=== PATIENT | male | born 1945 | race Caucasian/White ===

== ENCOUNTER 2017-12-08 16:14 | Outpatient (RCR) | payer MEDICARE, OTHER, SELFPAY ==
[2017-12-08 16:31] LABS: Prothrombin Time Fingerstick 32.1 SEC (11.9-14.4)
== END 2017-12-08 16:30 | disposition home or self-care (01) ==
LOC: MTLAB 16:14
PROVIDERS: Family Provider Family Medicine Geriatric Medicine; PCP Family Medicine Geriatric Medicine; Visit Provider Internal Medicine Cardiovascular Disease
DX: I48.0 Paroxysmal atrial fibrillation (principal)
CPT/HCPCS: 36416; 85610

== ENCOUNTER → 2018-01-17 16:20 | Outpatient (CLI) | payer MEDICARE, OTHER, SELFPAY ==
[2018-01-17 17:12] LABS: Absolute Lymphocyte Count 1.11 X10^3/ul (0.83-4.51); Basophil# 0.02 X10^3/uL; Basophil% 0.3 % (0-1); Eosinophil# 0.02 X10^3/uL; Eosinophils% 0.3 % (0-5); Hematocrit 42.6 % (40-54); Hemoglobin 13.9 g/dl (13.0-16.5); Lymphocyte # 1.11 X10^3/ul (4.0); Lymphocyte % 17.9 % (19-41); Mean Corp Hgb Conc 32.6 g/gl (32-36); Mean Corpuscular Hgb 31.9 pg (27.0-32.0); Mean Corpuscular Volume 97.7 fL (80-94); Mean Platelet Vol. 9.9 fl (6.2-12.0); Monocyte# 0.98 X10^3/uL; Monocyte% 15.8 % (0-10); Neutrophil # 4.01 X10^3/uL (2.7-7.7); Neutrophil % 64.9 % (47-70); Platelet Count 187 K/mm3 (150-450); RBC Distribution Width CV 13.9 % (11.6-14.6); RBC Distribution Width SD 49.3 fl (35.1-43.9); Red Blood Count 4.36 M/mm3 (4.6-6.2); White Blood Count 6.2 K/mm3 (4.4-11.0)
[2018-01-17 17:15] LABS: POSITIVE COUNT NO; POSITIVE DIFFERENTIAL NO; POSITIVE MORPHOLOGY NO
[2018-01-17 17:31] LABS: International Normalized Ratio 1.7; Prothrombin Time (Protime)PT. 19.9 SECONDS (11.7-14.9)
[2018-01-17 17:42] LABS: ALB/GLOB Ratio 0.9 RATIO (0.9-2.4); AST(SGOT) 21 U/L (15-37); Alanine Aminotransfer ALT/SGPT 26 U/L (16-61); Albumin, Serum 3.3 g/dL (3.2-5.0); Alkaline Phosphatase 81 U/L (45-117); Anion Gap 8 (5-15); BUN 26 mg/dL (7-18); Calcium,Total 8.5 mg/dL (8.5-10.1); Chloride 104 mmol/L (98-107); Creatinine, Serum 0.96 mg/dL (0.70-1.30); EST Glomerular Filtration Rate 82 mL/min (>60); Est Glom Filt Rate - Afr Amer 99 mL/min (>60); Globulin 3.6 g/dL (2.2-4.2); Glucose 88 mg/dL (74-106); Potassium 4.6 mmol/L (3.5-5.1); Protein, Total 6.9 g/dL (6.4-8.2); Sodium Level 141 mmol/L (136-145); Thyroid Stim Hormone (TSH) 2.42 uIU/mL (0.358-3.74)
[2018-01-19 13:12] LABS: Hep C Antibodies <0.1 s/co ratio (0.0-0.9)
== END ==
PROVIDERS: Internal Medicine Cardiovascular Disease; Family Provider Family Medicine Geriatric Medicine; PCP Family Medicine Geriatric Medicine; Visit Provider Family Medicine Geriatric Medicine
DX: I10 Essential (primary) hypertension (principal); I48.0 Paroxysmal atrial fibrillation; Z12.5 Encounter for screening for malignant neoplasm of prostate; Z13.89 Encounter for screening for other disorder
CPT/HCPCS: 36415; 80053; 84153; 84443; 85025; 85610; 86803; G0103

== ENCOUNTER → 2018-02-08 13:51 | Outpatient (CLI) | payer MEDICARE, OTHER, SELFPAY ==
--- NOTE | 2018-02-08 13:52 | ECHOD_ITS ---
Reason For Study: AV REPAIR Procedure This was a 2D Doppler, Color Flow transthoracic echocardiogram. Exam performed in department. Left Ventricle Normal LV size. Mild concentric left ventricular hypertrophy. Left ventricular systolic function is normal. The estimated ejection fraction is 60 %. No regional wall motion abnormalities noted. Right Ventricle Normal RV size. Normal systolic function. Atria Normal left atrium. Normal right atrium. Mitral Valve Normal mitral valve. Tricuspid Valve Normal tricuspid valve. Mild (1+) tricuspid valve insufficiency. Aortic Valve Trisinus/trileaflet aortic valve. Mild focal aortic valve calcification. Pulmonic Valve Normal pulmonic valve. Great Vessels Normal aortic root. The pulmonary artery is normal size. Normal inferior vena cava. Pericardium/Pleural Small pericardial effusion. MMode/2D Measurements & Calculations LVIDd: 4.6 cm IVSd: 1.3 cm LVOT diam: 2.3 cm LVIDs: 2.8 cm LVPWd: 1.4 cm LVOT area: 4.0 cm2 RVDd: 3.4 cm FS: 39.2 % Ao root diam: 3.9 cm LAV(MOD-bp): 51.3 ml EDV(MOD-sp4): 107.8 ml LAV(MOD-bp) Indexed: 24.5 ml/m2 ESV(MOD-sp4): 44.1 ml LAV(MOD-sp2): 50.1 ml EF(MOD-sp4): 59.1 % LAV(MOD-sp4): 47.2 ml EDV(MOD-sp2): 74.3 ml SV(MOD-sp4): 63.7 ml SV(MOD-sp2): 41.2 ml EF(MOD-sp2): 55.5 % LA A4 area: 17.6 cm2 RA A4 area: 13.8 cm2 Doppler Measurements & Calculations MV E max denys: 83.6 cm/sec Ao V2 max: 177.2 cm/sec AI max denys: 412.5 cm/sec MV A max denys: 76.4 cm/sec Ao max P.6 mmHg AI max P.1 mmHg MV E/A: 1.1 Ao V2 mean: 109.7 cm/sec AI dec slope: 162.6 cm/sec2 Ao mean P.6 mmHg AI P1/2t: 742.9 msec Ao V2 VTI: 33.0 cm [place](I,D): 2.7 cm2 [place](V,D): 2.1 cm2 LV V1 max: 94.1 cm/sec SV(LVOT): 89.4 ml PA V2 max: 110.6 cm/sec LV V1 max P.5 mmHg LV V1 mean P.6 mmHg LV V1 mean: 58.0 cm/sec LV V1 VTI: 22.2 cm TR max denys: 230.9 cm/sec TR max P.3 mmHg Interpretation Summary Normal LV size. Mild concentric left ventricular hypertrophy. Left ventricular systolic function is normal. The estimated ejection fraction is 60 %. Mild focal aortic valve calcification. Ordering Physician: Debora Hoover/José Miguel Monte Referring Physician: BRAYDEN GONZALES [facility] Performed By: Yanna Valles, NELLI, RVT
== END ==
PROVIDERS: Family Provider Family Medicine Geriatric Medicine; PCP Family Medicine Geriatric Medicine; Visit Provider Physician Assistant Medical
DX: I71.2 Thoracic aortic aneurysm, without rupture (principal)
CPT/HCPCS: 93306

== ENCOUNTER 2018-02-12 14:09 | Outpatient (RCR) | payer MEDICARE, OTHER, SELFPAY ==
[2018-02-03 12:12] LABS: International Normalized Ratio 1.9; Prothrombin Time (Protime)PT. 21.4 SECONDS (11.7-14.9)
[2018-02-12 14:20] LABS: Prothrombin Time Fingerstick 16.4 SEC (11.9-14.4)
== END 2018-02-12 15:00 | disposition home or self-care (01) ==
LOC: LAB 14:09
PROVIDERS: Family Provider Family Medicine Geriatric Medicine; PCP Family Medicine Geriatric Medicine; Visit Provider Internal Medicine Cardiovascular Disease
DX: I48.0 Paroxysmal atrial fibrillation (principal)
CPT/HCPCS: 36415; 36416; 85610

== ENCOUNTER 2018-02-22 14:36 | Outpatient (RCR) | payer MEDICARE, OTHER, SELFPAY ==
[2018-02-22 14:51] LABS: Prothrombin Time Fingerstick 25.3 SEC (11.9-14.4)
== END 2018-02-22 15:00 | disposition home or self-care (01) ==
LOC: MTLAB 14:36
PROVIDERS: Family Provider Family Medicine Geriatric Medicine; PCP Family Medicine Geriatric Medicine; Visit Provider Internal Medicine Cardiovascular Disease
DX: I48.0 Paroxysmal atrial fibrillation (principal)
CPT/HCPCS: 36416; 85610

== ENCOUNTER → 2018-03-02 12:08 | Outpatient (CLI) | payer MEDICARE, OTHER, SELFPAY ==
--- NOTE | 2018-03-02 12:19 | RAD_ITS ---
STUDY: X-RAY CHEST REASON FOR EXAM: Male, 72 years old. COUGH TECHNIQUE: Frontal and lateral views of the chest. COMPARISON: December 28, 2016 FINDINGS: Chronic appearing increased interstitial lung markings. There are multiple median sternotomy wires. There is no demonstrated pleural abnormality. Stable left lower lobe platelike atelectasis or scarring. Enlarged heart size. Normal mediastinum and césar. Normal visualized pulmonary arteries. There is atherosclerotic calcification of the aortic arch with tortuosity. There are diffuse degenerative changes of the visualized thoracic spine. There is degenerative osteoarthritis of the bilateral shoulders. There is no demonstrated abnormality of the visualized soft tissue structures of the upper abdomen. RAD/Chest PA and Lateral IMPRESSION: There are no acute findings. Electronically Signed: Roman Wilson MD at 17:17 EDT , Service support ,
== END ==
PROVIDERS: Family Provider Family Medicine Geriatric Medicine; PCP Family Medicine Geriatric Medicine; Visit Provider Family Medicine Geriatric Medicine
DX: R05 Cough (principal); R68.83 Chills (without fever)
CPT/HCPCS: 71046; 87633

== ENCOUNTER 2018-04-19 14:39 | Outpatient (RCR) | payer MEDICARE, OTHER, SELFPAY ==
[2018-04-02 15:58] LABS: International Normalized Ratio 1.2; Prothrombin Time (Protime)PT. 15.6 SECONDS (11.7-14.9)
[2018-04-06 15:53] LABS: International Normalized Ratio 1.7; Prothrombin Time (Protime)PT. 20.1 SECONDS (11.7-14.9)
[2018-04-19 14:51] LABS: Prothrombin Time Fingerstick 22.7 SEC (11.9-14.4)
== END 2018-04-19 15:00 | disposition home or self-care (01) ==
LOC: MTLAB 14:39
PROVIDERS: Family Provider Family Medicine Geriatric Medicine; PCP Family Medicine Geriatric Medicine; Visit Provider Internal Medicine Cardiovascular Disease
DX: I48.0 Paroxysmal atrial fibrillation (principal)
CPT/HCPCS: 36415; 36416; 85610

== ENCOUNTER 2018-05-17 14:47 | Outpatient (RCR) | payer MEDICARE, OTHER, SELFPAY ==
[2018-05-04 13:10] LABS: Prothrombin Time Fingerstick 27.6 SEC (11.9-14.4)
[2018-05-17 16:00] LABS: International Normalized Ratio 2.2; Prothrombin Time (Protime)PT. 24.7 SECONDS (11.7-14.9)
== END 2018-05-17 16:00 | disposition home or self-care (01) ==
LOC: MTLAB 14:47
PROVIDERS: Family Provider Family Medicine Geriatric Medicine; PCP Family Medicine Geriatric Medicine; Visit Provider Internal Medicine Cardiovascular Disease
DX: I48.0 Paroxysmal atrial fibrillation (principal)
CPT/HCPCS: 36415; 36416; 85610

== ENCOUNTER 2018-06-01 08:44 | Outpatient (RCR) | payer MEDICARE, OTHER, SELFPAY ==
[2018-06-01 09:06] LABS: Prothrombin Time Fingerstick 29.8 SEC (11.9-14.4)
== END 2018-06-01 10:00 ==
LOC: MTLAB 08:44
PROVIDERS: Family Provider Family Medicine Geriatric Medicine; PCP Family Medicine Geriatric Medicine; Visit Provider Internal Medicine Cardiovascular Disease
DX: I48.0 Paroxysmal atrial fibrillation (principal)
CPT/HCPCS: 36416; 85610

== ENCOUNTER 2018-07-07 08:26 | Outpatient (RCR) | payer MEDICARE, OTHER, SELFPAY ==
[2018-07-07 08:46] LABS: Prothrombin Time Fingerstick 23.3 SEC (11.9-14.4)
== END 2018-07-07 10:00 | disposition home or self-care (01) ==
LOC: LAB 08:26
PROVIDERS: Family Provider Family Medicine Geriatric Medicine; PCP Family Medicine Geriatric Medicine; Visit Provider Internal Medicine Cardiovascular Disease
DX: I48.0 Paroxysmal atrial fibrillation (principal)
CPT/HCPCS: 36416; 85610

== ENCOUNTER → 2018-07-18 13:33 | Outpatient (CLI) | payer MEDICARE, OTHER, SELFPAY ==
[2018-07-18 14:25] LABS: Absolute Lymphocyte Count 0.92 X10^3/ul (0.83-4.51); Absolute Neutrophil Count 2.4 X10^3/uL (2.0-7.7); Basophil# 0.03 X10^3/uL; Basophil% 0.7 % (0-1); Eosinophil# 0.02 X10^3/uL; Eosinophils% 0.5 % (0-5); Hematocrit 42.5 % (40-54); Hemoglobin 13.7 g/dl (13.0-16.5); Lymphocyte # 0.92 X10^3/ul (4.0); Lymphocyte % 22.5 % (19-41); Mean Corp Hgb Conc 32.2 g/gl (32-36); Mean Corpuscular Volume 99.3 fL (80-94); Mean Platelet Vol. 9.5 fl (6.2-12.0); Monocyte# 0.65 X10^3/uL; Monocyte% 15.9 % (0-10); Neutrophil # 2.43 X10^3/uL (2.7-7.7); Neutrophil % 59.7 % (47-70); Platelet Count 178 K/mm3 (150-450); RBC Distribution Width CV 13.2 % (11.6-14.6); RBC Distribution Width SD 47.2 fl (35.1-43.9); Red Blood Count 4.28 M/mm3 (4.6-6.2); White Blood Count 4.1 K/mm3 (4.4-11.0)
[2018-07-18 14:28] LABS: POSITIVE COUNT NO; POSITIVE DIFFERENTIAL NO; POSITIVE MORPHOLOGY NO
[2018-07-18 14:44] LABS: Vitamin D,25 Hydroxy 19.9 ng/mL (29.95-100.01)
[2018-07-18 14:49] LABS: ALB/GLOB Ratio 0.9 RATIO (0.9-2.4); AST(SGOT) 18 U/L (15-37); Alanine Aminotransfer ALT/SGPT 24 U/L (16-61); Albumin, Serum 3.4 g/dL (3.2-5.0); Alkaline Phosphatase 75 U/L (45-117); Anion Gap 8 (5-15); BUN 23 mg/dL (7-18); BUN/Creat Ratio 25.6 RATIO (10-20); Calcium,Total 8.5 mg/dL (8.5-10.1); Chloride 106 mmol/L (98-107); EST Glomerular Filtration Rate 89 mL/min (>60); Est Glom Filt Rate - Afr Amer 107 mL/min (>60); Globulin 3.7 g/dL (2.2-4.2); Glucose 91 mg/dL (74-106); Potassium 4.3 mmol/L (3.5-5.1); Protein, Total 7.1 g/dL (6.4-8.2); Sodium Level 140 mmol/L (136-145); Thyroid Stim Hormone (TSH) 2.24 uIU/mL (0.358-3.74)
== END ==
PROVIDERS: Family Provider Family Medicine Geriatric Medicine; PCP Family Medicine Geriatric Medicine; Visit Provider Family Medicine Geriatric Medicine
DX: I10 Essential (primary) hypertension (principal); E55.9 Vitamin D deficiency, unspecified
CPT/HCPCS: 36415; 80053; 82306; 84443; 85025

== ENCOUNTER 2018-09-14 09:55 | Outpatient (RCR) | payer MEDICARE, OTHER, SELFPAY ==
[2018-09-14 10:11] LABS: Prothrombin Time Fingerstick 35.2 SEC (11.9-14.4)
== END 2018-09-14 11:00 | disposition home or self-care (01) ==
LOC: LAB 09:55
PROVIDERS: Family Provider Family Medicine Geriatric Medicine; PCP Family Medicine Geriatric Medicine; Visit Provider Internal Medicine Cardiovascular Disease
DX: I48.0 Paroxysmal atrial fibrillation (principal)
CPT/HCPCS: 36416; 85610

== ENCOUNTER 2018-09-28 16:11 | Outpatient (RCR) | payer MEDICARE, OTHER, SELFPAY ==
[2018-09-28 16:21] LABS: Prothrombin Time Fingerstick 23.8 SEC (11.9-14.4)
== END 2018-09-28 17:00 | disposition home or self-care (01) ==
LOC: MTLAB 16:11
PROVIDERS: Family Provider Family Medicine Geriatric Medicine; PCP Family Medicine Geriatric Medicine; Referring Provider Internal Medicine Cardiovascular Disease; Visit Provider Internal Medicine Cardiovascular Disease
DX: I48.0 Paroxysmal atrial fibrillation (principal)
CPT/HCPCS: 36416; 85610

== ENCOUNTER 2018-11-05 11:10 | Outpatient (RCR) | payer MEDICARE, OTHER, SELFPAY ==
[2018-11-05 11:31] LABS: Prothrombin Time Fingerstick 28.1 SEC (11.9-14.4)
--- OUTSIDE RECORDS SUMMARY | 2019-02-07 00:41 | XMS RPT_ITS ---
:1945 Author Organization OHIP Support Name Relationship Address Phone CAROL GARCIA Unavailable [address] + [place] [address] R Unavailable Unavailable Unavailable EBIE, CAROL Unavailable [address] + [place] [address] R Unavailable Unavailable Unavailable EBIE, CAROL Unavailable [address] + [place] [address] R Unavailable Unavailable Unavailable EBIE, CAROL Unavailable [address] + [place] [address] R Unavailable Unavailable Unavailable EBIE, CAROL Unavailable [address] + [place] [address] R Unavailable Unavailable Unavailable EBIE, CAROL Unavailable [address] + [place] [address] R Unavailable Unavailable Unavailable EBIE, CAROL Unavailable [address] + [place] [address] R Unavailable Unavailable Unavailable EBIE, CAROL Unavailable [address] + [place] [address] R Unavailable Unavailable Unavailable EBIE, CAROL Unavailable [address] + [place] [address] R Unavailable Unavailable Unavailable EBIE, CAROL Unavailable [address] + [place] [address] R Unavailable Unavailable Unavailable EBIE, CAROL Unavailable [address] + [place] [address] R Unavailable Unavailable Unavailable EBIE, CAROL Unavailable [address] + [place] [address] R Unavailable Unavailable Unavailable EBIE, CAROL Unavailable [address] + [place] [address] R Unavailable Unavailable Unavailable EBIE, CAROL Unavailable [address] + [place] [address] R Unavailable Unavailable Unavailable EBIE, CAROL Unavailable [address] + [place] [address] R Unavailable Unavailable Unavailable EBIE, CAROL Unavailable [address] + [place] [address] R Unavailable Unavailable Unavailable EBIE, CAROL Unavailable [address] + [place] [address] R Unavailable Unavailable Unavailable EBIE, CAROL Unavailable [address] [phone] [place] [address] R Unavailable Unavailable Unavailable EBIE, CAROL Unavailable [address] + [place] [address] R Unavailable Unavailable Unavailable Care Team Providers Name Role Phone José Miguel Monte Attending Unavailable DougiepaJosé Miguel gonzales Referring Unavailable Julio Cesar, Brayden Chi Primary Care Unavailable Debora Stover Attending Unavailable José Miguel Monte Attending Unavailable Julio Cesar, Brayden Chi Referring Unavailable José Miguel Monte Attending Unavailable MoodisJosé Miguel burrows Referring Unavailable Julio Cesar, Brayden Chi Primary Care Unavailable Debora Hoover Attending Unavailable Julio Cesar, Brayden Chi Referring Unavailable Julio Cesar, Brayden Chi Primary Care Unavailable Crystal Spencer Attending Unavailable Julio Cesar, Brayden Chi Attending Unavailable Julio Cesar, Brayden Chi Primary Care Unavailable Debora Hoover Attending Unavailable Debora Hoover Referring Unavailable Julio Cesar, Brayden Chi Primary Care Unavailable José Miguel Monte Attending Unavailable José Miguel Monte Referring Unavailable Julio Cesar, Brayden Chi Primary Care Unavailable Julio Cesar, Brayden Chi Attending Unavailable Julio Cesar, Brayden Chi Referring Unavailable Julio Cesar, Brayden Chi Primary Care Unavailable Jovanni Tijerina Attending Unavailable Debora Hoover Referring Unavailable José Miguel Monte Attending Unavailable José Miguel Monte Referring Unavailable Julio Cesar, Brayden Chi Primary Care Unavailable José Miguel Monte Attending Unavailable José Miguel Monte Referring Unavailable Julio Cesar, Brayden Chi Primary Care Unavailable José Miguel Monte Attending Unavailable José Miguel Monte Referring Unavailable Julio Cesar, Brayden Chi Primary Care Unavailable José Miguel Monte Attending Unavailable MoodispaJosé Miguel gonzales Referring Unavailable Julio Cesar, Brayden Chi Primary Care Unavailable Julio Cesar, Brayden Chi Attending Unavailable Julio Cesar, Brayden Chi Primary Care Unavailable Moodispachristian, José Miguel Attending Unavailable Moodispachristian, José Miguel Referring Unavailable Julio Cesar, Brayden Chi Primary Care Unavailable Moodispachristian, José Miguel Attending Unavailable Moodispachristian, José Miguel Referring Unavailable Julio Cesar, Brayden Chi Primary Care Unavailable Moodispachristian, José Miguel Attending Unavailable Moodispaw, José Miguel Referring Unavailable Julio Cesar, Brayden Chi Primary Care Unavailable PROBLEMS PROBLEMS DATE TYPE CONDITION / CODE ATTENDING STATUS SOURCE 12/03/2018 Unknown I48.0 - Paroxysmal José Miguel Monte Active [place] [facility] fibrillation / Hospital I48.0(ICD-10) Repository 11/18/2018 Unknown I10 - Essential Julio Cesar, Brayden Chi Active [place] (primary) Community hypertension / Hospital I10(ICD-10) Repository 03/02/2018 Unknown R68.83 - Chills Julio Cesar, Brayden Chi Active [place] (without fever) / [facility] R68.83(ICD-10) Hospital Repository 03/02/2018 Unknown R05 - Cough / Julio Cesar, Brayden Chi Active [place] R05(ICD-10) [facility] Repository 01/17/2018 Unknown I71.2 - Thoracic [place], Active [place] aortic aneurysm, [facility] without rupture / Hospital I71.2(ICD-10) Repository PROCEDURES PROCEDURES No Procedure Records FoundRESULTS RESULTS CARDIOLOGY VISIT Observed: 12/03/2018 Status: F Source: [place] REPORT 4:17 PM [facility] HOSPITAL REPOSITORY [facility] [address] [place] [address] OFFICE VISIT Date of Service: 12/03/18 MR#: [id number] Acct: [id number] Name: TEE GARCIA Rep #: [id number] : 1945 Provider: José Miguel Monte MD Age/Sex: 73/M Location: [facility] [place] Status: Signed HPI HPI Details: TEE GARCIA, is a 73 M who presents to the office today for Outpatient cardiovascular followup. Overall from a cardiac standpoint he states he is doing well. He denies any ongoing symptoms of classic angina pectoris and there has been no obvious episodes of CHF or pulmonary edema. There has been no near syncope or syncope. He has not experienced any underlying palpitations or rapid rates. He has had no obvious recurrent thromboembolic events. He has not had to go through additional cardiovascular diagnostic studies or therapeutic intervention other than this transthoracic echocardiogram on 02/08/2018. Intake Vital Signs12/03/18 Height 5 ft 10 in 12/03/18 Weight: 213 lb 12/03/18 Body Mass Index (BMI) 30.5 12/03/18 Blood Pressure 114/68 Intake Visit Reasons: 9 M FU Allergies atorvastatin Adverse Reaction (Severe, Verified 12/03/18 14:37) Myalgias pravastatin Adverse Reaction (Severe, Verified 12/03/18 14:37) Aggitation rosuvastatin [From Crestor] Adverse Reaction (Severe, Verified 12/03/18 14:37) Myalgias Medications Levothyroxine [Synthroid] 25 mcg PO DAILY 01/19/16 [History Confirmed 12/03/18] Aspirin [Aspirin, Baby] 81 mg PO DAILY@0800 02/19/16 [History Confirmed 12/03/18] amoxicillin 500 mg tablet See Rx Instructions PO .COMPLEX 01/11/18 [History Confirmed 12/03/18] sotalol 160 mg tablet 160 mg PO BID #180 tab 06/11/18 [Rx Confirmed 12/03/18] warfarin 4 mg tablet 4 mg PO .COMPLEX #90 tab 12/03/18 [Rx Confirmed 12/03/18] warfarin 5 mg tablet 5 mg PO .COMPLEX #90 tab 12/03/18 [Rx Confirmed 12/03/18] zolpidem 10 mg tablet 10 mg PO QHS PRN 30 Days #30 tab 12/03/18 [History Confirmed 12/03/18] [facility] Medical History Paroxysmal atrial fibrillation (Chronic) Aortic valve disease (Chronic) Ascending aortic aneurysm (Chronic) Mitral valve prolapse (Chronic) 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 (Chronic) Saddle embolism of pulmonary artery (Chronic) History of DVT (deep vein thrombosis) (Acute) History of TIA (transient ischemic attack) (Acute) History of pulmonary embolus (PE) (Acute) Pneumothorax (Acute) Pulmonary nodule (Acute) Sleep apnea (Acute) 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) Hyperlipidemia (Chronic) Nonrheumatic aortic (valve) insufficiency (Chronic) Pericardial effusion (Chronic) Atrial fibrillation (Inactive) Surgical History History of ascending aortic replacement (Resolved 02/01/16) History of aortic valve repair (Resolved 02/01/16) H/O aortic valve repair (Chronic) History of hernia repair (Resolved) Family History Father Cancer Prostate cancer Mother CVA (cerebral vascular accident) Brother Cancer lymphoma Other Family history of CVA Social History Smoking Status: Never smoker alcohol intake: never substance use type: does not use caffeine: Yes Type: carbonated beverages what type of physical activity do you participate in: other details: swimming frequency: 1-2 times per week duration: 45-60 minutes/day seatbelt use: always do you feel safe at home: Yes ROS Const Const: Negative for fatigue, weakness, weight gain, weight loss, frequent falls or excessive sweating Eyes Eyes: Negative for change in vision, blurry vision or transient loss of vision ENT ENT: Negative for dizziness or balance problems Cardio Chest Pain: No Palpitations: No Edema: Bilateral (occasional) Muscle aches with walking: None Resp Respiratory: Positive for SOB with activity (baseline) and Cough (productive, clear); negative for SOB at rest GI GI: Negative vomiting or vomiting blood/hematemesis : Negative for hematuria Musc Musc: Negative for balance problems, muscle aches/ myalgia, muscle weakness or joint pain Skin Skin: Negative non-healing lesions or rash Neuro Neuro: Negative for weakness, blurry vision, dizziness, lightheadedness, frequent falls or orthostatic symptoms Van Hematologic/Lymphatic: Negative for easy bleeding Endo Endo: Negative for fatigue or excessive sweating Psych Psych: Negative for anxiety or depression Allergy Allergy/Immunology: Negative for hives, Negative for rash Cardiology Exam Const Appearance: cooperative, no acute distress, well developed, healthy appearing, comfortable and well groomed Nutritional Appearance: average body habitus and underweight Orientation: alert, awake and oriented x3 Head Head: normocephalic, atraumatic and normal to inspection Ears: hearing grossly normal bilaterally Nose: external nose normal Face and Sinus: face symmetric Mouth: moist mucous membranes Teeth and gingiva: fair dentition Eyes Eyelids: eyelids normal Conjunctivae: conjunctivae normal Pupils: PERRL EOM: EOM intact bilaterally Neck Neck: normal visual inspection, no JVD and full ROM Carotids: normal carotid upstroke; negative bruit Neck Mass: Negative Neck mass Chest Chest inspection: normal inspection of the chest, symmetric chest movement and midline sternotomy incision Auscultation: Bilateral: Clear to Auscultation Cardio Palpation: normal PMI Rate: regular rate Rhythm: regular rhythm Heart sounds: S1 normal, S2 normal and murmur; negative rub or gallop Murmur: Grade 1/6, soft and mid systolic GI GI: normal to inspection, soft and bowel sounds present; negative tender Neuro General: alert, awake, oriented x3, CN's II-XI intact bilaterally and moves all extremities Skin Skin: no rashes or lesions noted Extremities Pulses: Normal: Right Posterior Tibial Pulse, Left Posterior Tibial Pulse, Right Radial Pulse, Left Radial Pulse Lower Extremity Edema: None: Bilateral Psych Psychological: normal affect Assessment AND Plan 1. Aortic valve disorder I35.9 Plan At the present time he appears to be doing well. He is not complaining of any ongoing symptoms of classic angina pectoris nor has he had any overt episodes of CHF or pulmonary edema. He will continue to be followed. 2. History of aortic valve repair Z98.890; Z86.79 Plan As you know he underwent evaluation and care of his aortic valve and thoracic aorta on 02/01/2016 at [facility]. He had repair of the aortic valve along with replacement of the ascending aorta. He appears to be doing well at this time. 3. Paroxysmal atrial fibrillation I48.0 Plan He has had no obvious recurrence of his atrial dysrhythmia. Based on his history and his medications he had an ECG today. He was noted to be in sinus rhythm with no acute ECG changes. Orders Orders: 4. Ascending aortic aneurysm I71.2 Plan Again he has undergone evaluation care was ascending aorta. This was for dilatation/yyyy aneurysm. This was repaired on 02/01/2016 with replacement of the ascending aorta and a [facility] main campus. 5. History of ascending aortic replacement Z95.828 Plan He has had followup of his ascending aorta. He had a chest CTA performed on 04/15/2016. The results are as noted above. 6. Mitral valve prolapse I34.1 Plan He will continue to be followed by history, exam: Echocardiogram was deemed appropriate. 7. Palpitations R00.2 Plan He denies any ongoing palpitations. He will continue with current medical management. 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 He has had no obvious complication. Plan Detail Other Medications New: warfarin 4 mg PO 4 mg PO Take with a 5 mg tablet to = 9mg Monday through (take 8m g Fri,Sat, Sun) 90 tabs 3RF Additional Comments There has been no obvious recurrence of a thromboembolic disease as well. Overall he will continue medical management. He will be scheduled for an outpatient visit. He will notify the office if any concerns in the interim. Thank you for allowing me to participate in the care of your patient. Please don't hesitate to call if any issues arise. This note was generated using a voice recognition system and there may be incorrect words, spelling or punctuation that were not noted when reviewing the office note prior to saving. Follow Up 9 Months (PFM) Coding Level of Care Code Off vis,est,level 4 Diagnoses Aortic valve disorder I35.9 History of aortic valve repair Z98.890; Z86.79 Paroxysmal atrial fibrillation I48.0 Ascending aortic aneurysm I71.2 History of ascending aortic replacement Z95.828 Mitral valve prolapse I34.1 Palpitations R00.2 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 Z79.01 Coding Level of Care Code Off vis,est,level 4 Diagnoses Aortic valve disorder I35.9 History of aortic valve repair Z98.890; Z86.79 Paroxysmal atrial fibrillation I48.0 Ascending aortic aneurysm I71.2 History of ascending aortic replacement Z95.828 Mitral valve prolapse I34.1 Palpitations R00.2 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 Z79.01 Supplemental Info Supplemental Information Transthoracic echocardiogram: 02/08/2018 Interpretation Summary Normal LV size. Mild concentric left ventricular hypertrophy. Left ventricular systolic function is normal. The estimated ejection fraction is 60 %. Mild focal aortic valve calcification. Stress test: 03/22/20 EXERCISE TOLERANCE TEST: The patient exercised on a German protocol for 6 minutes and 30 seconds completing stage 2 and 30 seconds of stage 3, achieving a peak heart rate of 118 beats per minute (77% predicted maximum heart rate) and a peak blood pressure of 152/78 mmHg and a peak MET capacity of approximately 7 METS. The baseline ECG demonstrated normal sinus rhythm. The peak exercise ECG demonstrated no obvious ECG changes at the heart rate achieved. There was a rare PVC during recovery. The functional capacity was considered average. The patient had no complaint of chest discomfort during exercise or recovery. The examination was discontinued secondary to dyspnea. IMPRESSION: 1. Technically inadequate (percent predicted maximum heart rate less than 85%) exercise tolerance test. 2. Peak exercise ECG with no obvious ECG changes at the heart rate achieved. 3. Rare PVC during recovery. Cardiac catheterization: 01/19/2016 Final impression: 1. Elevated left ventricular end diastolic pressure compatible decreased diastolic compliance 2. Borderline to mild elevation of the intrapulmonary and right heart pressures 3. Oxygen saturations: No obvious evidence of intercardiac shunting phenomena 4. Left ventricle: A. Normal left ventricular size, wall motion, and systolic function B. Estimated LVEF of 65% 5. Left main coronary artery: A. Angiographically normal 6. Left anterior descending coronary artery: A. Angiographically normal 7. Left circumflex coronary artery: A. Angiographically normal 8. Right coronary artery: A. Large dominant vessel B. Angiographically normal 9. Aortic valve: A. Insufficient-moderate 10. Aortic root/ascending thoracic aorta: A. Dilated/aneurysmal 11. Mitral valve: A. Stenotic-mild Chest CTA: 04/15/2016 IMPRESSION: No identified pulmonary embolus. Interval resolution of filling defects from 02/19/2016. Postsurgical changes of the ascending thoracic aorta with persistent stranding of the mediastinal soft tissues, moderate volume pericardial effusion, pleural effusions and bibasilar atelectasis. Labs LDL Cholesterol 153 mg/dL (0-130) H 05/28/13 HDL Cholesterol 52 mg/dL 05/28/13 Triglycerides 49 mg/dL 05/28/13 VLDL Cholesterol 10 mg/dL (5-40) 05/28/13 Diagnostics Electrocardiogram 12/03/18 Echocardiogram 02/08/18 Stress Test 03/22/16 Cardiac Catheterization 01/19/16 Chest X-Ray 03/02/18 12/03/18 4832 <Electronically signed by José Miguel Monte MD> Date José Miguel Monte MD Cosigner Signature: Date (if applicable) CC: Brayden Gonazles MD PROTIME W/INR Collected: 12/03/2018 Status: F Source: [place] 3:40 PM [facility] REPOSITORY TYPE CODE TESTS RESULT OUT OF REFERENCE UNITS RANGE LAB L9200.1001 11.9-14.4 SEC High PROTIME ISTAT 25.9 Result Comment: Reference Range 11.9 - 14.4 LAB L9200.2000 Normal INR ISTAT 2.20 Result Comment: Critical Value > 3.5 Performed By: #### L9200.0000 #### [facility] Laboratory Point of Care [address] [address] 12 LEAD EKG PERFORMED Observed: 12/03/2018 Status: F Source: [place] [facility] 2:41 PM [facility] HOSPITAL REPOSITORY [facility] [address] [place] [address] 12 Lead EKG performed by [facility] 12/03/18 144 MR#: [id number] Acct: [id number] Name: TEE GARCIA Rep #: [id number] : 1945 73 From: José Miguel Monte MD Attending Dr: José Miguel Monte MD Status: DEP AMB Ordering Dr: José Miguel Monte MD Date: 12/03/18 Location: [facility] [place] Sex: M C Admitted: [facility]/12 Lead EKG performed by [facility] ECG Report Interpretation Sinus Rhythm Electronically signed on 12/03/2018 at 17:25 by José Miguel Monte Software Version [id number] 12/03/18 1727 Date José Miguel Monte MD CC: Brayden Gonzales MD Date Dictated: 12/03/18 144 Date Transcribed: 12/03/181439 Orthopaedic Technologist: PM Signed PROTIME W/INR Collected: 11/05/2018 Status: F Source: [place] 11:22 AM [facility] REPOSITORY TYPE CODE TESTS RESULT OUT OF REFERENCE UNITS RANGE LAB L9200.1001 11.9-14.4 SEC High PROTIME ISTAT 28.1 Result Comment: Reference Range 11.9 - 14.4 LAB L9200.2000 Normal INR ISTAT 2.40 Result Comment: Critical Value > 3.5 Performed By: #### L9200.0000 #### [facility] Point of Care [address] [place] [address] PROTIME W/INR Collected: 09/28/2018 Status: F Source: [place] 4:16 PM [facility] REPOSITORY TYPE CODE TESTS RESULT OUT OF REFERENCE UNITS RANGE LAB L9200.1001 11.9-14.4 SEC High PROTIME ISTAT 23.8 Result Comment: Reference Range 11.9 - 14.4 LAB L9200.2000 Normal INR ISTAT 2.10 Result Comment: Critical Value > 3.5 Performed By: #### L9200.0000 #### [facility] Point of Care [address] [place] [address] PROTIME W/INR Collected: 09/14/2018 Status: F Source: [place] 10:02 AM [facility] REPOSITORY TYPE CODE TESTS RESULT OUT OF REFERENCE UNITS RANGE LAB L9200.1001 11.9-14.4 SEC High PROTIME ISTAT 35.2 Result Comment: Reference Range 11.9 - 14.4 LAB L9200.2000 Normal INR ISTAT 3.10 Result Comment: Critical Value > 3.5 Performed By: #### L9200.0000 #### [facility] Point of Care [address] [place] [address] CBC W/DIFF, AUTOMATED Collected: 07/18/2018 Status: F Source: [place] 1:35 PM [facility] REPOSITORY TYPE CODE TESTS RESULT OUT OF RANGE REFERENCE UNITS LAB L100.1000 4.4-11.0 K/mm3 Low WBC 4.1 LAB L100.1200 4.6-6.2 M/mm3 Low RBC 4.28 LAB L100.1300 13.0-16.5 g/dl Normal HGB 13.7 LAB L100.1400 40-54 % Normal HCT 42.5 LAB L100.1500 80-94 fL High MCV 99.3 LAB L100.1600 27.0-32.0 pg Normal MCH 32.0 LAB L100.1700 32-36 g/gl Normal MCHC 32.2 LAB L100.1810 11.6-14.6 % Normal RDW CV 13.2 LAB L100.1820 35.1-43.9 fl High RDW SD 47.2 LAB L100.1900 150-450 K/mm3 Normal PLT 178 LAB L100.2000 6.2-12.0 fl Normal MPV 9.5 LAB L100.2100 47-70 % Normal NEUT% 59.7 LAB L100.2200 19-41 % Normal LY% 22.5 LAB L100.2300 0-10 % High MONO% 15.9 LAB L100.2400 0-5 % Normal EO% 0.5 LAB L100.2500 0-1 % Normal BASO% 0.7 LAB L100.2550 0.0-0.9 % Normal IM GRAN % 0.700 Result Comment: IG% - Immature Granulocytes (promyelocytes, myelocytes and metamyelocytes) > 1% indicates that a LEFT SHIFT is Present. LAB L100.2620 2.0-7.7 X10 3/uL Normal Absolute Neut 2.4 LAB L100.2720 0.83-4.51 X10 3/ul Normal Absolute Lymph 0.92 Performed By: #### L100.0100 #### [facility] [address] [place], [address] VITAMIN D,25 HYDROXY Collected: 07/18/2018 Status: F Source: [place] 1:35 PM [facility] REPOSITORY TYPE CODE TESTS RESULT OUT OF REFERENCE UNITS RANGE LAB L506.1000 29.95-100.01 ng/mL Low Vitamin D 19.9 25-OH Result Comment: Vitamin D 25(OH) Status Range Deficiency <20 ng/mL (50nmol/L) Insuffciency 20 - 30 ng/mL (50 - 75 nmol/L) Sufficiency 30 - 100 ng/mL (75 - 250 nmol/L) Toxicity >100 ng/mL (>250 nmol/L) Performed By: #### L506.1000 #### [facility] [address], [address] COMPREHENSIVE METABOLIC Collected: 07/18/2018 Status: F Source: [place] 1:35 PM [facility] REPOSITORY TYPE CODE TESTS RESULT OUT OF RANGE REFERENCE UNITS LAB L501.0100 74-106 mg/dL Normal GLU 91 Result Comment: Please note revised GLUCOSE reference range effective 2017. LAB L501.1000 7-18 mg/dL High BUN 23 LAB L501.1100 0.70-1.30 mg/dL Normal CREAT,SERUM 0.90 Result Comment: The validity of the calculated GFR AND GFRAA in patients over 70 years has not been determined. Clinical correlation is essential. LAB L501.1110 >60 mL/min Normal EST GFR 89 Result Comment: Non- GFR Calc LAB L501.1115 >60 mL/min Normal EST GFR - AA 107 Result Comment: GFR Calc LAB L501.1300 10-20 RATIO High BUN/CRE 25.6 LAB L501.1500 6.4-8.2 g/dL T Normal PROT 7.1 LAB L501.1800 3.2-5.0 g/dL Normal ALB 3.4 LAB L501.1950 2.2-4.2 g/dL Normal GLOB 3.7 LAB L501.2000 0.9-2.4 RATIO Normal A/G 0.9 LAB L501.2200 8.5-10.1 mg/dL CA Normal 8.5 LAB L501.4100 15-37 U/L Normal AST 18 LAB L501.4305 45-117 U/L Normal ALK P 75 LAB L501.4405 16-61 U/L Normal ALT 24 LAB L501.4600 0.20-1.00 mg/dL T Normal BILI 0.50 LAB L501.5300 136-145 mmol/L NA Normal 140 LAB L501.5600 3.5-5.1 mmol/L K Normal 4.3 LAB L501.5900 98-107 mmol/L CL Normal 106 LAB L501.6100 21.0-32.0 mmol/L Normal CO2 26.0 LAB L501.6200 5-15 Normal GAP 8 Performed By: #### L500.4050, L501.9520 #### [facility] [address] [place], [address] THYROID STIM HORMONE Collected: 07/18/2018 Status: F Source: [place] ([facility]) 1:35 PM [facility] REPOSITORY TYPE CODE TESTS RESULT OUT OF RANGE REFERENCE UNITS LAB L501.9520 0.358-3.74 uIU/mL Normal TSH 2.24 Performed By: #### L500.4050, L501.9520 #### [facility] [address] [place], [address] PROTIME W/INR Collected: 07/07/2018 Status: F Source: [place] 8:40 AM [facility] REPOSITORY TYPE CODE TESTS RESULT OUT OF REFERENCE UNITS RANGE LAB L9200.1001 11.9-14.4 SEC High PROTIME ISTAT 23.3 Result Comment: Reference Range 11.9 - 14.4 LAB L9200.2000 Normal INR ISTAT 2.00 Result Comment: Critical Value > 3.5 Performed By: #### L9200.0000 #### [facility] Point of Care [address] [place] [address] PROTIME W/INR Collected: 06/01/2018 Status: F Source: JUANCHO FINGERSTICK 9:00 AM [facility] REPOSITORY TYPE CODE TESTS RESULT OUT OF REFERENCE UNITS RANGE LAB L9200.1001 11.9-14.4 SEC High PROTIME ISTAT 29.8 Result Comment: Reference Range 11.9 - 14.4 LAB L9200.2000 Normal INR ISTAT 2.60 Result Comment: Critical Value > 3.5 Performed By: #### L9200.0000 #### [facility] Laboratory Point of Care [address] [place] [address] PROTHROMBIN TIME W/INR Collected: 05/17/2018 Status: F Source: JUANCHO 2:49 PM [facility] REPOSITORY TYPE CODE TESTS RESULT OUT OF RANGE REFERENCE UNITS LAB L300.4150 11.7-14.9 SECONDS High PROTIME 24.7 LAB L300.4200 Normal INR 2.2 Performed By: #### L300.3900 #### [facility] [address] [place], [address] PROTIME W/INR Collected: 05/04/2018 Status: F Source: JUANCHO FINGERSTICK 1:06 PM [facility] REPOSITORY TYPE CODE TESTS RESULT OUT OF REFERENCE UNITS RANGE LAB L9200.1001 11.9-14.4 SEC High PROTIME ISTAT 27.6 Result Comment: Reference Range 11.9 - 14.4 LAB L9200.2000 Normal INR ISTAT 2.40 Result Comment: Critical Value > 3.5 Performed By: #### L9200.0000 #### [facility] Point of Care [address] [place] [address] PROTIME W/INR Collected: 04/19/2018 Status: F Source: JUANCHO FINGERSTICK 2:48 PM [facility] REPOSITORY TYPE CODE TESTS RESULT OUT OF REFERENCE UNITS RANGE LAB L9200.1001 11.9-14.4 SEC High PROTIME ISTAT 22.7 Result Comment: Reference Range 11.9 - 14.4 LAB L9200.2000 Normal INR ISTAT 2.00 Result Comment: Critical Value > 3.5 Performed By: #### L9200.0000 #### [facility] Point of Care [address] [place] [address] PROTHROMBIN TIME W/INR Collected: 04/06/2018 Status: F Source: JUANCHO 2:29 PM [facility] REPOSITORY TYPE CODE TESTS RESULT OUT OF RANGE REFERENCE UNITS LAB L300.4150 11.7-14.9 SECONDS High PROTIME 20.1 LAB L300.4200 Normal INR 1.7 Performed By: #### L300.3900 #### [facility] [address] [place], [address] PROTHROMBIN TIME W/INR Collected: 04/02/2018 Status: F Source: JUANCHO 3:18 PM [facility] REPOSITORY TYPE CODE TESTS RESULT OUT OF RANGE REFERENCE UNITS LAB L300.4150 11.7-14.9 SECONDS High PROTIME 15.6 LAB L300.4200 Normal INR 1.2 Performed By: #### L300.3900 #### [facility] [address] [place], [place], [address] Observed: 03/02/2018 Status: F Source: [place] RESPIRATORY PANEL 12:25 PM [facility] MOLECULAR REPOSITORY RP PANEL Normal Reference Range = Not Detected Copy of report sent to Infection Control Printer MS#[id number] 03/03/18 9520 ALEXANDERGeoff. RESULTS CALLED TO DR GONZALES NURSE LINE 03/03/18 7855 Kimberley Nuñez. REPORT READ BACK BY NO ONE . ADENOVIRUS Not Detected HUMAN METAPHNEUMO Positive for HUMAN METAPHNEUMO VIRUS by NAAT technology INFLUENZA A Not Detected INFLUENZA A (SUBTYPE H1) Not Detected INFLUENZA A (SUBTYPE H3) Not Detected INFLUENZA B Not Detected PARAINFLUENZA 1 Not Detected PARAINFLUENZA 2 Not Detected PARAINFLUENZA 3 Not Detected PARAINFLUENZA 4 Not Detected RHINOVIRUS Not Detected RSV A Not Detected RSV B Not Detected NAAT METHOD Testing was performed using nucleic acid amplification ORGANISM 1: HUMAN META Performed By: #### M100.638 #### [facility] [address] [place], [address] CHEST PA AND LATERAL Observed: 03/02/2018 Status: F Source: [place] 12:21 PM [facility] REPOSITORY [facility] Imaging Services [address] [place] [address] Chest PA and Lateral MR#: [id number] Acct: [id number] Name: TEE GARCIA Rep #: [id number] : 1945 M 72 From: Roman Wilson MD PCP: Julio Cesar FERMIN,Brayden Mosher Status: REG CLI Study: Chest PA and Lateral Date of Exam: 03/02/18 Exam# [id number] Ordering Dr: Brayden Gonzales MD STUDY: X-RAY CHEST REASON FOR EXAM: Male, 72 years old. COUGH TECHNIQUE: Frontal and lateral views of the chest. COMPARISON: December 28, 2016 FINDINGS: Chronic appearing increased interstitial lung markings. There are multiple median sternotomy wires. There is no demonstrated pleural abnormality. Stable left lower lobe platelike atelectasis or scarring. Enlarged heart size. Normal mediastinum and césar. Normal visualized pulmonary arteries. There is atherosclerotic calcification of the aortic arch with tortuosity. There are diffuse degenerative changes of the visualized thoracic spine. There is degenerative osteoarthritis of the bilateral shoulders. There is no demonstrated abnormality of the visualized soft tissue structures of the upper abdomen. RAD/Chest PA and Lateral IMPRESSION: There are no acute findings. Electronically Signed: Roman Wilson MD at 17:17 EDT , Service support , CC: Brayden Gonzales MD Orthopaedic Technologist: Signed PROTIME W/INR Collected: 02/22/2018 Status: F Source: [place]UANCHO FINGERSTICK 2:46 PM [facility] REPOSITORY TYPE CODE TESTS RESULT OUT OF REFERENCE UNITS RANGE LAB L9200.1001 11.9-14.4 SEC High PROTIME ISTAT 25.3 Result Comment: Reference Range 11.9 - 14.4 LAB L9200.2000 Normal INR ISTAT 2.20 Result Comment: Critical Value > 3.5 Performed By: #### L9200.0000 #### [facility] Point of Care [address] [place] [address] PROTIME W/INR Collected: 02/12/2018 Status: F Source: JUANCHO FINGERSTICK 2:15 PM [facility] REPOSITORY TYPE CODE TESTS RESULT OUT OF REFERENCE UNITS RANGE LAB L9200.1001 11.9-14.4 SEC High PROTIME ISTAT 16.4 Result Comment: Reference Range 11.9 - 14.4 LAB L9200.2000 Normal INR ISTAT 1.40 Result Comment: Critical Value > 3.5 Performed By: #### L9200.0000 #### [facility] Point of Care [address] [place] [address] ECHOCARDIOGRAM COMPLETE Observed: 02/08/2018 Status: F Source: [place] 5:27 PM [facility] REPOSITORY [facility] Cardiovascular Services [address] [place] [address] Echo Complete 02/08/18 1405 MR#: [id number] Acct: [id number] Name: TEE GARCIA Rep #: [id number] : 1945 72 From: Jovanni Tijerina MD Attending Dr: Debora Hoover Status: REG CLI Ordering Dr: Debora Hoover Date: 02/08/18 Location: CVS Sex: M C Admitted: Reason For Study: AV REPAIR Procedure This was a 2D Doppler, Color Flow transthoracic echocardiogram. Exam performed in department. Left Ventricle Normal LV size. Mild concentric left ventricular hypertrophy. Left ventricular systolic function is normal. The estimated ejection fraction is 60 %. No regional wall motion abnormalities noted. Right Ventricle Normal RV size. Normal systolic function. Atria Normal left atrium. Normal right atrium. Mitral Valve Normal mitral valve. Tricuspid Valve Normal tricuspid valve. Mild (1+) tricuspid valve insufficiency. Aortic Valve Trisinus/trileaflet aortic valve. Mild focal aortic valve calcification. Pulmonic Valve Normal pulmonic valve. Great Vessels Normal aortic root. The pulmonary artery is normal size. Normal inferior vena cava. Pericardium/Pleural Small pericardial effusion. MMode/2D Measurements AND Calculations LVIDd: 4.6 cm IVSd: 1.3 cm LVOT diam: 2.3 cm LVIDs: 2.8 cm LVPWd: 1.4 cm LVOT area: 4.0 cm2 RVDd: 3.4 cm FS: 39.2 % Ao root diam: 3.9 cm LAV(MOD-bp): 51.3 ml EDV(MOD-sp4): 107.8 ml LAV(MOD-bp) Indexed: 24.5 ml/m2 ESV(MOD-sp4): 44.1 ml LAV(MOD-sp2): 50.1 ml EF(MOD-sp4): 59.1 % LAV(MOD-sp4): 47.2 ml EDV(MOD-sp2): 74.3 ml SV(MOD-sp4): 63.7 ml SV(MOD-sp2): 41.2 ml EF(MOD-sp2): 55.5 % LA A4 area: 17.6 cm2 RA A4 area: 13.8 cm2 Doppler Measurements AND Calculations MV E max denys: 83.6 cm/sec Ao V2 max: 177.2 cm/sec AI max denys: 412.5 cm/sec MV A max denys: 76.4 cm/sec Ao max P.6 mmHg AI max P.1 mmHg MV E/A: 1.1 Ao V2 mean: 109.7 cm/sec AI dec slope: 162.6 cm/sec2 Ao mean P.6 mmHg AI P1/2t: 742.9 msec Ao V2 VTI: 33.0 cm CHAR[place]TE(I,D): 2.7 cm2 [place](V,D): 2.1 cm2 LV V1 max: 94.1 cm/sec SV(LVOT): 89.4 ml PA V2 max: 110.6 cm/sec LV V1 max P.5 mmHg LV V1 mean P.6 mmHg LV V1 mean: 58.0 cm/sec LV V1 VTI: 22.2 cm TR max denys: 230.9 cm/sec TR max P.3 mmHg Interpretation Summary Normal LV size. Mild concentric left ventricular hypertrophy. Left ventricular systolic function is normal. The estimated ejection fraction is 60 %. Mild focal aortic valve calcification. Ordering Physician: Debora Hoover/José Miguel Monte Referring Physician: BRAYDEN GONZALES CHI Performed By: Yanna Valles, NELLI, RVT 02/08/181726 Date Jovanni Tijerina MD CC: Debora Hoover; Brayden Gonzales MD Date Dictated: 02/08/18 1405 Date Transcribed: 02/08/181726 Orthopaedic Technologist: Signed PROTHROMBIN TIME W/INR Collected: 02/03/2018 Status: F Source: [place] 11:39 AM [facility] REPOSITORY TYPE CODE TESTS RESULT OUT OF RANGE REFERENCE UNITS LAB L300.4150 11.7-14.9 SECONDS High PROTIME 21.4 LAB L300.4200 Normal INR 1.9 Performed By: #### L300.3900 #### [facility] [address] [place], [address] CARDIOLOGY VISIT Observed: 01/18/2018 Status: F Source: JUANCHO REPORT 12:41 PM [facility] REPOSITORY [facility] [address] [place] [address] OFFICE VISIT Date of Service: 01/17/18 MR#: [id number] Acct: [id number] Name: TEE GARCIA Rep #: [id number] : 1945 Provider: Debora Hoover Age/Sex: 72/M Location: [facility] [place] Status: Signed HPI HPI Details: TEE GARCIA, is a 72 M who presents to the office today for a cardiovascular follow-up. He has a history of paroxysmal atrial fibrillation, mitral valve prolapse, PACs, PVCs, mitral valve calcification with known thoracic aortic aneurysm. He did undergo an aortic valve repair with thoracic aortic aneurysm repair/replacement in January 2016. From a cardiac standpoint, patient is doing well. He does not have any chest discomfort/heaviness/tightness. His exercise tolerance is stable for his age. He does not have any worsening symptoms of shortness of breath. He denies any PND. He does not have any orthopnea. He does not have any symptoms of congestive heart failure. He does not have any palpitations that he is aware of. He does not have any lightheadedness or dizziness. He does not have any near-syncope or syncope. He does not have any lower extremity edema. He does not have any symptoms of claudication. Intake Vital Signs01/17/18 Height 5 ft 10 in 01/17/18 Weight: 210 lb 01/17/18 Body Mass Index (BMI) 30.1 01/17/18 Blood Pressure 130/76 01/17/18 Blood Pressure Location Lt brachial Intake Visit Reasons: 6 M [employer] [place] [employer] Required: No Accompanied by: Is patient in pain?: No Allergies atorvastatin Adverse Reaction (Severe, Verified 01/11/18 09:00) Myalgias pravastatin Adverse Reaction (Severe, Verified 01/11/18 08:59) Aggitation rosuvastatin [From Crestor] Adverse Reaction (Severe, Verified 01/11/18 09:00) Myalgias Medications Sotalol HCl [Betapace (Beta Kwasi)] 160 mg PO BID 01/18/16 [History Confirmed 01/11/18] Levothyroxine [Synthroid] 25 mcg PO DAILY 01/19/16 [History Confirmed 01/11/18] Aspirin [Aspirin, Baby] 81 mg PO DAILY@0800 02/19/16 [History Confirmed 01/11/18] amoxicillin 500 mg tablet See Label Instructions PO .COMPLEX 01/11/18 [History Confirmed 01/11/18] zolpidem 10 mg tablet PO 30 Days #30 01/17/18 [History Confirmed 01/17/18] warfarin 4 mg tablet 4 mg PO .COMPLEX 01/18/18 [History] warfarin 5 mg tablet 5 mg PO .COMPLEX 01/18/18 [History] Ejection fraction %: 60 to 64 PFSH Medical History Aortic valve disease (Chronic) Ascending aortic aneurysm (Chronic) Mitral valve prolapse (Chronic) 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 (Chronic) Atrial fibrillation (Chronic) 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) Hyperlipidemia (Chronic) Nonrheumatic aortic (valve) insufficiency (Chronic) Pericardial effusion (Chronic) Surgical History H/O aortic valve repair (Chronic) Family History Father Cancer Prostate cancer Mother CVA (cerebral vascular accident) Brother Cancer lymphoma Other Family history of CVA Social History Smoking Status: Never smoker alcohol intake: never substance use type: does not use caffeine: Yes Type: carbonated beverages what type of physical activity do you participate in: other details: swimming frequency: 1-2 times per week duration: 45-60 minutes/day seatbelt use: always do you feel safe at home: Yes ROS Const Const: Negative for weakness, fatigue, fever(s) or headache(s) Eyes Eyes: Negative for blind spots, loss of peripheral vision or transient loss of vision ENT ENT: Negative for headache(s), dizziness, tinnitus or Nosebleed/epistaxis Cardio Chest Pain: No Palpitations: No Edema: None Muscle aches with walking: None Resp Respiratory: Negative for SOB with activity, SOB at rest, SOB orthopnea\SOB lying down or Cough GI GI: Negative nausea, vomiting, heartburn or vomiting blood/hematemesis : Negative for hematuria Musc Musc: Negative for muscle aches/ myalgia Neuro Neuro: Negative for weakness, headache(s), dizziness, near syncope, syncope, lightheadedness or orthostatic symptoms Van Hematologic/Lymphatic: Negative for easy bleeding Endo Endo: Negative for fatigue Cardiology Exam Const Appearance: cooperative, no acute distress and well developed Orientation: alert, awake and oriented x3 Head Head: normocephalic and atraumatic Mouth: moist mucous membranes Eyes General: appearance normal, both eyes and all related structures Conjunctivae: conjunctivae normal Pupils: PERRL EOM: EOM intact bilaterally Neck Neck: normal visual inspection, no lymphadenopathy and no JVD Carotids: Negative bruit Neck Mass: Negative Neck mass Chest Chest inspection: normal inspection of the chest, symmetric chest movement and midline sternotomy incision Auscultation: Bilateral: Clear to Auscultation Cardio Palpation: normal PMI Rate: regular rate Rhythm: regular rhythm Heart sounds: S1 normal, S2 normal and murmur; negative rub or gallop Murmur: Grade 1/6, soft and mid systolic GI GI: normal to inspection, soft, no hepatosplenomegaly and bowel sounds present; negative tender Neuro General: alert, awake, oriented x3, CN's II-XI intact bilaterally and moves all extremities Extremities Pulses: Normal: Right Posterior Tibial Pulse, Left Posterior Tibial Pulse, Right Radial Pulse, Left Radial Pulse Lower Extremity Edema: None: Bilateral Psych Psychological: normal affect Supplemental Info Echocardiogram in 2016 that was done postoperatively demonstrated an ejection fraction of 60%. Mild mitral, tricuspid and aortic insufficiency. Trivial pulmonic insufficiency. Aortic root repair. Assessment AND Plan 1. Aortic valve disease I35.9 JERARDO Rodrigues Stable, patient has not had any recent echocardiograms since his surgery. Will obtain an echocardiogram to evaluate stability of valve. He is aware of antibiotic prophylaxis. 2. Ascending aortic aneurysm I71.2 JERARDO Rodrigues We will continue to monitor with periodic CT scans. Orders Orders: 3. Paroxysmal atrial fibrillation I48.0 JERARDO Rodrigues Patient has been maintaining sinus rhythm. He will continue with his current dose of beta-kwasi. He is anticoagulated 4. Pure hypercholesterolemia E78.00; E78.0 JERARDO Rodrigues Lipids are being monitored closely by his primary care doctor. Will not make any adjustments. Plan Detail Other Medications New: Discontinued: docusate sodium Discontinued Reason: Pt no longer 100 mg PO BID PRN PRN Constipation taking multivitamin with folic acid Discontinued Reason: 1 tab PO DAILY Pt no longer taking Additional Comments - JERARDO Berrios The above patient was discussed with Dr. Tijerina in Dr. Monte's absence, he agrees with plan of care. Thank you for allowing us to participate in patient's plan of care, if you have any questions please do not hesitate to call. This note was generated using a voice recognition system and there may be incorrect words, spelling or punctuation errors that were not noted when reviewing the office note prior to saving. Follow Up 9 Months (pfm) Coding Level of Care Code Off vis,est,level 3 Diagnoses Aortic valve disease I35.9 Ascending aortic aneurysm I71.2 Paroxysmal atrial fibrillation I48.0 Atrial fibrillation type: paroxysmal Pure hypercholesterolemia E78.00; E78.0 Hyperlipidemia type: pure hypercholesterolemia Coding Level of Care Code Off vis,est,level 3 Diagnoses Aortic valve disease I35.9 Ascending aortic aneurysm I71.2 Paroxysmal atrial fibrillation I48.0 Atrial fibrillation type: paroxysmal Pure hypercholesterolemia E78.00; E78.0 Hyperlipidemia type: pure hypercholesterolemia 01/18/18 1052 <Electronically signed by Debora Hoover PA> Date Debora KURTZ 01/18/18 1241<Electronically signed by Jovanni Tijerina MD> Cosigner Signature: Date (if applicable) Jovanni Tijerina MD CC: Brayden Gonzales MD PROTHROMBIN TIME W/INR Collected: 01/17/2018 Status: F Source: [place] 4:30 PM [facility] REPOSITORY TYPE CODE TESTS RESULT OUT OF RANGE REFERENCE UNITS LAB L300.4150 11.7-14.9 SECONDS High PROTIME 19.9 LAB L300.4200 Normal INR 1.7 Performed By: #### L300.3900 #### [place] [facility] [address] [place], [place], [address] CBC W/DIFF, AUTOMATED Collected: 01/17/2018 Status: F Source: [place] 4:26 PM [facility] REPOSITORY TYPE CODE TESTS RESULT OUT OF RANGE REFERENCE UNITS LAB L100.1000 4.4-11.0 K/mm3 Normal WBC 6.2 LAB L100.1200 4.6-6.2 M/mm3 Low RBC 4.36 LAB L100.1300 13.0-16.5 g/dl Normal HGB 13.9 LAB L100.1400 40-54 % Normal HCT 42.6 LAB L100.1500 80-94 fL High MCV 97.7 LAB L100.1600 27.0-32.0 pg Normal MCH 31.9 LAB L100.1700 32-36 g/gl Normal MCHC 32.6 LAB L100.1810 11.6-14.6 % Normal RDW CV 13.9 LAB L100.1820 35.1-43.9 fl High RDW SD 49.3 LAB L100.1900 150-450 K/mm3 Normal PLT 187 LAB L100.2000 6.2-12.0 fl Normal MPV 9.9 LAB L100.2100 47-70 % Normal NEUT% 64.9 LAB L100.2200 19-41 % Low LY% 17.9 LAB L100.2300 0-10 % High MONO% 15.8 LAB L100.2400 0-5 % Normal EO% 0.3 LAB L100.2500 0-1 % Normal BASO% 0.3 LAB L100.2550 0.0-0.9 % Normal IM GRAN % 0.800 Result Comment: IG% - Immature Granulocytes (promyelocytes, myelocytes and metamyelocytes) > 1% indicates that a LEFT SHIFT is Present. LAB L100.2620 2.0-7.7 X10 3/uL Normal Absolute Neut 4.0 LAB L100.2720 0.83-4.51 X10 3/ul Normal Absolute Lymph 1.11 Performed By: #### L100.0100 #### [facility] [address] [place], [address] COMPREHENSIVE METABOLIC Collected: 01/17/2018 Status: F [facility] TYPE CODE TESTS RESULT OUT OF RANGE REFERENCE UNITS LAB L501.0100 74-106 mg/dL Normal GLU 88 Result Comment: Please note revised GLUCOSE reference range effective 2017. LAB L501.1000 7-18 mg/dL High BUN 26 LAB L501.1100 0.70-1.30 mg/dL Normal CREAT,SERUM 0.96 Result Comment: The validity of the calculated GFR AND GFRAA in patients over 70 years has not been determined. Clinical correlation is essential. LAB L501.1110 >60 mL/min Normal EST GFR 82 Result Comment: Non- GFR Calc LAB L501.1115 >60 mL/min Normal EST GFR - AA 99 Result Comment: GFR Calc LAB L501.1300 10-20 RATIO High BUN/CRE 27.0 LAB L501.1500 6.4-8.2 g/dL T Normal PROT 6.9 LAB L501.1800 3.2-5.0 g/dL Normal ALB 3.3 LAB L501.1950 2.2-4.2 g/dL Normal GLOB 3.6 LAB L501.2000 0.9-2.4 RATIO Normal A/G 0.9 LAB L501.2200 8.5-10.1 mg/dL CA Normal 8.5 LAB L501.4100 15-37 U/L Normal AST 21 LAB L501.4305 45-117 U/L Normal ALK P 81 LAB L501.4405 16-61 U/L Normal ALT 26 Result Comment: Please note revised ALT reference range effective 2017. LAB L501.4600 0.20-1.00 mg/dL Normal T BILI 0.50 LAB L501.5300 136-145 mmol/L Normal NA 141 LAB L501.5600 3.5-5.1 mmol/L Normal K 4.6 LAB L501.5900 98-107 mmol/L Normal CL 104 LAB L501.6100 21.0-32.0 mmol/L Normal CO2 29.0 LAB L501.6200 5-15 Normal GAP 8 Performed By: #### L500.4050, L501.9520, L501.9910 #### [facility] [address] [place], [place], [address] THYROID STIM HORMONE Collected: 01/17/2018 Status: F Source: JUANCHO (TSH) 4:26 PM [facility] REPOSITORY TYPE CODE TESTS RESULT OUT OF RANGE REFERENCE UNITS LAB L501.9520 0.358-3.74 uIU/mL Normal TSH 2.42 Performed By: #### L500.4050, L501.9520, L501.9910 #### [facility] [address] [place], [place], [address] PSA,TOTAL - ANNUAL Collected: 01/17/2018 Status: F Source: [place] SCREEN 4:26 PM [facility] REPOSITORY TYPE CODE TESTS RESULT OUT OF RANGE REFERENCE UNITS LAB L501.9910 0.00-4.00 ng/mL Normal PSA,TOT 0.30 SCREEN Result Comment: This test was performed using the TPSA assay method for the [employer] chemistry system. Values obtained with different assay methods cannot be used interchangably. When changing PSA assays in the course of monitoring a patient, additional sequential testing should be carried out to confirm baseline values. Performed By: #### L500.4050, L501.9520, L501.9910 #### [facility] [address] [place], [place], [address] HEPATITIS C ANTIBODIES Collected: 01/17/2018 Status: F Source: [place] 4:26 PM [facility] REPOSITORY TYPE CODE TESTS RESULT OUT OF RANGE REFERENCE UNITS LAB L3100.0650 0.0-0.9 s/co ratio Normal HEP C AB <0.1 Result Comment: Negative: < 0.8 Indeterminate: 0.8 - 0.9 Positive: > 0.9 The CDC recommends that a positive HCV antibody result be followed up with a HCV Nucleic Acid Amplification test (386573). Performed at: - [facility] [address] [id number] Orthopaedic Technologist: Dustin Abdul PhD, Phone: [phone] Performed By: #### L3100.0625 #### [facility] (refer to report for specific site) refer to report for address and phone number ALLERGIES ALLERGIES DATE TYPE / CODE NAME / CODE REACTION SEVERITY SOURCE 12/03/2018 Drug pravastatin/ aggitation [facility] Allergy/4160 [id number](R Hospital 75842(SNOMED XNORM) Repository CT) 12/03/2018 Drug atorvastatin [facility] Allergy/4160 /[id number]( Hospital 41838(SNOMED RXNORM) Repository CT) 12/03/2018 Drug rosuvastatin [facility] Allergy/4160 /[id number]( Hospital [address]327(SNOMED RXNORM) Repository CT) ENCOUNTERS ENCOUNTERS ADMIT/DISCHARGE ACCOUNT ADMITTING ENCOUNTER LOCATION SOURCE NUMBER CLASS 12/03/2018 [id number] Ambulatory [place] [facility] ing:LAB Repository 12/03/2018/ [id number] Ambulatory [facility] [place] [facility] 3 [facility] Repository 11/29/2018 [id number] Ambulatory [facility] [place] 7 [facility] Repository 11/05/2018/ [id number] Ambulatory [place] [facility] 8 [facility] ing:MTLAB Repository 09/28/2018/ [id number] [place] [facility] ing:MTLAB Repository 09/14/2018/ [id number] [place] 7 [facility] ing:LAB Repository 07/18/2018 [id number] Ambulatory [place] [facility] ing:POLAB3 Repository 07/07/2018/ [id number] Ambulatory [place] 8 [facility] ing:LAB Repository 06/01/2018/ [id number] Ambulatory [place] [facility] 8 [facility] ing:MTLAB Repository 05/17/2018/ [id number] Ambulatory [place] [facility] 8 [facility] ing:MTLAB Repository 04/19/2018/ [id number] Amb[place] 2 [facility] ing:MTLAB Repository 03/02/2018 [id number] Ambulatory [place] 2 [facility] ing:RAD Repository 02/22/2018/ [id number] Amb[place] [facility] 5 [facility] ing:MTLAB Repository 02/12/2018/ [id number] Ambulatory [place] [facility] 1 [facility] ing:LAB Repository 02/08/2018 [id number] Ambulatory [place] 6 [facility] ing:[facility] Repository 02/08/2018 [id number] Ambulatory BMSBuilding:W [place] 5 [facility] Repository 01/17/2018 [id number] Ambulatory [place] 9 [facility] ing:POLAB3 Repository 01/17/2018 [id number] Ambulatory BMSBuilding:B [place] 7 [facility] Repository 01/17/2018/ [id number] Ambulatory BMSBuilding:B [place] 8 4 [facility] Repository PAYERS PAYERS ENCOUNTER GUARANTOR PAYER SUBSCRIBER SOURCE 12/03/2018 RAY D [id number] Primary RAY D EBIEDOB: [place] Insurance:MEDICARE [id number] [facility] Hospital [address]201Uis: (330) Number: Repository [phone] () [id number] Date:2017-12-22 12/03/2018 Secondary RAY D EBIEDOB: [place] Insurance:[place] [id number] Number: Repository [id number] Date:2017-12-22 [facility] [place], [place] [address]PT: 12/03/2018 Tertiary NOT GIVENUNK [place] Insurance:SELF PAY [facility] Number: Effective Repository Date:2018-11-19 12/03/2018 RAY D [id number] Primary RAY D EBIEDOB: [place] Insurance:MEDICARE [id number] Memorial Hospital [address]Nbp: (330) Number: Repository [phone] ([phone]) [id number] Date:2018-01-17 12/03/2018 Secondary RAY D EBIEDOB: [place] Insurance[place] [id number] Springs Hospital Number: Repository [id number] Date:2018-01-17[address]RNK[place]FF, [place] [address]BK: 12/03/2018 Tertiary NOT GIVENUNK [place] Insurance:SELF PAY [facility] Number: Effective Repository Date:2018-11-30 11/29/2018 RAY D [id number] Primary RAY D EBIEDOB: [place] Insurance:MEDICARE [id number] [id number]: 330) Number: Repository [phone] ) [id number] Date:2018-11-29 11/29/2018 Secondary RAY D EBIEDOB: [place] Insurance[place] [id number] Springs Hospital Number: Repository [id number] Date:2018-11-29[address]IZHCKPK, [place] [address]YR: 11/29/2018 Tertiary NOT GIVENUNK [place] Insurance:SELF PAY [facility] Number: Effective Repository Date:2018-11-29 11/05/2018 RAY D [id number] Primary RAY D EBIEDOB: [place] Insurance:MEDICARE [id number] Memorial Hospital [address]Yue: (330) Number: Repository [phone] () [id number] Date:2017-12-22 11/05/2018 Secondary RAY D EBIEDOB: [place] Insurance[place] [id number]. [facility] Number: Repository [id number] Date:2017-12-22[address]QSKTODY, [place] [address]SU: 11/05/2018 Tertiary NOT GIVENUNK [place] Insurance:SELF PAY [facility] Number: Effective Repository Date:2018-10-23 09/28/2018 RAY D [id number] Primary RAY D EBIEDOB: [place] Insurance:MEDICARE [id number] Memorial Hospital [address]Luq: (330) Number: Repository [phone] () [id number] Date:2017-12-22 09/28/2018 Secondary RAY D EBIEDOB: [place] [facility] [id number] Springs Hospital Number: Repository [id number] Date:2017-12-22[address], [place] [address]PD: 09/28/2018 Tertiary NOT GIVENUNK [place] Insurance:SELF PAY [facility] Number: Effective Repository Date:2018-09-20 09/14/2018 RAY D [id number] Primary RAY D EBIEDOB: [place] Insurance:MEDICARE [id number] Memorial Hospital [address]Hnt: (330) Number: Repository [phone] () [id number] Date:2017-12-22 09/14/2018 Secondary RAY D EBIEDOB: [place] Insurance:[place] [id number] Springs Hospital Number: Repository [id number] Date:2017-12-22[address]TTPKIPR, [place] [address]UM: 09/14/2018 Tertiary NOT GIVENUNK [place] Insurance:SELF PAY [facility] Number: Effective Repository Date:2018-07-24 07/18/2018 RAY D [id number] Primary RAY D EBIEDOB: [place] Insurance:MEDICARE [id number] Memorial Hospital [address]Sfv: (330) Number: Repository [phone] () [id number] Date:2018-07-18 07/18/2018 Secondary RAY D EBIEDOB: [place] Insurance:[place] [id number] Springs Hospital Number: Repository [id number] Date:2018-07-18[address]PPVDNEV, [place] [address]TG: 07/18/2018 Tertiary NOT GIVENUNK [place] Insurance:SELF PAY [facility] Number: Effective Repository Date:2018-07-18 07/07/2018 RAY D [id number] Primary RAY D EBIEDOB: [place] Insurance:MEDICARE [id number] Memorial Hospital [address]Kki: (330) Number: Repository [phone] () [id number] Date:2017-12-22 07/07/2018 Secondary RAY D EBIEDOB: [place] Insurance:[facility] [id number] Springs Hospital Number: Repository [id number] Date:2017-12-22[address], [place] [address]YO: 07/07/2018 Tertiary NOT GIVENUNK [place] Insurance:SELF PAY [facility] Number: Effective Repository Date:2018-06-22 06/01/2018 RAY D [id number] Primary RAY D EBIEDOB: [place] Insurance:MEDICARE [id number] Memorial Hospital [address]Mua: (330) Number: Repository [phone] () [id number] Date:2017-12-22 06/01/2018 Secondary RAY D EBIEDOB: [place] Insurance:[place] [id number] Springs Hospital Number: Repository [id number] Date:2017-12-22[address], [place] [address]DH: 06/01/2018 Tertiary NOT GIVENUNK [place] Insurance:SELF PAY [facility] Number: Effective Repository Date:2018-05-18 05/17/2018 RAY D [id number] Primary RAY D EBIEDOB: [place] Insurance:MEDICARE [id number] Memorial Hospital [address]Mnc: (330) Number: Repository [phone] () [id number] Date:2017-12-22 05/17/2018 Secondary RAY D EBIEDOB: [place] Insurance:[facility] [id number] Springs Hospital Number: Repository [id number] Date:2017-12-22[address]IBEXBQU, [place] [address]ZL: 05/17/2018 Tertiary NOT GIVENUNK [place] Insurance:SELF PAY [facility] Number: Effective Repository Date:2018-04-19 04/19/2018 RAY D [id number] Primary RAY D EBIEDOB: [place] Insurance:MEDICARE [id number] Memorial Hospital [address]217Ogu: (330) Number: Repository [phone] () [id number] Date:2017-12-22 04/19/2018 Secondary RAY D EBIEDOB: [place] Insurance:[place] [id number] Springs Hospital Number: Repository [id number] Date:2017-12-22[address]VKUBU[place], [place] [address]ZE: 04/19/2018 Tertiary NOT GIVENUNK [place] Insurance:SELF PAY [facility] Number: Effective Repository Date:2018-03-20 03/02/2018 RAY D [id number] Primary RAY D EBIEDOB: [place] Insurance:MEDICARE [id number] Memorial Hospital [address]Vix: (330) Number: Repository [phone] () [id number] Date:2018-03-02 03/02/2018 Secondary RAY D EBIEDOB: [place] Insurance:[place] [id number]. [facility] Number: Repository [id number] Date:2018-03-02[address]OJHLXXP, [place] [address]BV: 03/02/2018 Tertiary NOT GIVENUNK [place] Insurance:SELF PAY [facility] Number: Effective Repository Date:2018-03-02 02/22/2018 RAY D [id number] Primary RAY D EBIEDOB: [place] Insurance:MEDICARE [id number] [facility] Hospitalolicy [facility] [address]479Psl: (330) Number: Repository [phone] () [id number] Date:2017-12-22 02/22/2018 Secondary RAY D EBIEDOB: [place] Insurance:[facility] [id number]. Luke's [facility] Number: Repository [id number] Date:2017-12-22[address]JMXLAJE, [place] [address]KE: 02/22/2018 Tertiary NOT GIVENUNK [place] Insurance:SELF PAY [facility] Number: Effective Repository Date:2018-02-19 02/12/2018 RAY D [id number] Primary RAY D EBIEDOB: [place] Insurance:MEDICARE [id number] County Hospital A [facility] [address]Nof: (330) Number: Repository [phone] () [id number] Date:2017-12-22 02/12/2018 Secondary RAY D EBIEDOB: [place] Insurance:[place] [id number]. Luke's Health [facility] Number: Repository [id number] Date:2017-12-22[address]ONSNMP, [place] [address]MK: 02/12/2018 Tertiary NOT GIVENUNK [place] Insurance:SELF PAY [facility] Number: Effective Repository Date:2017-12-22 02/08/2018 RAY D [id number] Primary RAY D EBIEDOB: [place] Insurance:MEDICARE [id number] County Hospital A [facility] [address]Pgb: (330) Number: Repository [phone] () [id number] Date:2018-01-17 02/08/2018 Secondary RAY D EBIEDOB: [place] Insurance:[facility] [id number]. Luke's Health [facility] Number: Repository [id number] Date:2018-01-17[address]BSREBVZ, [place] [address]XV: 02/08/2018 Tertiary NOT GIVENUNK [place] Insurance:SELF PAY [facility] Number: Effective Repository Date:2018-01-17 02/08/2018 RAY D [id number] Primary RAY D EBIEDOB: [place] Insurance:MEDICARE [id number] Memorial Hospital [address]Bsf: (330) Number: Repository [phone] () [id number] Date:2018-01-17 02/08/2018 Secondary RAY D EBIEDOB: [place] [id number] Springs Hospital Number: Repository [id number] Date:2018-01-17[address], [place] [address]FG: 02/08/2018 Tertiary NOT GIVENUNK [place] Insurance:SELF PAY [facility] Number: Effective Repository Date:2018-02-08 01/17/2018 RAY D [id number] Primary RAY D EBIEDOB: [place] Insurance:MEDICARE [id number] Memorial Hospital [address]Pud: (330) Number: Repository [phone] () [id number] Date:2018-01-17 01/17/2018 Secondary RAY D EBIEDOB: [place] Insurance:[facility] [id number] Springs Hospital Number: Repository [id number] Date:2018-01-17[address]TSVIBQS, [place] [address]VU: 01/17/2018 Tertiary NOT GIVENUNK [place] Insurance:SELF PAY [facility] Number: Effective Repository Date:2018-01-17 01/17/2018 RAY D [id number] Primary RAY D EBIEDOB: [place] Insurance:MEDICARE [id number] Memorial Hospital [address]Hkh: (330) Number: Repository [phone] () [id number] Date:2018-01-17 01/17/2018 Secondary RAY D EBIEDOB: [place] Insurance:[place] [id number] Springs Hospital Number: Repository [id number] Date:2018-01-17[address]DJLHRGJ, [place] [address]XA: 01/17/2018 Tertiary NOT GIVENUNK [place] Insurance:SELF PAY [facility] Number: Effective Repository Date:2018-01-17 01/17/2018 RAY D [id number] Primary RAY D EBIEDOB: [place] Insurance:MEDICARE [id number] Memorial Hospital [address]Rnd: (330) Number: Repository [phone] ( [id number] Date:2017-10-26 01/17/2018 Secondary RAY D EBIEDOB: [place] [id number] Springs Hospital Number: Repository [id number] Date:2017-10-26[address]PN[place]AGK, [place] [address]OZ: 01/17/2018 Tertiary NOT GIVENUNK [place] Insurance:SELF PAY [facility] Number: Effective Repository Date:2017-10-26
== END 2018-11-05 12:00 | disposition home or self-care (01) ==
LOC: MTLAB 11:10
PROVIDERS: Family Provider Family Medicine Geriatric Medicine; PCP Family Medicine Geriatric Medicine; Referring Provider Internal Medicine Cardiovascular Disease; Visit Provider Internal Medicine Cardiovascular Disease
DX: I48.0 Paroxysmal atrial fibrillation (principal); I26.92 Saddle embolus of pulmonary artery without acute cor pulmonale; Z79.01 Long term (current) use of anticoagulants
CPT/HCPCS: 36416; 85610

== ENCOUNTER 2018-12-03 15:30 | Outpatient (RCR) | payer MEDICARE, OTHER, SELFPAY ==
[2018-12-03 14:37] VITALS: BMI 30.5
[2018-12-03 15:45] LABS: Prothrombin Time Fingerstick 25.9 SEC (11.9-14.4)
== END 2018-12-03 16:00 | disposition home or self-care (01) ==
LOC: LAB 15:30
PROVIDERS: Family Provider Family Medicine Geriatric Medicine; PCP Family Medicine Geriatric Medicine; Referring Provider Internal Medicine Cardiovascular Disease; Visit Provider Internal Medicine Cardiovascular Disease
DX: I48.91 Unspecified atrial fibrillation (principal); I26.92 Saddle embolus of pulmonary artery without acute cor pulmonale; Z79.01 Long term (current) use of anticoagulants
CPT/HCPCS: 36416; 85610

== ENCOUNTER 2019-01-10 14:28 | Outpatient (RCR) | payer MEDICARE, OTHER, SELFPAY ==
[2019-01-10 14:45] LABS: Prothrombin Time Fingerstick 31.2 SEC (11.9-14.4)
== END 2019-01-17 14:42 | disposition home or self-care (01) ==
LOC: MTLAB 14:28
PROVIDERS: Family Provider Family Medicine Geriatric Medicine; PCP Family Medicine Geriatric Medicine; Referring Provider Internal Medicine Cardiovascular Disease; Visit Provider Internal Medicine Cardiovascular Disease
DX: I26.92 Saddle embolus of pulmonary artery without acute cor pulmonale (principal); I48.91 Unspecified atrial fibrillation; Z79.01 Long term (current) use of anticoagulants
CPT/HCPCS: 36416; 85610

== ENCOUNTER → 2019-01-28 11:28 | Outpatient (CLI) | payer MEDICARE, OTHER, SELFPAY ==
[2019-01-28 12:52] LABS: Absolute Lymphocyte Count 0.77 X10^3/ul (0.83-4.51); Absolute Neutrophil Count 2.3 X10^3/uL (2.0-7.7); Basophil# 0.03 X10^3/uL; Basophil% 0.8 % (0-1); Eosinophil# 0.02 X10^3/uL; Eosinophils% 0.5 % (0-5); Hematocrit 42.5 % (40-54); Hemoglobin 13.5 g/dl (13.0-16.5); Lymphocyte # 0.77 X10^3/ul (4.0); Lymphocyte % 20.5 % (19-41); Mean Corp Hgb Conc 31.8 g/gl (32-36); Mean Corpuscular Hgb 32.5 pg (27.0-32.0); Mean Corpuscular Volume 102.2 fL (80-94); Mean Platelet Vol. 9.6 fl (6.2-12.0); Monocyte# 0.63 X10^3/uL; Monocyte% 16.8 % (0-10); Neutrophil # 2.28 X10^3/uL (2.7-7.7); Neutrophil % 60.6 % (47-70); Platelet Count 184 K/mm3 (150-450); RBC Distribution Width SD 52.1 fl (35.1-43.9); Red Blood Count 4.16 M/mm3 (4.6-6.2); White Blood Count 3.8 K/mm3 (4.4-11.0)
[2019-01-28 12:53] LABS: POSITIVE COUNT NO; POSITIVE DIFFERENTIAL NO; POSITIVE MORPHOLOGY NO
[2019-01-28 13:10] LABS: Vitamin D,25 Hydroxy 19.9 ng/mL (29.95-100.01)
[2019-01-28 13:24] LABS: ALB/GLOB Ratio 0.9 RATIO (0.9-2.4); AST(SGOT) 20 U/L (15-37); Alanine Aminotransfer ALT/SGPT 24 U/L (16-61); Albumin, Serum 3.2 g/dL (3.2-5.0); Alkaline Phosphatase 70 U/L (45-117); Anion Gap 8 (5-15); BUN 24 mg/dL (7-18); BUN/Creat Ratio 27.3 RATIO (10-20); Calcium,Total 8.1 mg/dL (8.5-10.1); Chloride 108 mmol/L (98-107); Creatinine, Serum 0.88 mg/dL (0.70-1.30); EST Glomerular Filtration Rate 91 mL/min (>60); Est Glom Filt Rate - Afr Amer 110 mL/min (>60); Globulin 3.5 g/dL (2.2-4.2); Glucose 91 mg/dL (74-106); Potassium 4.1 mmol/L (3.5-5.1); Protein, Total 6.7 g/dL (6.4-8.2); Sodium Level 142 mmol/L (136-145); Thyroid Stim Hormone (TSH) 2.18 uIU/mL (0.358-3.74)
== END ==
PROVIDERS: Family Provider Family Medicine Geriatric Medicine; PCP Family Medicine Geriatric Medicine; Visit Provider Family Medicine Geriatric Medicine
DX: E55.9 Vitamin D deficiency, unspecified (principal); I10 Essential (primary) hypertension
CPT/HCPCS: 36415; 80053; 82306; 84443; 85025

== ENCOUNTER → 2019-02-11 09:33 | Outpatient (CLI) | payer MEDICARE, OTHER, SELFPAY ==
--- NOTE | 2019-02-11 09:36 | RAD_ITS ---
STUDY: X-RAY - ESOPHAGUS (BARIUM SWALLOW) WITH FLUOROSCOPY REASON FOR EXAM: Male, 73 years old. Chronic dysphasia. Six-month history of hoarseness. TECHNIQUE: 19 view(s) of the esophagus were obtained following swallowing of barium. FLUOROSCOPY TIME (if supplied): (0:25) minutes/seconds COMPARISON: None. FINDINGS: There is no demonstrated esophageal foreign body. There is no demonstrated stricture or mucosal abnormality. Normal gastroesophageal junction, without a demonstrated hiatal hernia. The patient ingested a 12 mm tablet of barium without any difficulty. There is atherosclerotic tortuosity of the aortic arch and descending thoracic aorta. Normal visualized pulmonary parenchyma. There are diffuse degenerative changes of the visualized thoracic spine. RAD/Esophagus Only IMPRESSION: Normal plain film x-ray examination (barium swallow) of the esophagus. Electronically Signed: Henrique Boss, at 10:05 EDT , Service support ,
== END ==
PROVIDERS: Family Provider Family Medicine Geriatric Medicine; PCP Family Medicine Geriatric Medicine; Referring Provider Otolaryngology; Visit Provider Otolaryngology
DX: R13.10 Dysphagia, unspecified (principal); I48.91 Unspecified atrial fibrillation; Z79.01 Long term (current) use of anticoagulants
CPT/HCPCS: 36416; 74220; 85610

== ENCOUNTER 2019-02-11 10:02 | Outpatient (RCR) | payer MEDICARE, OTHER, SELFPAY ==
[2019-02-11 10:16] LABS: Prothrombin Time Fingerstick 21.5 SEC (11.9-14.4)
== END 2019-02-11 11:02 | disposition home or self-care (01) ==
LOC: LAB 10:02
PROVIDERS: Family Provider Family Medicine Geriatric Medicine; PCP Family Medicine Geriatric Medicine; Referring Provider Internal Medicine Cardiovascular Disease; Visit Provider Internal Medicine Cardiovascular Disease
DX: I48.91 Unspecified atrial fibrillation (principal); I26.92 Saddle embolus of pulmonary artery without acute cor pulmonale; Z79.01 Long term (current) use of anticoagulants
CPT/HCPCS: 36416; 85610

== ENCOUNTER 2019-02-25 16:43 | Outpatient (RCR) | payer MEDICARE, OTHER, SELFPAY ==
[2019-02-25 16:55] LABS: Prothrombin Time Fingerstick 26.1 SEC (11.9-14.4)
== END 2019-03-19 16:00 | disposition home or self-care (01) ==
LOC: LAB 16:43
PROVIDERS: Family Provider Family Medicine Geriatric Medicine; PCP Family Medicine Geriatric Medicine; Referring Provider Internal Medicine Cardiovascular Disease; Visit Provider Internal Medicine Cardiovascular Disease
DX: I48.91 Unspecified atrial fibrillation (principal); I26.92 Saddle embolus of pulmonary artery without acute cor pulmonale; Z79.01 Long term (current) use of anticoagulants
CPT/HCPCS: 36416; 85610

== ENCOUNTER 2019-03-29 13:32 | Outpatient (RCR) | payer MEDICARE, OTHER, SELFPAY ==
[2019-03-29 13:51] LABS: Prothrombin Time Fingerstick 22.7 SEC (11.9-14.4)
== END 2019-03-29 15:00 | disposition home or self-care (01) ==
LOC: MTLAB 13:32
PROVIDERS: Family Provider Family Medicine Geriatric Medicine; PCP Family Medicine Geriatric Medicine; Referring Provider Internal Medicine Cardiovascular Disease; Visit Provider Internal Medicine Cardiovascular Disease
DX: I48.91 Unspecified atrial fibrillation (principal); I26.92 Saddle embolus of pulmonary artery without acute cor pulmonale; Z79.01 Long term (current) use of anticoagulants
CPT/HCPCS: 36416; 85610

== ENCOUNTER → 2019-04-12 | Outpatient (CLI) | payer MEDICARE, OTHER, SELFPAY | END | disposition home or self-care (01) | LOC: PSN 12:23 | PROVIDERS: Family Provider Family Medicine Geriatric Medicine; PCP Family Medicine Geriatric Medicine; Referring Provider Family Medicine Geriatric Medicine; Visit Provider Family Medicine Geriatric Medicine | DX: R50.9 Fever, unspecified (principal) | CPT/HCPCS: 87633 ==

== ENCOUNTER 2019-04-19 21:12 | Inpatient (IN) | payer MEDICARE, OTHER, SELFPAY ==
[2019-04-19 21:12] VITALS: BP 149/75; PULSE 75; RESP 16; TEMP 36.6; O2SAT 96; BMI 30.4
--- NOTE | 2019-04-19 21:26 | EKG12_ITS ---
Test Reason : Blood Pressure : / mmHG Vent. Rate : 069 BPM Atrial Rate : 069 BPM P-R Int : 138 ms QRS Dur : 084 ms QT Int : 466 ms P-R-T Axes : 057 000 021 degrees QTc Int : 499 ms Normal sinus rhythm Possible Left atrial enlargement Left ventricular hypertrophy Nonspecific T wave abnormality Prolonged QT Abnormal ECG Confirmed by KEYA FERMIN, VJ ([id number]), development editor PAPO BALTAZAR ([id number]) on 04/22/2019 1:46:17 PM Referred By: Gustabo Rodriguez Confirmed By:VJ LAURA MD
--- NOTE | 2019-04-19 21:29 | ED.VIS.GEN ---
History of Present Illness Chief Complaint: Overdose Detail of Chief Complaint: Unintentional over medication Informant: Patient Onset: Today Context: Sudden Onset Timing: Continuous Quality: Took 3 Sotalol tablets instead of 1 Location: Residents Current Severity: - - Asymptomatic Maximum Severity: - - Asymptomatic Worsened by: Nothing Relieved by: Nothing Associated Symptoms: No associated symptoms Prior similar symptoms: No Recent Illness/Hospitalization: No - Past Medical History (1) Aortic valve disease Status: Chronic (2) Ascending aortic aneurysm Status: Chronic (3) jail current use of anticoagulant Status: Chronic (4) Paroxysmal atrial fibrillation Status: Chronic (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 Past Medical History - Allergies and Home Meds Allergies/Adverse Reactions: Allergies atorvastatin Adverse Reaction (Severe, Verified 04/19/19 21:15) Myalgias pravastatin Adverse Reaction (Severe, Verified 04/19/19 21:15) Aggitation rosuvastatin [From Crestor] Adverse Reaction (Severe, Verified 04/19/19 21:15) Myalgias Primary Care Physician: Nish Harrell Chi, MD [Primary Care Provider] - Prior records reviewed: Yes Surgical History: herniorrhaphy - when he was 5 yrs old, hernia surgery Lives: Spouse/ Significant Other Smoking Status: Never smoker Alcohol: None Review of Systems General: Denies: Chills, Fever, Sweats Eyes: Denies: Visual changes - bilaterally, Diplopia ENT: Denies: Rhinorrhea, Sore throat Cardiovascular: Denies: Chest pain, Palpitations Respiratory: Denies: Dyspnea, Cough, Dyspnea on exertion Gastrointestinal: Denies: Abdominal pain, Nausea, Vomiting, Diarrhea, Melena, Hematochezia Genitourinary: Denies: Dysuria, Hematuria, Frequency Musculoskeletal: Denies: Myalgias, Arthralgias, Neck pain, Back pain, Extremity Pain Skin: Denies: Rash, Wounds Neurological: Denies: Headache, Weakness, Numbness Hematologic: Reports: Easy bruising. Denies: Easy bleeding Physical Exam Vital Signs/Narrative: Vital Signs Temp Pulse Resp BP Pulse Ox 04/19/19 21:12 98 F 75 16 149/75 H 96 Inital Vital Signs reviewed: Yes General: Well nourished, Well developed, No Acute Distress Head: Normocephalic, Atraumatic Eyes: Perrl, EOMI. Negative for: Pale conjunctiva, Scleral icterus, - ENT: Moist mucous membranes, No rhinorrhea Neck: Supple, Nontender, No lymphadenopathy, No JVD Cardiovascular: Regular rate, Regular rhythm, No murmurs, Normal S1, Normal S2 Respiratory: No distress, CTA bilaterally, Chest nontender Abdomen: Soft, Nontender, Nondistended, Normal bowel sounds Back: Nontender, Normal Inspection Extremities: Nontender, No edema Skin: Normal color, No rash Neurological: Alert, Oriented x3, Cranial nerves II-XII grossly intact, Normal Strength, Normal Sensation Psychological: Normal affect, Normal Mood Diagnostic/Tx/Re-eval Laboratory Results 04/19/19 04/19/19 21:30 21:30 WBC 8.8 RBC 3.98 L Hgb 13.0 Hct 39.0 L MCV 98.0 H MCH 32.7 H MCHC 33.3 RDW 13.5 RDW Differential 48.1 H Plt Count 247 MPV 9.0 Neut % (Auto) Not Reportable Absolute Neuts (auto) Not Reportable Sodium 141 Potassium 4.2 Chloride 107 Carbon Dioxide 31.0 Anion Gap 3 L BUN 32 H Creatinine 1.26 Estim Creat Clear Calc 55.52 Est GFR (MDRD) Af Amer 72 Est GFR (MDRD) Non-Af 60 BUN/Creatinine Ratio 25.4 H Glucose 110 H Calcium 8.7 - Rhythm Strip Rhythm Strip: Sinus Rhythm Rate: 75 Ectopy: None - EKG Initial EKG Interpretation: Sinus Rhythm - Ventricular rate is 69. IA interval is 138 ms. QRS durations 84 ms. QT is prolonged at 466 ms and QTC is 499 ms. There is evidence of left ventricular hypertrophy. - Medical Decision Making Patient was placed on monitor. IV was established. Poison control was contacted. I was informed based on the dose he took he will require observation for 12 hours to assess for QT prolongation. EKG was obtained appropriate blood work. Will contact hospitalist for observation status. There is prolongation of the QT interval spoke with Segundo again at poison control. He recommended treatment of hypokalemia, hypocalcemia or hypomagnesemia. Concern is development of torsades. Tarsi should be treated per algorithm. If he becomes bradycardic recommend atropine. If no effect after administration of atropine recommends 5 mg of glucagon IV push. If no effect, treat with 10 mg of glucagon IV push. If no effect after 10 mg of glucagon dextrose and insulin drip. Recommended treatment of hypotension with fluids. If fluids are on effective pressors. If pressors are unaffected recommended glucagon followed by dextrose and insulin drip. Dr. Monte is notified of patient at 2220. He agrees with plan. The hospitalist was paged for admission to PCU. 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
--- NOTE | 2019-04-19 21:32 | ED.DCSUM_ITS ---
History of Present Illness Chief Complaint: Overdose Detail of Chief Complaint: Unintentional over medication Informant: Patient Onset: Today Context: Sudden Onset Timing: Continuous Quality: Took 3 Sotalol tablets instead of 1 Location: Residents Current Severity: - - Asymptomatic Maximum Severity: - - Asymptomatic Worsened by: Nothing Relieved by: Nothing Associated Symptoms: No associated symptoms Prior similar symptoms: No Recent Illness/Hospitalization: No - Past Medical History (1) Aortic valve disease Status: Chronic (2) Ascending aortic aneurysm Status: Chronic (3) residential current use of anticoagulant Status: Chronic (4) Paroxysmal atrial fibrillation Status: Chronic (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 Past Medical History - Allergies and Home Meds Allergies/Adverse Reactions: Allergies atorvastatin Adverse Reaction (Severe, Verified 04/19/19 21:15) Myalgias pravastatin Adverse Reaction (Severe, Verified 04/19/19 21:15) Aggitation rosuvastatin [From Crestor] Adverse Reaction (Severe, Verified 04/19/19 21:15) Myalgias Primary Care Physician: Nish Harrell Chi, MD [Primary Care Provider] - Prior records reviewed: Yes Surgical History: herniorrhaphy - when he was 5 yrs old, hernia surgery Lives: Spouse/ Significant Other Smoking Status: Never smoker Alcohol: None Review of Systems General: Denies: Chills, Fever, Sweats Eyes: Denies: Visual changes - bilaterally, Diplopia ENT: Denies: Rhinorrhea, Sore throat Cardiovascular: Denies: Chest pain, Palpitations Respiratory: Denies: Dyspnea, Cough, Dyspnea on exertion Gastrointestinal: Denies: Abdominal pain, Nausea, Vomiting, Diarrhea, Melena, Hematochezia Genitourinary: Denies: Dysuria, Hematuria, Frequency Musculoskeletal: Denies: Myalgias, Arthralgias, Neck pain, Back pain, Extremity Pain Skin: Denies: Rash, Wounds Neurological: Denies: Headache, Weakness, Numbness Hematologic: Reports: Easy bruising. Denies: Easy bleeding Physical Exam Vital Signs/Narrative: Vital Signs Temp Pulse Resp BP Pulse Ox 04/19/19 21:12 98 F 75 16 149/75 H 96 Inital Vital Signs reviewed: Yes General: Well nourished, Well developed, No Acute Distress Head: Normocephalic, Atraumatic Eyes: Perrl, EOMI. Negative for: Pale conjunctiva, Scleral icterus, - ENT: Moist mucous membranes, No rhinorrhea Neck: Supple, Nontender, No lymphadenopathy, No JVD Cardiovascular: Regular rate, Regular rhythm, No murmurs, Normal S1, Normal S2 Respiratory: No distress, CTA bilaterally, Chest nontender Abdomen: Soft, Nontender, Nondistended, Normal bowel sounds Back: Nontender, Normal Inspection Extremities: Nontender, No edema Skin: Normal color, No rash Neurological: Alert, Oriented x3, Cranial nerves II-XII grossly intact, Normal Strength, Normal Sensation Psychological: Normal affect, Normal Mood Diagnostic/Tx/Re-eval Laboratory Results 04/19/19 04/19/19 21:30 21:30 WBC 8.8 RBC 3.98 L Hgb 13.0 Hct 39.0 L MCV 98.0 H MCH 32.7 H MCHC 33.3 RDW 13.5 RDW Differential 48.1 H Plt Count 247 MPV 9.0 Neut % (Auto) Not Reportable Absolute Neuts (auto) Not Reportable Sodium 141 Potassium 4.2 Chloride 107 Carbon Dioxide 31.0 Anion Gap 3 L BUN 32 H Creatinine 1.26 Estim Creat Clear Calc 55.52 Est GFR (MDRD) Af Amer 72 Est GFR (MDRD) Non-Af 60 BUN/Creatinine Ratio 25.4 H Glucose 110 H Calcium 8.7 - Rhythm Strip Rhythm Strip: Sinus Rhythm Rate: 75 Ectopy: None - EKG Initial EKG Interpretation: Sinus Rhythm - Ventricular rate is 69. NV interval is 138 ms. QRS durations 84 ms. QT is prolonged at 466 ms and QTC is 499 ms. There is evidence of left ventricular hypertrophy. - Medical Decision Making Patient was placed on monitor. IV was established. Poison control was contacted. I was informed based on the dose he took he will require observation for 12 hours to assess for QT prolongation. EKG was obtained appropriate blood work. Will contact hospitalist for observation status. There is prolongation of the QT interval spoke with Segundo again at poison control. He recommended treatment of hypokalemia, hypocalcemia or hypomagnesemia. Concern is development of torsades. Tarsi should be treated per algorithm. If he becomes bradycardic recommend atropine. If no effect after administration of atropine recommends 5 mg of glucagon IV push. If no effect, treat with 10 mg of glucagon IV push. If no effect after 10 mg of glucagon dextrose and insulin drip. Recommended treatment of hypotension with fluids. If fluids are on effective pressors. If pressors are unaffected recommended glucagon followed by dextrose and insulin drip. Dr. Monte is notified of patient at 2220. He agrees with plan. The hospitalist was paged for admission to PCU. - Critical Care Time Critical care time (excluding procedures): 30-74 minutes, Discussing w/Patient &/or Family/Pot Holder Binder, Discussing w/Consultants, Arranging Admission or Transfer ED Disposition - Plan for ED Patient: Disposition: Acute Care Hospital 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
[2019-04-19 21:47] LABS: Mean Corp Hgb Conc 33.3 g/gl (32-36); Mean Corpuscular Hgb 32.7 pg (27.0-32.0); Platelet Count 247 K/mm3 (150-450); RBC Distribution Width CV 13.5 % (11.6-14.6); RBC Distribution Width SD 48.1 fl (35.1-43.9); Red Blood Count 3.98 M/mm3 (4.6-6.2); White Blood Count 8.8 K/mm3 (4.4-11.0)
[2019-04-19 21:48] LABS: Differential Indicated MANUAL DIFF; POSITIVE COUNT YES; POSITIVE DIFFERENTIAL NO; POSITIVE MORPHOLOGY YES
[2019-04-19 22:02] LABS: Anion Gap 3 (5-15); BUN 32 mg/dL (7-18); BUN/Creat Ratio 25.4 RATIO (10-20); Calcium,Total 8.7 mg/dL (8.5-10.1); Chloride 107 mmol/L (98-107); Creatinine, Serum 1.26 mg/dL (0.70-1.30); EST Glomerular Filtration Rate 60 mL/min (>60); Est Glom Filt Rate - Afr Amer 72 mL/min (>60); Estimated Creatinine Clearance 55.52 ml/min; Glucose 110 mg/dL (74-106); Potassium 4.2 mmol/L (3.5-5.1); Sodium Level 141 mmol/L (136-145)
[2019-04-19 22:18] LABS: Differential Comment SCANNED; Lymphocyte 30 % (19-41); Monocyte 8 % (0-10); Myelocyte 6 (0-0); Neutrophil-Segmented 56 % (47-70); Total Cells Counted 100 (MANUAL DIFF)
[2019-04-19 22:19] LABS: Platelet Estimate ADEQUATE (ADEQ)
[2019-04-19 22:21] LABS: Absolute Lymphocyte Count 2.64 X10^3/ul (0.83-4.51); Absolute Neutrophil Count 4.9 X10^3/uL (2.0-7.7); Lymphocyte # 2.64 X10^3/ul (4.0); Neutrophil # 4.93 X10^3/uL (2.7-7.7)
[2019-04-19 22:23] LABS: Magnesium 2.1 mg/dL (1.6-2.6)
--- NOTE | 2019-04-19 22:23 | PCM.HP.STD ---
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 Patient takes 160 mg sotalol twice daily. However in the evening before presentation instead of his 160 mg he accidentally took extra 2 tablets of his 160 mg of sotalol. He denies any symptoms. At emergency department he was found to have prolonged QTc interval. Poison control was contacted by the emergency department and they (Poison control) gave a recommendation. Emergency department doctor discussed the case with cardiology on-call, Dr. Monte who is also patient's cardiology. Per emergency department doctor, Dr. Monte was okay with recommendation from poison control; and recommended that patient be admitted to the PCU. 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) Saddle embolism of pulmonary artery (Chronic) Medical History: Medical History (Last Reviewed 04/19/19 @ 22:57 by Gustabo Rodriguez MD) Paroxysmal atrial fibrillation (Chronic) I48.0 Aortic valve disease (Chronic) I35.9 Ascending aortic aneurysm (Chronic) I71.2 Mitral valve prolapse (Chronic) I34.1 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) Z79.01 Saddle embolism of pulmonary artery (Chronic) I26.92 History of DVT (deep vein thrombosis) Z86.718 History of TIA (transient ischemic attack) Z86.73 History of pulmonary embolus (PE) Z86.711 Pneumothorax J93.9 Pulmonary nodule R91.1 Sleep apnea G47.30 Acute venous embolism and thrombosis of deep vessels of proximal lower extremity I82.4Y9 Hyperlipidemia E78.5 Nonrheumatic aortic (valve) insufficiency I35.1 Pericardial effusion I31.3 Atrial fibrillation (Inactive) I48.91 Allergies atorvastatin Adverse Reaction (Severe, Verified 04/19/19 21:15) Myalgias pravastatin Adverse Reaction (Severe, Verified 04/19/19 21:15) Aggitation rosuvastatin [From Crestor] Adverse Reaction (Severe, Verified 04/19/19 21:15) Myalgias Home Medications: Ambulatory Orders Medication Instructions Recorded Levothyroxine [Synthroid] 25 mcg PO DAILY 01/19/16 Aspirin [Aspirin, Baby] 81 mg PO DAILY@0800 02/19/16 amoxicillin 500 mg tablet See Rx Instructions PO .COMPLEX 01/11/18 sotalol 160 mg tablet 160 mg PO BID #180 tab 06/11/18 warfarin 5 mg tablet 5 mg PO .COMPLEX #90 tab 12/03/18 zolpidem 10 mg tablet 10 mg PO QHS PRN 30 Days #30 tab 12/03/18 warfarin 4 mg tablet 4 mg PO .COMPLEX #180 tab 02/08/19 Surgical History: Surgical History (Last Reviewed 04/19/19 @ 22:59 by Gustabo Rodriguez MD) History of ascending aortic replacement (Resolved) Onset Date: ~02/01/16 Z95.828 History of aortic valve repair (Resolved) Onset Date: ~02/01/16 Z98.890, Z86.79 H/O aortic valve repair Z98.890, Z86.79 Repair & Ascending aorta repair 02/11/16 History of hernia repair Z98.890, Z87.19 Surgical History: herniorrhaphy - when he was 5 yrs old, hernia surgery Lives: Spouse/ Significant Other Smoking Status: Never smoker Alcohol: None - *Family History Maternal Family History: Family History (Last Reviewed 04/19/19 @ 22:59 by Gustabo Rodriguez MD) Father Cancer Mother CVA (cerebral vascular accident) Brother Cancer Other Family history of CVA Review of Systems Constitutional: Denies: Chills, Fever, Weight Change HEENT: Denies: Head Aches, Sinus Congestion, Sinus Drainage Cardiovascular: Denies: Chest Pain, Palpitations Respiratory: Reports: Cough - attributes to recent URI which is resolving.. Denies: Shortness of breath at rest, Sputum production Gastrointestinal: Denies: Abdominal Pain, Nausea, Vomiting Genitourinary: Denies: Dysuria Musculoskeletal: Denies: Joint Pain, Joint Tenderness Skin: Denies: Rash, Wounds Neurological: Denies: Numbness, Tingling, Focal weakness Psychiatric: Denies: Anxiety, Depression, Homicidal Ideations, Suicidal Ideations Hematologic/ Lymphatic: Denies: Easy Bruising, Easy Bleeding VTE Information - Inpt Only VTE Present on Admission: No VTE Mechan Device Prophylaxis: None VTE Pharm Prophylaxis ordered?: No Reason prophylaxis not ordered:: Treatment Not Indicated - On home Coumadin for Afib. Will check INR and reorder Coumadin if indicated. Patient Problems: Active and Suspected Problems (Last Reviewed 12/03/18 @ 14:41 by Debora Stover) Drug overdose (Acute) Prolonged QT interval (Acute) - Physical Exam General: Alert, Oriented x3, Cooperative HEENT: Atraumatic, PERRLA, EOMI, Normocephalic Neck: Supple, No JVD, Negative Carotid Bruits Lungs: Clear to auscultation, Normal air movement Cardiovascular: Regular rate, No murmurs Abdomen: Bowel Sounds Present, Soft, Non Tender Extremities: No edema, Capillary Refill Less than 3 Seconds Skin: No rashes, No breakdown Musculoskeletal: No Tenderness to Palpation of Joints or Extremities Neurological: Cranial nerves II-XII grossly intact Psych/Mental Status: Normal Affect, Appropriate Vital Signs Temp Pulse Resp BP Pulse Ox 98 F 75 16 149/75 H 96 04/19/19 21:12 04/19/19 21:12 04/19/19 21:12 04/19/19 21:12 04/19/19 21:12 Oxygen Delivery Method Room Air Weight: 96.4 kg Body Mass Index (BMI) 30.4 Laboratory Tests Past 24 Hrs 04/19/19 04/19/19 04/19/19 21:30 21:30 21:30 WBC 8.8 RBC 3.98 L Hgb 13.0 Hct 39.0 L MCV 98.0 H MCH 32.7 H MCHC 33.3 RDW 13.5 RDW Differential 48.1 H Plt Count 247 MPV 9.0 Neut % (Auto) Not Reportable Absolute Neuts (auto) 4.9 Absolute Lymphs (auto) 2.64 Total Counted 100 Neutrophils % (Manual) 56 Lymphocytes % (Manual) 30 Monocytes % (Manual) 8 Myelocytes % 6 H Differential Comment SCANNED Diff Path Review May foll Platelet Estimate ADEQUATE Sodium 141 Potassium 4.2 Chloride 107 Carbon Dioxide 31.0 Anion Gap 3 L BUN 32 H Creatinine 1.26 Estim Creat Clear Calc 55.52 Est GFR (MDRD) Af Amer 72 Est GFR (MDRD) Non-Af 60 BUN/Creatinine Ratio 25.4 H Glucose 110 H Calcium 8.7 Magnesium Pending Assessment/Plan All Active Problems (Last Reviewed 12/03/18 @ 14:41 by Debora Stover) Drug overdose (Acute) Prolonged QT interval (Acute) History of ascending aortic replacement (Resolved ~02/01/16) History of aortic valve repair (Resolved ~02/01/16) The patient is a 73 year old M with a significant history of atrial fibrillation; hyperlipidemia; DVT and PE; who presented because of taking extra 320 mg of his sotalol and was found to have prolonged QTc interval. Sotalol overdose Per discussion of emergency department doctor and present control patient should be observed for 12 hours. Noted to have prolonged QTc interval. Repeat EKG in a.m. Admitted to PCU on telemetry. Magnesium and potassium is normal. Repeat BMP and magnesium in a.m. Hold sotalol in a.m. 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 Paroxysmal A. fib Sinus rhythm Sotalol on hold at this time because of prolonged QTc interval and sotalol overdose. Reportedly he takes 8 mg of Coumadin on Monday; Monday and Sundays; and 9 mg on Wednesdays and . Will get INR and other Coumadin if indicated. DVT prophylaxis On home Coumadin. Will order INR and restart Coumadin if necessary. Code Visit OBSV E&M: [id number] Initial observation care L3
[2019-04-19 22:42] VITALS: BP 132/67; PULSE 66; RESP 11; O2SAT 97
[2019-04-19 23:00] VITALS: BP 134/81; PULSE 68; RESP 13; O2SAT 97
[2019-04-19 23:03] LABS: Prothrombin Time (Protime)PT. 41.9 SECONDS (11.7-14.9)
--- NOTE | 2019-04-19 23:05 | PCM.CONS.C ---
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 The patient states he has been doing well. He recently has traveled to and from [facility] on vacation. He states he had no obvious cardiovascular concerns or complaints. 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 He has denied any ongoing chest discomfort or difficulty breathing or palpitations. There is been no near syncope or syncope. He states today-this evening-he accidentally took 2 additional sotalol tablets and believes he brought his total sotalol milligram ingestion for the day to 480 mg. He presented to the emergency department for further evaluation and care. His laboratory studies were performed. His ECG demonstrated sinus rhythm with possible left atrial enlargement and possible LVH with a nonspecific T wave abnormality with a prolonged QT interval. The [facility] emergency department contacted the Poison Control Center who subsequently recommended electrolyte replacement if needed, bradycardia therapy with atropine if needed, wide-complex tachycardia/torsade de pointes therapy to be treated per protocol, hypotensive therapy to be treated as deemed appropriate, and subsequent monitoring in hospital for a minimum of 12 hours.[] Past Medical History Allergies/Adverse Reactions: Allergies atorvastatin Adverse Reaction (Severe, Verified 04/19/19 21:15) Myalgias pravastatin Adverse Reaction (Severe, Verified 04/19/19 21:15) Aggitation rosuvastatin [From Crestor] Adverse Reaction (Severe, Verified 04/19/19 21:15) Myalgias Home Medications: Ambulatory Orders Medication Instructions Recorded Levothyroxine [Synthroid] 25 mcg PO DAILY 01/19/16 Aspirin [Aspirin, Baby] 81 mg PO DAILY@0800 02/19/16 amoxicillin 500 mg tablet See Rx Instructions PO .COMPLEX 01/11/18 sotalol 160 mg tablet 160 mg PO BID #180 tab 06/11/18 warfarin 5 mg tablet 5 mg PO .COMPLEX #90 tab 12/03/18 zolpidem 10 mg tablet 10 mg PO QHS PRN 30 Days #30 tab 12/03/18 warfarin 4 mg tablet 4 mg PO .COMPLEX #180 tab 02/08/19 Past Medical History (Chronic Problems): Chronic Problems (Last Reviewed 04/19/19 @ 22:57 by Gustabo Rodriguez MD) Paroxysmal atrial fibrillation (Chronic) Aortic valve disease (Chronic) Ascending aortic aneurysm (Chronic) Mitral valve prolapse (Chronic) 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) Surgical History: herniorrhaphy - when he was 5 yrs old, hernia surgery - *Family History Maternal Family History: Family History (Last Reviewed 04/19/19 @ 22:59 by Gustabo Rodriguez MD) Father Cancer Mother CVA (cerebral vascular accident) Brother Cancer Other Family history of CVA Lives: Spouse/ Significant Other Smoking Status: Never smoker Alcohol: None Drugs: None Review of Systems - Review of Systems General: Denies: Fever, Night Sweats, Fatigue Cardiovascular: Denies: Chest Discomfort, Shortness of Breath, Orthopnea, PND, Peripheral Edema, Palpitations, Lightheadedness, Dizziness, Near Syncope, Syncope Respiratory: Denies: Cough, Sputum Production, Hemoptysis Gastrointestinal: Denies: Hematemesis, Hematochezia, Melena Genitourinary: Denies: Dysuria, Hematuria Skin: Denies: Rash Subjectve: This is a 73-year-old white male who appears to be resting comfortably at the moment in no acute distress. Objective: Vital Signs Temp Pulse Resp BP Pulse Ox 98 F 68 13 134/81 H 97 04/19/19 21:12 04/19/19 23:00 04/19/19 23:00 04/19/19 23:00 04/19/19 23:00 Oxygen Delivery Method Room Air Weight: 212 lb 8.41 oz Body Mass Index (BMI) 30.4 General: Awake, Alert, Oriented x 3, Cooperative, No Acute Distress HEENT: Atraumatic, Normocephalic, PERRL, EOMI Oral: Moist Mucosa Neck: Supple, Good ROM, No JVD Lungs: Clear to auscultation Cardiovascular: Regular Rhythm, Normal S1, Normal S2 Murmur Murmur: Grade 1/6, Soft, Mid Systolic, LLSB Vascular: No Carotid Bruits Abdomen: Bowel Sounds Present, Soft, Non Tender Extremities: No Cyanosis, No Clubbing, No edema Neurological: No Focal Motor or Sensory Deficit Psych/Mental Status: Appropriate 04/19/19 21:30: WBC 8.8, RBC 3.98 L, Hgb 13.0, Hct 39.0 L, MCV 98.0 H, MCH 32.7 H, MCHC 33.3, RDW 13.5, RDW Differential 48.1 H, Plt Count 247, MPV 9.0, Neut % (Auto) Not Reportable, Absolute Neuts (auto) 4.9, Total Counted 100, Neutrophils % (Manual) 56, Lymphocytes % (Manual) 30, Monocytes % (Manual) 8, Myelocytes % 6 H 04/19/19 21:30: Sodium 141, Potassium 4.2, Chloride 107, Carbon Dioxide 31.0, Anion Gap 3 L, BUN 32 H, Creatinine 1.26, Est GFR (MDRD) Af Amer 72, Est GFR (MDRD) Non-Af 60, BUN/Creatinine Ratio 25.4 H, Glucose 110 H, Calcium 8.7 04/19/19 21:30: Magnesium 2.1 Rhythm: Sinus rhythm EKG: As noted above Transthoracic echocardiogram: 02/08/2018 Interpretation Summary Normal LV size. Mild concentric left ventricular hypertrophy. Left ventricular systolic function is normal. The estimated ejection fraction is 60 %. Mild focal aortic valve calcification. Stress test: 03/22/20 EXERCISE TOLERANCE TEST: The patient exercised on a German protocol for 6 minutes and 30 seconds completing stage 2 and 30 seconds of stage 3, achieving a peak heart rate of 118 beats per minute (77% predicted maximum heart rate) and a peak blood pressure of 152/78 mmHg and a peak MET capacity of approximately 7 METS. The baseline ECG demonstrated normal sinus rhythm. The peak exercise ECG demonstrated no obvious ECG changes at the heart rate achieved. There was a rare PVC during recovery. The functional capacity was considered average. The patient had no complaint of chest discomfort during exercise or recovery. The examination was discontinued secondary to dyspnea. IMPRESSION: 1. Technically inadequate (percent predicted maximum heart rate less than 85%) exercise tolerance test. 2. Peak exercise ECG with no obvious ECG changes at the heart rate achieved. 3. Rare PVC during recovery. Cardiac catheterization: 01/19/2016 Final impression: 1. Elevated left ventricular end diastolic pressure compatible decreased diastolic compliance 2. Borderline to mild elevation of the intrapulmonary and right heart pressures 3. Oxygen saturations: No obvious evidence of intercardiac shunting phenomena 4. Left ventricle: A. Normal left ventricular size, wall motion, and systolic function B. Estimated LVEF of 65% 5. Left main coronary artery: A. Angiographically normal 6. Left anterior descending coronary artery: A. Angiographically normal 7. Left circumflex coronary artery: A. Angiographically normal 8. Right coronary artery: A. Large dominant vessel B. Angiographically normal 9. Aortic valve: A. Insufficient-moderate 10. Aortic root/ascending thoracic aorta: A. Dilated/aneurysmal 11. Mitral valve: A. Stenotic-mild Chest CTA: 04/15/2016 IMPRESSION: No identified pulmonary embolus. Interval resolution of filling defects from 02/19/2016. Postsurgical changes of the ascending thoracic aorta with persistent stranding of the mediastinal soft tissues, moderate volume pericardial effusion, pleural effusions and bibasilar atelectasis. Assessment/Plan 1. Drug overdose The patient has accidentally ingested an excess dose of his sotalol/Betapace. At the present time he has been evaluated noninvasively. He appears to be symptomatically and hemodynamically stable. He is going to be monitored in the hospital for any concerns of cardiac dysrhythmias either bradycardic or tachycardic. He will be treated as deemed appropriate if any of these events occur. Eventually he will return to his baseline dosage. He was also encouraged to obtain a day by day and morning by evening pill capacity planner at home to try and minimize the opportunity for accidental overdose of his medications. 2. Prolonged QT interval His QT interval is somewhat prolonged. He has had no adverse events thus far from his accidental overdose of his sotalol with respect to bradycardia dysrhythmias or tachycardia dysrhythmias such as torsade a plan. He will continue to withhold the medication at this time. He will continue to be monitored on cardiac telemetry. 3. Paroxysmal atrial fibrillation He has remained in sinus rhythm. Eventually he will continue his medical management which has included his rate control therapy/antiarrhythmic therapy and his anticoagulant therapy. 4. Aortic valve disorder status post aortic valve repair This was performed during his thoracic surgery for his thoracic ascending aortic aneurysm repair. He has done well. He will continue to be followed by history, exam, and noninvasive studies as deemed appropriate. 5. Ascending aortic aneurysm repair Again he has done well thus far. He will continue to be followed by history, exam, and noninvasive studies as deemed appropriate. 6. Mitral valve prolapse He does have a history of mitral valve prolapse. He appears without any acute symptoms or adverse events. He will continue to be followed noninvasively. 7. Postoperative saddle emboli He did have postoperative saddle pulmonary emboli. He was treated for such. This appears to have resolved. 8. Long-term anticoagulant therapy The patient has been on long-term anticoagulant therapy secondary to concerns of his atrial dysrhythmia. This will be continued with dose adjustment as deemed appropriate. Comment: The patient's case has been discussed and reviewed with the patient and Dr. Lira of the [facility] emergency department staff. This note was generated with Spotsetter[employer] software. It may contain incorrect words, spelling, and punctuation that were not noted in checking the note before signing.
--- NOTE | 2019-04-19 23:10 | CON.PCM_ITS ---
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 The patient states he has been doing well. He recently has traveled to and from [facility] on vacation. He states he had no obvious cardiovascular concerns or complaints. 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 He has denied any ongoing chest discomfort or difficulty breathing or palpitations. There is been no near syncope or syncope. He states today-this evening-he accidentally took 2 additional sotalol tablets and believes he brought his total sotalol milligram ingestion for the day to 480 mg. He presented to the emergency department for further evaluation and care. His laboratory studies were performed. His ECG demonstrated sinus rhythm with possible left atrial enlargement and possible LVH with a nonspecific T wave abnormality with a prolonged QT interval. The [facility] emergency department contacted the Poison Control [facility] who subsequently recommended electrolyte replacement if needed, bradycardia therapy with atropine if needed, wide-complex tachycardia/torsade de pointes therapy to be treated per protocol, hypotensive therapy to be treated as deemed appropriate, and subsequent monitoring in hospital for a minimum of 12 hours.[] Past Medical History Allergies/Adverse Reactions: Allergies atorvastatin Adverse Reaction (Severe, Verified 04/19/19 21:15) Myalgias pravastatin Adverse Reaction (Severe, Verified 04/19/19 21:15) Aggitation rosuvastatin [From Crestor] Adverse Reaction (Severe, Verified 04/19/19 21:15) Myalgias Home Medications: Ambulatory Orders Medication Instructions Recorded Levothyroxine [Synthroid] 25 mcg PO DAILY 01/19/16 Aspirin [Aspirin, Baby] 81 mg PO DAILY@0800 02/19/16 amoxicillin 500 mg tablet See Rx Instructions PO .COMPLEX 01/11/18 sotalol 160 mg tablet 160 mg PO BID #180 tab 06/11/18 warfarin 5 mg tablet 5 mg PO .COMPLEX #90 tab 12/03/18 zolpidem 10 mg tablet 10 mg PO QHS PRN 30 Days #30 tab 12/03/18 warfarin 4 mg tablet 4 mg PO .COMPLEX #180 tab 02/08/19 Past Medical History (Chronic Problems): Chronic Problems (Last Reviewed 04/19/19 @ 22:57 by Gustabo Rodriguez MD) Paroxysmal atrial fibrillation (Chronic) Aortic valve disease (Chronic) Ascending aortic aneurysm (Chronic) Mitral valve prolapse (Chronic) 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) Surgical History: herniorrhaphy - when he was 5 yrs old, hernia surgery - *Family History Maternal Family History: Family History (Last Reviewed 04/19/19 @ 22:59 by Gustabo Rodriguez MD) Father Cancer Mother CVA (cerebral vascular accident) Brother Cancer Other Family history of CVA Lives: Spouse/ Significant Other Smoking Status: Never smoker Alcohol: None Drugs: None Review of Systems - Review of Systems General: Denies: Fever, Night Sweats, Fatigue Cardiovascular: Denies: Chest Discomfort, Shortness of Breath, Orthopnea, PND, Peripheral Edema, Palpitations, Lightheadedness, Dizziness, Near Syncope, Syncope Respiratory: Denies: Cough, Sputum Production, Hemoptysis Gastrointestinal: Denies: Hematemesis, Hematochezia, Melena Genitourinary: Denies: Dysuria, Hematuria Skin: Denies: Rash Subjectve: This is a 73-year-old white male who appears to be resting comfortably at the moment in no acute distress. Objective: Vital Signs Temp Pulse Resp BP Pulse Ox 98 F 68 13 134/81 H 97 04/19/19 21:12 04/19/19 23:00 04/19/19 23:00 04/19/19 23:00 04/19/19 23:00 Oxygen Delivery Method Room Air Weight: 212 lb 8.41 oz Body Mass Index (BMI) 30.4 General: Awake, Alert, Oriented x 3, Cooperative, No Acute Distress HEENT: Atraumatic, Normocephalic, PERRL, EOMI Oral: Moist Mucosa Neck: Supple, Good ROM, No JVD Lungs: Clear to auscultation Cardiovascular: Regular Rhythm, Normal S1, Normal S2 Murmur Murmur: Grade 1/6, Soft, Mid Systolic, LLSB Vascular: No Carotid Bruits Abdomen: Bowel Sounds Present, Soft, Non Tender Extremities: No Cyanosis, No Clubbing, No edema Neurological: No Focal Motor or Sensory Deficit Psych/Mental Status: Appropriate 04/19/19 21:30: WBC 8.8, RBC 3.98 L, Hgb 13.0, Hct 39.0 L, MCV 98.0 H, MCH 32.7 H, MCHC 33.3, RDW 13.5, RDW Differential 48.1 H, Plt Count 247, MPV 9.0, Neut % (Auto) Not Reportable, Absolute Neuts (auto) 4.9, Total Counted 100, Neutrophils % (Manual) 56, Lymphocytes % (Manual) 30, Monocytes % (Manual) 8, Myelocytes % 6 H 04/19/19 21:30: Sodium 141, Potassium 4.2, Chloride 107, Carbon Dioxide 31.0, Anion Gap 3 L, BUN 32 H, Creatinine 1.26, Est GFR (MDRD) Af Amer 72, Est GFR (MDRD) Non-Af 60, BUN/Creatinine Ratio 25.4 H, Glucose 110 H, Calcium 8.7 04/19/19 21:30: Magnesium 2.1 Rhythm: Sinus rhythm EKG: As noted above Transthoracic echocardiogram: 02/08/2018 Interpretation Summary Normal LV size. Mild concentric left ventricular hypertrophy. Left ventricular systolic function is normal. The estimated ejection fraction is 60 %. Mild focal aortic valve calcification. Stress test: 03/22/20 EXERCISE TOLERANCE TEST: The patient exercised on a German protocol for 6 minutes and 30 seconds completing stage 2 and 30 seconds of stage 3, achieving a peak heart rate of 118 beats per minute (77% predicted maximum heart rate) and a peak blood pressure of 152/78 mmHg and a peak MET capacity of approximately 7 METS. The baseline ECG demonstrated normal sinus rhythm. The peak exercise ECG demonstrated no obvious ECG changes at the heart rate achieved. There was a rare PVC during recovery. The functional capacity was considered average. The patient had no complaint of chest discomfort during exercise or recovery. The examination was discontinued secondary to dyspnea. IMPRESSION: 1. Technically inadequate (percent predicted maximum heart rate less than 85%) exercise tolerance test. 2. Peak exercise ECG with no obvious ECG changes at the heart rate achieved. 3. Rare PVC during recovery. Cardiac catheterization: 01/19/2016 Final impression: 1. Elevated left ventricular end diastolic pressure compatible decreased diastolic compliance 2. Borderline to mild elevation of the intrapulmonary and right heart pressures 3. Oxygen saturations: No obvious evidence of intercardiac shunting phenomena 4. Left ventricle: A. Normal left ventricular size, wall motion, and systolic function B. Estimated LVEF of 65% 5. Left main coronary artery: A. Angiographically normal 6. Left anterior descending coronary artery: A. Angiographically normal 7. Left circumflex coronary artery: A. Angiographically normal 8. Right coronary artery: A. Large dominant vessel B. Angiographically normal 9. Aortic valve: A. Insufficient-moderate 10. Aortic root/ascending thoracic aorta: A. Dilated/aneurysmal 11. Mitral valve: A. Stenotic-mild Chest CTA: 04/15/2016 IMPRESSION: No identified pulmonary embolus. Interval resolution of filling defects from 02/19/2016. Postsurgical changes of the ascending thoracic aorta with persistent stranding of the mediastinal soft tissues, moderate volume pericardial effusion, pleural effusions and bibasilar atelectasis. Assessment/Plan 1. Drug overdose The patient has accidentally ingested an excess dose of his sotalol/Betapace. At the present time he has been evaluated noninvasively. He appears to be symptomatically and hemodynamically stable. He is going to be monitored in the hospital for any concerns of cardiac dysrhythmias either bradycardic or tachycardic. He will be treated as deemed appropriate if any of these events occur. Eventually he will return to his baseline dosage. He was also encouraged to obtain a day by day and morning by evening pill landscape architect and planner at home to try and minimize the opportunity for accidental overdose of his medications. 2. Prolonged QT interval His QT interval is somewhat prolonged. He has had no adverse events thus far from his accidental overdose of his sotalol with respect to bradycardia dysrhythmias or tachycardia dysrhythmias such as torsade a plan. He will continue to withhold the medication at this time. He will continue to be monitored on cardiac telemetry. 3. Paroxysmal atrial fibrillation He has remained in sinus rhythm. Eventually he will continue his medical management which has included his rate control therapy/antiarrhythmic therapy and his anticoagulant therapy. 4. Aortic valve disorder status post aortic valve repair This was performed during his thoracic surgery for his thoracic ascending aortic aneurysm repair. He has done well. He will continue to be followed by history, exam, and noninvasive studies as deemed appropriate. 5. Ascending aortic aneurysm repair Again he has done well thus far. He will continue to be followed by history, exam, and noninvasive studies as deemed appropriate. 6. Mitral valve prolapse He does have a history of mitral valve prolapse. He appears without any acute symptoms or adverse events. He will continue to be followed noninvasively. 7. Postoperative saddle emboli He did have postoperative saddle pulmonary emboli. He was treated for such. This appears to have resolved. 8. Long-term anticoagulant therapy The patient has been on long-term anticoagulant therapy secondary to concerns of his atrial dysrhythmia. This will be continued with dose adjustment as deemed appropriate. Comment: The patient's case has been discussed and reviewed with the patient and Dr. Lira of the [facility] emergency department staff. This note was generated with [employer] software. It may contain incorrect words, spelling, and punctuation that were not noted in checking the note before signing.
[2019-04-19 23:12] LABS: International Normalized Ratio 4.3
[2019-04-20] VITALS (10 sets, daily range): BP systolic 119–136; BP diastolic 70–77; PULSE 56–73; RESP 16–18; TEMP 36.6–37.2; O2SAT 94–97; BMI 31.1; BMI 31.2
[2019-04-20 05:14] LABS: Anion Gap 6 (5-15); BUN 26 mg/dL (7-18); BUN/Creat Ratio 30.8 RATIO (10-20); Calcium,Total 8.5 mg/dL (8.5-10.1); Chloride 106 mmol/L (98-107); Creatinine, Serum 0.84 mg/dL (0.70-1.30); EST Glomerular Filtration Rate 95 mL/min (>60); Est Glom Filt Rate - Afr Amer 115 mL/min (>60); Estimated Creatinine Clearance 80.66 ml/min; Glucose 121 mg/dL (74-106); Magnesium 2.4 mg/dL (1.6-2.6); Potassium 4.7 mmol/L (3.5-5.1); Sodium Level 140 mmol/L (136-145)
--- NOTE | 2019-04-20 05:55 | EKG12_ITS ---
Test Reason : AM EKG Blood Pressure : / mmHG Vent. Rate : 063 BPM Atrial Rate : 063 BPM P-R Int : 146 ms QRS Dur : 084 ms QT Int : 496 ms P-R-T Axes : 055 003 038 degrees QTc Int : 507 ms Normal sinus rhythm Nonspecific T wave abnormality Prolonged QT Abnormal ECG Confirmed by KEYA FERMIN, VJ ([id number]), subeditor PAPO BALTAZAR ([id number] on 04/26/2019 6:47:52 AM Referred By: Gustabo Rodriguez Confirmed By:VJ LAURA MD
[2019-04-20] MEDS: Levothyroxine 25 MCG TABLET PO (05:59)
[2019-04-20] MEDS: Aspirin 81 MG TAB.CHEW PO (09:29)
--- NOTE | 2019-04-20 13:27 | PN.CARD_ITS ---
Subjectve: The patient appears to be resting comfortably. He denies any acute symptoms. Objective: Vital Signs Temp Pulse Resp BP Pulse Ox 98.1 F 68 16 120/70 96 04/20/19 10:38 04/20/19 10:38 04/20/19 10:38 04/20/19 10:38 04/20/19 10:38 Oxygen Delivery Method Room Air Weight: 210 lb 15.718 oz Body Mass Index (BMI) 31.1 Intake and Output for Last 24 Hours 04/18/19 04/19/19 04/20/19 23:59 23:59 23:59 Intake Total 420 / 420 Balance 420 / 420 General: Awake, Alert, Oriented x 3, Cooperative, No Acute Distress HEENT: Atraumatic, Normocephalic, PERRL, EOMI, Sclera Non Icteric Oral: Moist Mucosa Neck: Supple, Good ROM, No JVD Lungs: Clear to auscultation Cardiovascular: Regular Rhythm, Normal S1, Normal S2 Murmur Murmur: Grade 1/6, Soft, Mid Systolic, LLSB Abdomen: Bowel Sounds Present, Soft, Non Tender Extremities: No Cyanosis, No Clubbing, No edema Neurological: No Focal Motor or Sensory Deficit Psych/Mental Status: Appropriate 04/19/19 21:30: WBC 8.8, RBC 3.98 L, Hgb 13.0, Hct 39.0 L, MCV 98.0 H, MCH 32.7 H, MCHC 33.3, RDW 13.5, RDW Differential 48.1 H, Plt Count 247, MPV 9.0, Neut % (Auto) Not Reportable, Absolute Neuts (auto) 4.9, Total Counted 100, Neutrophils % (Manual) 56, Lymphocytes % (Manual) 30, Monocytes % (Manual) 8, Myelocytes % 6 H 04/19/19 21:30: Sodium 141, Potassium 4.2, Chloride 107, Carbon Dioxide 31.0, Anion Gap 3 L, BUN 32 H, Creatinine 1.26, Est GFR (MDRD) Af Amer 72, Est GFR (MDRD) Non-Af 60, BUN/Creatinine Ratio 25.4 H, Glucose 110 H, Calcium 8.7 04/19/19 21:30: Magnesium 2.1 04/19/19 22:48: PT 41.9 H, INR 4.3 H* 06/01/19 00:45: Troponin I < 0.015 04/20/19 04:10: Sodium Cancelled, Potassium Cancelled, Chloride Cancelled, Carbon Dioxide Cancelled, Anion Gap Cancelled, BUN Cancelled, Creatinine Cancelled, Est GFR (MDRD) Af Amer Cancelled, Est GFR (MDRD) Non-Af Cancelled, BUN/Creatinine Ratio Cancelled, Glucose Cancelled, Calcium Cancelled, Magnesium Cancelled 04/20/19 04:10: Sodium 140, Potassium 4.7, Chloride 106, Carbon Dioxide 28.0, Anion Gap 6, BUN 26 H, Creatinine 0.84, Est GFR (MDRD) Af Amer 115, Est GFR (MDRD) Non-Af 95, BUN/Creatinine Ratio 30.8 H, Glucose 121 H, Calcium 8.5, Magnesium 2.4, Troponin I < 0.015 04/20/19 06:36: Troponin I < 0.015 Rhythm: Sinus rhythm EKG: Sinus rhythm; nonspecific T wave abnormality; prolonged QT interval Medical Necessity - Tobacco Use Smoking Status: Never smoker Assessment/Plan 1. Drug overdose The patient has accidentally ingested an excess dose of his sotalol/Betapace. At the present time he has been evaluated noninvasively. He appears to be symptomatically and hemodynamically stable. He is going to be monitored in the hospital for any concerns of cardiac dysrhythmias either bradycardic or tachycardic. He will be treated as deemed appropriate if any of these events occur. Eventually he will return to his baseline dosage. He was also encouraged to obtain a day by day and morning by evening pill principal planner at home to try and minimize the opportunity for accidental overdose of his medications. 2. Prolonged QT interval His QT interval is somewhat prolonged. He has had no adverse events thus far from his accidental overdose of his sotalol with respect to bradycardia dysrhythmias or tachycardia dysrhythmias such as torsade a plan. He will continue to withhold the medication at this time. He will continue to be monitored on cardiac telemetry. 3. Paroxysmal atrial fibrillation He has remained in sinus rhythm. Eventually he will continue his medical management which has included his rate control therapy/antiarrhythmic therapy and his anticoagulant therapy. 4. Aortic valve disorder status post aortic valve repair This was performed during his thoracic surgery for his thoracic ascending aortic aneurysm repair. He has done well. He will continue to be followed by history, exam, and noninvasive studies as deemed appropriate. 5. Ascending aortic aneurysm repair Again he has done well thus far. He will continue to be followed by history, exam, and noninvasive studies as deemed appropriate. 6. Mitral valve prolapse He does have a history of mitral valve prolapse. He appears without any acute symptoms or adverse events. He will continue to be followed noninvasively. 7. Postoperative saddle emboli He did have postoperative saddle pulmonary emboli. He was treated for such. This appears to have resolved. 8. Long-term anticoagulant therapy The patient has been on long-term anticoagulant therapy secondary to concerns of his atrial dysrhythmia. His INR level was elevated. This may be secondary to his recent corticosteroid use. His INR level will be followed. His medication will be adjusted as deemed appropriate. Comment: The patient's case has been discussed and reviewed with the patient and the [facility] staff. This note was generated with [employer] dictation software. It may contain incorrect words, spelling, and punctuation that were not noted in checking the note before signing.
--- NOTE | 2019-04-20 13:53 | PN_ITS ---
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 No CP, palp, tightness, LH, dizziness. qtc is still prolonged. - Physical Exam General: Alert, Oriented x3, Cooperative HEENT: Atraumatic, PERRLA, EOMI, Normocephalic Neck: Supple, No JVD, Negative Carotid Bruits Lungs: Clear to auscultation, Normal air movement Cardiovascular: Regular rate, No murmurs Abdomen: Bowel Sounds Present, Soft, Non Tender Extremities: No edema, Capillary Refill Less than 3 Seconds Skin: No rashes, No breakdown Musculoskeletal: No Tenderness to Palpation of Joints or Extremities Neurological: Cranial nerves II-XII grossly intact Psych/Mental Status: Normal Affect, Appropriate, Alert and oriented to time, place, person, mood and affect Vital Signs Temp Pulse Resp BP Pulse Ox 98.1 F 68 16 120/70 96 04/20/19 10:38 04/20/19 10:38 04/20/19 10:38 04/20/19 10:38 04/20/19 10:38 Oxygen Delivery Method Room Air Weight: 210 lb 15.718 oz Body Mass Index (BMI) 31.1 Intake and Output for Last 24 Hours 04/18/19 04/19/19 04/20/19 23:59 23:59 23:59 Intake Total 420 / 420 Balance 420 / 420 Laboratory Tests Past 24 Hrs 04/19/19 04/19/19 04/19/19 21:30 21:30 21:30 WBC 8.8 RBC 3.98 L Hgb 13.0 Hct 39.0 L MCV 98.0 H MCH 32.7 H MCHC 33.3 RDW 13.5 RDW Differential 48.1 H Plt Count 247 MPV 9.0 Neut % (Auto) Not Reportable Absolute Neuts (auto) 4.9 Absolute Lymphs (auto) 2.64 Total Counted 100 Neutrophils % (Manual) 56 Lymphocytes % (Manual) 30 Monocytes % (Manual) 8 Myelocytes % 6 H Differential Comment SCANNED Diff Path Review May foll Platelet Estimate ADEQUATE PT INR Sodium 141 Potassium 4.2 Chloride 107 Carbon Dioxide 31.0 Anion Gap 3 L BUN 32 H Creatinine 1.26 Estim Creat Clear Calc 55.52 Est GFR (MDRD) Af Amer 72 Est GFR (MDRD) Non-Af 60 BUN/Creatinine Ratio 25.4 H Glucose 110 H Calcium 8.7 Magnesium 2.1 Troponin I 04/19/19 04/20/19 04/20/19 22:48 00:45 04:10 WBC RBC Hgb Hct MCV MCH MCHC RDW RDW Differential Plt Count MPV Neut % (Auto) Absolute Neuts (auto) Absolute Lymphs (auto) Total Counted Neutrophils % (Manual) Lymphocytes % (Manual) Monocytes % (Manual) Myelocytes % Differential Comment Diff Path Review Platelet Estimate PT 41.9 H INR 4.3 H* Sodium Cancelled Potassium Cancelled Chloride Cancelled Carbon Dioxide Cancelled Anion Gap Cancelled BUN Cancelled Creatinine Cancelled Estim Creat Clear Calc Cancelled Est GFR (MDRD) Af Amer Cancelled Est GFR (MDRD) Non-Af Cancelled BUN/Creatinine Ratio Cancelled Glucose Cancelled Calcium Cancelled Magnesium Cancelled Troponin I < 0.015 04/20/19 04/20/19 04:10 06:36 WBC RBC Hgb Hct MCV MCH MCHC RDW RDW Differential Plt Count MPV Neut % (Auto) Absolute Neuts (auto) Absolute Lymphs (auto) Total Counted Neutrophils % (Manual) Lymphocytes % (Manual) Monocytes % (Manual) Myelocytes % Differential Comment Diff Path Review Platelet Estimate PT INR Sodium 140 Potassium 4.7 Chloride 106 Carbon Dioxide 28.0 Anion Gap 6 BUN 26 H Creatinine 0.84 Estim Creat Clear Calc 80.66 Est GFR (MDRD) Af Amer 115 Est GFR (MDRD) Non-Af 95 BUN/Creatinine Ratio 30.8 H Glucose 121 H Calcium 8.5 Magnesium 2.4 Troponin I < 0.015 < 0.015 Medical Necessity - Tobacco Use Smoking Status: Never smoker Assessment/Plan All Active Problems (Last Reviewed 04/19/19 @ 22:57 by Gustabo Rodriguez MD) Drug overdose (Acute) Prolonged QT interval (Acute) 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 Accidental drug overdose - sotalol doubled daily dose. QTc prolonged. Monitor overnight. Plan to resume when appropriate. Rate stable. No events overnight5 on tele. Trop neg x 3. 2. pAfib - stable. Warfarin supratherapeutic - held DVT ppx: warfarin DC planning: home tomorrow if no issues overnight on tele/ekg This patient was seen by Alfa Cortés PA-C under the supervision of Dr. Ponce <Lavon Ponce F - Last Filed: 04/20/19 17:06> - Physical Exam Vital Signs Temp Pulse Resp BP Pulse Ox 99.0 F 68 16 119/70 94 04/20/19 15:30 04/20/19 15:30 04/20/19 15:30 04/20/19 15:30 04/20/19 15:30 Oxygen Delivery Method Room Air Weight: 210 lb 15.718 oz Body Mass Index (BMI) 31.1 Intake and Output for Last 24 Hours 04/18/19 04/19/19 04/20/19 23:59 23:59 23:59 Intake Total 420 / 420 Balance 420 / 420 Laboratory Tests Past 24 Hrs 04/19/19 04/19/19 04/19/19 21:30 21:30 21:30 WBC 8.8 RBC 3.98 L Hgb 13.0 Hct 39.0 L MCV 98.0 H MCH 32.7 H MCHC 33.3 RDW 13.5 RDW Differential 48.1 H Plt Count 247 MPV 9.0 Neut % (Auto) Not Reportable Absolute Neuts (auto) 4.9 Absolute Lymphs (auto) 2.64 Total Counted 100 Neutrophils % (Manual) 56 Lymphocytes % (Manual) 30 Monocytes % (Manual) 8 Myelocytes % 6 H Differential Comment SCANNED Diff Path Review May foll Platelet Estimate ADEQUATE PT INR Sodium 141 Potassium 4.2 Chloride 107 Carbon Dioxide 31.0 Anion Gap 3 L BUN 32 H Creatinine 1.26 Estim Creat Clear Calc 55.52 Est GFR (MDRD) Af Amer 72 Est GFR (MDRD) Non-Af 60 BUN/Creatinine Ratio 25.4 H Glucose 110 H Calcium 8.7 Magnesium 2.1 Troponin I 04/19/19 04/20/19 04/20/19 22:48 00:45 04:10 WBC RBC Hgb Hct MCV MCH MCHC RDW RDW Differential Plt Count MPV Neut % (Auto) Absolute Neuts (auto) Absolute Lymphs (auto) Total Counted Neutrophils % (Manual) Lymphocytes % (Manual) Monocytes % (Manual) Myelocytes % Differential Comment Diff Path Review Platelet Estimate PT 41.9 H INR 4.3 H* Sodium Cancelled Potassium Cancelled Chloride Cancelled Carbon Dioxide Cancelled Anion Gap Cancelled BUN Cancelled Creatinine Cancelled Estim Creat Clear Calc Cancelled Est GFR (MDRD) Af Amer Cancelled Est GFR (MDRD) Non-Af Cancelled BUN/Creatinine Ratio Cancelled Glucose Cancelled Calcium Cancelled Magnesium Cancelled Troponin I < 0.015 04/20/19 04/20/19 04:10 06:36 WBC RBC Hgb Hct MCV MCH MCHC RDW RDW Differential Plt Count MPV Neut % (Auto) Absolute Neuts (auto) Absolute Lymphs (auto) Total Counted Neutrophils % (Manual) Lymphocytes % (Manual) Monocytes % (Manual) Myelocytes % Differential Comment Diff Path Review Platelet Estimate PT INR Sodium 140 Potassium 4.7 Chloride 106 Carbon Dioxide 28.0 Anion Gap 6 BUN 26 H Creatinine 0.84 Estim Creat Clear Calc 80.66 Est GFR (MDRD) Af Amer 115 Est GFR (MDRD) Non-Af 95 BUN/Creatinine Ratio 30.8 H Glucose 121 H Calcium 8.5 Magnesium 2.4 Troponin I < 0.015 < 0.015 Code Visit Addendum: Dr. Ponce I personally examined the patient and reviewed the chart. I agree with the above. 73-year-old male who excellently took 2 extra sotalol pills prior to admission. When he did come in his QTC was prolonged and so he was admitted for observation. Cardiology was consulted and recommends discharge tomorrow morning. He is doing well and denies any chest pain, lightheadedness, dizzin ess. OBSV E&M: [id number] Subsequent observation care L2
--- NOTE | 2019-04-20 14:47 | NURSING ---
1435 This RN assuming care of pt at this time.
[2019-04-21 03:00] VITALS: PULSE 56
[2019-04-21 03:10] VITALS: BP 124/74; PULSE 62; RESP 16; TEMP 37; O2SAT 96
[2019-04-21] MEDS: Levothyroxine 25 MCG TABLET PO (05:19)
--- NOTE | 2019-04-21 05:55 | EKG12_ITS ---
Test Reason : AM EKG Blood Pressure : / mmHG Vent. Rate : 061 BPM Atrial Rate : 061 BPM P-R Int : 132 ms QRS Dur : 084 ms QT Int : 438 ms P-R-T Axes : 044 003 039 degrees QTc Int : 440 ms Normal sinus rhythm Minimal voltage criteria for LVH, may be normal variant Borderline ECG Confirmed by KEYA FERMIN, VJ ([id number]), legal editor PAPO BALTAZAR ([id number] on 04/26/2019 6:45:42 AM Referred By: Gustabo Rodriguez Confirmed By:VJ LAURA MD
[2019-04-21 05:59] LABS: International Normalized Ratio 2.1; Prothrombin Time (Protime)PT. 23.3 SECONDS (11.7-14.9)
[2019-04-21 06:03] LABS: Anion Gap 5 (5-15); BUN 24 mg/dL (7-18); BUN/Creat Ratio 30.5 RATIO (10-20); Calcium,Total 8.1 mg/dL (8.5-10.1); Chloride 105 mmol/L (98-107); Creatinine, Serum 0.79 mg/dL (0.70-1.30); EST Glomerular Filtration Rate 103 mL/min (>60); Est Glom Filt Rate - Afr Amer 125 mL/min (>60); Estimated Creatinine Clearance 67.75 ml/min; Glucose 92 mg/dL (74-106); Potassium 4.2 mmol/L (3.5-5.1); Sodium Level 139 mmol/L (136-145)
[2019-04-21 07:00] VITALS: PULSE 54
--- NOTE | 2019-04-21 08:23 | DCINST_ITS ---
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) (Acute) You will use the following diet at home:: Cardiac Your food should be the consistency of: Regular Your liquids should be the consistency of: Regular/Thin Discharge Activity: Return to Normal Activity, No Restrictions Call your doctor if you observe: Fever of 101 or Higher, Shortness of breath, Dizziness, Fainting spells, Swelling in the ankles, Chest pain, Increased palpitations (irregular heartbeat) Additional Instructions: Obtain an INR in 3-5 days Allergies/Adverse Reactions: Allergies atorvastatin Adverse Reaction (Severe, Verified 04/19/19 21:15) Myalgias pravastatin Adverse Reaction (Severe, Verified 04/19/19 21:15) Aggitation rosuvastatin [From Crestor] Adverse Reaction (Severe, Verified 04/19/19 21:15) Myalgias Medications to take at Discharge Levothyroxine [Synthroid] 25 mcg PO DAILY 01/19/16 Aspirin [Aspirin, Baby] 81 mg PO DAILY@0800 02/19/16 sotalol 160 mg tablet 160 mg PO BID #180 tab 06/11/18 zolpidem 10 mg tablet 10 mg PO QHS PRN 30 Days #30 tab 12/03/18 Warfarin Sodium [Coumadin] 4 mg PO .COMPLEX 04/20/19 Warfarin [Coumadin] 5 mg PO .COMPLEX 04/20/19 Primary Care Physician: Nish Harrell Chi, MD [Primary Care Provider] - Please follow up with your Primary Care Physician in: 3-5 days Test Results: Test results from this visit will be discussed in further detail at your follow- up appointment, if applicable. Please Follow Up With: Cardiology
--- NOTE | 2019-04-21 08:28 | DS.PCM_ITS ---
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) (Acute) - Secondary Discharge Diagnosis Chronic Problems (Last Reviewed 04/19/19 @ 22:57 by Gustabo Rodriguez MD) Paroxysmal atrial fibrillation (Chronic) Aortic valve disease (Chronic) Ascending aortic aneurysm (Chronic) Mitral 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 Patient takes 160 mg sotalol twice daily. However in the evening before presentation instead of his 160 mg he accidentally took extra 2 tablets of his 160 mg of sotalol. He denies any symptoms. At emergency department he was found to have prolonged QTc interval. Poison control was contacted by the emergency department and they (Poison control) gave a recommendation. Emergency department doctor discussed the case with cardiology on-call, Dr. Monte who is also patient's cardiology. Per emergency department doctor, Dr. Monte was okay with recommendation from poison control; and recommended that patient be admitted to the PCU. Hospital Course: 1. Accidental drug [id number] male with history of A. fib/PE/aortic root aneurysm repair and aortic valve replacement excellently took 2 extra doses of his 160 mg sotalol. He had a slightly prolonged QTC on admission and therefore was monitored for. He has done very well during his stay and his QTC on the day of discharge has returned back to normal. His INR also on admission was slightly elevated and his Coumadin was on hold. On the day of discharge his INR was 2.1 and therefore he can restart his Coumadin. He can also restart his sotalol at his previous dose and follow-up with cardiology as an outpatient. This was discussed with the patient who understood and is in agreement with the plan. 2. 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) (Acute) - Physical Exam General: Alert, Oriented x3, Cooperative, No apparent distress HEENT: Atraumatic, PERRLA, EOMI, Normocephalic Oral: Moist Mucosa Neck: Supple, No JVD Lungs: Clear to auscultation, Normal air movement, No rhonchi, No wheeze, No rales Cardiovascular: Regular rate, Regular Rhythm, Normal S1, Normal S2, No murmurs Abdomen: Soft, Non Tender, Non-Distended, No Hepato-splenomegaly Extremities: No edema, Capillary Refill Less than 3 Seconds Skin: No rashes, No breakdown Neurological: Neuro grossly intact, Sensory exam intact to light touch and pain Psych/Mental Status: Normal Affect, Appropriate Vital Signs Temp Pulse Resp BP Pulse Ox 98.6 F 54 L 16 124/74 H 96 04/21/19 03:10 04/21/19 07:00 04/21/19 03:10 04/21/19 03:10 04/21/19 03:10 Oxygen Delivery Method Room Air Weight: 210 lb 15.718 oz Body Mass Index (BMI) 31.1 Intake and Output for Last 24 Hours 04/19/19 04/20/19 04/21/19 23:59 23:59 23:59 Intake Total 720 / 720 480 / 480 Balance 720 / 720 480 / 480 Laboratory Tests Past 24 Hrs 04/21/19 04/21/19 05:32 05:32 PT 23.3 H INR 2.1 Sodium 139 Potassium 4.2 Chloride 105 Carbon Dioxide 29.0 Anion Gap 5 BUN 24 H Creatinine 0.79 Estim Creat Clear Calc 67.75 Est GFR (MDRD) Af Amer 125 Est GFR (MDRD) Non-Af 103 BUN/Creatinine Ratio 30.5 H Glucose 92 Calcium 8.1 L Discharge Activity: Return to Normal Activity, No Restrictions Call your doctor if you observe: Fever of 101 or Higher, Shortness of breath, Dizziness, Fainting spells, Swelling in the ankles, Chest pain, Increased palpitations (irregular heartbeat) Home Medications: Medications to take at Discharge Levothyroxine [Synthroid] 25 mcg PO DAILY 01/19/16 Aspirin [Aspirin, Baby] 81 mg PO DAILY@0800 02/19/16 sotalol 160 mg tablet 160 mg PO BID #180 tab 06/11/18 zolpidem 10 mg tablet 10 mg PO QHS PRN 30 Days #30 tab 12/03/18 Warfarin Sodium [Coumadin] 4 mg PO .COMPLEX 04/20/19 Warfarin [Coumadin] 5 mg PO .COMPLEX 04/20/19 Primary Care Physician: Nish Harrell Chi, MD [Primary Care Provider] - Please follow up with your Primary Care Physician in: 3-5 days Please Follow Up With: Cardiology Disposition: Home Minutes spent on discharge:: 35 Patient Condition:: Stable Medical Necessity - Tobacco Use Smoking Status: Never smoker Meaningful Use Info Meaningful Use Diagnoses (Choose all that apply): None applicable Code Visit OBSV E&M: 42796 Observation care discharge
[2019-04-21 09:30] VITALS: BP 127/79; PULSE 66; RESP 16; TEMP 36.4; O2SAT 93
[2019-04-21] MEDS: Aspirin 81 MG TAB.CHEW PO (09:32)
--- NOTE | 2019-04-21 10:57 | PCM.PN.CARD ---
Subjectve: The patient has been up and ambulating. He appears to be doing well with no obvious acute symptoms. Objective: Vital Signs Temp Pulse Resp BP Pulse Ox 97.5 F L 66 16 127/79 H 93 04/21/19 09:30 04/21/19 09:30 04/21/19 09:30 04/21/19 09:30 04/21/19 09:30 Oxygen Delivery Method Room Air Weight: 210 lb 15.718 oz Body Mass Index (BMI) 31.1 Intake and Output for Last 24 Hours 04/19/19 04/20/19 04/21/19 23:59 23:59 23:59 Intake Total 720 / 720 480 / 480 Balance 720 / 720 480 / 480 General: Awake, Alert, Oriented x 3, Cooperative, No Acute Distress HEENT: Atraumatic, Normocephalic, PERRL, EOMI, Sclera Non Icteric Oral: Moist Mucosa Neck: Supple, Good ROM, No JVD Lungs: Clear to auscultation Cardiovascular: Regular Rhythm, Normal S1, Normal S2 Murmur Murmur: Grade 1/6, Soft, Mid Systolic, LLSB Vascular: No Carotid Bruits Abdomen: Bowel Sounds Present, Soft, Non Tender Extremities: No Cyanosis, No Clubbing, No edema Neurological: No Focal Motor or Sensory Deficit Psych/Mental Status: Appropriate 04/21/19 05:32: PT 23.3 H, INR 2.1 04/21/19 05:32: Sodium 139, Potassium 4.2, Chloride 105, Carbon Dioxide 29.0, Anion Gap 5, BUN 24 H, Creatinine 0.79, Est GFR (MDRD) Af Amer 125, Est GFR (MDRD) Non-Af 103, BUN/Creatinine Ratio 30.5 H, Glucose 92, Calcium 8.1 L Rhythm: Sinus rhythm EKG: Sinus rhythm; QT interval appears to be within acceptable limits; no acute ECG changes Medical Necessity - Tobacco Use Smoking Status: Never smoker Assessment/Plan 1. Drug overdose The patient has accidentally ingested an excess dose of his sotalol/Betapace. At the present time he has been evaluated noninvasively. He appears to be symptomatically and hemodynamically stable. He was also encouraged to obtain a day by day and morning by evening pill category planner at home to try and minimize the opportunity for accidental overdose of his medications. 2. Prolonged QT interval His QT interval is somewhat prolonged. He has had no adverse events thus far from his accidental overdose of his sotalol with respect to bradycardia dysrhythmias or tachycardia dysrhythmias such as torsade a plan. His QT interval appears to be within acceptable limits. 3. Paroxysmal atrial fibrillation He has remained in sinus rhythm. Eventually he will continue his medical management which has included his rate control therapy/antiarrhythmic therapy and his anticoagulant therapy. 4. Aortic valve disorder status post aortic valve repair This was performed during his thoracic surgery for his thoracic ascending aortic aneurysm repair. He has done well. He will continue to be followed by history, exam, and noninvasive studies as deemed appropriate. 5. Ascending aortic aneurysm repair Again he has done well thus far. He will continue to be followed by history, exam, and noninvasive studies as deemed appropriate. 6. Mitral valve prolapse He does have a history of mitral valve prolapse. He appears without any acute symptoms or adverse events. He will continue to be followed noninvasively. 7. Postoperative saddle emboli He did have postoperative saddle pulmonary emboli. He was treated for such. This appears to have resolved. 8. Long-term anticoagulant therapy The patient has been on long-term anticoagulant therapy secondary to concerns of his atrial dysrhythmia. His INR level was elevated. This may be secondary to his recent corticosteroid use. His INR level has decreased. Overall, at the present time, it appears the patient has been without obvious adverse event. It appears that he is stable for release home for continued medical therapy and outpatient cardiovascular follow-up as deemed appropriate. Comment: The patient's case has been discussed and reviewed with the patient and the [facility] staff. This note was generated with [employer] dictation software. It may contain incorrect words, spelling, and punctuation that were not noted in checking the note before signing.
--- NOTE | 2019-04-21 11:00 | PN.CARD_ITS ---
Subjectve: The patient has been up and ambulating. He appears to be doing well with no obvious acute symptoms. Objective: Vital Signs Temp Pulse Resp BP Pulse Ox 97.5 F L 66 16 127/79 H 93 04/21/19 09:30 04/21/19 09:30 04/21/19 09:30 04/21/19 09:30 04/21/19 09:30 Oxygen Delivery Method Room Air Weight: 210 lb 15.718 oz Body Mass Index (BMI) 31.1 Intake and Output for Last 24 Hours 04/19/19 04/20/19 04/21/19 23:59 23:59 23:59 Intake Total 720 / 720 480 / 480 Balance 720 / 720 480 / 480 General: Awake, Alert, Oriented x 3, Cooperative, No Acute Distress HEENT: Atraumatic, Normocephalic, PERRL, EOMI, Sclera Non Icteric Oral: Moist Mucosa Neck: Supple, Good ROM, No JVD Lungs: Clear to auscultation Cardiovascular: Regular Rhythm, Normal S1, Normal S2 Murmur Murmur: Grade 1/6, Soft, Mid Systolic, LLSB Vascular: No Carotid Bruits Abdomen: Bowel Sounds Present, Soft, Non Tender Extremities: No Cyanosis, No Clubbing, No edema Neurological: No Focal Motor or Sensory Deficit Psych/Mental Status: Appropriate 04/21/19 05:32: PT 23.3 H, INR 2.1 04/21/19 05:32: Sodium 139, Potassium 4.2, Chloride 105, Carbon Dioxide 29.0, Anion Gap 5, BUN 24 H, Creatinine 0.79, Est GFR (MDRD) Af Amer 125, Est GFR (MDRD) Non-Af 103, BUN/Creatinine Ratio 30.5 H, Glucose 92, Calcium 8.1 L Rhythm: Sinus rhythm EKG: Sinus rhythm; QT interval appears to be within acceptable limits; no acute ECG changes Medical Necessity - Tobacco Use Smoking Status: Never smoker Assessment/Plan 1. Drug overdose The patient has accidentally ingested an excess dose of his sotalol/Betapace. At the present time he has been evaluated noninvasively. He appears to be symptomatically and hemodynamically stable. He was also encouraged to obtain a day by day and morning by evening pill planne r at home to try and minimize the opportunity for accidental overdose of his medications. 2. Prolonged QT interval His QT interval is somewhat prolonged. He has had no adverse events thus far from his accidental overdose of his sotalol with respect to bradycardia dysrhythmias or tachycardia dysrhythmias such as torsade a plan. His QT interval appears to be within acceptable limits. 3. Paroxysmal atrial fibrillation He has remained in sinus rhythm. Eventually he will continue his medical management which has included his rate control therapy/antiarrhythmic therapy and his anticoagulant therapy. 4. Aortic valve disorder status post aortic valve repair This was performed during his thoracic surgery for his thoracic ascending aortic aneurysm repair. He has done well. He will continue to be followed by history, exam, and noninvasive studies as deemed appropriate. 5. Ascending aortic aneurysm repair Again he has done well thus far. He will continue to be followed by history, exam, and noninvasive studies as deemed appropriate. 6. Mitral valve prolapse He does have a history of mitral valve prolapse. He appears without any acute symptoms or adverse events. He will continue to be followed noninvasively. 7. Postoperative saddle emboli He did have postoperative saddle pulmonary emboli. He was treated for such. This appears to have resolved. 8. Long-term anticoagulant therapy The patient has been on long-term anticoagulant therapy secondary to concerns of his atrial dysrhythmia. His INR level was elevated. This may be secondary to his recent corticosteroid use. His INR level has decreased. Overall, at the present time, it appears the patient has been without obvious adverse event. It appears that he is stable for release home for continued medical therapy and outpatient cardiovascular follow-up as deemed appropriate. Comment: The patient's case has been discussed and reviewed with the patient and the [facility] staff. This note was generated with [employer] software. It may contain incorrect words, spelling, and punctuation that were not noted in checking the note before signing.
[2019-04-22 15:06] LABS: Pathologist Review Reviewed
== END 2019-04-21 10:48 | disposition home or self-care (01) | DRG 918 ==
LOC: ED 22:22 → PCU 23:15
PROVIDERS: Internal Medicine Cardiovascular Disease; Admitting Provider Hospitalist; Emergency Provider Emergency Medicine; Family Provider Family Medicine Geriatric Medicine; PCP Family Medicine Geriatric Medicine; Referring Provider Hospitalist; Visit Provider Family Medicine
DX: T44.7X1A Poisoning by beta-adrenoreceptor antagonists, accidental (unintentional), initial encounter (principal); I45.81 Long QT syndrome; I48.0 Paroxysmal atrial fibrillation; Z86.711 Personal history of pulmonary embolism; I25.2 Old myocardial infarction; E78.5 Hyperlipidemia, unspecified; Z86.718 Personal history of other venous thrombosis and embolism; I34.1 Nonrheumatic mitral (valve) prolapse; Z86.73 Personal history of transient ischemic attack (TIA), and cerebral infarction without residual deficits; Z79.01 Long term (current) use of anticoagulants; Z79.899 Other long term (current) drug therapy; Z86.79 Personal history of other diseases of the circulatory system
CPT/HCPCS: 36415; 80048; 83735; 84484; 85025; 85610; 93005; 99285; A4216

== ENCOUNTER 2019-05-08 13:23 | Outpatient (RCR) | payer MEDICARE, OTHER, SELFPAY ==
[2019-04-20 00:15] VITALS: BMI 31.1
[2019-04-20 07:36] VITALS: BMI 30.5
[2019-04-24 15:40] LABS: Prothrombin Time Fingerstick 13.2 SEC (11.9-14.4)
[2019-05-08 13:35] LABS: Prothrombin Time Fingerstick 26.9 SEC (11.9-14.4)
== END 2019-05-08 14:00 | disposition home or self-care (01) ==
LOC: LAB 13:23
PROVIDERS: Family Provider Family Medicine Geriatric Medicine; PCP Family Medicine Geriatric Medicine; Referring Provider Internal Medicine Cardiovascular Disease; Visit Provider Internal Medicine Cardiovascular Disease
DX: I48.91 Unspecified atrial fibrillation (principal); I26.92 Saddle embolus of pulmonary artery without acute cor pulmonale; Z79.01 Long term (current) use of anticoagulants
CPT/HCPCS: 36416; 85610

== ENCOUNTER 2019-06-13 15:12 | Outpatient (RCR) | payer MEDICARE, OTHER, SELFPAY ==
[2019-05-20 08:57] VITALS: BMI 30.4
[2019-05-28 14:10] LABS: Prothrombin Time Fingerstick 37.2 SEC (11.9-14.4)
[2019-06-13 15:30] LABS: Prothrombin Time Fingerstick 30.4 SEC (11.9-14.4)
== END 2019-06-20 06:28 | disposition home or self-care (01) ==
LOC: LAB 15:12
PROVIDERS: Family Provider Family Medicine Geriatric Medicine; PCP Family Medicine Geriatric Medicine; Referring Provider Internal Medicine Cardiovascular Disease; Visit Provider Internal Medicine Cardiovascular Disease
DX: I48.91 Unspecified atrial fibrillation (principal); I26.92 Saddle embolus of pulmonary artery without acute cor pulmonale; Z79.01 Long term (current) use of anticoagulants
CPT/HCPCS: 36416; 85610

== ENCOUNTER → 2019-06-19 | Outpatient (CLI) | payer MEDICARE, OTHER, SELFPAY ==
[2019-05-20 08:57] VITALS: BMI 30.4
--- NOTE | 2019-06-19 12:44 | PFT ---
INTRODUCTION: The patient is a 74-year-old male that presents for pulmonary function studies secondary to a diagnosis of shortness of breath. Respiratory therapy reports good patient effort. Bronchodilators were used during testing. INTERPRETATION: Forced expiration spirometry demonstrates the presence of a moderate large airways obstructive ventilatory defect. There was no significant response to aerosolized bronchodilators, based upon strict ATS criteria. Spirograms are of good quality and do not plateau indicating slow emptying of the lungs. Body plethysmography was performed and reveals lung volumes to be within normal limits. Diffusing capacity by single breath CO is within normal limits at 94% of predicted. IMPRESSION: Irreversible moderate large airways obstructive ventilatory defect with preserved lung volumes and diffusing capacity. There are no previous pulmonary function studies available for comparison.
== END | disposition home or self-care (01) ==
LOC: PSN 07:50
PROVIDERS: Family Provider Family Medicine Geriatric Medicine; PCP Family Medicine Geriatric Medicine; Referring Provider Family Medicine Geriatric Medicine; Visit Provider Family Medicine Geriatric Medicine
DX: R06.02 Shortness of breath (principal)
CPT/HCPCS: 94060; 94726; 94729

== ENCOUNTER → 2019-07-01 13:19 | Outpatient (CLI) | payer MEDICARE, OTHER, SELFPAY ==
[2019-05-20 08:57] VITALS: BMI 30.4
--- NOTE | 2019-07-01 13:22 | VDLE_ITS ---
Reason For Study: EDEMA RIGHT LEFT GSV is normal. GSV is normal. CFV is compressible, spontaneous, phasic, CFV is compressible, spontaneous, phasic, competent and demonstrates normal competent, and demonstrates normal augmentation. augmentation. FV is compressible, spontaneous, phasic, FV is compressible, spontaneous, phasic, competent and demonstrates normal competent and demonstrates normal augmentation. augmentation. T/P Trunk is compressible. POP V is compressible, spontaneous, phasic, PTV is compressible. competent and demonstrates normal RT PerV is compressible. augmentation. RT POP V is compressible with rouleaux flow T/P Trunk is compressible. noted. PTV is compressible. RT SSV is partially compressible near LT PerV is compressible. Popliteal Junction with bright intraluminal echoes consistant with chronic clot. Procedure Exam performed in department. The study was technically difficult. A preliminary report was called and/or faxed to Dr. Harrell @ 1:50 pm. Interpretation Summary Deep veins of the lower extremities are bilaterally patent and compressible segmentally. There is no evidence of deep vein thrombosis on either side. Valvular competence appears intact within the proximal deep venous systems bilaterally. The great saphenous veins appear bilaterally patent and compressible segmentally. Rouleaux flow is noted in the right popliteal vein. Chronic venous changes are noted in the proximal right small saphenous vein. Ordering Physician: Nish Harrell Referring Physician: Nish Harrell Chi Performed By: Angela Mittal, NLELI, RVT
== END ==
PROVIDERS: Family Provider Family Medicine Geriatric Medicine; PCP Family Medicine Geriatric Medicine; Referring Provider Family Medicine Geriatric Medicine; Visit Provider Family Medicine Geriatric Medicine
DX: R60.0 Localized edema (principal)
CPT/HCPCS: 93970

== ENCOUNTER 2019-07-15 10:04 | Outpatient (RCR) | payer MEDICARE, OTHER, SELFPAY ==
[2019-05-20 08:57] VITALS: BMI 30.4
[2019-07-15 10:27] LABS: Prothrombin Time Fingerstick 29.2 SEC (11.9-14.4)
== END 2019-07-15 11:04 | disposition home or self-care (01) ==
LOC: MTLAB 10:04
PROVIDERS: Family Provider Family Medicine Geriatric Medicine; PCP Family Medicine Geriatric Medicine; Referring Provider Internal Medicine Cardiovascular Disease; Visit Provider Internal Medicine Cardiovascular Disease
DX: I48.91 Unspecified atrial fibrillation (principal); I26.92 Saddle embolus of pulmonary artery without acute cor pulmonale; Z79.01 Long term (current) use of anticoagulants
CPT/HCPCS: 36416; 85610

== ENCOUNTER → 2019-08-05 | Outpatient (CLI) | payer MEDICARE, OTHER, SELFPAY ==
[2019-05-20 08:57] VITALS: BMI 30.4
[2019-08-05 12:28] LABS: Absolute Lymphocyte Count 0.86 X10^3/uL (0.83-4.51); Basophil# 0.04 X10^3/uL; Basophil% 0.8 % (0-1); Eosinophil# 0.03 X10^3/uL; Eosinophils% 0.6 % (0-5); Hemoglobin 13.2 g/dL (13.0-16.5); Lymphocyte # 0.86 X10^3/ul (4.0); Lymphocyte % 18.2 % (19-41); Mean Corp Hgb Conc 32.2 g/dL (32-36); Mean Corpuscular Hgb 32.7 pg (27.0-32.0); Mean Corpuscular Volume 101.5 fL (80-94); Mean Platelet Vol. 9.9 fl (6.2-12.0); Monocyte# 0.68 X10^3/uL; Monocyte% 14.4 % (0-10); NRBC Flagged by Analyzer 0 % (0-5); Neutrophil # 2.99 X10^3/uL (2.7-7.7); Neutrophil % 63.3 % (47-70); Platelet Count 182 K/mm3 (150-450); RBC Distribution Width CV 13.8 % (11.6-14.6); RBC Distribution Width SD 51.6 fl (35.1-43.9); Red Blood Count 4.04 M/mm3 (4.6-6.2); White Blood Count 4.7 K/mm3 (4.4-11.0)
[2019-08-05 12:59] LABS: ALB/GLOB Ratio 0.9 RATIO (0.9-2.4); AST(SGOT) 21 U/L (15-37); Alanine Aminotransfer ALT/SGPT 21 U/L (16-61); Albumin, Serum 3.3 g/dL (3.2-5.0); Alkaline Phosphatase 87 U/L (45-117); Anion Gap 2 (5-15); BUN 25 mg/dL (7-18); BUN/Creat Ratio 19.5 RATIO (10-20); Calcium,Total 8.5 mg/dL (8.5-10.1); Chloride 108 mmol/L (98-107); Creatinine, Serum 1.28 mg/dL (0.70-1.30); EST Glomerular Filtration Rate 59 mL/min (>60); Est Glom Filt Rate - Afr Amer 71 mL/min (>60); Globulin 3.5 g/dL (2.2-4.2); Glucose 88 mg/dL (74-106); Protein, Total 6.8 g/dL (6.4-8.2); Sodium Level 141 mmol/L (136-145); Thyroid Stim Hormone (TSH) 2.42 uIU/mL (0.358-3.74)
== END | disposition home or self-care (01) ==
LOC: POLAB3 09:12
PROVIDERS: Family Provider Family Medicine Geriatric Medicine; PCP Family Medicine Geriatric Medicine; Visit Provider Family Medicine Geriatric Medicine
DX: E55.9 Vitamin D deficiency, unspecified (principal); I10 Essential (primary) hypertension
CPT/HCPCS: 36415; 80053; 82306; 84443; 85025

== ENCOUNTER 2019-08-12 08:14 | Outpatient (RCR) | payer MEDICARE, OTHER, SELFPAY ==
[2019-05-20 08:57] VITALS: BMI 30.4
[2019-08-12 08:23] LABS: Prothrombin Time Fingerstick 28.3 SEC (11.9-14.4)
== END 2019-08-12 18:00 | disposition home or self-care (01) ==
LOC: MTLAB 08:14
PROVIDERS: Family Provider Family Medicine Geriatric Medicine; PCP Family Medicine Geriatric Medicine; Referring Provider Internal Medicine Cardiovascular Disease; Visit Provider Internal Medicine Cardiovascular Disease
DX: I48.91 Unspecified atrial fibrillation (principal); I26.92 Saddle embolus of pulmonary artery without acute cor pulmonale; Z79.01 Long term (current) use of anticoagulants
CPT/HCPCS: 36416; 85610

== ENCOUNTER 2019-09-16 12:09 | Outpatient (RCR) | payer MEDICARE, OTHER, SELFPAY ==
[2019-05-20 08:57] VITALS: BMI 30.4
[2019-08-26 11:12] VITALS: BMI 29.8
[2019-09-16 15:29] LABS: Prothrombin Time Fingerstick 28.9 SEC (11.9-14.4)
== END 2019-09-16 18:00 | disposition home or self-care (01) ==
LOC: MTLAB 12:09
PROVIDERS: Family Provider Family Medicine Geriatric Medicine; PCP Family Medicine Geriatric Medicine; Referring Provider Internal Medicine Cardiovascular Disease; Visit Provider Internal Medicine Cardiovascular Disease
DX: I48.91 Unspecified atrial fibrillation (principal); I26.92 Saddle embolus of pulmonary artery without acute cor pulmonale; Z79.01 Long term (current) use of anticoagulants
CPT/HCPCS: 36416; 85610

== ENCOUNTER → 2019-09-27 10:53 | Outpatient (CLI) | payer MEDICARE, OTHER, SELFPAY ==
[2019-08-26 11:12] VITALS: BMI 29.8
[2019-09-27 11:55] LABS: Color, Urine Yellow (Yellow); Glucose, Dipstick Normal (Normal); Ketone-Dipstick Negative (Negative); Leukocyte Esterase-Dipstick Negative /ul (Negative); Nitrite-Dipstick Negative (Negative); Occult Blood-Urine Negative /ul (Negative); Protein-Dipstick Negative (Negative); Specific Gravity, Urine 1.015 (1.002-1.030); Urine Bilirubin Dipstick Negative (Negative); Urine Clarity Sl. Cloudy (Clear); Urine Urobilinogen Normal (Normal); Urine pH 6.5 (5.0 - 8.0)
== END ==
PROVIDERS: Family Provider Family Medicine Geriatric Medicine; PCP Family Medicine Geriatric Medicine; Referring Provider Family Medicine Geriatric Medicine; Visit Provider Family Medicine Geriatric Medicine
DX: N39.0 Urinary tract infection, site not specified (principal)
CPT/HCPCS: 81002

== ENCOUNTER 2019-10-28 14:46 | Outpatient (RCR) | payer MEDICARE, OTHER, SELFPAY ==
[2019-08-26 11:12] VITALS: BMI 29.8
[2019-10-28 15:01] LABS: Prothrombin Time Fingerstick 31.2 SEC (11.9-14.4)
== END 2019-10-28 18:00 | disposition home or self-care (01) ==
LOC: MTLAB 14:46
PROVIDERS: Family Provider Family Medicine Geriatric Medicine; PCP Family Medicine Geriatric Medicine; Referring Provider Internal Medicine Cardiovascular Disease; Visit Provider Internal Medicine Cardiovascular Disease
DX: I48.91 Unspecified atrial fibrillation (principal); I26.92 Saddle embolus of pulmonary artery without acute cor pulmonale; Z79.01 Long term (current) use of anticoagulants
CPT/HCPCS: 36416; 85610

== ENCOUNTER 2019-11-28 15:40 | Outpatient (RCR) | payer MEDICARE, OTHER, SELFPAY ==
[2019-08-26 11:12] VITALS: BMI 29.8
[2019-11-29 16:01] LABS: Prothrombin Time Fingerstick 31.8 SEC (11.9-14.4)
== END 2019-11-28 18:00 | disposition home or self-care (01) ==
LOC: MTLAB 15:40
PROVIDERS: Family Provider Family Medicine Geriatric Medicine; PCP Family Medicine Geriatric Medicine; Referring Provider Internal Medicine Cardiovascular Disease; Visit Provider Internal Medicine Cardiovascular Disease
DX: I48.0 Paroxysmal atrial fibrillation (principal); Z79.01 Long term (current) use of anticoagulants
CPT/HCPCS: 36416; 85610

== ENCOUNTER 2019-12-30 09:46 | Outpatient (RCR) | payer MEDICARE, OTHER, SELFPAY ==
[2019-08-26 11:12] VITALS: BMI 29.8
[2019-12-30 15:11] LABS: Prothrombin Time Fingerstick 28.5 SEC (11.9-14.4)
== END 2019-12-30 18:00 | disposition home or self-care (01) ==
LOC: MTLAB 09:46
PROVIDERS: Family Provider Family Medicine Geriatric Medicine; PCP Family Medicine Geriatric Medicine; Referring Provider Internal Medicine Cardiovascular Disease; Visit Provider Internal Medicine Cardiovascular Disease
DX: I48.0 Paroxysmal atrial fibrillation (principal); Z79.01 Long term (current) use of anticoagulants
CPT/HCPCS: 36416; 85610

== ENCOUNTER → 2020-01-31 08:52 | Outpatient (CLI) | payer MEDICARE, OTHER, SELFPAY ==
[2019-08-26 11:12] VITALS: BMI 29.8
[2020-01-31 12:37] LABS: Absolute Lymphocyte Count 0.86 X10^3/uL (0.83-4.51); Basophil# 0.03 X10^3/uL; Basophil% 0.9 % (0-1); Eosinophil# 0.01 X10^3/uL; Eosinophils% 0.3 % (0-5); Hematocrit 39.7 % (40-54); Hemoglobin 12.8 g/dL (13.0-16.5); Lymphocyte # 0.86 X10^3/ul (4.0); Lymphocyte % 24.5 % (19-41); Mean Corp Hgb Conc 32.2 g/dL (32-36); Mean Corpuscular Hgb 32.1 pg (27.0-32.0); Mean Corpuscular Volume 99.5 fL (80-94); Monocyte# 0.62 X10^3/uL; Monocyte% 17.7 % (0-10); NRBC Flagged by Analyzer 0 % (0-5); Neutrophil # 1.95 X10^3/uL (2.7-7.7); Neutrophil % 55.5 % (47-70); Platelet Count 194 K/mm3 (150-450); RBC Distribution Width CV 13.6 % (11.6-14.6); Red Blood Count 3.99 M/mm3 (4.6-6.2); White Blood Count 3.5 K/mm3 (4.4-11.0)
[2020-01-31 13:12] LABS: ALB/GLOB Ratio 0.9 RATIO (0.9-2.4); AST(SGOT) 23 U/L (15-37); Alanine Aminotransfer ALT/SGPT 22 U/L (16-61); Albumin, Serum 3.3 g/dL (3.2-5.0); Alkaline Phosphatase 77 U/L (45-117); Anion Gap 4 (5-15); BUN 19 mg/dL (7-18); BUN/Creat Ratio 22.2 RATIO (10-20); Calcium,Total 8.4 mg/dL (8.5-10.1); Chloride 109 mmol/L (98-107); Creatinine, Serum 0.86 mg/dL (0.70-1.30); EST Glomerular Filtration Rate 93 mL/min (>60); Est Glom Filt Rate - Afr Amer 113 mL/min (>60); Globulin 3.5 g/dL (2.2-4.2); Glucose 87 mg/dL (74-106); Protein, Total 6.8 g/dL (6.4-8.2); Sodium Level 140 mmol/L (136-145)
[2020-02-01 08:27] LABS: Vitamin D,25 Hydroxy 26.9 ng/mL
== END ==
PROVIDERS: PCP Family Medicine Geriatric Medicine; Referring Provider Family Medicine Geriatric Medicine; Visit Provider Family Medicine Geriatric Medicine
DX: E55.9 Vitamin D deficiency, unspecified (principal); I10 Essential (primary) hypertension; I48.0 Paroxysmal atrial fibrillation; Z79.01 Long term (current) use of anticoagulants
CPT/HCPCS: 36415; 36416; 80053; 82306; 84443; 85025; 85610

== ENCOUNTER 2020-01-31 11:22 | Outpatient (RCR) | payer MEDICARE, OTHER, SELFPAY ==
[2019-08-26 11:12] VITALS: BMI 29.8
== END 2020-01-31 18:00 | disposition home or self-care (01) ==
LOC: LAB 11:22
PROVIDERS: Family Provider Family Medicine Geriatric Medicine; PCP Family Medicine Geriatric Medicine; Referring Provider Internal Medicine Cardiovascular Disease; Visit Provider Internal Medicine Cardiovascular Disease
DX: I48.0 Paroxysmal atrial fibrillation (principal); Z79.01 Long term (current) use of anticoagulants
CPT/HCPCS: 36416; 85610

== ENCOUNTER 2020-03-18 15:53 | Outpatient (RCR) | payer MEDICARE, OTHER, SELFPAY ==
[2019-08-26 11:12] VITALS: BMI 29.8
[2020-03-11 17:11] LABS: Prothrombin Time Fingerstick 42.3 SEC (11.9-14.4)
[2020-03-18 16:06] LABS: Prothrombin Time Fingerstick 30.4 SEC (11.9-14.4)
== END 2020-03-19 18:00 | disposition home or self-care (01) ==
LOC: LAB 15:53
PROVIDERS: Family Provider Family Medicine Geriatric Medicine; PCP Family Medicine Geriatric Medicine; Referring Provider Internal Medicine Cardiovascular Disease; Visit Provider Internal Medicine Cardiovascular Disease
DX: I48.0 Paroxysmal atrial fibrillation (principal); Z79.01 Long term (current) use of anticoagulants
CPT/HCPCS: 36416; 85610

== ENCOUNTER → 2020-04-02 | Outpatient (CLI) | payer MEDICARE, OTHER, SELFPAY ==
[2019-08-26 11:12] VITALS: BMI 29.8
[2020-04-02 13:01] LABS: Thyroid Stim Hormone (TSH) 3.27 uIU/mL (0.358-3.74)
== END | disposition home or self-care (01) ==
LOC: POLAB3 10:36
PROVIDERS: PCP Family Medicine Geriatric Medicine; Visit Provider Family Medicine Geriatric Medicine
DX: E03.9 Hypothyroidism, unspecified (principal)
CPT/HCPCS: 36415; 84443

== ENCOUNTER 2020-04-17 15:23 | Outpatient (RCR) | payer MEDICARE, OTHER, SELFPAY ==
[2019-08-26 11:12] VITALS: BMI 29.8
[2020-04-20 11:20] LABS: Prothrombin Time Fingerstick 36.2 SEC (11.9-14.4)
== END 2020-04-17 18:00 | disposition home or self-care (01) ==
LOC: LAB 15:23
PROVIDERS: Family Provider Family Medicine Geriatric Medicine; PCP Family Medicine Geriatric Medicine; Referring Provider Internal Medicine Cardiovascular Disease; Visit Provider Internal Medicine Cardiovascular Disease
DX: I48.0 Paroxysmal atrial fibrillation (principal); Z79.01 Long term (current) use of anticoagulants
CPT/HCPCS: 36416; 85610

== ENCOUNTER 2020-05-08 12:19 | Outpatient (RCR) | payer MEDICARE, OTHER, SELFPAY ==
[2019-08-26 11:12] VITALS: BMI 29.8
[2020-05-01 18:08] LABS: Prothrombin Time (Protime)PT. 35.8 SECONDS (11.7-14.9)
[2020-05-01 18:18] LABS: International Normalized Ratio 3.6
[2020-05-04 16:01] LABS: Prothrombin Time Fingerstick 42.8 SEC (11.9-14.4)
[2020-05-11 11:11] LABS: Prothrombin Time Fingerstick 35.9 SEC (11.9-14.4)
== END 2020-05-08 18:00 | disposition home or self-care (01) ==
LOC: LAB 12:19
PROVIDERS: Family Provider Family Medicine Geriatric Medicine; PCP Family Medicine Geriatric Medicine; Referring Provider Internal Medicine Cardiovascular Disease; Visit Provider Internal Medicine Cardiovascular Disease
DX: I48.0 Paroxysmal atrial fibrillation (principal); Z79.01 Long term (current) use of anticoagulants
CPT/HCPCS: 36415; 36416; 85610

== ENCOUNTER → 2020-06-01 | Outpatient (CLI) | payer MEDICARE, OTHER, SELFPAY ==
[2020-06-01 10:01] VITALS: BMI 29.5
--- NOTE | 2020-06-01 12:59 | VDLE_ITS ---
Reason For Study: SWELLING RIGHT LEFT GSV is normal. GSV is normal. CFV is compressible, spontaneous, phasic, CFV is compressible, spontaneous, phasic, competent and demonstrates normal competent, and demonstrates normal augmentation. augmentation. FV is compressible, spontaneous, phasic, FV is compressible, spontaneous, phasic, competent and demonstrates normal competent and demonstrates normal augmentation. augmentation. POP V is compressible, spontaneous, phasic, POP V is compressible, spontaneous, phasic, competent and demonstrates normal competent and demonstrates normal augmentation. augmentation. T/P Trunk is compressible. T/P Trunk is compressible. PTV is compressible. PTV is compressible. RT PerV is compressible. LT PerV is compressible. Procedure Exam performed in department. A preliminary report was called and/or faxed to DR LAURA. Interpretation Summary Deep veins of the lower extremities are bilaterally patent and compressible segmentally. There is no evidence of deep vein thrombosis on either side. Valvular competence appears intact within the proximal deep venous systems bilaterally. The great saphenous veins appear bilaterally patent and compressible segmentally. Ordering Physician: José Miguel Laura Referring Physician: BRAYDEN GONZALES CHI Performed By: Yanna Valles, BOGDANCS, RVT
== END | disposition home or self-care (01) ==
LOC: CVS 12:59
PROVIDERS: PCP Family Medicine Geriatric Medicine; Referring Provider Internal Medicine Cardiovascular Disease; Visit Provider Internal Medicine Cardiovascular Disease
DX: I26.92 Saddle embolus of pulmonary artery without acute cor pulmonale (principal); I48.0 Paroxysmal atrial fibrillation; R60.9 Edema, unspecified; E78.5 Hyperlipidemia, unspecified; Z79.01 Long term (current) use of anticoagulants; Z86.79 Personal history of other diseases of the circulatory system; Z95.828 Presence of other vascular implants and grafts; Z98.890 Other specified postprocedural states
CPT/HCPCS: 36415; 36416; 85610; 93970

== ENCOUNTER 2020-06-08 09:36 | Outpatient (RCR) | payer MEDICARE, OTHER, SELFPAY ==
[2019-08-26 11:12] VITALS: BMI 29.8
[2020-06-01 12:52] LABS: Prothrombin Time (Protime)PT. 42.6 SECONDS (11.7-14.9)
[2020-06-01 12:59] LABS: International Normalized Ratio 4.5
[2020-06-01 14:11] LABS: Prothrombin Time Fingerstick 51.4 SEC (11.9-14.4)
[2020-06-08 09:45] LABS: Prothrombin Time Fingerstick 34.2 SEC (11.9-14.4)
== END 2020-06-08 18:00 | disposition home or self-care (01) ==
LOC: MTLAB 09:36
PROVIDERS: Family Provider Family Medicine Geriatric Medicine; PCP Family Medicine Geriatric Medicine; Referring Provider Internal Medicine Cardiovascular Disease; Visit Provider Internal Medicine Cardiovascular Disease
DX: I48.0 Paroxysmal atrial fibrillation (principal); Z79.01 Long term (current) use of anticoagulants
CPT/HCPCS: 36415; 36416; 85610

== ENCOUNTER 2020-07-09 12:23 | Outpatient (RCR) | payer MEDICARE, OTHER, SELFPAY ==
[2020-06-01 10:01] VITALS: BMI 29.5
[2020-06-24 16:36] LABS: Prothrombin Time Fingerstick 39.1 SEC (11.9-14.4)
[2020-07-02 14:16] LABS: Prothrombin Time Fingerstick 37.1 SEC (11.9-14.4)
== END 2020-07-20 18:00 | disposition home or self-care (01) ==
LOC: MTLAB 12:23
PROVIDERS: Family Provider Family Medicine Geriatric Medicine; PCP Family Medicine Geriatric Medicine; Referring Provider Internal Medicine Cardiovascular Disease; Visit Provider Internal Medicine Cardiovascular Disease
DX: I48.0 Paroxysmal atrial fibrillation (principal); Z79.01 Long term (current) use of anticoagulants
CPT/HCPCS: 36416; 85610

== ENCOUNTER → 2020-08-03 | Outpatient (CLI) | payer MEDICARE, OTHER, SELFPAY ==
[2020-06-01 10:01] VITALS: BMI 29.5
[2020-08-03 12:16] LABS: Absolute Lymphocyte Count 0.91 X10^3/uL (0.83-4.51); Absolute Neutrophil Count 2.6 X10^3/uL (2.0-7.7); Basophil# 0.03 X10^3/uL; Basophil% 0.7 % (0-1); Eosinophil# 0.04 X10^3/uL; Eosinophils% 0.9 % (0-5); Hematocrit 39.4 % (40-54); Hemoglobin 12.8 g/dL (13.0-16.5); Lymphocyte # 0.91 X10^3/ul (4.0); Lymphocyte % 20.4 % (19-41); Mean Corp Hgb Conc 32.5 g/dL (32-36); Mean Corpuscular Hgb 32.4 pg (27.0-32.0); Mean Corpuscular Volume 99.7 fL (80-94); Mean Platelet Vol. 10.3 fl (6.2-12.0); Monocyte# 0.85 X10^3/uL; Monocyte% 19.1 % (0-10); NRBC Flagged by Analyzer 0 % (0-5); Neutrophil # 2.59 X10^3/uL (2.7-7.7); Platelet Count 174 K/mm3 (150-450); RBC Distribution Width SD 51.8 fl (35.1-43.9); Red Blood Count 3.95 M/mm3 (4.6-6.2); White Blood Count 4.5 K/mm3 (4.4-11.0)
[2020-08-03 12:40] LABS: ALB/GLOB Ratio 0.8 RATIO (0.9-2.4); AST(SGOT) 18 U/L (15-37); Alanine Aminotransfer ALT/SGPT 18 U/L (16-61); Albumin, Serum 3.2 g/dL (3.2-5.0); Alkaline Phosphatase 99 U/L (45-117); Anion Gap 1 (5-15); BUN 19 mg/dL (7-18); BUN/Creat Ratio 20.6 RATIO (10-20); Calcium,Total 8.7 mg/dL (8.5-10.1); Chloride 108 mmol/L (98-107); Creatinine, Serum 0.92 mg/dL (0.70-1.30); EST Glomerular Filtration Rate 85 mL/min (>60); Est Glom Filt Rate - Afr Amer 103 mL/min (>60); Glucose 90 mg/dL (74-106); Magnesium 2.4 mg/dL (1.6-2.6); Potassium 4.1 mmol/L (3.5-5.1); Protein, Total 7.2 g/dL (6.4-8.2); Sodium Level 140 mmol/L (136-145); Thyroid Stim Hormone (TSH) 3.45 uIU/mL (0.358-3.74); Vitamin D,25 Hydroxy 36.1 ng/mL
[2020-08-11 04:09] LABS: Lyme IgG P18 Ab Absent (.); Lyme IgG P23 Ab Absent (.); Lyme IgG P28 Ab Absent (.); Lyme IgG P30 Ab Absent (.); Lyme IgG P39 Ab Absent (.); Lyme IgG P41 Ab Present (.); Lyme IgG P45 Ab Absent (.); Lyme IgG P58 Ab Absent (.); Lyme IgG P66 Ab Absent (.); Lyme IgG P93 Ab Absent (.); Lyme IgM P23 Ab Absent (.); Lyme IgM P39 Ab Absent (.); Lyme IgM P41 Ab Absent (.)
[2020-08-11 10:29] LABS: Lyme IgG WB Interpretation Negative (.); Lyme IgM WB Interpretation Negative (.)
== END | disposition home or self-care (01) ==
LOC: POLAB3 11:07
PROVIDERS: PCP Family Medicine Geriatric Medicine; Visit Provider Family Medicine Geriatric Medicine
DX: E55.9 Vitamin D deficiency, unspecified (principal); I10 Essential (primary) hypertension
CPT/HCPCS: 36415; 80053; 82306; 83735; 84443; 85025; 86617

== ENCOUNTER → 2020-08-12 | Outpatient (CLI) | payer MEDICARE, OTHER, SELFPAY ==
[2020-06-01 10:01] VITALS: BMI 29.5
--- NOTE | 2020-08-12 11:30 | LES_PTH ---
PATIENT: TEE GARCIA LOC: [facility] U#:[id number] AGE/SX: 75/M ROOM: RE08/12/[address]: Dr. Duncan Frey MD : 1945 BED: DIS: 08/12/2020 SPEC #: [id number] RECD: 08/12/20 15:22 STATUS: LUCIEN GILMA #: [id number] MATTY: 08/12/20 11:[address]: Duncan Frey DEPT: SURGICAL PATHOLOGY RECD BY: Shari Armenta ENTERED: 08/13/20 09:07 SP TYPE: Lesion OTHR DR: Dr. Nish Harrell MD Tissues: Skin of eyelid, NOS Procedures: Surgery Specimen Level IV HEADER OPERATION: YANELI lesion excision PRE-OP DIAGNOSIS: YANELI lesion TISSUE SUBMITTED: YANELI lesion MICROSCOPIC DIAGNOSIS YANELI lesion, excision: Inflamed squamous papilloma. DONNIE:camron 08/14/20 MICROSCOPIC DESCRIPTION Slides are reviewed. GROSS DESCRIPTION Received in fixative is one container labeled with the patient's name and designated left upper lid. The specimen consists of a piece of gilbert-brown skin measuring 0.5 x 0.4 x 0.2 cm. The specimen is inked and submitted entirely in one cassette. / SJ:camron 08/13/20 TC:1 CPT: 52538
== END | disposition home or self-care (01) ==
LOC: LABSPEC 15:31
PROVIDERS: PCP Family Medicine Geriatric Medicine; Referring Provider Ophthalmology; Visit Provider Ophthalmology
DX: D23.121 Other benign neoplasm of skin of left upper eyelid, including canthus (principal)
CPT/HCPCS: 88305

== ENCOUNTER 2020-08-14 10:07 | Outpatient (RCR) | payer MEDICARE, OTHER, SELFPAY ==
[2020-06-01 10:01] VITALS: BMI 29.5
[2020-07-23 16:26] LABS: Prothrombin Time Fingerstick 30.2 SEC (11.9-14.4)
[2020-08-17 07:16] LABS: Prothrombin Time Fingerstick 25.2 SEC (11.9-14.4)
== END 2020-08-14 18:00 | disposition home or self-care (01) ==
LOC: MTLAB 10:07
PROVIDERS: Family Provider Family Medicine Geriatric Medicine; PCP Family Medicine Geriatric Medicine; Referring Provider Internal Medicine Cardiovascular Disease; Visit Provider Internal Medicine Cardiovascular Disease
DX: I48.0 Paroxysmal atrial fibrillation (principal); Z79.01 Long term (current) use of anticoagulants
CPT/HCPCS: 36416; 85610

== ENCOUNTER → 2020-08-24 | Outpatient (CLI) | payer MEDICARE, OTHER, SELFPAY ==
[2020-06-01 10:01] VITALS: BMI 29.5
== END | disposition home or self-care (01) ==
LOC: MTDU 10:02
PROVIDERS: PCP Family Medicine Geriatric Medicine; Referring Provider Family Medicine Geriatric Medicine; Visit Provider Family Medicine Geriatric Medicine
DX: R68.83 Chills (without fever) (principal)
CPT/HCPCS: 87633; 87635; C9803; U0003

== ENCOUNTER 2020-09-10 12:54 | Outpatient (RCR) | payer MEDICARE, OTHER, SELFPAY ==
[2020-06-01 10:01] VITALS: BMI 29.5
== END 2020-09-10 18:00 | disposition home or self-care (01) ==
LOC: MTLAB 12:54
PROVIDERS: Family Provider Family Medicine Geriatric Medicine; PCP Family Medicine Geriatric Medicine; Referring Provider Internal Medicine Cardiovascular Disease; Visit Provider Internal Medicine Cardiovascular Disease
DX: I48.0 Paroxysmal atrial fibrillation (principal); Z79.01 Long term (current) use of anticoagulants
CPT/HCPCS: 36416; 85610

== ENCOUNTER 2020-10-08 11:45 | Outpatient (RCR) | payer MEDICARE, OTHER, SELFPAY ==
[2020-06-01 10:01] VITALS: BMI 29.5
[2020-10-08 12:36] LABS: Prothrombin Time Fingerstick 24.9 SEC (11.9-14.4)
== END 2020-10-08 18:00 | disposition home or self-care (01) ==
LOC: MTLAB 11:45
PROVIDERS: Family Provider Family Medicine Geriatric Medicine; PCP Family Medicine Geriatric Medicine; Referring Provider Internal Medicine Cardiovascular Disease; Visit Provider Internal Medicine Cardiovascular Disease
DX: I48.0 Paroxysmal atrial fibrillation (principal); Z79.01 Long term (current) use of anticoagulants
CPT/HCPCS: 36415; 36416; 85610

== ENCOUNTER 2020-11-10 10:44 | Outpatient (RCR) | payer MEDICARE, OTHER, SELFPAY ==
[2020-06-01 10:01] VITALS: BMI 29.5
[2020-11-10 11:06] LABS: Prothrombin Time Fingerstick 21.7 SEC (11.9-14.4)
== END 2020-11-10 18:00 | disposition home or self-care (01) ==
LOC: MTLAB 10:44
PROVIDERS: Family Provider Family Medicine Geriatric Medicine; PCP Family Medicine Geriatric Medicine; Referring Provider Internal Medicine Cardiovascular Disease; Visit Provider Internal Medicine Cardiovascular Disease
DX: I48.0 Paroxysmal atrial fibrillation (principal); Z79.01 Long term (current) use of anticoagulants
CPT/HCPCS: 36416; 85610

== ENCOUNTER 2020-11-23 12:07 | Outpatient (RCR) | payer MEDICARE, OTHER, SELFPAY ==
[2020-06-01 10:01] VITALS: BMI 29.5
[2020-11-23 12:26] LABS: Prothrombin Time Fingerstick 22.7 SEC (11.9-14.4)
== END 2020-11-23 18:00 | disposition home or self-care (01) ==
LOC: MTLAB 12:07
PROVIDERS: Family Provider Family Medicine Geriatric Medicine; PCP Family Medicine Geriatric Medicine; Referring Provider Internal Medicine Cardiovascular Disease; Visit Provider Internal Medicine Cardiovascular Disease
DX: I48.0 Paroxysmal atrial fibrillation (principal); Z79.01 Long term (current) use of anticoagulants
CPT/HCPCS: 36416; 85610

== ENCOUNTER 2020-12-25 15:00 | Outpatient (RCR) | payer MEDICARE, OTHER, SELFPAY ==
[2020-06-01 10:01] VITALS: BMI 29.5
[2020-12-25 15:06] LABS: Prothrombin Time Fingerstick 25.7 SEC (11.9-14.4)
== END 2020-12-25 18:00 | disposition home or self-care (01) ==
LOC: MTLAB 15:00
PROVIDERS: Family Provider Family Medicine Geriatric Medicine; PCP Family Medicine Geriatric Medicine; Referring Provider Internal Medicine Cardiovascular Disease; Visit Provider Internal Medicine Cardiovascular Disease
DX: I48.0 Paroxysmal atrial fibrillation (principal); Z79.01 Long term (current) use of anticoagulants
CPT/HCPCS: 36416; 85610

== ENCOUNTER 2021-01-29 11:12 | Outpatient (RCR) | payer MEDICARE, OTHER, SELFPAY ==
[2020-06-01 10:01] VITALS: BMI 29.5
[2021-01-29 11:31] LABS: Prothrombin Time Fingerstick 25.3 SEC (11.9-14.4)
== END 2021-01-29 18:00 | disposition home or self-care (01) ==
LOC: MTLAB 11:12
PROVIDERS: Family Provider Family Medicine Geriatric Medicine; PCP Family Medicine Geriatric Medicine; Referring Provider Internal Medicine Cardiovascular Disease; Visit Provider Internal Medicine Cardiovascular Disease
DX: I48.0 Paroxysmal atrial fibrillation (principal); Z79.01 Long term (current) use of anticoagulants
CPT/HCPCS: 36416; 85610

== ENCOUNTER → 2021-02-01 11:09 | Outpatient (CLI) | payer MEDICARE, OTHER, SELFPAY ==
[2020-06-01 10:01] VITALS: BMI 29.5
[2021-02-01 12:18] LABS: Absolute Lymphocyte Count 0.92 X10^3/uL (0.83-4.51); Absolute Neutrophil Count 2.4 X10^3/uL (2.0-7.7); Basophil# 0.04 X10^3/uL; Basophil% 0.9 % (0-1); Eosinophil# 0.02 X10^3/uL; Eosinophils% 0.5 % (0-5); Hematocrit 41.4 % (40-54); Hemoglobin 13.5 g/dL (13.0-16.5); Lymphocyte # 0.92 X10^3/ul (4.0); Lymphocyte % 21.7 % (19-41); Mean Corp Hgb Conc 32.6 g/dL (32-36); Mean Corpuscular Hgb 32.9 pg (27.0-32.0); Mean Platelet Vol. 10.1 fl (6.2-12.0); Monocyte# 0.85 X10^3/uL; Monocyte% 20.1 % (0-10); NRBC Flagged by Analyzer 0 % (0-5); Neutrophil # 2.36 X10^3/uL (2.7-7.7); Neutrophil % 55.9 % (47-70); Platelet Count 190 K/mm3 (150-450); RBC Distribution Width CV 13.4 % (11.6-14.6); RBC Distribution Width SD 50.3 fl (35.1-43.9); White Blood Count 4.2 K/mm3 (4.4-11.0)
[2021-02-01 12:30] LABS: Vitamin D,25 Hydroxy 24.9 ng/mL
[2021-02-01 12:34] LABS: ALB/GLOB Ratio 0.9 RATIO (0.9-2.4); AST(SGOT) 20 U/L (15-37); Alanine Aminotransfer ALT/SGPT 21 U/L (16-61); Albumin, Serum 3.3 g/dL (3.2-5.0); Alkaline Phosphatase 88 U/L (45-117); Anion Gap 2 (5-15); BUN 20 mg/dL (7-18); BUN/Creat Ratio 21.5 RATIO (10-20); Calcium,Total 8.6 mg/dL (8.5-10.1); Chloride 105 mmol/L (98-107); Creatinine, Serum 0.93 mg/dL (0.70-1.30); EST Glomerular Filtration Rate 85 mL/min (>60); Est Glom Filt Rate - Afr Amer 102 mL/min (>60); Globulin 3.7 g/dL (2.2-4.2); Glucose 85 mg/dL (74-106); Potassium 4.3 mmol/L (3.5-5.1); Sodium Level 140 mmol/L (136-145); Thyroid Stim Hormone (TSH) 3.07 uIU/mL (0.358-3.74)
== END ==
PROVIDERS: PCP Family Medicine Geriatric Medicine; Visit Provider Family Medicine Geriatric Medicine
DX: E55.9 Vitamin D deficiency, unspecified (principal); I10 Essential (primary) hypertension
CPT/HCPCS: 36415; 80053; 82306; 84443; 85025

== ENCOUNTER → 2021-02-24 15:51 | Outpatient (CLI) | payer MEDICARE, OTHER, SELFPAY ==
[2020-06-01 10:01] VITALS: BMI 29.5
[2021-03-04 03:06] LABS: Lyme IgG P18 Ab Absent (.); Lyme IgG P23 Ab Absent (.); Lyme IgG P28 Ab Absent (.); Lyme IgG P30 Ab Absent (.); Lyme IgG P39 Ab Absent (.); Lyme IgG P41 Ab Present (.); Lyme IgG P45 Ab Absent (.); Lyme IgG P58 Ab Absent (.); Lyme IgG P66 Ab Absent (.); Lyme IgG P93 Ab Absent (.); Lyme IgM P23 Ab Absent (.); Lyme IgM P39 Ab Absent (.); Lyme IgM P41 Ab Absent (.)
[2021-03-04 16:22] LABS: Lyme IgG WB Interpretation Negative (.); Lyme IgM WB Interpretation Negative (.)
== END ==
PROVIDERS: PCP Family Medicine Geriatric Medicine; Visit Provider Family Medicine Geriatric Medicine
DX: A69.20 Lyme disease, unspecified (principal)
CPT/HCPCS: 36415; 86617

== ENCOUNTER → 2021-03-15 16:42 | Outpatient (CLI) | payer MEDICARE, OTHER, SELFPAY ==
[2020-06-01 10:01] VITALS: BMI 29.5
--- NOTE | 2021-03-15 16:50 | RAD_ITS ---
STUDY: X-RAY - RIGHT ELBOW REASON FOR EXAM: Male, 75 years old. Right elbow pain. TECHNIQUE: view(s) of the elbow. COMPARISON: None. FINDINGS: Generalized osteopenia. Normal visualized humerus, radius and ulna. Moderate osteoarthritis of the elbow joint. The soft tissue structures are unremarkable. RAD/Elbow min 3 Views IMPRESSION: Osteopenia with moderate osteoarthritic changes. No acute finding. Electronically Signed: Cecil Ugalde MD at 15:05 EDT , Service support ,
== END ==
PROVIDERS: PCP Family Medicine Geriatric Medicine; Referring Provider Family Medicine Geriatric Medicine; Visit Provider Family Medicine Geriatric Medicine
DX: M25.521 Pain in right elbow (principal)
CPT/HCPCS: 73080

== ENCOUNTER 2021-04-05 11:32 | Outpatient (RCR) | payer MEDICARE, OTHER, SELFPAY ==
[2020-06-01 10:01] VITALS: BMI 29.5
[2021-03-29 15:06] LABS: INR Fingerstick 1.5; Prothrombin Time Fingerstick 17.9 SEC (11.9-14.4)
[2021-04-06 14:10] LABS: INR Fingerstick 2.1; Prothrombin Time Fingerstick 24.3 SEC (11.9-14.4)
== END 2021-04-05 18:00 | disposition home or self-care (01) ==
LOC: MTLAB 11:32
PROVIDERS: Family Provider Family Medicine Geriatric Medicine; PCP Family Medicine Geriatric Medicine; Referring Provider Internal Medicine Cardiovascular Disease; Visit Provider Internal Medicine Cardiovascular Disease
DX: I48.0 Paroxysmal atrial fibrillation (principal); Z79.01 Long term (current) use of anticoagulants
CPT/HCPCS: 36416; 85610

== ENCOUNTER → 2021-04-07 07:49 | Outpatient (CLI) | payer MEDICARE, OTHER, SELFPAY ==
[2021-04-01 14:10] VITALS: BMI 28.0
--- NOTE | 2021-04-07 07:50 | ECHOD_ITS ---
Reason For Study: Murmur Procedure This was a 2D Doppler, Color Flow transthoracic echocardiogram. The exam was of adequate technical quality. Exam performed in department. Left Ventricle Normal LV size. Left ventricular systolic function is normal. The estimated ejection fraction is 60 %. No evidence for diastolic dysfunction. No regional wall motion abnormalities noted. Right Ventricle Normal RV size. Normal systolic function. Atria The left atrium is mildly enlarged. Normal right atrium. No doppler evidence for ASD. Mitral Valve There is no mitral annular calcification. Mild mitral valve prolapse. Trivial mitral valve insufficiency. Tricuspid Valve Normal tricuspid valve. Mild tricuspid valve insufficiency. Right ventricular systolic pressure estimated to be 25 mmHg. Aortic Valve Trisinus/trileaflet aortic valve. Mild focal aortic valve calcification. Aortic valve sclerosis/mild aortic valve stenosis. Mild (1+) eccentric aortic valve insufficiency. Pulmonic Valve Trivial pulmonic valve insufficiency. Great Vessels Aortic root repair. Pericardium/Pleural No pericardial effusion. MMode/2D Measurements & Calculations LVIDd: 4.3 cm IVSd: 1.4 cm LVOT diam: 2.3 cm LVIDs: 2.9 cm LVPWd: 1.1 cm LVOT area: 4.1 cm2 FS: 33.1 % Ao root diam: 3.8 cm LAV(MOD-bp): 58.0 ml LA A4 area: 20.2 cm2 LA dimension: 3.6 cm LAV(MOD-bp) Indexed: 28.1 ml/m2 LAV(MOD-sp2): 57.6 ml LAV(MOD-sp4): 53.7 ml RA A4 area: 16.8 cm2 Time Measurements MV dec time: 0.26 sec Doppler Measurements & Calculations MV E max cecil: 76.6 cm/sec Lat Peak E' Cecil: 9.2 cm/sec Med Peak E' Cecil: 6.3 cm/sec MV A max cecil: 80.4 cm/sec E/E' lat: 8.4 E/E' med: 12.1 MV E/A: 0.95 MV V2 max: 86.3 cm/sec MV P1/2t max cecil: 80.3 cm/sec Ao V2 max: 166.1 cm/sec MV max P.0 mmHg MV P1/2t: 90.1 msec Ao max P.0 mmHg MV V2 mean: 46.1 cm/sec MV dec slope: 261.2 cm/sec2 Ao V2 mean: 109.1 cm/sec MV mean P.00 mmHg Ao mean P.5 mmHg MV V2 VTI: 26.3 cm MVA(P1/2t): 2.4 cm2 Ao V2 VTI: 34.1 cm MVA(VTI): 2.7 cm2 [place]TE(I,D): 2.1 cm2 [place](V,D): 1.8 cm2 AI max cecil: 442.2 cm/sec LV V1 max: 73.1 cm/sec SV(LVOT): 71.7 ml AI max P.2 mmHg LV V1 max P.1 mmHg LV V1 mean P.1 mmHg AI dec slope: 166.9 cm/sec2 LV V1 mean: 48.1 cm/sec AI P1/2t: 776.1 msec LV V1 VTI: 17.4 cm PA V2 max: 83.8 cm/sec TR max cecil: 232.5 cm/sec TR max P.6 mmHg ECHO/Echo Complete Interpretation Summary Left ventricular systolic function is normal. The estimated ejection fraction is 60 %. The left atrium is mildly enlarged. Mild mitral valve prolapse. Trivial mitral valve insufficiency. Mild tricuspid valve insufficiency. Mild focal aortic valve calcification. Aortic valve sclerosis/mild aortic valve stenosis. Mild (1+) eccentric aortic valve insufficiency. Trivial pulmonic valve insufficiency. Aortic root repair. Right ventricular systolic pressure estimated to be 25 mmHg. No evidence for diastolic dysfunction. Ordering Physician: José Miguel Monte Referring Physician: Nish Harrell Chi Performed By: Javi Bang RCS
== END ==
PROVIDERS: PCP Family Medicine Geriatric Medicine; Referring Provider Internal Medicine Cardiovascular Disease; Visit Provider Internal Medicine Cardiovascular Disease
DX: I26.92 Saddle embolus of pulmonary artery without acute cor pulmonale (principal)
CPT/HCPCS: 93306

== ENCOUNTER 2021-05-14 11:08 | Outpatient (RCR) | payer MEDICARE, OTHER, SELFPAY ==
[2021-04-01 14:10] VITALS: BMI 28.0
[2021-05-14 11:21] LABS: INR Fingerstick 1.9; Prothrombin Time Fingerstick 22.2 SEC (11.9-14.4)
== END 2021-05-14 18:00 | disposition home or self-care (01) ==
LOC: LAB 11:08
PROVIDERS: Family Provider Family Medicine Geriatric Medicine; PCP Family Medicine Geriatric Medicine; Referring Provider Internal Medicine Cardiovascular Disease; Visit Provider Internal Medicine Cardiovascular Disease
DX: I48.0 Paroxysmal atrial fibrillation (principal); Z79.01 Long term (current) use of anticoagulants; Z98.890 Other specified postprocedural states; Z86.79 Personal history of other diseases of the circulatory system
CPT/HCPCS: 36416; 85610

== ENCOUNTER 2021-05-28 13:52 | Outpatient (RCR) | payer MEDICARE, OTHER, SELFPAY ==
[2021-04-01 14:10] VITALS: BMI 28.0
[2021-05-28 14:00] LABS: INR Fingerstick 2.3
== END 2021-05-28 18:00 | disposition home or self-care (01) ==
LOC: MTLAB 13:52
PROVIDERS: Family Provider Family Medicine Geriatric Medicine; PCP Family Medicine Geriatric Medicine; Referring Provider Internal Medicine Cardiovascular Disease; Visit Provider Internal Medicine Cardiovascular Disease
DX: I48.0 Paroxysmal atrial fibrillation (principal); Z79.01 Long term (current) use of anticoagulants; Z98.890 Other specified postprocedural states; Z86.79 Personal history of other diseases of the circulatory system
CPT/HCPCS: 36416; 85610

== ENCOUNTER → 2021-06-21 12:04 | Outpatient (CLI) | payer MEDICARE, OTHER, SELFPAY ==
[2021-04-01 14:10] VITALS: BMI 28.0
[2021-06-28 16:08] LABS: Lyme IgG P18 Ab Absent (.); Lyme IgG P23 Ab Absent (.); Lyme IgG P28 Ab Absent (.); Lyme IgG P30 Ab Absent (.); Lyme IgG P39 Ab Absent (.); Lyme IgG P41 Ab Present (.); Lyme IgG P45 Ab Absent (.); Lyme IgG P58 Ab Absent (.); Lyme IgG P66 Ab Absent (.); Lyme IgG P93 Ab Absent (.); Lyme IgM P23 Ab Absent (.); Lyme IgM P39 Ab Absent (.); Lyme IgM P41 Ab Absent (.)
[2021-06-28 16:26] LABS: Lyme IgG WB Interpretation Negative (.); Lyme IgM WB Interpretation Negative (.)
== END ==
PROVIDERS: PCP Family Medicine Geriatric Medicine; Visit Provider Family Medicine Geriatric Medicine
DX: T07.XXXA Unspecified multiple injuries, initial encounter (principal)
CPT/HCPCS: 36415; 86617

== ENCOUNTER 2021-07-02 11:15 | Outpatient (RCR) | payer MEDICARE, OTHER, SELFPAY ==
[2021-04-01 14:10] VITALS: BMI 28.0
[2021-07-05 17:26] LABS: INR Fingerstick 2.1; Prothrombin Time Fingerstick 24.1 SEC (11.9-14.4)
== END 2021-07-02 18:00 | disposition home or self-care (01) ==
LOC: MTLAB 11:15
PROVIDERS: Family Provider Family Medicine Geriatric Medicine; PCP Family Medicine Geriatric Medicine; Referring Provider Internal Medicine Cardiovascular Disease; Visit Provider Internal Medicine Cardiovascular Disease
DX: I48.0 Paroxysmal atrial fibrillation (principal); Z79.01 Long term (current) use of anticoagulants
CPT/HCPCS: 36416; 85610

== ENCOUNTER 2021-08-02 10:58 | Outpatient (RCR) | payer MEDICARE, OTHER, SELFPAY ==
[2021-07-21 01:27] VITALS: BMI 28.0
[2021-08-02 12:05] LABS: Absolute Lymphocyte Count 0.88 X10^3/uL (0.83-4.51); Absolute Neutrophil Count 2.7 X10^3/uL (2.0-7.7); Basophil# 0.03 X10^3/uL; Basophil% 0.7 % (0-1); Eosinophil# 0.02 X10^3/uL; Eosinophils% 0.5 % (0-5); Hematocrit 41.9 % (40-54); Hemoglobin 13.5 g/dL (13.0-16.5); Lymphocyte # 0.88 X10^3/ul (0.83-4.51); Lymphocyte % 20.2 % (19-41); Mean Corp Hgb Conc 32.2 g/dL (32-36); Mean Corpuscular Hgb 33.3 pg (27.0-32.0); Mean Corpuscular Volume 103.5 fL (80-94); Monocyte# 0.65 X10^3/uL; Monocyte% 14.9 % (0-10); NRBC Flagged by Analyzer 0 % (0-5); Neutrophil # 2.67 X10^3/uL (2.7-7.7); Neutrophil % 61.4 % (47-70); Platelet Count 186 K/mm3 (150-450); RBC Distribution Width CV 13.4 % (11.6-14.6); RBC Distribution Width SD 51.8 fl (35.1-43.9); Red Blood Count 4.05 M/mm3 (4.6-6.2); White Blood Count 4.4 K/mm3 (4.4-11.0)
[2021-08-02 12:12] LABS: International Normalized Ratio 1.9; Prothrombin Time (Protime)PT. 21.4 SECONDS (11.7-14.9)
[2021-08-02 12:36] LABS: Vitamin D,25 Hydroxy 29.2 ng/mL
[2021-08-02 12:40] LABS: ALB/GLOB Ratio 0.9 RATIO (0.9-2.4); AST(SGOT) 21 U/L (15-37); Alanine Aminotransfer ALT/SGPT 18 U/L (16-61); Albumin, Serum 3.3 g/dL (3.2-5.0); Alkaline Phosphatase 84 U/L (45-117); Anion Gap 4 (5-15); BUN 20 mg/dL (7-18); BUN/Creat Ratio 24.6 RATIO (10-20); Calcium,Total 8.7 mg/dL (8.5-10.1); Chloride 105 mmol/L (98-107); Creatinine, Serum 0.81 mg/dL (0.70-1.30); EST Glomerular Filtration Rate 99 mL/min (>60); Est Glom Filt Rate - Afr Amer 119 mL/min (>60); Globulin 3.8 g/dL (2.2-4.2); Glucose 79 mg/dL (74-106); Protein, Total 7.1 g/dL (6.4-8.2); Sodium Level 140 mmol/L (136-145); Thyroid Stim Hormone (TSH) 2.87 uIU/mL (0.358-3.74)
== END 2021-08-02 18:00 | disposition home or self-care (01) ==
LOC: MTLAB 10:58
PROVIDERS: Family Provider Family Medicine Geriatric Medicine; PCP Family Medicine Geriatric Medicine; Referring Provider Internal Medicine Cardiovascular Disease; Visit Provider Internal Medicine Cardiovascular Disease
DX: I48.0 Paroxysmal atrial fibrillation (principal); I10 Essential (primary) hypertension; E55.9 Vitamin D deficiency, unspecified; Z79.01 Long term (current) use of anticoagulants; Z86.79 Personal history of other diseases of the circulatory system
CPT/HCPCS: 36415; 80053; 82306; 84443; 85025; 85610

== ENCOUNTER 2021-08-27 14:08 | Outpatient (RCR) | payer MEDICARE, OTHER, SELFPAY ==
[2021-08-20 02:02] VITALS: BMI 28.0
[2021-08-31 10:01] LABS: INR Fingerstick 2.6; Prothrombin Time Fingerstick 29.1 SEC (11.9-14.4)
== END 2021-09-19 18:00 | disposition home or self-care (01) ==
LOC: MTLAB 14:08
PROVIDERS: Family Provider Family Medicine Geriatric Medicine; PCP Family Medicine Geriatric Medicine; Referring Provider Internal Medicine Cardiovascular Disease; Visit Provider Internal Medicine Cardiovascular Disease
DX: I48.0 Paroxysmal atrial fibrillation (principal); Z79.01 Long term (current) use of anticoagulants; Z86.79 Personal history of other diseases of the circulatory system
CPT/HCPCS: 36416; 85610

== ENCOUNTER 2021-10-04 11:27 | Outpatient (RCR) | payer MEDICARE, OTHER, SELFPAY ==
[2021-09-19 20:40] VITALS: BMI 28.0
[2021-10-04 11:35] LABS: INR Fingerstick 2.5; Prothrombin Time Fingerstick 28.4 SEC (11.9-14.4)
== END 2021-10-19 18:00 | disposition home or self-care (01) ==
LOC: MTLAB 11:27
PROVIDERS: Family Provider Family Medicine Geriatric Medicine; PCP Family Medicine Geriatric Medicine; Referring Provider Internal Medicine Cardiovascular Disease; Visit Provider Internal Medicine Cardiovascular Disease
DX: I48.0 Paroxysmal atrial fibrillation (principal); Z79.01 Long term (current) use of anticoagulants; Z86.79 Personal history of other diseases of the circulatory system; Z98.890 Other specified postprocedural states
CPT/HCPCS: 36416; 85610

== ENCOUNTER 2022-01-05 11:33 | Outpatient (RCR) | payer MEDICARE, OTHER, SELFPAY ==
[2021-10-20 04:12] VITALS: BMI 28.0
[2022-01-05 11:46] LABS: Prothrombin Time Fingerstick 23.4 SEC (11.9-14.4)
== END 2022-01-05 18:00 | disposition home or self-care (01) ==
LOC: LAB 11:33
PROVIDERS: Family Provider Family Medicine Geriatric Medicine; PCP Family Medicine Geriatric Medicine; Referring Provider Internal Medicine Cardiovascular Disease; Visit Provider Internal Medicine Cardiovascular Disease
DX: I48.0 Paroxysmal atrial fibrillation (principal); Z98.890 Other specified postprocedural states; Z86.79 Personal history of other diseases of the circulatory system; Z79.01 Long term (current) use of anticoagulants
CPT/HCPCS: 36416; 85610

== ENCOUNTER 2022-01-25 12:10 | Outpatient (CLI) | payer MEDICARE, OTHER, SELFPAY | END 2022-01-25 23:59 | disposition home or self-care (01) | PROVIDERS: PCP Family Medicine Geriatric Medicine; Referring Provider Family Medicine Geriatric Medicine; Visit Provider Family Medicine Geriatric Medicine | DX: R68.83 Chills (without fever) (principal); Z20.822 Contact with and (suspected) exposure to COVID-19 | CPT/HCPCS: 87635; 87804; 87807; C9803; U0003; U0005 ==

== ENCOUNTER 2022-02-02 11:18 | Outpatient (CLI) | payer MEDICARE, SELFPAY ==
[2022-02-02 12:19] LABS: Absolute Lymphocyte Count 0.96 X10^3/uL (0.83-4.51); Absolute Neutrophil Count 3.6 X10^3/uL (2.0-7.7); Basophil# 0.06 X10^3/uL; Eosinophil# 0.03 X10^3/uL; Eosinophils% 0.5 % (0-5); Hematocrit 39.7 % (40-54); Hemoglobin 13.2 g/dL (13.0-16.5); Lymphocyte # 0.96 X10^3/ul (0.83-4.51); Lymphocyte % 16.2 % (19-41); Mean Corp Hgb Conc 33.2 g/dL (32-36); Mean Corpuscular Volume 99.3 fL (80-94); Mean Platelet Vol. 10.2 fl (6.2-12.0); Monocyte# 1.05 X10^3/uL; Monocyte% 17.7 % (0-10); NRBC Flagged by Analyzer 0 % (0-5); Neutrophil # 3.57 X10^3/uL (2.7-7.7); Neutrophil % 60.4 % (47-70); Platelet Count 213 K/mm3 (150-450); RBC Distribution Width CV 13.6 % (11.6-14.6); RBC Distribution Width SD 50.2 fl (35.1-43.9); White Blood Count 5.9 K/mm3 (4.4-11.0)
[2022-02-02 12:32] LABS: Vitamin D,25 Hydroxy 27.4 ng/mL
[2022-02-02 12:45] LABS: ALB/GLOB Ratio 0.9 RATIO (0.9-2.4); AST(SGOT) 19 U/L (15-37); Alanine Aminotransfer ALT/SGPT 25 U/L (16-61); Albumin, Serum 3.2 g/dL (3.2-5.0); Alkaline Phosphatase 86 U/L (45-117); Anion Gap 3 (5-15); BUN 21 mg/dL (7-18); BUN/Creat Ratio 20.8 RATIO (10-20); Calcium,Total 8.7 mg/dL (8.5-10.1); Chloride 104 mmol/L (98-107); Creatinine, Serum 1.01 mg/dL (0.70-1.30); EST Glomerular Filtration Rate 77 mL/min (>60); Est Glom Filt Rate - Afr Amer 93 mL/min (>60); Globulin 3.5 g/dL (2.2-4.2); Glucose 80 mg/dL (74-106); Potassium 4.1 mmol/L (3.5-5.1); Protein, Total 6.7 g/dL (6.4-8.2); Sodium Level 138 mmol/L (136-145); Thyroid Stim Hormone (TSH) 2.68 uIU/mL (0.358-3.74)
== END 2022-02-02 23:59 | disposition home or self-care (01) ==
LOC: POLAB3 11:20
PROVIDERS: PCP Family Medicine Geriatric Medicine; Visit Provider Family Medicine Geriatric Medicine
DX: E55.9 Vitamin D deficiency, unspecified (principal); I10 Essential (primary) hypertension
CPT/HCPCS: 36415; 80053; 82306; 84443; 85025

== ENCOUNTER 2022-03-09 15:57 | Outpatient (RCR) | payer MEDICARE, SELFPAY ==
[2022-01-18 09:27] VITALS: BMI 28.0
[2022-03-09 16:06] LABS: INR Fingerstick 2.4; Prothrombin Time Fingerstick 28.2 SEC (11.7-14.9)
== END 2022-03-09 18:00 | disposition home or self-care (01) ==
LOC: LAB 15:57
PROVIDERS: Family Provider Family Medicine Geriatric Medicine; PCP Family Medicine Geriatric Medicine; Referring Provider Internal Medicine Cardiovascular Disease; Visit Provider Internal Medicine Cardiovascular Disease
DX: I48.0 Paroxysmal atrial fibrillation; Z86.79 Personal history of other diseases of the circulatory system; Z79.01 Long term (current) use of anticoagulants; Z98.890 Other specified postprocedural states
CPT/HCPCS: 36416; 85610

== ENCOUNTER 2022-04-15 12:33 | Outpatient (RCR) | payer MEDICARE, SELFPAY ==
[2022-03-20 02:48] VITALS: BMI 28.0
[2022-04-15 12:51] LABS: INR Fingerstick 1.8; Prothrombin Time Fingerstick 21.9 SEC (11.7-14.9)
== END 2022-04-15 18:00 | disposition home or self-care (01) ==
LOC: MTLAB 12:33
PROVIDERS: Family Provider Family Medicine Geriatric Medicine; PCP Family Medicine Geriatric Medicine; Referring Provider Internal Medicine Cardiovascular Disease; Visit Provider Internal Medicine Cardiovascular Disease
DX: I48.0 Paroxysmal atrial fibrillation (principal); Z79.01 Long term (current) use of anticoagulants; Z86.79 Personal history of other diseases of the circulatory system; Z98.890 Other specified postprocedural states
CPT/HCPCS: 36416; 85610

== ENCOUNTER 2022-04-29 12:24 | Outpatient (RCR) | payer MEDICARE, SELFPAY ==
[2022-04-19 21:49] VITALS: BMI 28.0
[2022-04-29 12:35] LABS: INR Fingerstick 2.9
== END 2022-05-19 16:00 | disposition home or self-care (01) ==
LOC: MTLAB 12:24
PROVIDERS: Family Provider Family Medicine Geriatric Medicine; PCP Family Medicine Geriatric Medicine; Referring Provider Internal Medicine Cardiovascular Disease; Visit Provider Internal Medicine Cardiovascular Disease
DX: I48.0 Paroxysmal atrial fibrillation (principal); Z79.01 Long term (current) use of anticoagulants; Z86.79 Personal history of other diseases of the circulatory system; Z98.890 Other specified postprocedural states
CPT/HCPCS: 36416; 85610

== ENCOUNTER 2022-05-24 14:47 | Outpatient (RCR) | payer MEDICARE, SELFPAY ==
[2022-05-20 08:19] VITALS: BMI 28.0
[2022-05-24 15:06] LABS: INR Fingerstick 2.3; Prothrombin Time Fingerstick 26.5 SEC (11.7-14.9)
== END 2022-06-19 03:28 | disposition home or self-care (01) ==
LOC: MTLAB 14:47
PROVIDERS: Family Provider Family Medicine Geriatric Medicine; PCP Family Medicine Geriatric Medicine; Referring Provider Internal Medicine Cardiovascular Disease; Visit Provider Internal Medicine Cardiovascular Disease
DX: I26.92 Saddle embolus of pulmonary artery without acute cor pulmonale; Z79.01 Long term (current) use of anticoagulants
CPT/HCPCS: 36416; 85610

== ENCOUNTER 2022-07-19 13:13 | Outpatient (RCR) | payer MEDICARE, OTHER, SELFPAY ==
[2022-06-19 03:29] VITALS: BMI 28.0
[2022-06-28 14:41] LABS: INR Fingerstick 1.8; Prothrombin Time Fingerstick 21.3 SEC (11.7-14.9)
[2022-07-05 13:51] LABS: INR Fingerstick 1.5; Prothrombin Time Fingerstick 18.1 SEC (11.7-14.9)
[2022-07-19 13:30] LABS: INR Fingerstick 3.2; Prothrombin Time Fingerstick 36.5 SEC (11.7-14.9)
== END 2022-07-19 18:00 | disposition home or self-care (01) ==
LOC: MTLAB 13:13
PROVIDERS: Family Provider Family Medicine Geriatric Medicine; PCP Family Medicine Geriatric Medicine; Referring Provider Internal Medicine Cardiovascular Disease; Visit Provider Internal Medicine Cardiovascular Disease
DX: Z79.01 Long term (current) use of anticoagulants; I26.92 Saddle embolus of pulmonary artery without acute cor pulmonale
CPT/HCPCS: 36416; 85610

== ENCOUNTER → 2022-08-10 | Outpatient (CLI) | payer MEDICARE, OTHER, SELFPAY ==
[2022-08-10 12:20] LABS: Absolute Lymphocyte Count 1.33 X10^3/uL (0.83-4.51); Absolute Neutrophil Count 3.5 X10^3/uL (2.0-7.7); Basophil# 0.06 X10^3/uL; Eosinophil# 0.04 X10^3/uL; Eosinophils% 0.7 % (0-5); Hematocrit 40.2 % (40-54); Lymphocyte # 1.33 X10^3/ul (0.83-4.51); Lymphocyte % 22.3 % (19-41); Mean Corp Hgb Conc 32.3 g/dL (32-36); Mean Corpuscular Hgb 33.1 pg (27.0-32.0); Mean Corpuscular Volume 102.3 fL (80-94); Mean Platelet Vol. 10.2 fl (6.2-12.0); Monocyte# 0.87 X10^3/uL; Monocyte% 14.6 % (0-10); NRBC Flagged by Analyzer 0 % (0-5); Neutrophil # 3.45 X10^3/uL (2.7-7.7); Neutrophil % 57.9 % (47-70); Platelet Count 243 K/mm3 (150-450); RBC Distribution Width CV 13.9 % (11.6-14.6); RBC Distribution Width SD 52.5 fl (35.1-43.9); Red Blood Count 3.93 M/mm3 (4.6-6.2)
[2022-08-10 12:27] LABS: International Normalized Ratio 1.7; Prothrombin Time (Protime)PT. 19.3 SECONDS (11.7-14.9)
[2022-08-10 12:34] LABS: Vitamin D,25 Hydroxy 33.2 ng/mL
[2022-08-10 12:43] LABS: ALB/GLOB Ratio 0.8 RATIO (0.9-2.4); AST(SGOT) 21 U/L (15-37); Alanine Aminotransfer ALT/SGPT 29 U/L (16-61); Albumin, Serum 3.3 g/dL (3.2-5.0); Alkaline Phosphatase 74 U/L (45-117); Anion Gap 5 (5-15); BUN 23 mg/dL (7-18); BUN/Creat Ratio 26.8 RATIO (10-20); Calcium,Total 8.9 mg/dL (8.5-10.1); Chloride 105 mmol/L (98-107); Creatinine, Serum 0.86 mg/dL (0.70-1.30); EST Glomerular Filtration Rate 92 mL/min (>60); Est Glom Filt Rate - Afr Amer 112 mL/min (>60); Globulin 4.1 g/dL (2.2-4.2); Glucose 91 mg/dL (74-106); Potassium 4.2 mmol/L (3.5-5.1); Protein, Total 7.4 g/dL (6.4-8.2); Sodium Level 140 mmol/L (136-145); Thyroid Stim Hormone (TSH) 3.91 uIU/mL (0.358-3.74)
== END | disposition home or self-care (01) ==
PROVIDERS: Internal Medicine Cardiovascular Disease; PCP Family Medicine Geriatric Medicine; Visit Provider Family Medicine Geriatric Medicine
DX: I10 Essential (primary) hypertension (principal); I26.92 Saddle embolus of pulmonary artery without acute cor pulmonale; E55.9 Vitamin D deficiency, unspecified; Z79.01 Long term (current) use of anticoagulants
CPT/HCPCS: 36415; 80053; 82306; 84443; 85025; 85610

== ENCOUNTER 2022-08-24 13:17 | Outpatient (RCR) | payer MEDICARE, OTHER, SELFPAY ==
[2022-07-21 01:02] VITALS: BMI 28.0
[2022-08-24 15:35] LABS: INR Fingerstick 2.7; Prothrombin Time Fingerstick 31.3 SEC (11.7-14.9)
== END 2022-08-24 18:00 | disposition home or self-care (01) ==
LOC: MTLAB 13:17
PROVIDERS: Family Provider Family Medicine Geriatric Medicine; PCP Family Medicine Geriatric Medicine; Referring Provider Internal Medicine Cardiovascular Disease; Visit Provider Internal Medicine Cardiovascular Disease
DX: I26.92 Saddle embolus of pulmonary artery without acute cor pulmonale (principal); Z79.01 Long term (current) use of anticoagulants
CPT/HCPCS: 36416; 85610

== ENCOUNTER → 2022-09-06 | Outpatient (CLI) | payer MEDICARE, OTHER, SELFPAY | END | disposition home or self-care (01) | PROVIDERS: PCP Family Medicine Geriatric Medicine; Referring Provider Family Medicine Geriatric Medicine; Visit Provider Family Medicine Geriatric Medicine | DX: R68.83 Chills (without fever) (principal); Z20.822 Contact with and (suspected) exposure to COVID-19 | CPT/HCPCS: 87426; 87804; 87807 ==

== ENCOUNTER 2022-09-27 11:03 | Outpatient (RCR) | payer MEDICARE, OTHER, SELFPAY ==
[2022-09-20 10:29] VITALS: BMI 28.0
[2022-09-27 11:11] LABS: INR Fingerstick 1.9; Prothrombin Time Fingerstick 22.4 SEC (11.7-14.9)
== END 2022-10-19 18:00 | disposition home or self-care (01) ==
LOC: MTLAB 11:03
PROVIDERS: Family Provider Family Medicine Geriatric Medicine; PCP Family Medicine Geriatric Medicine; Referring Provider Internal Medicine Cardiovascular Disease; Visit Provider Internal Medicine Cardiovascular Disease
DX: I26.92 Saddle embolus of pulmonary artery without acute cor pulmonale (principal); Z79.01 Long term (current) use of anticoagulants
CPT/HCPCS: 36416; 85610

== ENCOUNTER 2022-10-20 15:18 | Outpatient (RCR) | payer MEDICARE, OTHER, SELFPAY ==
[2022-10-20 02:27] VITALS: BMI 28.0
[2022-10-20 15:30] LABS: INR Fingerstick 2.5; Prothrombin Time Fingerstick 29.5 SEC (11.7-14.9)
== END 2022-10-20 18:00 | disposition home or self-care (01) ==
LOC: LAB 15:18
PROVIDERS: Family Provider Family Medicine Geriatric Medicine; PCP Family Medicine Geriatric Medicine; Referring Provider Internal Medicine Cardiovascular Disease; Visit Provider Internal Medicine Cardiovascular Disease
DX: I26.92 Saddle embolus of pulmonary artery without acute cor pulmonale (principal); Z79.01 Long term (current) use of anticoagulants
CPT/HCPCS: 36416; 85610

== ENCOUNTER → 2022-10-20 | Outpatient (CLI) | payer MEDICARE, OTHER, SELFPAY ==
[2022-10-20 17:45] LABS: Thyroid Stim Hormone (TSH) 2.69 uIU/mL (0.358-3.74)
== END | disposition home or self-care (01) ==
LOC: POLAB3 15:09
PROVIDERS: PCP Family Medicine Geriatric Medicine; Visit Provider Family Medicine Geriatric Medicine
DX: E03.9 Hypothyroidism, unspecified (principal); I26.92 Saddle embolus of pulmonary artery without acute cor pulmonale; Z79.01 Long term (current) use of anticoagulants
CPT/HCPCS: 36415; 36416; 84443; 85610

== ENCOUNTER → 2022-11-01 | Outpatient (CLI) | payer MEDICARE, OTHER, SELFPAY ==
--- NOTE | 2022-11-01 10:58 | ECHOD_ITS ---
Reason For Study: Murmur, AV Repair Procedure This was a 2D Doppler, Color Flow transthoracic echocardiogram. The exam was of adequate technical quality. Exam performed in department. Left Ventricle Normal LV size. Mild concentric left ventricular hypertrophy. Apical false tendon noted. Left ventricular systolic function is normal. The estimated ejection fraction is 60 %. Diastolic function is indeterminate. No regional wall motion abnormalities noted. Right Ventricle Normal RV size. Normal systolic function. Atria The left atrium is mildly enlarged. Normal right atrium. No doppler evidence for ASD. Mitral Valve There is no mitral annular calcification. Mild mitral valve prolapse. Trivial mitral valve insufficiency. Tricuspid Valve Normal tricuspid valve. Mild tricuspid valve insufficiency. Right ventricular systolic pressure estimated to be 27 mmHg. Aortic Valve Trisinus/trileaflet aortic valve. Moderate focal aortic valve calcification. Aortic valve sclerosis / mild aortic valve stenosis. Trivial eccentric aortic valve insufficiency. Pulmonic Valve The pulmonic valve is not well visualized. Mild (1+) pulmonic valve insufficiency. Great Vessels Aortic root repair. Pericardium/Pleural No pericardial effusion. MMode/2D Measurements & Calculations LVIDd: 4.3 cm IVSd: 1.5 cm LVOT diam: 2.3 cm LVIDs: 2.7 cm LVPWd: 1.4 cm LVOT area: 4.1 cm2 RVDd: 3.6 cm FS: 37.4 % Ao root diam: 2.7 cm LAV(MOD-bp): 58.9 ml LVAd ap4: 28.7 cm2 LAV(MOD-bp) Indexed: 28.1 ml/m2 LVLd ap4: 8.2 cm LAV(MOD-sp2): 37.5 ml EDV(MOD-sp4): 84.7 ml LAV(MOD-sp4): 70.7 ml EDV(sp4-el): 85.8 ml LVAs ap4: 16.4 cm2 LVLs ap4: 7.4 cm ESV(MOD-sp4): 33.4 ml ESV(sp4-el): 31.2 ml EF(MOD-sp4): 60.5 % EF(sp4-el): 63.7 % LVAd ap2: 26.9 cm2 SV(MOD-sp4): 51.3 ml SV(MOD-sp2): 44.0 ml LVLd ap2: 8.1 cm EDV(MOD-sp2): 75.8 ml EDV(sp2-el): 76.4 ml LVAs ap2: 15.5 cm2 LVLs ap2: 7.0 cm ESV(MOD-sp2): 31.8 ml ESV(sp2-el): 28.8 ml EF(MOD-sp2): 58.1 % SV(sp4-el): 54.6 ml LA dimension(2D): 3.9 cm LA A4 area: 23.4 cm2 RA A4 area: 16.7 cm2 Doppler Measurements & Calculations MV E max cecil: 95.3 cm/sec Lat Peak E' Cecil: 7.4 cm/sec Med Peak E' Cecil: 6.6 cm/sec MV A max cecil: 97.0 cm/sec E/E' lat: 12.9 E/E' med: 14.4 MV E/A: 0.98 Ao V2 max: 201.3 cm/sec LV V1 max: 101.0 cm/sec SV(LVOT): 99.2 ml Ao max P.2 mmHg LV V1 max P.1 mmHg Ao V2 mean: 133.5 cm/sec LV V1 mean P.2 mmHg Ao mean P.0 mmHg LV V1 mean: 69.2 cm/sec Ao V2 VTI: 45.1 cm LV V1 VTI: 24.3 cm AV (velocity ratio): 0.54 [place](I,D): 2.2 cm2 [place](V,D): 2.1 cm2 PA V2 max: 91.5 cm/sec TR max cecil: 242.5 cm/sec TR max P.6 mmHg ECHO/Echo Complete Interpretation Summary Left ventricular systolic function is normal. The estimated ejection fraction is 60 %. Mild concentric left ventricular hypertrophy. Apical false tendon noted. The left atrium is mildly enlarged. Mild mitral valve prolapse. Trivial mitral valve insufficiency. Mild tricuspid valve insufficiency. Moderate focal aortic valve calcification. Aortic valve sclerosis / mild aortic valve stenosis. Trivial eccentric aortic valve insufficiency. Mild (1+) pulmonic valve insufficiency. Aortic root repair. Right ventricular systolic pressure estimated to be 27 mmHg. Diastolic function is indeterminate. Ordering Physician: José Miguel Monte Referring Physician: Nish Harrell Chi Performed By: Marina Agustin RDCS
== END | disposition home or self-care (01) ==
LOC: CVS 10:58
PROVIDERS: PCP Family Medicine Geriatric Medicine; Visit Provider Internal Medicine Cardiovascular Disease
DX: I26.92 Saddle embolus of pulmonary artery without acute cor pulmonale (principal); I48.0 Paroxysmal atrial fibrillation; R01.1 Cardiac murmur, unspecified; Z86.79 Personal history of other diseases of the circulatory system; Z95.828 Presence of other vascular implants and grafts; Z98.890 Other specified postprocedural states
CPT/HCPCS: 93306

== ENCOUNTER → 2022-11-07 | Outpatient (CLI) | payer MEDICARE, OTHER, SELFPAY ==
--- NOTE | 2022-11-07 11:10 | RAD_ITS ---
EXAM: XR CHEST, 2 VIEWS CLINICAL INDICATION: WHEEZING TECHNIQUE: Frontal and lateral views of the chest. This report was created using [employer] report generation technology. COMPARISON: None. FINDINGS: LUNGS AND PLEURAL SPACES: Mild scarring at the left lower lobe peripherally. No pneumothorax. No effusion. HEART: Unremarkable. Cardiac silhouette not enlarged. MEDIASTINUM: Central airways and mediastinal contour are unremarkable. BONES/JOINTS: Intact sternotomy wires. SOFT TISSUES: Unremarkable. RAD/Chest PA and Lateral IMPRESSION: No acute disease. Electronically Signed: Cuco Patel MD at 2:19 [facility] ,
== END | disposition home or self-care (01) ==
LOC: RAD 11:06
PROVIDERS: PCP Family Medicine Geriatric Medicine; Referring Provider Family Medicine Geriatric Medicine; Visit Provider Family Medicine Geriatric Medicine
DX: R06.2 Wheezing (principal)
CPT/HCPCS: 71046

== ENCOUNTER 2022-12-13 14:26 | Outpatient (RCR) | payer MEDICARE, OTHER, SELFPAY ==
[2022-11-20 00:45] VITALS: BMI 28.0
[2022-11-22 16:50] LABS: INR Fingerstick 3.3; Prothrombin Time Fingerstick 37.5 SEC (11.7-14.9)
[2022-12-06 13:40] LABS: INR Fingerstick 3.7; Prothrombin Time Fingerstick 41.4 SEC (11.7-14.9)
[2022-12-15 14:50] LABS: INR Fingerstick 2.6; Prothrombin Time Fingerstick 30.1 SEC (11.7-14.9)
== END 2022-12-13 16:26 | disposition home or self-care (01) ==
LOC: MTLAB 14:26
PROVIDERS: Family Provider Family Medicine Geriatric Medicine; PCP Family Medicine Geriatric Medicine; Referring Provider Internal Medicine Cardiovascular Disease; Visit Provider Internal Medicine Cardiovascular Disease
DX: I26.92 Saddle embolus of pulmonary artery without acute cor pulmonale (principal); Z79.01 Long term (current) use of anticoagulants
CPT/HCPCS: 36416; 85610

== ENCOUNTER → 2023-01-06 | Outpatient (CLI) | payer MEDICARE, OTHER, SELFPAY | END | disposition home or self-care (01) | LOC: PSN 08:37 | PROVIDERS: PCP Family Medicine Geriatric Medicine; Referring Provider Family Medicine Geriatric Medicine; Visit Provider Family Medicine Geriatric Medicine | DX: R68.83 Chills (without fever) (principal); Z20.822 Contact with and (suspected) exposure to COVID-19 | CPT/HCPCS: 87635; 87804; 87807; C9803; U0003; U0005 ==

== ENCOUNTER 2023-01-10 14:23 | Outpatient (RCR) | payer MEDICARE, OTHER, SELFPAY ==
[2022-12-21 07:25] VITALS: BMI 28.0
[2023-01-10 15:01] LABS: INR Fingerstick 2.7
== END 2023-01-10 18:00 | disposition home or self-care (01) ==
LOC: MTLAB 14:23
PROVIDERS: Family Provider Family Medicine Geriatric Medicine; PCP Family Medicine Geriatric Medicine; Referring Provider Internal Medicine Cardiovascular Disease; Visit Provider Internal Medicine Cardiovascular Disease
DX: I26.92 Saddle embolus of pulmonary artery without acute cor pulmonale (principal); Z79.01 Long term (current) use of anticoagulants
CPT/HCPCS: 36416; 85610

== ENCOUNTER → 2023-02-06 | Outpatient (CLI) | payer MEDICARE, OTHER, SELFPAY ==
[2023-02-06 13:03] LABS: Absolute Lymphocyte Count 0.89 X10^3/uL (0.83-4.51); Absolute Neutrophil Count 2.1 X10^3/uL (2.0-7.7); Basophil# 0.04 X10^3/uL; Basophil% 1.1 % (0-1); Eosinophil# 0.02 X10^3/uL; Eosinophils% 0.5 % (0-5); Hematocrit 39.9 % (40-54); Lymphocyte # 0.89 X10^3/ul (0.83-4.51); Lymphocyte % 24.2 % (19-41); Mean Corp Hgb Conc 32.6 g/dL (32-36); Mean Corpuscular Hgb 33.2 pg (27.0-32.0); Mean Corpuscular Volume 101.8 fL (80-94); Mean Platelet Vol. 10.4 fl (6.2-12.0); Monocyte# 0.62 X10^3/uL; Monocyte% 16.8 % (0-10); NRBC Flagged by Analyzer 0 % (0-5); Neutrophil # 2.06 X10^3/uL (2.7-7.7); Platelet Count 215 K/mm3 (150-450); RBC Distribution Width CV 14.1 % (11.6-14.6); Red Blood Count 3.92 M/mm3 (4.6-6.2); White Blood Count 3.7 K/mm3 (4.4-11.0)
[2023-02-06 13:25] LABS: ALB/GLOB Ratio 0.9 RATIO (0.9-2.4); AST(SGOT) 25 U/L (15-37); Alanine Aminotransfer ALT/SGPT 24 U/L (16-61); Albumin, Serum 3.3 g/dL (3.2-5.0); Alkaline Phosphatase 81 U/L (45-117); Anion Gap 5 (5-15); BUN 21 mg/dL (7-18); BUN/Creat Ratio 22.5 RATIO (10-20); Calcium,Total 8.9 mg/dL (8.5-10.1); Chloride 107 mmol/L (98-107); Creatinine, Serum 0.93 mg/dL (0.70-1.30); EST Glomerular Filtration Rate 84 mL/min (>60); Est Glom Filt Rate - Afr Amer 101 mL/min (>60); Globulin 3.6 g/dL (2.2-4.2); Glucose 101 mg/dL (74-106); Potassium 3.8 mmol/L (3.5-5.1); Protein, Total 6.9 g/dL (6.4-8.2); Sodium Level 142 mmol/L (136-145); Thyroid Stim Hormone (TSH) 2.99 uIU/mL (0.358-3.74)
== END | disposition home or self-care (01) ==
LOC: POLAB3 10:01
PROVIDERS: PCP Family Medicine Geriatric Medicine; Visit Provider Family Medicine Geriatric Medicine
DX: I10 Essential (primary) hypertension (principal); E55.9 Vitamin D deficiency, unspecified
CPT/HCPCS: 36415; 80053; 82306; 84443; 85025

== ENCOUNTER 2023-02-15 09:05 | Outpatient (RCR) | payer MEDICARE, OTHER, SELFPAY ==
[2023-01-17 23:18] VITALS: BMI 28.0
[2023-02-15 17:05] LABS: INR Fingerstick 3.1
== END 2023-02-17 20:56 | disposition home or self-care (01) ==
LOC: MTLAB 09:05
PROVIDERS: Family Provider Family Medicine Geriatric Medicine; PCP Family Medicine Geriatric Medicine; Referring Provider Internal Medicine Cardiovascular Disease; Visit Provider Internal Medicine Cardiovascular Disease
DX: I26.92 Saddle embolus of pulmonary artery without acute cor pulmonale (principal); Z79.01 Long term (current) use of anticoagulants
CPT/HCPCS: 36416; 85610

== ENCOUNTER 2023-03-15 13:59 | Outpatient (RCR) | payer MEDICARE, OTHER, SELFPAY ==
[2023-02-17 20:56] VITALS: BMI 28.0
[2023-03-08 13:05] LABS: INR Fingerstick 3.9; Prothrombin Time Fingerstick 40.7 SEC (11.7-14.9)
[2023-03-15 14:11] LABS: INR Fingerstick 3.1; Prothrombin Time Fingerstick 33.4 SEC (11.7-14.9)
== END 2023-03-19 05:23 | disposition home or self-care (01) ==
LOC: MTLAB 13:59
PROVIDERS: Family Provider Family Medicine Geriatric Medicine; PCP Family Medicine Geriatric Medicine; Referring Provider Internal Medicine Cardiovascular Disease; Visit Provider Internal Medicine Cardiovascular Disease
DX: I26.92 Saddle embolus of pulmonary artery without acute cor pulmonale (principal); Z79.01 Long term (current) use of anticoagulants
CPT/HCPCS: 36416; 85610

== ENCOUNTER 2023-03-22 11:06 | Outpatient (RCR) | payer MEDICARE, OTHER, SELFPAY ==
[2023-03-19 05:23] VITALS: BMI 28.0
[2023-03-23 08:16] LABS: INR Fingerstick 2.8; Prothrombin Time Fingerstick 30.4 SEC (11.7-14.9)
== END 2023-03-22 12:06 | disposition home or self-care (01) ==
LOC: MTLAB 11:06
PROVIDERS: Family Provider Family Medicine Geriatric Medicine; PCP Family Medicine Geriatric Medicine; Referring Provider Internal Medicine Cardiovascular Disease; Visit Provider Internal Medicine Cardiovascular Disease
DX: I26.92 Saddle embolus of pulmonary artery without acute cor pulmonale (principal); Z79.01 Long term (current) use of anticoagulants
CPT/HCPCS: 36416; 85610

== ENCOUNTER 2023-05-19 12:32 | Outpatient (RCR) | payer MEDICARE, OTHER, SELFPAY ==
[2023-04-20 08:09] VITALS: BMI 28.0
[2023-04-24 14:52] LABS: INR Fingerstick 2.8; Prothrombin Time Fingerstick 30.2 SEC (11.7-14.9)
[2023-05-19 15:22] LABS: INR Fingerstick 2.6; Prothrombin Time Fingerstick 27.7 SEC (11.7-14.9)
== END 2023-05-19 18:00 | disposition home or self-care (01) ==
LOC: MTLAB 12:32
PROVIDERS: Family Provider Family Medicine Geriatric Medicine; PCP Family Medicine Geriatric Medicine; Referring Provider Internal Medicine Cardiovascular Disease; Visit Provider Internal Medicine Cardiovascular Disease
DX: I26.92 Saddle embolus of pulmonary artery without acute cor pulmonale (principal); Z79.01 Long term (current) use of anticoagulants
CPT/HCPCS: 36416; 85610

== ENCOUNTER → 2023-06-21 | Outpatient (CLI) | payer MEDICARE, OTHER, SELFPAY | END | disposition home or self-care (01) | LOC: PSN 12:22 | PROVIDERS: PCP Family Medicine Geriatric Medicine; Referring Provider Family Medicine Geriatric Medicine; Visit Provider Family Medicine Geriatric Medicine | DX: R68.83 Chills (without fever) (principal) | CPT/HCPCS: 87635; 87804; 87807 ==

== ENCOUNTER → 2023-06-27 | Outpatient (CLI) | payer MEDICARE, OTHER, SELFPAY | END | disposition home or self-care (01) | PROVIDERS: PCP Family Medicine Geriatric Medicine; Referring Provider Family Medicine Geriatric Medicine; Visit Provider Family Medicine Geriatric Medicine | DX: R68.83 Chills (without fever) (principal) | CPT/HCPCS: 87635; 87804; 87807; C9803 ==

== ENCOUNTER 2023-07-03 14:38 | Outpatient (RCR) | payer MEDICARE, OTHER, SELFPAY ==
[2023-05-20 02:43] VITALS: BMI 28.0
[2023-07-03 14:51] LABS: INR Fingerstick 2.5; Prothrombin Time Fingerstick 27.2 SEC (11.7-14.9)
== END 2023-07-03 18:00 | disposition home or self-care (01) ==
LOC: MTLAB 14:38
PROVIDERS: Family Provider Family Medicine Geriatric Medicine; PCP Family Medicine Geriatric Medicine; Referring Provider Internal Medicine Cardiovascular Disease; Visit Provider Internal Medicine Cardiovascular Disease
DX: I26.92 Saddle embolus of pulmonary artery without acute cor pulmonale (principal); Z79.01 Long term (current) use of anticoagulants
CPT/HCPCS: 36416; 85610

== ENCOUNTER → 2023-07-31 | Outpatient (CLI) | payer MEDICARE, OTHER, SELFPAY ==
[2023-07-31 10:45] LABS: Absolute Lymphocyte Count 1.11 X10^3/uL (0.83-4.51); Absolute Neutrophil Count 2.3 X10^3/uL (2.0-7.7); Basophil# 0.03 X10^3/uL; Basophil% 0.8 % (0-1); Eosinophil# 0.02 X10^3/uL; Eosinophils% 0.5 % (0-5); Hematocrit 42.6 % (40-54); Hemoglobin 13.5 g/dL (13.0-16.5); Lymphocyte # 1.11 X10^3/ul (0.83-4.51); Lymphocyte % 27.8 % (19-41); Mean Corp Hgb Conc 31.7 g/dL (32-36); Mean Corpuscular Volume 104.2 fL (80-94); Mean Platelet Vol. 9.7 fl (6.2-12.0); Monocyte# 0.51 X10^3/uL; Monocyte% 12.8 % (0-10); NRBC Flagged by Analyzer 0 % (0-5); Neutrophil # 2.28 X10^3/uL (2.7-7.7); Neutrophil % 57.1 % (47-70); Platelet Count 203 K/mm3 (150-450); RBC Distribution Width CV 14.8 % (11.6-14.6); RBC Distribution Width SD 58.1 fl (35.1-43.9); Red Blood Count 4.09 M/mm3 (4.6-6.2)
[2023-07-31 10:50] LABS: International Normalized Ratio 1.6; Prothrombin Time (Protime)PT. 18.9 SECONDS (11.7-14.9)
[2023-07-31 10:55] LABS: Vitamin D,25 Hydroxy 31.4 ng/mL
[2023-07-31 11:22] LABS: ALB/GLOB Ratio 0.8 RATIO (0.9-2.4); AST(SGOT) 19 U/L (15-37); Alanine Aminotransfer ALT/SGPT 23 U/L (16-61); Alkaline Phosphatase 87 U/L (45-117); Anion Gap 4 (5-15); BUN 22 mg/dL (7-18); BUN/Creat Ratio 23.8 RATIO (10-20); Calcium,Total 8.7 mg/dL (8.5-10.1); Chloride 107 mmol/L (98-107); Creatinine, Serum 0.93 mg/dL (0.70-1.30); EST Glomerular Filtration Rate 84 mL/min (>60); Est Glom Filt Rate - Afr Amer 102 mL/min (>60); Globulin 3.9 g/dL (2.2-4.2); Glucose 102 mg/dL (74-106); Potassium 3.9 mmol/L (3.5-5.1); Protein, Total 6.9 g/dL (6.4-8.2); Sodium Level 139 mmol/L (136-145); Thyroid Stim Hormone (TSH) 3.49 uIU/mL (0.358-3.74)
== END | disposition home or self-care (01) ==
LOC: POLAB3 09:21
PROVIDERS: Physician Assistant Medical; PCP Family Medicine Geriatric Medicine; Visit Provider Family Medicine Geriatric Medicine
DX: I10 Essential (primary) hypertension (principal); I26.92 Saddle embolus of pulmonary artery without acute cor pulmonale; I48.0 Paroxysmal atrial fibrillation; E55.9 Vitamin D deficiency, unspecified; Z79.01 Long term (current) use of anticoagulants
CPT/HCPCS: 36415; 80053; 82306; 84443; 85025; 85610

== ENCOUNTER 2023-08-07 15:43 | Outpatient (RCR) | payer MEDICARE, OTHER, SELFPAY ==
[2023-07-21 02:04] VITALS: BMI 28.0
[2023-08-07 16:06] LABS: INR Fingerstick 2.3; Prothrombin Time Fingerstick 24.8 SEC (11.7-14.9)
== END 2023-08-07 18:00 | disposition home or self-care (01) ==
LOC: MTLAB 15:43
PROVIDERS: Family Provider Family Medicine Geriatric Medicine; PCP Family Medicine Geriatric Medicine; Referring Provider Nurse Practitioner Family; Visit Provider Nurse Practitioner Family
DX: I26.92 Saddle embolus of pulmonary artery without acute cor pulmonale (principal); Z79.01 Long term (current) use of anticoagulants; I48.0 Paroxysmal atrial fibrillation
CPT/HCPCS: 36416; 85610

== ENCOUNTER 2023-09-07 10:07 | Outpatient (RCR) | payer MEDICARE, OTHER, SELFPAY ==
[2023-08-20 05:02] VITALS: BMI 28.0
[2023-09-07 10:21] LABS: INR Fingerstick 2.1; Prothrombin Time Fingerstick 22.8 SEC (11.7-14.9)
== END 2023-09-07 18:00 | disposition home or self-care (01) ==
LOC: MTLAB 10:07
PROVIDERS: Family Provider Family Medicine Geriatric Medicine; PCP Family Medicine Geriatric Medicine; Referring Provider Nurse Practitioner Family; Visit Provider Nurse Practitioner Family
DX: I26.92 Saddle embolus of pulmonary artery without acute cor pulmonale (principal); Z79.01 Long term (current) use of anticoagulants; I48.0 Paroxysmal atrial fibrillation
CPT/HCPCS: 36416; 85610

== ENCOUNTER → 2023-09-29 | Outpatient (CLI) | payer MEDICARE, OTHER, SELFPAY ==
--- NOTE | 2023-09-29 15:31 | RAD_ITS ---
INDICATION: Trauma, LOC of cement fell on left thumb with contusion EXAMINATION/TECHNIQUE: X-RAY - LEFT HAND XR Fingers Min 2 Views 3 VIEWS COMPARISON: None. FINDINGS: SOFT TISSUES: No soft tissue swelling or gas. No radiopaque foreign body. BONES/JOINTS: No acute fracture. Joint spaces anatomically aligned with mild degenerative changes. No sclerotic or destructive changes observed. RAD/Finger(s) Min 2 Views IMPRESSION: No acute bony injury. Electronically Signed: Ciro Crespo MD at 16:58 EST ,
== END | disposition home or self-care (01) ==
LOC: MTRAD 15:31
PROVIDERS: PCP Family Medicine Geriatric Medicine; Referring Provider Physician Assistant Surgical; Visit Provider Physician Assistant Surgical
DX: S60.012A Contusion of left thumb without damage to nail, initial encounter (principal); X58.XXXA Exposure to other specified factors, initial encounter
CPT/HCPCS: 73140

== ENCOUNTER 2023-10-18 15:30 | Outpatient (RCR) | payer MEDICARE, OTHER, SELFPAY ==
[2023-09-19 23:11] VITALS: BMI 28.0
[2023-10-07 10:20] LABS: INR Fingerstick 2.7; Prothrombin Time Fingerstick 29.3 SEC (11.7-14.9)
[2023-10-18 15:45] LABS: INR Fingerstick 3.1; Prothrombin Time Fingerstick 33.1 SEC (11.7-14.9)
== END 2023-10-19 18:00 | disposition home or self-care (01) ==
LOC: MTLAB 15:30
PROVIDERS: Family Provider Family Medicine Geriatric Medicine; PCP Family Medicine Geriatric Medicine; Referring Provider Nurse Practitioner Family; Visit Provider Nurse Practitioner Family
DX: I26.92 Saddle embolus of pulmonary artery without acute cor pulmonale (principal); Z79.01 Long term (current) use of anticoagulants; I48.0 Paroxysmal atrial fibrillation
CPT/HCPCS: 36416; 85610

== ENCOUNTER 2023-11-09 11:48 | Outpatient (RCR) | payer MEDICARE, OTHER, SELFPAY ==
[2023-10-20 05:41] VITALS: BMI 28.0
[2023-11-09 13:28] LABS: INR Fingerstick 2.6
== END 2023-11-19 18:00 | disposition home or self-care (01) ==
LOC: MTLAB 11:48
PROVIDERS: Family Provider Family Medicine Geriatric Medicine; PCP Family Medicine Geriatric Medicine; Referring Provider Nurse Practitioner Family; Visit Provider Nurse Practitioner Family
DX: I26.92 Saddle embolus of pulmonary artery without acute cor pulmonale (principal); Z79.01 Long term (current) use of anticoagulants; I48.0 Paroxysmal atrial fibrillation
CPT/HCPCS: 36416; 85610

== ENCOUNTER 2023-12-19 12:39 | Outpatient (RCR) | payer MEDICARE, OTHER, SELFPAY ==
[2023-11-19 23:33] VITALS: BMI 28.0
[2023-12-13 16:22] LABS: INR Fingerstick 3.8; Prothrombin Time Fingerstick 39.9 SEC (11.7-14.9)
[2023-12-20 14:48] LABS: INR Fingerstick 2.5; Prothrombin Time Fingerstick 26.7 SEC (11.7-14.9)
== END 2023-12-20 18:00 | disposition home or self-care (01) ==
LOC: MTLAB 12:39
PROVIDERS: Family Provider Family Medicine Geriatric Medicine; PCP Family Medicine Geriatric Medicine; Referring Provider Nurse Practitioner Family; Visit Provider Nurse Practitioner Family
DX: I26.92 Saddle embolus of pulmonary artery without acute cor pulmonale (principal); Z79.01 Long term (current) use of anticoagulants; I48.0 Paroxysmal atrial fibrillation
CPT/HCPCS: 36416; 85610

== ENCOUNTER 2024-01-05 12:39 | Outpatient (RCR) | payer MEDICARE, OTHER, SELFPAY ==
[2023-12-20 23:44] VITALS: BMI 28.0
[2024-01-05 12:49] LABS: INR Fingerstick 1.8; Prothrombin Time Fingerstick 19.5 SEC (11.7-14.9)
== END 2024-01-18 18:00 | disposition home or self-care (01) ==
LOC: MTLAB 12:39
PROVIDERS: Family Provider Family Medicine Geriatric Medicine; PCP Family Medicine Geriatric Medicine; Referring Provider Nurse Practitioner Family; Visit Provider Nurse Practitioner Family
DX: I26.92 Saddle embolus of pulmonary artery without acute cor pulmonale (principal); Z79.01 Long term (current) use of anticoagulants; I48.0 Paroxysmal atrial fibrillation
CPT/HCPCS: 36416; 85610

== ENCOUNTER → 2024-02-14 | Outpatient (CLI) | payer MEDICARE, OTHER, SELFPAY ==
[2024-02-14 10:27] LABS: Absolute Lymphocyte Count 0.94 X10^3/uL (0.83-4.51); Absolute Neutrophil Count 2.5 X10^3/uL (2.0-7.7); Basophil# 0.04 X10^3/uL; Eosinophil# 0.02 X10^3/uL; Eosinophils% 0.5 % (0-5); Hematocrit 39.3 % (40-54); Hemoglobin 12.4 g/dL (13.0-16.5); Lymphocyte # 0.94 X10^3/ul (0.83-4.51); Lymphocyte % 22.8 % (19-41); Mean Corp Hgb Conc 31.6 g/dL (32-36); Mean Corpuscular Hgb 32.3 pg (27.0-32.0); Mean Corpuscular Volume 102.3 fL (80-94); Mean Platelet Vol. 10.3 fl (6.2-12.0); Monocyte# 0.64 X10^3/uL; Monocyte% 15.5 % (0-10); NRBC Flagged by Analyzer 0 % (0-5); Neutrophil # 2.45 X10^3/uL (2.7-7.7); Neutrophil % 59.2 % (47-70); Platelet Count 187 K/mm3 (150-450); RBC Distribution Width CV 13.9 % (11.6-14.6); RBC Distribution Width SD 53.1 fl (35.1-43.9); Red Blood Count 3.84 M/mm3 (4.6-6.2); White Blood Count 4.1 K/mm3 (4.4-11.0)
[2024-02-14 11:10] LABS: ALB/GLOB Ratio 0.8 RATIO (0.9-2.4); AST(SGOT) 21 U/L (15-37); Alanine Aminotransfer ALT/SGPT 15 U/L (16-61); Alkaline Phosphatase 80 U/L (45-117); Anion Gap 4 (5-15); BUN 23 mg/dL (7-18); Calcium,Total 8.5 mg/dL (8.5-10.1); Chloride 110 mmol/L (98-107); Creatinine, Serum 0.96 mg/dL (0.70-1.30); EST Glomerular Filtration Rate 81 mL/min (>60); Est Glom Filt Rate - Afr Amer 98 mL/min (>60); Glucose 104 mg/dL (74-106); Potassium 3.8 mmol/L (3.5-5.1); Sodium Level 142 mmol/L (136-145); Thyroid Stim Hormone (TSH) 3.03 uIU/mL (0.358-3.74)
[2024-02-14 11:30] LABS: Vitamin D,25 Hydroxy 30.4 ng/mL
== END | disposition home or self-care (01) ==
LOC: POLAB3 09:05
PROVIDERS: PCP Family Medicine Geriatric Medicine; Visit Provider Family Medicine Geriatric Medicine
DX: I10 Essential (primary) hypertension (principal); E55.9 Vitamin D deficiency, unspecified
CPT/HCPCS: 36415; 80053; 82306; 84443; 85025

== ENCOUNTER 2024-02-16 12:20 | Outpatient (RCR) | payer MEDICARE, OTHER, SELFPAY ==
[2024-01-19 02:20] VITALS: BMI 28.0
[2024-01-26 11:16] LABS: INR Fingerstick 3.4; Prothrombin Time Fingerstick 35.7 SEC (11.7-14.9)
[2024-02-02 13:48] LABS: Prothrombin Time Fingerstick 32.4 SEC (11.7-14.9)
[2024-02-19 08:41] LABS: Prothrombin Time Fingerstick 21.5 SEC (11.7-14.9)
== END 2024-02-17 18:00 | disposition home or self-care (01) ==
LOC: LAB 12:20
PROVIDERS: Family Provider Family Medicine Geriatric Medicine; PCP Family Medicine Geriatric Medicine; Referring Provider Nurse Practitioner Family; Visit Provider Nurse Practitioner Family
DX: I26.92 Saddle embolus of pulmonary artery without acute cor pulmonale (principal); I48.0 Paroxysmal atrial fibrillation; Z79.01 Long term (current) use of anticoagulants
CPT/HCPCS: 36416; 85610

== ENCOUNTER 2024-03-07 11:25 | Outpatient (RCR) | payer MEDICARE, OTHER, SELFPAY ==
[2024-02-17 21:35] VITALS: BMI 28.0
[2024-03-07 15:44] LABS: INR Fingerstick 2.2; Prothrombin Time Fingerstick 23.6 SEC (11.7-14.9)
== END 2024-03-19 22:05 | disposition home or self-care (01) ==
LOC: MTLAB 11:25
PROVIDERS: Family Provider Family Medicine Geriatric Medicine; PCP Family Medicine Geriatric Medicine; Referring Provider Nurse Practitioner Family; Visit Provider Nurse Practitioner Family
DX: I48.0 Paroxysmal atrial fibrillation; Z79.01 Long term (current) use of anticoagulants; I26.92 Saddle embolus of pulmonary artery without acute cor pulmonale
CPT/HCPCS: 36416; 85610

== ENCOUNTER 2024-04-10 13:53 | Outpatient (RCR) | payer MEDICARE, OTHER, SELFPAY ==
[2024-03-19 22:05] VITALS: BMI 28.0
[2024-04-10 14:01] LABS: INR Fingerstick 2.4; Prothrombin Time Fingerstick 25.9 SEC (11.7-14.9)
== END 2024-04-19 18:00 | disposition home or self-care (01) ==
LOC: MTLAB 13:53
PROVIDERS: Family Provider Family Medicine Geriatric Medicine; PCP Family Medicine Geriatric Medicine; Referring Provider Nurse Practitioner Family; Visit Provider Nurse Practitioner Family
DX: I26.92 Saddle embolus of pulmonary artery without acute cor pulmonale (principal); I48.0 Paroxysmal atrial fibrillation; Z79.01 Long term (current) use of anticoagulants
CPT/HCPCS: 36416; 85610

== ENCOUNTER 2024-05-30 16:27 | Outpatient (RCR) | payer MEDICARE, OTHER, SELFPAY ==
[2024-04-22 08:34] VITALS: BMI 28.0
[2024-05-30 16:35] LABS: Prothrombin Time Fingerstick 30.3 SEC (11.7-14.9)
== END 2024-06-19 18:00 | disposition home or self-care (01) ==
LOC: MTLAB 16:27
PROVIDERS: Family Provider Family Medicine Geriatric Medicine; PCP Family Medicine Geriatric Medicine; Referring Provider Nurse Practitioner Family; Visit Provider Nurse Practitioner Family
DX: I26.92 Saddle embolus of pulmonary artery without acute cor pulmonale (principal); I48.0 Paroxysmal atrial fibrillation; Z79.01 Long term (current) use of anticoagulants
CPT/HCPCS: 36416; 85610

== ENCOUNTER 2024-06-28 15:51 | Outpatient (RCR) | payer MEDICARE, OTHER, SELFPAY ==
[2024-06-19 23:26] VITALS: BMI 28.0
[2024-07-09 15:41] LABS: INR Fingerstick 2.8; Prothrombin Time Fingerstick 28.7 SEC (11.7-14.9)
== END 2024-06-28 18:00 | disposition home or self-care (01) ==
LOC: MTLAB 15:51
PROVIDERS: Family Provider Family Medicine Geriatric Medicine; PCP Family Medicine Geriatric Medicine; Referring Provider Nurse Practitioner Family; Visit Provider Nurse Practitioner Family
DX: I26.92 Saddle embolus of pulmonary artery without acute cor pulmonale (principal); I48.0 Paroxysmal atrial fibrillation; Z79.01 Long term (current) use of anticoagulants
CPT/HCPCS: 36416; 85610

== ENCOUNTER 2024-08-02 12:25 | Outpatient (RCR) | payer MEDICARE, OTHER, SELFPAY ==
[2024-07-20 21:20] VITALS: BMI 28.0
[2024-08-02 12:46] LABS: INR Fingerstick 3.2; Prothrombin Time Fingerstick 31.9 SEC (11.7-14.9)
== END 2024-08-02 18:00 | disposition home or self-care (01) ==
LOC: LAB 12:25
PROVIDERS: Family Provider Family Medicine Geriatric Medicine; PCP Family Medicine Geriatric Medicine; Referring Provider Nurse Practitioner Family; Visit Provider Nurse Practitioner Family
DX: I48.0 Paroxysmal atrial fibrillation (principal); I26.92 Saddle embolus of pulmonary artery without acute cor pulmonale; Z79.01 Long term (current) use of anticoagulants
CPT/HCPCS: 36416; 85610

== ENCOUNTER → 2024-08-08 | Outpatient (CLI) | payer MEDICARE, OTHER, SELFPAY ==
--- NOTE | 2024-08-08 12:39 | ECHOD_ITS ---
Reason For Study: AAFIB Procedure This was a 2D Doppler, Color Flow transthoracic echocardiogram. Exam performed in department. Left Ventricle Normal LV size. Moderate concentric left ventricular hypertrophy. The left ventricular ejection fraction is 65 %. No regional wall motion abnormalities noted. Right Ventricle Normal RV size. Normal systolic function. Atria Normal left atrium. Normal right atrium. Tricuspid Valve Normal tricuspid valve. Mild (1+) tricuspid valve insufficiency. Pulmonary artery systolic pressure is 40 mmHg. Aortic Valve Trisinus/trileaflet aortic valve. Mild diffuse aortic valve calcification. Peak aortic valve gradient 19 mmHg. Mean aortic valve gradient 10 mmHg. Mild aortic stenosis. Pulmonic Valve Normal pulmonic valve. Great Vessels Normal aortic root. Pericardium/Pleural No pericardial effusion. MMode/2D Measurements & Calculations LVIDd: 3.9 cm IVSd: 1.5 cm LAV(MOD-bp): 42.5 ml LVIDs: 3.0 cm LVPWd: 1.8 cm LAV(MOD-bp) Indexed: 20.1 ml/m2 FS: 23.4 % LAV(MOD-sp2): 43.8 ml LAV(MOD-sp4): 38.0 ml LVAd ap4: 24.7 cm2 SV(MOD-sp4): 43.7 ml SV(sp4-el): 43.6 ml LVLd ap4: 7.8 cm EDV(MOD-sp4): 66.5 ml EDV(sp4-el): 66.5 ml LVAs ap4: 13.2 cm2 LVLs ap4: 6.4 cm ESV(MOD-sp4): 22.8 ml ESV(sp4-el): 22.8 ml EF(MOD-sp4): 65.7 % EF(sp4-el): 65.6 % LA A4 area: 16.4 cm2 RA A4 area: 12.4 cm2 Time Measurements MV dec time: 0.31 sec Doppler Measurements & Calculations MV E max cecil: 90.1 cm/sec Lat Peak E' Cecil: 9.0 cm/sec Med Peak E' Cecil: 7.3 cm/sec MV A max cecil: 90.1 cm/sec E/E' lat: 10.1 E/E' med: 12.3 MV E/A: 1.0 Ao V2 max: 217.7 cm/sec LV V1 max: 117.5 cm/sec TR max cecil: 304.2 cm/sec Ao max P.0 mmHg LV V1 max P.5 mmHg TR max P.0 mmHg Ao V2 mean: 148.6 cm/sec LV V1 mean P.3 mmHg Ao mean P.9 mmHg LV V1 mean: 85.0 cm/sec Ao V2 VTI: 50.4 cm LV V1 VTI: 29.5 cm AV (velocity ratio): 0.59 ECHO/Echo Complete Interpretation Summary Normal LV size. Moderate concentric left ventricular hypertrophy. The left ventricular ejection fraction is 65 %. Mild diffuse aortic valve calcification. Mild aortic stenosis. Ordering Physician: Real Reed Referring Physician: Real Reed Performed By: Tosha Norris and Student
== END | disposition home or self-care (01) ==
LOC: CVS 12:39
PROVIDERS: PCP Family Medicine Geriatric Medicine; Referring Provider Nurse Practitioner Family; Visit Provider Nurse Practitioner Family
DX: I48.0 Paroxysmal atrial fibrillation (principal); Z98.890 Other specified postprocedural states; Z95.828 Presence of other vascular implants and grafts; Z86.79 Personal history of other diseases of the circulatory system
CPT/HCPCS: 93306

== ENCOUNTER → 2024-08-15 | Outpatient (CLI) | payer MEDICARE, OTHER, SELFPAY ==
[2024-08-15 11:25] LABS: Absolute Lymphocyte Count 1.03 X10^3/uL (0.83-4.51); Basophil# 0.03 X10^3/uL; Basophil% 0.6 % (0-1); Eosinophil# 0.03 X10^3/uL; Eosinophils% 0.6 % (0-5); Hemoglobin 12.9 g/dL (13.0-16.5); Lymphocyte # 1.03 X10^3/ul (0.83-4.51); Lymphocyte % 20.4 % (19-41); Mean Corp Hgb Conc 31.5 g/dL (32-36); Mean Corpuscular Hgb 32.3 pg (27.0-32.0); Mean Corpuscular Volume 102.5 fL (80-94); Mean Platelet Vol. 10.3 fl (6.2-12.0); Monocyte# 0.85 X10^3/uL; Monocyte% 16.9 % (0-10); NRBC Flagged by Analyzer 0 % (0-5); Neutrophil # 3.04 X10^3/uL (2.7-7.7); Neutrophil % 60.3 % (47-70); Platelet Count 177 K/mm3 (150-450); RBC Distribution Width CV 13.9 % (11.6-14.6); RBC Distribution Width SD 52.2 fl (35.1-43.9)
[2024-08-15 11:59] LABS: ALB/GLOB Ratio 0.7 RATIO (0.9-2.4); AST(SGOT) 32 U/L (15-37); Alanine Aminotransfer ALT/SGPT 21 U/L (16-61); Albumin, Serum 3.2 g/dL (3.2-5.0); Alkaline Phosphatase 95 U/L (45-117); Anion Gap 0 (5-15); BUN 17 mg/dL (7-18); BUN/Creat Ratio 19.9 RATIO (10-20); Calcium,Total 8.9 mg/dL (8.5-10.1); Chloride 106 mmol/L (98-107); Creatinine, Serum 0.86 mg/dL (0.70-1.30); EST Glomerular Filtration Rate 92 mL/min (>60); Est Glom Filt Rate - Afr Amer 112 mL/min (>60); Globulin 4.6 g/dL (2.2-4.2); Glucose 90 mg/dL (74-106); Protein, Total 7.8 g/dL (6.4-8.2); Sodium Level 137 mmol/L (136-145)
== END | disposition home or self-care (01) ==
LOC: POLAB3 10:49
PROVIDERS: PCP Family Medicine Geriatric Medicine; Visit Provider Family Medicine Geriatric Medicine
DX: I10 Essential (primary) hypertension (principal); E55.9 Vitamin D deficiency, unspecified
CPT/HCPCS: 36415; 80053; 82306; 84443; 85025

== ENCOUNTER 2024-09-06 13:15 | Outpatient (RCR) | payer MEDICARE, OTHER, SELFPAY ==
[2024-08-20 03:35] VITALS: BMI 28.0
[2024-08-30 13:19] LABS: INR Fingerstick 3.7; Prothrombin Time Fingerstick 36.2 SEC (11.7-14.9)
[2024-08-30 13:49] LABS: International Normalized Ratio 3.4; Prothrombin Time (Protime)PT. 33.8 SECONDS (11.7-14.9)
[2024-09-19 12:07] LABS: INR Fingerstick 2.9; Prothrombin Time Fingerstick 30.7 SEC (11.7-14.9)
== END 2024-09-06 18:00 | disposition home or self-care (01) ==
LOC: LAB 13:15
PROVIDERS: Family Provider Family Medicine Geriatric Medicine; PCP Family Medicine Geriatric Medicine; Referring Provider Nurse Practitioner Family; Visit Provider Nurse Practitioner Family
DX: I48.0 Paroxysmal atrial fibrillation (principal); I26.92 Saddle embolus of pulmonary artery without acute cor pulmonale; Z79.01 Long term (current) use of anticoagulants
CPT/HCPCS: 36415; 36416; 85610

== ENCOUNTER 2024-10-11 13:56 | Outpatient (RCR) | payer MEDICARE, OTHER, SELFPAY ==
[2024-09-19 20:59] VITALS: BMI 28.0
[2024-09-27 14:04] LABS: INR Fingerstick 3.2; Prothrombin Time Fingerstick 31.5 SEC (11.7-14.9)
[2024-10-11 14:03] LABS: Prothrombin Time Fingerstick 22.3 SEC (11.7-14.9)
== END 2024-10-19 18:00 | disposition home or self-care (01) ==
LOC: MTLAB 13:56
PROVIDERS: Family Provider Family Medicine Geriatric Medicine; PCP Family Medicine Geriatric Medicine; Referring Provider Nurse Practitioner Family; Visit Provider Nurse Practitioner Family
DX: I48.0 Paroxysmal atrial fibrillation (principal); I26.92 Saddle embolus of pulmonary artery without acute cor pulmonale; Z79.01 Long term (current) use of anticoagulants
CPT/HCPCS: 36416; 85610

== ENCOUNTER 2024-11-01 14:30 | Outpatient (RCR) | payer MEDICARE, OTHER, SELFPAY ==
[2024-10-20 02:23] VITALS: BMI 28.0
[2024-11-01 14:39] LABS: INR Fingerstick 2.1; Prothrombin Time Fingerstick 23.3 SEC (11.7-14.9)
== END 2024-11-01 18:00 | disposition home or self-care (01) ==
LOC: MTLAB 14:30
PROVIDERS: Family Provider Family Medicine Geriatric Medicine; PCP Family Medicine Geriatric Medicine; Referring Provider Nurse Practitioner Family; Visit Provider Nurse Practitioner Family
DX: I48.0 Paroxysmal atrial fibrillation (principal); I26.92 Saddle embolus of pulmonary artery without acute cor pulmonale; Z79.01 Long term (current) use of anticoagulants
CPT/HCPCS: 36416; 85610

== ENCOUNTER 2024-12-02 14:11 | Outpatient (RCR) | payer MEDICARE, OTHER, SELFPAY ==
[2024-11-20 05:13] VITALS: BMI 28.0
[2024-12-02 14:36] LABS: INR Fingerstick 2.3; Prothrombin Time Fingerstick 25.1 SEC (11.7-14.9)
== END 2024-12-02 18:00 | disposition home or self-care (01) ==
LOC: MTLAB 14:11
PROVIDERS: Family Provider Family Medicine Geriatric Medicine; PCP Family Medicine Geriatric Medicine; Referring Provider Nurse Practitioner Family; Visit Provider Nurse Practitioner Family
DX: I48.0 Paroxysmal atrial fibrillation (principal); I26.92 Saddle embolus of pulmonary artery without acute cor pulmonale; Z79.01 Long term (current) use of anticoagulants

== ENCOUNTER 2025-02-17 10:46 | Outpatient (RCR) | payer MEDICARE, OTHER, SELFPAY ==
[2024-12-21 02:21] VITALS: BMI 28.0
[2025-01-20 13:40] LABS: INR Fingerstick 2.4
[2025-02-17 11:05] LABS: Absolute Lymphocyte Count 1.06 X10^3/uL (0.83-4.51); Absolute Neutrophil Count 3.4 X10^3/uL (2.0-7.7); Basophil# 0.06 X10^3/uL; Basophil% 1.1 % (0-1); Eosinophil# 0.02 X10^3/uL; Eosinophils% 0.4 % (0-5); Hematocrit 39.2 % (40-54); Lymphocyte # 1.06 X10^3/ul (0.83-4.51); Lymphocyte % 19.9 % (19-41); Mean Corp Hgb Conc 33.2 g/dL (32-36); Mean Corpuscular Hgb 32.7 pg (27.0-32.0); Mean Corpuscular Volume 98.7 fL (80-94); Mean Platelet Vol. 9.6 fl (6.2-12.0); Monocyte# 0.79 X10^3/uL; Monocyte% 14.8 % (0-10); NRBC Flagged by Analyzer 0 % (0-5); Neutrophil # 3.35 X10^3/uL (2.7-7.7); Platelet Count 165 K/mm3 (150-450); RBC Distribution Width CV 13.9 % (11.6-14.6); RBC Distribution Width SD 50.7 fl (35.1-43.9); Red Blood Count 3.97 M/mm3 (4.6-6.2); White Blood Count 5.3 K/mm3 (4.4-11.0)
[2025-02-17 11:36] LABS: Prothrombin Time (Protime)PT. 22.8 SECONDS (11.7-14.9)
[2025-02-17 11:47] LABS: ALB/GLOB Ratio 1.2 RATIO (0.9-2.4); AST(SGOT) 22 U/L (<=37); Alanine Aminotransfer ALT/SGPT 12 U/L (<=46); Albumin, Serum 3.8 g/dL (3.4-4.8); Alkaline Phosphatase 99 U/L (40-129); Anion Gap 10 (5-15); BUN 19 mg/dL (4-19); BUN/Creat Ratio 21.2 RATIO (10-20); Calcium,Total 8.8 mg/dL (7.6-11.0); Carbon Dioxide 22.9 mmol/L (21.0-32.0); Chloride 106 mmol/L (98-108); Creatinine, Serum 0.88 mg/dL (0.70-1.20); EST Glomerular Filtration Rate 89 (>60); Globulin 3.3 g/dL (2.2-4.2); Glucose 93 mg/dL (70-99); Potassium 4.4 mmol/L (3.3-5.1); Protein, Total 7.2 g/dL (5.9-8.4); Sodium Level 139 mmol/L (133-145); Total Bilirubin 0.64 mg/dL (0.00-1.30); Vitamin D,25 Hydroxy 20.4 ng/mL (30-100)
== END 2025-02-17 18:00 | disposition home or self-care (01) ==
LOC: LAB 10:46
PROVIDERS: Family Provider Family Medicine Geriatric Medicine; PCP Family Medicine Geriatric Medicine; Referring Provider Family Medicine Geriatric Medicine; Visit Provider Nurse Practitioner Family
DX: I48.0 Paroxysmal atrial fibrillation (principal); I26.92 Saddle embolus of pulmonary artery without acute cor pulmonale; Z79.01 Long term (current) use of anticoagulants; I10 Essential (primary) hypertension; E55.9 Vitamin D deficiency, unspecified
CPT/HCPCS: 36415; 36416; 80053; 82306; 84443; 85025; 85610

== ENCOUNTER 2025-03-18 10:42 | Outpatient (RCR) | payer MEDICARE, OTHER, SELFPAY ==
[2025-02-17 21:49] VITALS: BMI 28.0
[2025-03-18 11:18] LABS: INR Fingerstick 2.2; Prothrombin Time Fingerstick 24.2 SEC (11.7-14.9)
== END 2025-03-19 18:00 | disposition home or self-care (01) ==
LOC: MTLAB 10:42
PROVIDERS: Family Provider Family Medicine Geriatric Medicine; PCP Family Medicine Geriatric Medicine; Referring Provider Nurse Practitioner Family; Visit Provider Nurse Practitioner Family
DX: I48.0 Paroxysmal atrial fibrillation (principal); I26.92 Saddle embolus of pulmonary artery without acute cor pulmonale; Z79.01 Long term (current) use of anticoagulants
CPT/HCPCS: 36416; 85610

== ENCOUNTER 2025-04-17 13:23 | Outpatient (RCR) | payer MEDICARE, OTHER, SELFPAY ==
[2025-03-19 22:30] VITALS: BMI 28.0
[2025-04-22 15:25] LABS: INR Fingerstick 3.1; Prothrombin Time Fingerstick 32.5 SEC (11.7-14.9)
== END 2025-04-17 18:00 | disposition home or self-care (01) ==
LOC: MTLAB 13:23
PROVIDERS: Family Provider Family Medicine Geriatric Medicine; PCP Family Medicine Geriatric Medicine; Referring Provider Nurse Practitioner Family; Visit Provider Nurse Practitioner Family
DX: Z79.01 Long term (current) use of anticoagulants
CPT/HCPCS: 36416; 85610

== ENCOUNTER 2025-06-03 14:26 | Outpatient (RCR) | payer MEDICARE, OTHER, SELFPAY ==
[2025-04-20 19:16] VITALS: BMI 28.0
[2025-06-03 14:39] LABS: INR Fingerstick 3.1
== END 2025-06-19 18:00 | disposition home or self-care (01) ==
LOC: MTLAB 14:26
PROVIDERS: Family Provider Family Medicine Geriatric Medicine; PCP Family Medicine Geriatric Medicine; Referring Provider Nurse Practitioner Family; Visit Provider Nurse Practitioner Family
DX: Z79.01 Long term (current) use of anticoagulants (principal)
CPT/HCPCS: 36416; 85610

== ENCOUNTER → 2025-06-23 | Outpatient (CLI) | payer MEDICARE, OTHER, SELFPAY ==
--- OUTSIDE RECORDS SUMMARY | 2025-06-23 22:44 | XMS RPT_ITS | CCD ---
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 Nish Harrell Chi Primary Care Provider Julio Cesar, Dr. Nish Mosher Referring Provider Dr. José Miguel Monte Attending Provider Julio Cesar, Dr. Nish Mosher Primary Care Provider Julio Cesar, Dr. Nish Mosher Referring Provider JERARDO Campo Attending Provider Julio Cesar, Dr. Nish Mosher Attending Provider Julio Cesar, Dr. Nish Mosher Primary Care Provider Julio Cesar, Dr. Nish Mosher Referring Provider JERARDO Campo Attending Provider Julio Cesar, Dr. Nish Mosher Attending Provider Dr. José Miguel Monte Attending Provider Roof PROGRAM DIRECTOR/TRAFFIC DIRECTOR, PROGRAM DIRECTOR/TRAFFIC DIRECTOR-C Real Blair Attending Provider Julio Cesar, Dr. Nish Mosher Primary Care Provider Julio Cesar, Dr. Nish Mosher Referring Provider Julio Cesar, Dr. Nish Mosher Primary Care Provider Julio Cesar, Dr. Nish Mosher Primary Care Provider Julio Cesar, Dr. Nish Mosher Referring Provider Dr. José Miguel Monte Attending Provider Roof PROGRAM DIRECTOR/TRAFFIC DIRECTOR, PROGRAM DIRECTOR/TRAFFIC DIRECTOR-C Real Blair Attending Provider Julio Cesar, Dr. Nish Mosher Primary Care Provider Julio Cesar, Dr. Nish Mosher Referring Provider Roof PROGRAM DIRECTOR/TRAFFIC DIRECTOR, PROGRAM DIRECTOR/TRAFFIC DIRECTOR-C Real Blair Attending Provider Julio Cesar, Dr. Nish Mosher Primary Care Provider Julio Cesar, Dr. Nish Mosher Referring Provider Roof PROGRAM DIRECTOR/TRAFFIC DIRECTOR, PROGRAM DIRECTOR/TRAFFIC DIRECTOR-C Real Blair Attending Provider JERARDO Martinez Attending Provider Julio Cesar, Dr. Nish Mosher Primary Care Provider Julio Cesar, Dr. Nish Mosher Referring Provider Roof PROGRAM DIRECTOR/TRAFFIC DIRECTOR, PROGRAM DIRECTOR/TRAFFIC DIRECTOR-C Real Blair Attending Provider Julio Cesar, Dr. Nish Mosher Primary Care Provider Julio Cesar, Dr. Nish Mosher Referring Provider Roof PROGRAM DIRECTOR/TRAFFIC DIRECTOR, PROGRAM DIRECTOR/TRAFFIC DIRECTOR-C Real Blair Attending Provider Julio Cesar, Dr. Nish Mosher Attending Provider Dr. Nish Harrell MD, Chi Primary Care Provider Roof PROGRAM DIRECTOR/TRAFFIC DIRECTOR-C, Real Blair Attending Provider Roof PROGRAM DIRECTOR/TRAFFIC DIRECTOR-C, Real Blair Referring Provider Dr. Nish Harrell MD, Chi Referring Provider Breezy FERMIN, Dr. Baig Attending Provider Julio Cesar , Dr. Nish Mosher Primary Care Provider Roof PROGRAM DIRECTOR/TRAFFIC DIRECTOR-C, Real Blair Attending Provider Roof PROGRAM DIRECTOR/TRAFFIC DIRECTOR-C, Real Blair Referring Provider Dr. Nish Harrell MD, Chi Primary Care Provider Roof PROGRAM DIRECTOR/TRAFFIC DIRECTOR-C, Real Blair Attending Provider [phone] Breezy FERMIN, Dr. Baig Other Provider [phone] Roof PROGRAM DIRECTOR/TRAFFIC DIRECTOR, Real Johnnie Attending Unavailable Roof PROGRAM DIRECTOR/TRAFFIC DIRECTOR, Real H Referring Unavailable Julio Cesar, Nish Chi Primary Care Unavailable Roof PROGRAM DIRECTOR/TRAFFIC DIRECTOR, Real H Attending Unavailable Roof PROGRAM DIRECTOR/TRAFFIC DIRECTOR, Real H Referring Unavailable Julio Cesar, Nish Chi Primary Care Unavailable Julio Cesar, Nish Chi Primary Care Unavailable Breezy Jovanni Attending Unavailable Roof PROGRAM DIRECTOR/TRAFFIC DIRECTOR, Real H Attending Unavailable Julio Cesar, Nish Chi Referring Unavailable Julio Cesar, Nish Chi Primary Care Unavailable Julio Cesar, Nish Chi Primary Care Unavailable Julio Cesar, Nish Chi Referring Unavailable Breezy Jovanni Attending Unavailable Roof PROGRAM DIRECTOR/TRAFFIC DIRECTOR, Real H Attending Unavailable Roof PROGRAM DIRECTOR/TRAFFIC DIRECTOR, Real H Referring Unavailable Julio Cesar, Nish Chi Primary Care Unavailable Roof PROGRAM DIRECTOR/TRAFFIC DIRECTOR, Real H Attending Unavailable Julio Cesar, Nish Chi Primary Care Unavailable Julio Cesar, Nish Chi Referring Unavailable Roof PROGRAM DIRECTOR/TRAFFIC DIRECTOR, Real H Referring Unavailable Roof PROGRAM DIRECTOR/TRAFFIC DIRECTOR, Real H Attending Unavailable Julio Cesar, Nish Chi Primary Care Unavailable Roof PROGRAM DIRECTOR/TRAFFIC DIRECTOR, Real H Referring Unavailable Roof PROGRAM DIRECTOR/TRAFFIC DIRECTOR, Real H Attending Unavailable Julio Cesar, Nish Chi Primary Care Unavailable Roof PROGRAM DIRECTOR/TRAFFIC DIRECTOR, Real H Referring Unavailable Roof PROGRAM DIRECTOR/TRAFFIC DIRECTOR, Real H Attending Unavailable Julio Cesar, Nish Chi Primary Care Unavailable Breezy, [employer] Unavailable Julio Cesar, Nish Chi Primary Care Unavailable Julio Cesar, Nish Chi Attending Unavailable Roof PROGRAM DIRECTOR/TRAFFIC DIRECTOR, Real H Attending Unavailable Roof PROGRAM DIRECTOR/TRAFFIC DIRECTOR, Real H Referring Unavailable Julio Cesar, Nish Chi Primary Care Unavailable Roof PROGRAM DIRECTOR/TRAFFIC DIRECTOR, Real H Attending Unavailable Roof PROGRAM DIRECTOR/TRAFFIC DIRECTOR, Real H Referring Unavailable Julio Cesar, Nish Chi Primary Care Unavailable Roof PROGRAM DIRECTOR/TRAFFIC DIRECTOR, Real H Attending Unavailable Roof PROGRAM DIRECTOR/TRAFFIC DIRECTOR, Real H Referring Unavailable Julio Cesar, Nish Chi Primary Care Unavailable Roof PROGRAM DIRECTOR/TRAFFIC DIRECTOR, Real H Referring Unavailable Roof PROGRAM DIRECTOR/TRAFFIC DIRECTOR, Real H Attending Unavailable Julio Cesar, Nish Chi Primary Care Unavailable Breezy, J[employer] Unavailable Roof PROGRAM DIRECTOR/TRAFFIC DIRECTOR, Real H Attending Unavailable Roof PROGRAM DIRECTOR/TRAFFIC DIRECTOR, Real H Referring Unavailable Julio Cesar, Nish Chi Primary Care Unavailable Allergies Allergy Classification Reported Allergen(s) Allergy Type Date of Onset Reaction(s) Facility (20 sources) atorvastatin; Translations: [atorvastatin] drug allergy 07-10-2017 Myalgias [facility] Work Phone: (20 sources) pravastatin; Translations: [pravastatin] drug allergy 01-12-2012 aggitation [facility] Work Phone: (8 sources) rosuvastatin drug allergy 07-10-2017 myalgias [facility] Work Phone: (11 sources) NKDA drug allergy 01-12-2012 [facility] Work Phone: (20 sources) rosuvastatin Drug Allergy 01-05-2022 Myalgias [facility] (1 source) rosuvastatin Drug Allergy 02-11-2025 [facility] Repository Medications Current Medications Medication Drug Class(es) Dates Sig (Normalized) Sig (Original) Fluticasone-Umeclidi n-Vilanter (3 sources) Anticholinergic, Corticosteroid, beta2-Adrenergic Agonist Start: 02-11-2025 Fluticasone-Umeclid in-Vilanter (Trelegy Ellipta) 100-62.5-25 mcg blister with device Active 1 NMA INHALATION daily February 11, 2025 12:00am levothyroxine sodium 0.05 mg oral tablet (20 sources) l-Thyroxine Start: 10-20-2022 take 1 tablet by mouth once daily Levothyroxine 50 mcg tablet Active 50 ug PO DAILY October 20, 2022 1:00am Start: 03-18-2011 End: 10-20-2022 take 1 tablet by mouth once daily Levothyroxine 25 MCG tablet Discontinued 25 ug PO DAILY January 19, 2016 1:00am October 20, 2022 4:40pm thyroid Start: 03-18-2011 take 1 tablet by amanda th once daily SYNTHROID 25 MCG TABS One tablet by mouth daily LEVOTHYROXINE SODIUM [id number] Samira Waller RN Start: 03-18-2011 take 1 tablet by amanda th once daily SYNTHROID 25 MCG TABS One tablet by mouth daily LEVOTHYROXINE SODIUM [id number] Eboni Farmer Start: 03-18-2011 take 1 tablet by amanda th once daily SYNTHROID 25 MCG TABS One tablet by mouth daily LEVOTHYROXINE SODIUM [id number] José Miguel Monte MD Start: 03-18-2011 take 1 tablet by amanda th once daily SYNTHROID 25 MCG TABS One tablet by mouth daily LEVOTHYROXINE SODIUM [id number] José Miguel Monte MD Start: 03-18-2011 take 1 tablet by amanda th once daily SYNTHROID 25 MCG TABS One tablet by mouth daily LEVOTHYROXINE SODIUM [id number] Eboni Farmer Start: 03-18-2011 take 1 tablet by amanda th once daily SYNTHROID 25 MCG TABS One tablet by mouth daily LEVOTHYROXINE SODIUM [id number] Samira Waller, NAA loratadine 10 mg oral tablet (3 sources) Start: 02-11-2025 take 1 tablet by mouth once daily Loratadine (Claritin) 10 mg tablet Active 10 mg PO daily February 11, 2025 12:00am montelukast 10 mg oral tablet (3 sources) Leukotriene Receptor Antagonist Start: 02-11-2025 take 1 tablet by mouth once daily Montelukast 10 mg tablet Active 10 mg PO daily February 11, 2025 12:00am Completed/Discontinued Medications Medication Drug Class(es) Dates Sig (Normalized) Sig (Original) acetaminophen 325 mg oral tablet (20 sources) Start: 03-09-2016 End: 09-09-2016 take 2 tablets by mouth every six hours as needed ACETAMINOPHEN 325 MG TABS Two tablets by mouth q6HR as needed ACETAMINOPHEN [id number] Debora Hoover PA-C acetaminophen 325 mg / oxyCODONE hydrochloride 5 mg oral tablet (20 sources) Opioid Agonist Start: 04-16-2016 End: 01-17-2018 Oxycodone-Acetamino phen 1 TABLET tablet Discontinued 1 - 2 {tbl} PO EVERY 4 HOURS NEEDED as needed for Pain April 16, 2016 12:00am January 17, 2018 4:00pm Start: 04-16-2016 End: 01-17-2018 take 1 tablet by mouth every four hours as needed Oxycodone-Acetaminophen Discontinued 1 - 2 TABLET PO EVERY 4 HOURS NEEDED April 16, 2016 12:00am January 17, 2018 4:00pm amiodarone hydrochloride 400 mg oral tablet (20 sources) Antiarrhythmic Start: 02-19-2016 End: 03-24-2016 Amiodarone (Pacerone) 400 MG tablet Discontinued 200 mg PO DAILY February 19, 2016 12:00am March 24, 2016 10:06am Start: 02-19-2016 End: 03-09-2016 take 1 tablet by mouth once daily AMIODARONE HCL 200 MG TABS One tablet by mouth daily AMIODARONE HCL [id number] Debora Stover RN amoxicillin 500 mg oral tablet (14 sources) Penicillin-class Antibacterial Start: 06-09-2016 take 4 tablets by mouth every hour AMOXICILLIN 500 MG TABS 4 tablets by mouth 1 hr prior to procedure AMOXICILLIN [id number] José Miguel Monte MD amoxicillin 875 mg / clavulanate 125 mg oral tablet (20 sources) Penicillin-class Antibacterial Start: 01-11-2016 End: 06-09-2016 take 1 tablet by mouth twice daily AMOXICILLIN-POT CLAVULANATE 875-125 MG TABS One tablet by mouth twice daily AMOXICILLIN-POT CLAVULANATE [id number] José Miguel Monte MD aspirin 81 mg delayed release oral tablet (20 sources) Nonsteroidal Anti-inflammatory Drug Start: 10-20-2022 End: 06-20-2023 Aspirin (Adult Low Dose Aspirin) 81 mg tablet,delayed release (DR/EC) Discontinued 81 mg PO DAILY October 20, 2022 1:00am June 20, 2023 1:13pm Start: 02-19-2016 End: 08-02-2022 take 1 tablet by mouth once daily Aspirin 81 MG tablet,chewable Discontinued 81 mg PO DAILY@0800 February 19, 2016 12:00am August 02, 2022 5:17pm antiplatelet Start: 02-19-2016 take 1 tablet by amanda once daily ASPIRIN EC 81 MG TBEC One tablet by mouth daily ASPIRIN [id number] José Miguel Monte MD atorvastatin 10 mg oral tablet (20 sources) HMG-CoA Reductase Inhibitor Start: 09-09-2016 End: 07-10-2017 take 1 tablet by mouth once daily ATORVASTATIN CALCIUM 10 MG TABS One tablet by mouth daily ATORVASTATIN CALCIUM [id number] José Miguel Monte MD budesonide 0.25 mg/ml inhalation suspension (20 sources) Corticosteroid Start: 10-17-2023 End: 02-11-2025 take 0.5 mg by inhalation once daily Budesonide 0.5 mg/2 mL suspension for nebulization Discontinued 0.5 mg INHALATION DAILY October 17, 2023 1:00am February 11, 2025 11:03am Start: 10-17-2023 End: 12-21-2023 take 180 ug by inhalation once daily Budesonide (Pulmicort Flexhaler) 180 mcg/actuation aerosol powdr breath activated Discontinued 1 NMA INHALATION DAILY October 17, 2023 1:00am December 21, 2023 2:06pm Start: 10-17-2023 End: 12-21-2023 take 180 ug by inhalation once daily Budesonide (Pulmicort Flexhaler) 180 mcg/actuation aerosol powdr breath activated Discontinued 1 INH INHALATION DAILY October 17, 2023 1:00am December 21, 2023 2:06pm Start: 10-17-2023 End: 12-21-2023 take 180 ug by inhalation once daily Budesonide (Pulmicort Flexhaler) 180 mcg/actuation aerosol powdr breath activated Discontinued 1 INH INHALATION DAILY October 17, 2023 12:00am December 21, 2023 1:06pm Start: 10-17-2023 take 180 ug by inhal ation once daily Budesonide (Pulmicort Flexhaler) 180 mcg/actuation aerosol powdr breath activated Active 1 INH INHALATION DAILY October 17, 2023 12:00am Cholecalciferol (20 sources) Vitamin D Start: 01-21-2013 take 1 tablet by mouth once daily VITAMIN D-[address] TABS One tablet by mouth daily CHOLECALCIFEROL TABS [id number] José Miguel Monte MD Start: 01-21-2013 End: 10-29-2013 take 1 tablet by mouth once daily VITAMIN D-[address] TABS One tablet by mouth daily CHOLECALCIFEROL TABS [id number] Debora Hoover PA-C Start: 01-21-2013 take 1 tablet by amanda th once daily VITAMIN D-[address] TABS One tablet by mouth daily CHOLECALCIFEROL TABS [id number] José Miguel Monte MD Start: 01-21-2013 End: 10-29-2013 take 1 tablet by mouth once daily VITAMIN D-[address] TABS One tablet by mouth daily CHOLECALCIFEROL TABS [id number] Debora Hoover PA-C Start: 03-18-2011 take 1 [IU] by mouth once daily VITAMIN D3 400 UNIT TABS (1,000 units) One tablet by mouth daily CHOLECALCIFEROL [id number] José Miguel Monte MD ciclopirox 80 mg/ml topical solution (20 sources) Start: 02-17-2012 End: 01-11-2016 PENLAC 8 % SOLN apply daily CICLOPIROX [id number] José Miguel Monte MD Start: 02-17-2012 End: 01-11-2016 PENLAC 8 % SOLN apply daily CICLOPIROX [id number] José Miguel Monte MD Start: 02-17-2012 PENLAC 8 % STEPHANIE N apply daily CICLOPIROX [id number] Philip Null DO Start: 02-17-2012 PENLAC 8 % STEPHANIE N apply daily CICLOPIROX [id number] Philip Null DO Start: 02-17-2012 End: 01-11-2016 PENLAC 8 % SOLN apply daily CICLOPIROX [id number] José Miguel Monte MD coenzyme q10 10 mg oral capsule (20 sources) Start: 01-12-2012 End: 10-29-2013 take 1 tablet by mouth once daily COENZYME Q10 10 MG CAPS One tablet by mouth daily COENZYME Q10 [id number] Debora Hoover PA-C colchicine 0.6 mg oral tablet (20 sources) Start: 02-19-2016 End: 03-09-2016 take 1 tablet by mouth twice daily COLCHICINE 0.6 MG TABS One tablet by mouth twice daily COLCHICINE [id number] Debora Stover RN docusate sodium 100 mg oral capsule (20 sources) Start: 02-19-2016 End: 01-17-2018 take 1 capsule by mouth twice daily as needed for constipation Docusate Sodium 100 MG capsule Discontinued 100 mg PO TWICE DAILY NEEDED as needed for Constipation February 19, 2016 12:00am January 17, 2018 4:00pm eszopiclone 2 mg oral tablet (20 sources) Start: 01-12-2012 End: 07-16-2012 take 1 tablet by mouth at bedtime LUNESTA 2 MG TABS One tablet by mouth at bedtime ESZOPICLONE [id number] José Miguel Monte MD Fish Oils (20 sources) Start: 05-12-2014 End: 11-03-2014 FISH OIL CAPS One capsule daily OMEGA-3 FATTY ACIDS CAPS [id number] Debora Hoover PA-C Start: 05-12-2014 FISH OIL CAPS One capsule daily OMEGA-3 FATTY ACIDS CAPS [id number] José Miguel Monte MD Start: 05-12-2014 FISH OIL CAPS One capsule daily OMEGA-3 FATTY ACIDS CAPS [id number] José Miugel Monte MD Start: 05-12-2014 End: 11-03-2014 FISH OIL CAPS One capsule da kings OMEGA-3 FATTY ACIDS CAPS [id number] Debora Hoover PA-C Start: 03-18-2011 End: 07-16-2012 take 1 tablet by mouth once daily FISH OIL CAPS One tablet by mouth daily OMEGA-3 FATTY ACIDS CAPS [id number] José Miguel Monte MD Start: 03-18-2011 take 1 tablet by amanda th once daily FISH OIL CAPS One tablet by mouth daily OMEGA-3 FATTY ACIDS CAPS [id number] Eboni Farmer Start: 03-18-2011 End: 07-16-2012 take 1 tablet by mouth once daily FISH OIL CAPS One tablet by mouth daily OMEGA-3 FATTY ACIDS CAPS [id number] José Miguel Monte MD Start: 03-18-2011 take 1 tablet by amanda th once daily FISH OIL CAPS One tablet by mouth daily OMEGA-3 FATTY ACIDS CAPS [id number] [facility] flaxseed extract (20 sources) Non-Standardized Food Allergenic Extract, Non-Standardized Plant Allergenic Extract Start: 03-18-2011 End: 01-12-2012 FLAX SEEDS POWD 1 Tbsp daily FLAXSEED (LINSEED) [id number] José Miguel Monte MD Start: 03-18-2011 FLAX SEEDS POW D 1 Tbsp daily FLAXSEED (LINSEED) [id number] Eboni Gilmore Farmer Start: 03-18-2011 FLAX SEEDS POW D 1 Tbsp daily FLAXSEED (LINSEED) [id number] [facility] Start: 03-18-2011 End: 01-12-2012 FLAX SEEDS POWD 1 Tbsp daily FLAXSEED (LINSEED) [id number] José Miguel Monte MD Fluticasone Propionate (Flov ent Hfa) 110 mcg/actuation HFA aerosol inhaler (20 sources) Start: 10-20-2022 End: 06-20-2023 Fluticasone Propionate (Flov ent Hfa) 110 mcg/actuation HFA aerosol inhaler Discontinued 1 NMA INHALATION TWICE A DAY October 20, 2022 1:00am June 20, 2023 1:13pm Start: 10-20-2022 End: 06-20-2023 take 1 puff(s) by inhalation twice daily Fluticasone Propionate (Flovent Hfa) 110 mcg/actuation HFA aerosol inhaler Discontinued 1 PUFF INHALATION TWICE A DAY October 20, 2022 12:00am June 20, 2023 12:13pm Start: 10-20-2022 End: 06-20-2023 take 1 puff(s) by inhalation twice daily Fluticasone Propionate (Flovent Hfa) 110 mcg/actuation HFA aerosol inhaler Discontinued 1 PUFF INHALATION TWICE A DAY October 20, 2022 1:00am June 20, 2023 1:13pm Start: 10-20-2022 take 1 puff(s) by in halation twice daily Fluticasone Propionate (Flovent Hfa) 110 mcg/actuation HFA aerosol inhaler Active 1 PUFF INHALATION TWICE A DAY October 20, 2022 1:00am Start: 10-20-2022 take 1 puff(s) by in halation twice daily Fluticasone Propionate (Flovent Hfa) 110 mcg/actuation HFA aerosol inhaler Active 1 PUFF INHALATION TWICE A DAY October 20, 2022 12:00am furosemide 20 mg oral tablet (20 sources) Loop Diuretic Start: 06-01-2020 End: 08-02-2022 take 1 tablet by mouth once daily as needed for edema Furosemide 20 mg tablet Discontinued 20 mg PO DAILY as needed for edema June 01, 2020 12:00am August 02, 2022 5:17pm Start: 03-09-2016 End: 01-17-2018 take 1 tablet by mouth once daily as needed Furosemide 40 MG tablet Discontinued 40 mg PO DAILY as needed for Swelling April 15, 2016 12:00am January 17, 2018 4:00pm methylPREDNISolone 4 mg oral tablet (11 sources) Corticosteroid Start: 09-29-2023 End: 10-05-2023 take 1 tablet by mouth once Methylprednisolone (Medrol (Erick)) 4 mg tablets,dose pack Discontinued 4 mg PO per package directions 21 6 0 September 29, 2023 1:00am October 04, 2023 1:00am October 05, 2023 1:05am 120 actuat mometasone furoate 0.22 mg/actuat dry powder inhaler (20 sources) Corticosteroid Start: 05-12-2014 End: 06-09-2016 ASMANEX 120 METERED DOSES 220 MCG/INH AEPB Take as directed MOMETASONE FUROATE [id number] José Miguel Monte MD Start: 05-12-2014 End: 06-09-2016 ASMANEX 120 METERED DOSES 22 0 MCG/INH AEPB Take as directed MOMETASONE FUROATE [id number] José Miguel Monte MD Start: 05-12-2014 ASMANEX 120 ME TERED DOSES 220 MCG/INH AEPB Take as directed MOMETASONE FUROATE [id number] José Miguel Monte MD Start: 05-12-2014 ASMANEX 120 ME TERED DOSES 220 MCG/INH AEPB Take as directed MOMETASONE FUROATE [id number] Samira Waller RN MULTIPLE VITAMIN (20 sources) Start: 02-19-2016 End: 09-09-2016 take 1 tablet by mouth once daily MULTIVITAMINS TABS One tablet by mouth daily MULTIPLE VITAMIN Debora Hoover PA-C Start: 02-19-2016 take 1 tablet by amanda th once daily MULTIVITAMINS TABS One tablet by mouth daily MULTIPLE VITAMIN José Miguel Monte MD Start: 02-19-2016 take 1 tablet by amanda th once daily MULTIVITAMINS TABS One tablet by mouth daily MULTIPLE VITAMIN José Miguel Monte MD Start: 02-19-2016 End: 09-09-2016 take 1 tablet by mouth once daily MULTIVITAMINS TABS One tablet by mouth daily MULTIPLE VITAMIN Debora Hoover PA-C Multivitamin With Folic Acid (20 sources) Start: 03-24-2016 End: 01-17-2018 take 1 tablet by mouth once daily Multivitamin With Folic Acid Discontinued 1 TABLET PO DAILY March 24, 2016 11:32am January 17, 2018 4:00pm Start: 03-24-2016 End: 01-17-2018 take 1 tablet by mouth once daily Multivitamin With Folic Acid Discontinued 1 TABLET PO DAILY March 23, 2016 11:00pm January 17, 2018 3:00pm Start: 03-24-2016 End: 01-17-2018 take 1 tablet by mouth once daily Multivitamin With Folic Acid Discontinued 1 TABLET PO DAILY March 24, 2016 12:00am January 17, 2018 4:00pm Multivitamin With Folic Acid 1 TABLET tablet (3 sources) Start: 03-24-2016 End: 01-17-2018 take 1 tablet by mouth once daily Multivitamin With Folic Acid 1 TABLET tablet Discontinued 1 {tbl} PO DAILY March 24, 2016 12:00am January 17, 2018 4:00pm naftifine hydrochloride 10 mg/ml topical cream (14 sources) Allylamine Antifungal Start: 02-17-2012 End: 03-30-2012 NAFTIN 1 % CREA apply twice daily NAFTIFINE HCL [id number] Philip Null DO Start: 02-17-2012 End: 03-30-2012 NAFTIN 1 % CREA apply twice daily NAFTIFINE HCL [id number] Philip Null DO Nirmatrelvir-Ritonavir (20 sources) Start: 08-02-2022 End: 10-20-2022 Nirmatrelvir-Ritonavir (Paxl ovid (Eua)) 300 mg (150 mg x 2)-100 mg tablets,dose pack Discontinued 0 PO .COMPLEX August 02, 2022 12:00am October 20, 2022 4:40pm take TWO 150 mg tablets of nirmatrelvir with ONE 100 mg tablet of ritonavir twice daily for 5 days PO Start: 08-02-2022 End: 10-20-2022 Nirmatrelvir-Ritonavir (Paxl ovid (Eua)) 300 mg (150 mg x 2)-100 mg tablets,dose pack Discontinued 0 PO .COMPLEX August 02, 2022 12:00am October 20, 2022 4:40pm take TWO 150 mg tablets of nirmatrelvir with ONE 100 mg tablet of ritonavir twice daily for 5 days PO Start: 08-02-2022 End: 10-20-2022 Nirmatrelvir-Ritonavir (Paxl ovid (Eua)) 300 mg (150 mg x 2)-100 mg tablets,dose pack Discontinued 0 PO .COMPLEX August 01, 2022 11:00pm October 20, 2022 3:40pm take TWO 150 mg tablets of nirmatrelvir with ONE 100 mg tablet of ritonavir twice daily for 5 days PO Start: 08-02-2022 Nirmatrelvir-R itonavir (Paxlovid (Eua)) 300 mg (150 mg x 2)- 100 mg tablets,dose pack Active 0 PO .COMPLEX August 02, 2022 12:00am take TWO 150 mg tablets of nirmatrelvir with ONE 100 mg tablet of ritonavir twice daily for 5 days PO oxyCODONE hydrochloride 5 mg oral tablet (20 sources) Opioid Agonist Start: 04-15-2016 End: 01-17-2018 take 1 tablet by mouth every eight hours as needed for pain Oxycodone 5 MG tablet Discontinued 5 mg PO EVERY 8 HOURS NEEDED as needed for Pain April 15, 2016 12:00am January 17, 2018 4:00pm Start: 02-19-2016 End: 03-09-2016 OXYCODONE HCL 10 MG TABS 1-2 tablets every 8 hours as needed OXYCODONE HCL [id number] José Miguel Monte MD pantoprazole 20 mg delayed release oral tablet (20 sources) Proton Pump Inhibitor Start: 02-19-2016 End: 06-09-2016 take 1 tablet by mouth once daily PANTOPRAZOLE SODIUM 20 MG TBEC One tablet by mouth daily PANTOPRAZOLE SODIUM [id number] José Miguel Monte MD potassium,chelated 99 mg oral tablet (20 sources) Start: 01-21-2013 End: 01-11-2016 take 1 tablet by mouth once daily as needed POTASSIUM 99 MG TABS One tablet by mouth daily as needed POTASSIUM [id number] José Miguel Monte MD Start: 01-21-2013 take 1 tablet by amanda th once daily as needed POTASSIUM 99 MG TABS One tablet by mouth daily as needed POTASSIUM [id number] José Miguel Monte MD Start: 01-21-2013 End: 01-11-2016 take 1 tablet by mouth once daily as needed POTASSIUM 99 MG TABS One tablet by mouth daily as needed POTASSIUM [id number] José Miguel Monte MD Start: 01-21-2013 End: 01-11-2016 take 1 tablet by mouth once daily as needed POTASSIUM 99 MG TABS One tablet by mouth daily as needed POTASSIUM [id number] José Miguel Monte MD Start: 01-21-2013 take 1 tablet by amanda th once daily as needed POTASSIUM 99 MG TABS One tablet by mouth daily as needed POTASSIUM [id number] José Miguel Monte MD pravastatin sodium 40 mg oral tablet (20 sources) HMG-CoA Reductase Inhibitor Start: 03-18-2011 End: 06-09-2016 PRAVACHOL 40 MG TABS One tablet by mouth M-F PRAVASTATIN SODIUM [id number] José Miguel Monte MD sotalol hydrochloride 160 mg oral tablet (20 sources) Antiarrhythmic Start: 03-18-2011 take 1 tablet by mouth twice daily SOTALOL HCL 160 MG TABS One tablet by mouth twice daily SOTALOL HCL [id number] Samira Waller RN Start: 03-18-2011 take 1 tablet by amanda twice daily SOTALOL HCL 160 MG TABS One tablet by mouth twice daily SOTALOL HCL [id number] José Miguel Monte MD Start: 03-18-2011 End: 07-02-2024 take 1 tablet by mouth twice daily Sotalol 160 mg tablet Discontinued 160 mg PO TWICE A DAY 180 3 July 03, 2023 10:12am July 02, 2024 7:55am Start: 03-18-2011 take 1 tablet by amanda twice daily SOTALOL HCL 160 MG TABS One tablet by mouth twice daily SOTALOL HCL [id number] José Miguel Monte MD traMADol hydrochloride 50 mg oral tablet (20 sources) Opioid Agonist Start: 04-15-2016 End: 01-17-2018 take 1 tablet by mouth every eight hours as needed for pain Tramadol 50 MG tablet Discontinued 50 mg PO EVERY 8 HOURS NEEDED as needed for Pain April 15, 2016 12:00am January 17, 2018 4:00pm Start: 02-19-2016 End: 03-09-2016 take 1 tablet by mouth every eight hours as needed TRAMADOL HCL 50 MG TABS One tablet by mouth every 8 hours as needed TRAMADOL HCL [id number] Debora Stover RN vitamin b 12 0.1 mg oral tablet (20 sources) Vitamin B12 Start: 01-12-2012 End: 10-29-2013 take 1 tablet by mouth once daily VITAMIN B-12 100 MCG TABS One tablet by mouth daily CYANOCOBALAMIN [id number] José Miguel Monte MD warfarin sodium 4 mg oral tablet (20 sources) Vitamin K Antagonist Start: 05-25-2022 End: 11-23-2023 take 2 tablets by mouth every week Warfarin 4 mg tablet Active 4 mg PO .COMPLEX 180 November 23, 2023 4:03pm 4 mg orally take 1.5 tablets (6mg) on Weds, , Fri and 2 tablets (8mg) all other days of the week, or as directed; Please contact the information source for Protocol details. Start: 08-19-2021 End: 11-23-2023 Warfarin 4 mg tablet Discont inued 0 mg .ROUTE .COMPLEX 360 May 24, 2023 9:27am November 23, 2023 4:04pm TAKE 1 TABLET BY MOUTH ON THURSDAYS ONLY AND 2 TABLETS ON ALL OTHER DAYS Please contact the information source for Protocol details. Start: 02-08-2019 End: 08-19-2021 Warfarin 4 mg tablet Discont inued 4 mg PO .COMPLEX 120 3 August 19, 2021 2:53pm August 19, 2021 3:12pm blood thinner 4 mg PO 4 mg PO Take with a 5 mg tablet to = 9mg Monday through Monday (take 8mg or 2 tablets on Sat, Sun) Please contact the information source for Protocol details. Start: 12-08-2017 End: 01-18-2018 Warfarin 4 mg tablet Discont inued 4 mg PO .COMPLEX December 08, 2017 1:00am January 18, 2018 9:21am 4 mg PO take with a 5 mg tablet to = 9 mg, times four days per week: Take 2 tablets to = 8 mg X 3 days per week. Start: 07-11-2016 End: 02-08-2019 Warfarin 4 mg tablet Discont inued 4 mg PO .COMPLEX January 18, 2018 9:19am December 03, 2018 4:41pm 4 mg PO 4 mg PO Take with a 5 mg tablet to = 9mg Monday through Monday (take8 mg Sat and Sun) Please contact the information source for Protocol details. Start: 07-11-2016 COUMADIN 4 MG TABS 9 mg X 4 days a week, 8 mg X 3 days a week. Uses 4 and 5 mg pills. WARFARIN SODIUM [id number] José Miguel Monte MD Start: 04-26-2016 End: 07-10-2017 COUMADIN 1 MG TABS 1 and 1/2 tablets with a 5 mg tablet to = 6.5 mg by mouth daily WARFARIN SODIUM [id number] Neda Gonzalez RN Start: 03-24-2016 End: 12-08-2017 take 9 mg by mouth once daily Warfarin Discontinued 9 MG PO DAILY March 24, 2016 12:00am December 08, 2017 5:59pm Start: 03-09-2016 End: 11-23-2023 Warfarin 5 mg tablet Discont inued 5 mg PO .COMPLEX 90 3 April 22, 2019 8:35am May 11, 2020 3:23pm blood thinner 5 mg PO Take with a 4 mg tablet to = 9mg Monday through (take 8mg Mon,Mon and Mon) Please contact the information source for Protocol details. Start: 03-09-2016 End: 12-08-2017 take 9 mg by mouth once daily Warfarin 5 MG tablet Dis continued 9 mg PO DAILY March 24, 2016 12:00am December 08, 2017 5:59pm Please contact the information source for Protocol details. Start: 07-18-2013 End: 02-19-2016 COUMADIN 1 MG TABS 1/2 of a 1mg tablet with a 4mg and a 5 mg tablet to = 9.5 mg on Sat, Sun and Mon (take two 5 mg tabs Tues through Sat to = 10 mg daily) WARFARIN SODIUM [id number] Samira Waller RN Start: 05-06-2013 End: 02-19-2016 COUMADIN 1 MG TABS 1/2 of a 1mg tablet with a 4mg and a 5 mg tablet to = 9.5 mg on Sat, Sun and Mon (take two 5 mg tabs Tues through Sat to = 10 mg daily) WARFARIN SODIUM [id number] Samira Waller RN Start: 05-06-2013 COUMADIN 4 MG TABS 10 mg a day Monday through Monday, 9.5 mg on Sat and Sun WARFARIN SODIUM [id number] Neda Gonzalez RN Start: 05-06-2013 COUMADIN 5 MG TABS 10 mg a day Mon through Monday, 9.5 mg on Sat and Sun WARFARIN SODIUM [id number] Jovanni Tijerina MD Start: 05-06-2013 COUMADIN 4 MG TABS 10 mg a day Monday through Monday, 9.5 mg on Sat and Sun WARFARIN SODIUM [id number] Neda Gonzalez RN Start: 07-16-2012 COUMADIN 1 MG TABS One-half tablet by mouth in the evening along with a 4 mg and 5 mg tab-or as directed WARFARIN SODIUM [id number] José Miguel Monte MD Start: 07-16-2012 End: 02-19-2016 COUMADIN 5 MG TABS One table t along with a 4 mg tablet daily to =9 mg daily or as directed WARFARIN SODIUM [id number] José Miguel Monte MD Start: 07-16-2012 take 5 tablets by mo uth in the evening COUMADIN 1 MG TABS One-half tablet by mouth in the evening along with a 4 mg and 5 mg tab-or as directed WARFARIN SODIUM [id number] José Miguel Monte MD Start: 03-18-2011 COUMADIN 1 MG TABS Take as directed WARFARIN SODIUM [id number] Eboni Farmer Start: 03-18-2011 End: 02-19-2016 COUMADIN 4 MG TABS take one 4mg tablet along with a 5mg and 1/2 of a 1mg tablet. WARFARIN SODIUM [id number] José Miguel Monte MD zolpidem tartrate 10 mg oral tablet (20 sources) gamma-Aminobutyric Acid-ergic Agonist Start: 12-03-2018 End: 08-02-2022 take 1 tablet by mouth at bedtime as needed for sleep Zolpidem 10 mg tablet Discontinued 10 mg PO AT BEDTIME as needed for sleep 30 30 0 December 03, 2018 3:39pm August 02, 2022 5:17pm Start: 01-17-2018 End: 12-03-2018 Zolpidem 10 mg tablet Discon tinued PO 30 30 0 January 17, 2018 1:00am December 03, 2018 3:40pm Start: 01-17-2018 End: 12-03-2018 Zolpidem Discontinued PO 30 30 January 17, 2018 1:00am December 03, 2018 3:40pm Start: 03-09-2016 End: 06-09-2016 take 1 tablet by mouth at bedtime AMBIEN 5 MG TABS One half tablet by mouth at bedtime. ZOLPIDEM TARTRATE [id number] José Miguel Monte MD Start: 07-16-2012 End: 01-11-2016 take 1 tablet by mouth at bedtime as needed AMBIEN 10 MG TABS One tablet by mouth at bedtime as needed ZOLPIDEM TARTRATE [id number] José Miguel Monte MD Problems Active Problems Problem Classification Problem Date Documented Date Episodic/Chronic Aortic; peripheral; and visceral artery aneurysms (20 sources) Aneurysm of thoracic aorta; Translations: [Aneurysm of ascending aorta] Onset: 03-18-2011 03-18-2011 Chronic Asthma (3 sources) Asthma; Translations: [Unspecified asthma, uncomplicated] 02-11-2025 Chronic Cardiac dysrhythmias (20 sources) Atrial fibrillation; Translations: [Paroxysmal atrial fibrillation] Onset: 03-18-2011 03-18-2011 Chronic Cardiac dysrhythmias (20 sources) Palpitations; Translations: [Palpitations] Onset: 05-07-2012 05-07-2012 Episodic Chronic obstructive pulmonary disease and bronchiectasis (3 sources) Chronic obstructive lung disease; Translations: [Chronic obstructive pulmonary disease, unspecified] 02-11-2025 Chronic Disorders of lipid metabolism (20 sources) Hyperlipidemia; Translations: [Hyperlipidemia, unspecified] Onset: 03-18-2011 03-18-2011 Chronic Essential hypertension (1 source) Essential (primary) hypertension; Translations: [Essential (primary) hypertension] Onset: 02-17-2025 Chronic Heart valve disorders (20 sources) Aortic valve disorder; Translations: [Nonrheumatic aortic (valve) insufficiency] Onset: 03-18-2011 03-18-2011 Chronic Immunizations and screening for infectious disease (20 sources) Patient encounter status; Translations: [Encounter for screening for COVID-19] 08-02-2022 Episodic Influenza (20 sources) Influenza due to Influenza A virus; Translations: [Influenza due to other identified influenza virus with other respiratory manifestations] Episodic Nonspecific chest pain (20 sources) Chest discomfort; Translations: [Other chest pain] Onset: 03-18-2011 03-18-2011 Episodic Nutritional deficiencies (1 source) Vitamin D deficiency, unspecified; Translations: [Vitamin D deficiency, unspecified] Onset: 02-17-2025 Chronic Other aftercare (20 sources) Long-term current use of anticoagulant; Translations: [workforce manager (current) use of anticoagulants] 04-29-2020 Episodic Other aftercare (20 sources) workforce manager (current) use of anticoagulants; Translations: [Long-term (current) use of anticoagulants] Onset: 03-27-2025 Episodic Other circulatory disease (20 sources) H/O: major vascular surgery; Translations: [Presence of other vascular implants and grafts] Onset: 02-01-2016 04-29-2020 Chronic Other circulatory disease (20 sources) Presence of other vascular implants and grafts; Translations: [Blood vessel replaced by other means] Onset: 02-01-2016 Chronic Other circulatory disease (1 source) Personal history of other diseases of the circulatory system; Translations: [Personal history of other diseases of the circulatory system] Onset: 03-27-2025 Episodic Other nutritional; endocrine; and metabolic disorders (20 sources) Body mass index (BMI) 30.0-30.9, adult; Translations: [Body mass index (BMI) 30.0-30.9, adult] Onset: 05-12-2014 09-09-2016 Chronic Pulmonary heart disease (20 sources) Saddle embolus of pulmonary artery; 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] Onset: 02-19-2016 06-01-2020 Chronic Residual codes; unclassified (20 sources) Other specified postprocedural states; Translations: [Personal history of surgery to heart and great vessels, presenting hazards to health] Onset: 02-01-2016 Episodic Superficial injury; contusion (16 sources) Contusion of left thumb; Translations: [Contusion of left thumb without damage to nail, initial encounter] 09-29-2023 Episodic Unclassified (4 sources) Warfarin therapy started; Translations: [longterm (current) use of anticoagulants] Onset: 06-12-2015 06-12-2015 Unclassified (4 sources) Long-term drug therapy; Translations: [Other patient access (current) drug therapy] Onset: 03-18-2011 03-18-2011 Unclassified (3 sources) History of aortic valve repair; Translations: [Other specified postprocedural states] Onset: 03-14-2016 03-14-2016 Unclassified (1 source) Thoracic aortic aneurysm, without rupture, unspecified; Translations: [Thoracic aortic aneurysm, without rupture, unspecified] Onset: 03-27-2025 Viral infection (20 sources) Disease caused by 2019-nCoV; Translations: [COVID-19] Episodic Past or Other Problems Problem Classification Problem Date Documented Da te Episodic/Chronic Mycoses (20 sources) Tinea unguium; Translations: [Tinea pedis] 02-17-2012 Episodic Other aftercare (20 sources) Other patient access (current) drug therapy; Translations: [longterm (current) use of anticoagulants] Onset: 03-18-2011 03-18-2011 Episodic Other and unspecified benign neoplasm (20 sources) Hemangioma; Translations: [Benign neoplasm of skin of trunk] 05-18-2011 Episodic Other and unspecified benign neoplasm (3 sources) Benign neoplasm of skin of trunk; Translations: [Other benign neoplasm of skin of trunk] 05-18-2011 Episodic Other circulatory disease (14 sources) H/O: pulmonary embolus; Translations: [Personal history of pulmonary embolism] Onset: 06-09-2016 06-09-2016 Episodic Other connective tissue disease (14 sources) Pain in calf; Translations: [Pain in right lower leg] Onset: 02-19-2016 02-19-2016 Episodic Other inflammatory condition of skin (20 sources) Pruritic rash; Translations: [Other prurigo] 12-09-2011 Episodic Other lower respiratory disease (14 sources) Disorder of lung; Translations: [Other disorders of lung] Onset: 01-09-2013 01-09-2013 Episodic Other non-epithelial cancer of skin (20 sources) Personal history of other malignant neoplasm of skin; Translations: [Personal history of other malignant neoplasm of skin] Onset: 05-18-2011 05-18-2011 Episodic Other nutritional; endocrine; and metabolic disorders (20 sources) Body mass index (BMI) 29.0-29.9, adult; Translations: [Body mass index (BMI) 28.0-28.9, adult] Onset: 05-12-2014 07-17-2015 Episodic Other nutritional; endocrine; and metabolic disorders (2 sources) Body mass index (BMI) 28.0-28.9, adult; Translations: [Body mass index (BMI) 28.0-28.9, adult] Onset: 05-12-2014 03-11-2016 Episodic Other skin disorders (20 sources) Lentigo; Translations: [Skin tag] Onset: 12-09-2011 Resolved: 07-16-2012 05-18-2011 Episodic Other skin disorders (15 sources) Actinic keratosis; Translations: [Actinic keratosis] Onset: 12-09-2011 Resolved: 07-16-2012 01-09-2012 Episodic Other skin disorders (3 sources) Senile hyperkeratosis; Translations: [Inflamed seborrheic keratosis] 05-18-2011 Episodic Other skin disorders (6 sources) Dystrophia unguium; Translations: [Nail dystrophy] 01-09-2012 Episodic Other skin disorders (3 sources) Skin tag; Translations: [Other hypertrophic disorders of the skin] 05-18-2011 Episodic Camille-; endo-; and myocarditis; cardiomyopathy (14 sources) Pericardial effusion; Translations: [Pericardial effusion (noninflammatory)] Onset: 02-19-2016 02-19-2016 Episodic Phlebitis; thrombophlebitis and thromboembolism (14 sources) Acute embolism and thrombosis of unspecified deep veins of unspecified proximal lower extremity; Translations: [Acute embolism and thrombosis of unspecified deep veins of unspecified proximal lower extremity] Onset: 02-19-2016 02-19-2016 Episodic Pleurisy; pneumothorax; pulmonary collapse (14 sources) Pneumothorax; Translations: [Pneumothorax, unspecified] Onset: 02-19-2016 02-19-2016 Episodic Residual codes; unclassified (3 sources) Family history of stroke; Translations: [Family history of stroke] 05-12-2014 Episodic Unclassified (20 sources) Other specified postprocedural states; Translations: [Family history of stroke] Onset: 05-12-2014 03-14-2016 Episodic Unclassified (1 source) Finding of body mass index; Translations: [Body mass index (BMI) 28.0-28.9, adult] Onset: 05-12-2014 03-11-2016 Results Test Name Value Interpretation Reference Range Facility International normalized rat io (INR) measurement by fingerstickOrdered By: Real Reed on 06-03-2025 INR Coag (BldC) [Relative time] 3.1 [facility] Comment on above: Critical Value > 4.0 Protime w/INR Fingerstickon 06-03-2025 INR Coag (PPP) [Relative time] 3.1 {INR} Normal [facility] Comment on above: Result Comment: Crit ical Value > 4.0 Performed By: #### L 506.1001, L501.9520, L500.4050, L300.3900, L100.0100 #### [facility] [address] [place], [place], [id number] Protime Coagsen 32.3 SEC High 11.7-14.9 [facility] Comment on above: Performed By: #### L 506.1001, L501.9520, L500.4050, L300.3900, L100.0100 #### [facility] [address] [place], [place], [id number] Whole blood prothrombin time Ordered By: Real Reed on 06-03-2025 PT Coag (Bld) [Time] 32.3 s High 11.7-14.9 [facility] Protime w/INR Fingerstickon 04-22-2025 INR Coag (PPP) [Relative time] 3.1 {INR} Normal [facility] Comment on above: Result Comment: Crit ical Value > 4.0 Performed By: #### L 9200.0000 #### [facility] [address] [place], [place], [address] Protime Coagsen 32.5 SEC High 11.7-14.9 [facility] Comment on above: Performed By: #### L 9200.0000 #### [facility] [address] [place], [place], [address] International normalized rat io (INR) measurement by fingerstickOrdered By: Real Rede on 04-17-2025 INR Coag (BldC) [Relative time] 3.1 [facility] Comment on above: Critical Value > 4.0 Whole blood prothrombin time Ordered By: Real Reed on 04-17-2025 PT Coag (Bld) [Time] 32.5 s High 11.7-14.9 [facility] International normalized rat io (INR) measurement by fingerstickOrdered By: Real Reed on 03-18-2025 INR Coag (BldC) [Relative time] 2.2 [facility] Comment on above: Critical Value > 4.0 Protime w/INR Fingerstickon 03-18-2025 INR Coag (PPP) [Relative time] 2.2 {INR} Normal [facility] Comment on above: Result Comment: Crit ical Value > 4.0 Performed By: #### L 506.1001, L501.9520, L500.4050, L300.3900, L100.0100 #### [facility] [address] [place], [address] Protime Coagsen 24.2 SEC High 11.7-14.9 [facility] Comment on above: Performed By: #### L 506.1001, [id number], L500.4050, L300.3900, L100.0100 #### [facility] [address] [place], [address] Whole blood prothrombin time Ordered By: Real Reed on 03-18-2025 PT Coag (Bld) [Time] 24.2 s High 11.7-14.9 [facility] Absolute lymphocyte countOrd ered By: Real Reed on 02-17-2025 Lymphocytes Auto (Unsp spec) [#/Vol] 1.06 10*3/uL 0.83-4.51 [facility] Absolute neutrophil countOrd ered By: Real Reed on 02-17-2025 Neutrophils (Bld) [#/Vol] 3.4 10*3/uL 2.0-7.7 [facility] Anion gap in Serum or Plasma Ordered By: Real Reed on 02-17-2025 Anion gap [Moles/Vol] 10 mmol/L 5-15 [facility] Automated lymphocyte count a s percentage of total leukocytesOrdered By: Real Reed on 02-17-2025 Lymphocytes/100 WBC Auto (Unsp spec) 19.9 % 19-41 [facility] BUN/creatinine ratioOrdered By: Real Reed on 02-17-2025 Urea nitrogen/Creatinine [Mass ratio] 21.2 mg/mg High 10-20 [facility] Basophil percentageOrdered B y: Real Reed on 02-17-2025 Basophils/100 WBC (Bld) 1.1 % High 0-1 [facility] Bilirubin, totalOrdered By: Real Reed on 02-17-2025 Bilirubin [Mass/Vol] 0.64 mg/dL 0.00-1.30 [facility] CBC W/Diff, Automatedon 03-3 Absolute Lymph 1.06 X10 3/uL Normal 0.83-4.51 [facility] Comment on above: Order Comment: DR ALYCE DAVENPORT ORDERED CBCD, TSH,CMP,VITD DR. REED ORDERED PT INR Performed By: #### L 506.1001, L501.9520, L500.4050, L300.3900, L100.0100 #### [facility] [address] [place], [address] Absolute Neut 3.4 X10 3/uL Normal 2.0-7.7 [facility] Comment on above: Order Comment: DR ALYCE DAVENPORT ORDERED CBCD, TSH,CMP,VITD DR. REED ORDERED PT INR Performed By: #### L 506.1001, L501.9520, L500.4050, L300.3900, L100.0100 #### [facility] [address] [place], [address] Basophils/100 WBC (Bld) 1.1 % High 0-1 [facility] Comment on above: Order Comment: DR ALYCE DAVENPORT ORDERED CBCD, TSH,CMP,VITD DR. REED ORDERED PT INR Performed By: #### L 506.1001, L501.9520, L500.4050, L300.3900, L100.0100 #### [facility] [address] [place], [address] Eosinophils/100 WBC (Bld) 0.4 % Normal 0-5 [facility] Comment on above: Order Comment: DR ALYCE DAVENPORT ORDERED CBCD, TSH,CMP,VITD DR. REED ORDERED PT INR Performed By: #### L 506.1001, L501.9520, L500.4050, L300.3900, L100.0100 #### [facility] [address] [place], [address] Erythrocyte distribution width (RBC) [Ratio] 13.9 % Normal 11.6-14.6 [facility] Comment on above: Order Comment: DR ALYCE DAVENPORT ORDERED CBCD, TSH,CMP,VITD DR. REED ORDERED PT INR Performed By: #### L 506.1001, L501.9520, L500.4050, L300.3900, L100.0100 #### [facility] [address] [place], [address] Hematocrit (Bld) [Volume fraction] 39.2 % Low 40-54 [facility] Comment on above: Order Comment: DR ALYCE DAVENPORT ORDERED CBCD, TSH,CMP,VITD DR. REED ORDERED PT INR Performed By: #### L 506.1001, L501.9520, L500.4050, L300.3900, L100.0100 #### [facility] [address] [place], [address] Hemoglobin (Bld) [Mass/Vol] 13.0 g/dL Normal 13.0-16.5 [facility] Comment on above: Order Comment: DR ALYCE DAVENPORT ORDERED CBCD, TSH,CMP,VITD DR. REED ORDERED PT INR Performed By: #### L 506.1001, L501.9520, L500.4050, L300.3900, L100.0100 #### [facility] [address] [place], [address] IG% 0.800 Normal 0.0-0.9 [facility] Comment on above: Order Comment: DR ALYCE DAVENPORT ORDERED CBCD, TSH,CMP,VITD DR. REED ORDERED PT INR Result Comment: IG% - Immature Granulocytes (promyelocytes, myelocytes and metamyelocytes) > 1% indicates that a LEFT SHIFT is Present. Performed By: #### L 506.1001, L501.9520, L500.4050, L300.3900, L100.0100 #### [facility] [address] [place], [address] Lymphocytes/100 WBC (Bld) 19.9 % Normal 19-41 [facility] Comment on above: Order Comment: DR ALYCE DAVENPORT ORDERED CBCD, TSH,CMP,VITD DR. REED ORDERED PT INR Performed By: #### L 506.1001, L501.9520, L500.4050, L300.3900, L100.0100 #### [facility] [address] [place], [address] MCH (RBC) [Entitic mass] 32.7 pg High 27.0-32.0 [facility] Comment on above: Order Comment: DR ALYCE DAVENPORT ORDERED CBCD, TSH,CMP,VITD DR. REED ORDERED PT INR Performed By: #### L 506.1001, L501.9520, L500.4050, L300.3900, L100.0100 #### [facility] [address] [place], [address] MCHC (RBC) [Mass/Vol] 33.2 g/dL Normal 32-36 [facility] Comment on above: Order Comment: DR ALYCE DAVENPORT ORDERED CBCD, TSH,CMP,VITD DR. REED ORDERED PT INR Performed By: #### L 506.1001, L501.9520, L500.4050, L300.3900, L100.0100 #### [facility] [address] [place], [address] MCV (RBC) [Entitic vol] 98.7 fL High 80-94 [facility] Comment on above: Order Comment: DR ALYCE DAVENPORT ORDERED CBCD, TSH,CMP,VITD DR. REED ORDERED PT INR Performed By: #### L 506.1001, L501.9520, L500.4050, L300.3900, L100.0100 #### [facility] [address] [place], [address] Monocytes/100 WBC (Bld) 14.8 % High 0-10 [facility] Comment on above: Order Comment: DR ALYCE DAVENPORT ORDERED CBCD, TSH,CMP,VITD DR. REED ORDERED PT INR Performed By: #### L 506.1001, L501.9520, L500.4050, L300.3900, L100.0100 #### [facility] [address] [place], [address] Neutrophils/100 WBC (Bld) 63.0 % Normal 47-70 [facility] Comment on above: Order Comment: DR ALYCE DAVENPORT ORDERED CBCD, TSH,CMP,VITD DR. REED ORDERED PT INR Performed By: #### L 506.1001, L501.9520, L500.4050, L300.3900, L100.0100 #### [facility] [address] [place], [address] Nucleated RBC (Bld) [#/Vol] 0 10*3/uL Normal 0-5 [facility] Comment on above: Order Comment: DR ALYCE DAVENPORT ORDERED CBCD, TSH,CMP,VITD DR. REED ORDERED PT INR Performed By: #### L 506.1001, L501.9520, L500.4050, L300.3900, L100.0100 #### [facility] [address] [place], [address] Platelet mean volume (Bld) [Entitic vol] 9.6 fL Normal 6.2-12.0 [facility] Comment on above: Order Comment: DR ALYCE DAVENPORT ORDERED CBCD, TSH,CMP,VITD DR. REED ORDERED PT INR Performed By: #### L 506.1001, L501.9520, L500.4050, L300.3900, L100.0100 #### [facility] [address] [place], [address] Platelets (Bld) [#/Vol] 165 10*3/uL Normal 150-450 [facility] Comment on above: Order Comment: DR ALYCE DAVENPORT ORDERED CBCD, TSH,CMP,VITD DR. REED ORDERED PT INR Performed By: #### L 506.1001, L501.9520, L500.4050, L300.3900, L100.0100 #### [facility] [address] [place], [address] RBC (Bld) [#/Vol] 3.97 10*6/uL Low 4.6-6.2 [facility] Comment on above: Order Comment: DR ALYCE DAVENPORT ORDERED CBCD, TSH,CMP,VITD DR. REED ORDERED PT INR Performed By: #### L 506.1001, L501.9520, L500.4050, L300.3900, L100.0100 #### [facility] [address] [place], [address] RDW SD 50.7 fl High 35.1-43.9 [facility] Comment on above: Order Comment: DR ALYCE DAVENPORT ORDERED CBCD, TSH,CMP,VITD DR. REED ORDERED PT INR Performed By: #### L 506.1001, L501.9520, L500.4050, L300.3900, L100.0100 #### [facility] [address] [place], [address] WBC (Bld) [#/Vol] 5.3 10*3/uL Normal 4.4-11.0 [facility] Comment on above: Order Comment: DR ALYCE DAVENPORT ORDERED CBCD, TSH,CMP,VITD DR. REED ORDERED PT INR Performed By: #### L 506.1001, L501.9520, L500.4050, L300.3900, L100.0100 #### [facility] [address] [place], [address] Carbon dioxide, total [Moles /volume] in Central venous bloodOrdered By: Real Reed on 02-17-2025 CO2 [Moles/Vol] 22.9 mmol/L 21.0-32.0 [facility] Chloride assayOrdered By: Sherly Reed on 02-17-2025 Chloride [Moles/Vol] 106 mmol/L 98-108 [facility] Comprehensive Metabolic Prof ilon 02-17-2025 Albumin [Mass/Vol] 3.8 g/dL Normal 3.4-4.8 [facility] Comment on above: Order Comment: DR ALYCE DAVENPORT ORDERED CBCD, TSH,CMP,VITD DR. REED ORDERED PT INR Performed By: #### L 506.1001, L501.9520, L500.4050, L300.3900, L100.0100 #### [facility] [address] [place], [address] Albumin/Globulin [Mass ratio] 1.2 {ratio} Normal 0.9-2.4 [facility] Comment on above: Order Comment: DR ALYCE DAVENPORT ORDERED CBCD, TSH,CMP,VITD DR. REED ORDERED PT INR Performed By: #### L 506.1001, L501.9520, L500.4050, L300.3900, L100.0100 #### [facility] [address] [place], [address] ALK PHOS 99 U/L Normal 40-129 [facility] Comment on above: Order Comment: DR ALYCE DAVENPORT ORDERED CBCD, TSH,CMP,VITD DR. REED ORDERED PT INR Performed By: #### L 506.1001, L501.9520, L500.4050, L300.3900, L100.0100 #### [facility] [address] [place], [address] ALT [Catalytic activity/Vol] 12 U/L Normal <=46 [facility] Comment on above: Order Comment: DR ALYCE DAVENPORT ORDERED CBCD, TSH,CMP,VITD DR. REED ORDERED PT INR Performed By: #### L 506.1001, L501.9520, L500.4050, L300.3900, L100.0100 #### [facility] [address] [place], [address] AST [Catalytic activity/Vol] 22 U/L Normal <=37 [facility] Comment on above: Order Comment: DR ALYCE DAVENPORT ORDERED CBCD, TSH,CMP,VITD DR. REED ORDERED PT INR Performed By: #### L 506.1001, L501.9520, L500.4050, L300.3900, L100.0100 #### [facility] [address] [place], [address] Bilirubin [Mass/Vol] 0.64 mg/dL Normal 0.00-1.30 [facility] Comment on above: Order Comment: DR ALYCE DAVENPORT ORDERED CBCD, TSH,CMP,VITD DR. REED ORDERED PT INR Performed By: #### L 506.1001, L501.9520, L500.4050, L300.3900, L100.0100 #### [facility] [address] [place], [address] BUN/CRE 21.2 RATIO High 10-20 [facility] Comment on above: Order Comment: DR ALYCE DAVENPORT ORDERED CBCD, TSH,CMP,VITD DR. REED ORDERED PT INR Performed By: #### L 506.1001, L501.9520, L500.4050, L300.3900, L100.0100 #### [facility] [address] [place], [address] Calcium [Mass/Vol] 8.8 mg/dL Normal 7.6-11.0 [facility] Comment on above: Order Comment: DR ALYCE DAVENPORT ORDERED CBCD, TSH,CMP,VITD DR. REED ORDERED PT INR Performed By: #### L 506.1001, L501.9520, L500.4050, L300.3900, L100.0100 #### [facility] [address] [place], [address] Chloride [Moles/Vol] 106 mmol/L Normal 98-108 [facility] Comment on above: Order Comment: DR ALYCE DAVENPORT ORDERED CBCD, TSH,CMP,VITD DR. REED ORDERED PT INR Performed By: #### L 506.1001, L501.9520, L500.4050, L300.3900, L100.0100 #### [facility] [address] [place], [address] CO2 [Moles/Vol] 22.9 mmol/L Normal 21.0-32.0 [facility] Comment on above: Order Comment: DR ALYCE DAVENPORT ORDERED CBCD, TSH,CMP,VITD DR. REED ORDERED PT INR Performed By: #### L 506.1001, L501.9520, L500.4050, L300.3900, L100.0100 #### [facility] [address] [place], [address] Creatinine [Mass/Vol] 0.88 mg/dL Normal 0.70-1.20 [facility] Comment on above: Order Comment: DR ALYCE DAVENPORT ORDERED CBCD, TSH,CMP,VITD DR. REED ORDERED PT INR Performed By: #### L 506.1001, L501.9520, L500.4050, L300.3900, L100.0100 #### [facility] [address] [place], [address] GAP 10 Normal 5-15 [facility] Comment on above: Order Comment: DR ALYCE DAVENPORT ORDERED CBCD, TSH,CMP,VITD DR. REED ORDERED PT INR Performed By: #### L 506.1001, L501.9520, L500.4050, L300.3900, L100.0100 #### [facility] [address] [place], [address] GFR/1.73 sq M.predicted among non-blacks MDRD (S/P/Bld) [Vol rate/Area] 89 mL/min/{1.73_m2} Normal >60 [facility] Comment on above: Order Comment: DR ALYCE DAVENPORT ORDERED CBCD, TSH,CMP,VITD DR. REED ORDERED PT INR Result Comment: mL/m in/1.73m2 CKD-EPI Creatinine Equation (2020) Performed By: #### L 506.1001, L501.9520, L500.4050, L300.3900, L100.0100 #### [facility] [address] [place], [address] Globulin (S) [Mass/Vol] 3.3 g/dL Normal 2.2-4.2 [facility] Comment on above: Order Comment: DR ALYCE DAVENPORT ORDERED CBCD, TSH,CMP,VITD DR. REED ORDERED PT INR Performed By: #### L 506.1001, L501.9520, L500.4050, L300.3900, L100.0100 #### [facility] [address] [place], [address] Glucose [Mass/Vol] 93 mg/dL Normal 70-99 [facility] Comment on above: Order Comment: DR ALYCE DAVENPORT ORDERED CBCD, TSH,CMP,VITD DR. REED ORDERED PT INR Performed By: #### L 506.1001, L501.9520, L500.4050, L300.3900, L100.0100 #### [facility] [address] [place], [address] Potassium [Moles/Vol] 4.4 mmol/L Normal 3.3-5.1 [facility] Comment on above: Order Comment: DR ALYCE DAVENPORT ORDERED CBCD, TSH,CMP,VITD DR. REED ORDERED PT INR Performed By: #### L 506.1001, L501.9520, L500.4050, L300.3900, L100.0100 #### [facility] [address] [place], [address] Sodium [Moles/Vol] 139 mmol/L Normal 133-145 [facility] Comment on above: Order Comment: DR ALYCE DAVENPORT ORDERED CBCD, TSH,CMP,VITD DR. REED ORDERED PT INR Performed By: #### L 506.1001, L501.9520, L500.4050, L300.3900, L100.0100 #### [facility] [address] [place], [address] T PROT 7.2 g/dL Normal 5.9-8.4 [facility] Comment on above: Order Comment: DR ALYCE DAVENPORT ORDERED CBCD, TSH,CMP,VITD DR. REED ORDERED PT INR Performed By: #### L 506.1001, L501.9520, L500.4050, L300.3900, L100.0100 #### [facility] [address] [place], [address] Urea nitrogen [Mass/Vol] 19 mg/dL Normal 4-19 [facility] Comment on above: Order Comment: DR ALYCE DAVENPORT ORDERED CBCD, TSH,CMP,VITD DR. REED ORDERED PT INR Performed By: #### L 506.1001, L501.9520, L500.4050, L300.3900, L100.0100 #### [facility] [address] [place], [address] Eosinophil percentageOrdered By: Real Reed on 02-17-2025 Eosinophils/100 WBC (Bld) 0.4 % 0-5 [facility] Erythrocyte distribution wid th ratioOrdered By: Real Reed on 02-17-2025 Erythrocyte distribution width (RBC) [Ratio] 13.9 % 11.6-14.6 [facility] Erythrocyte distribution wid th standard deviationOrdered By: Real Reed on 02-17-2025 Erythrocyte distribution width (RBC) [Entitic vol] 50.7 fL High 35.1-43.9 [facility] Erythrocyte distribution width (RBC) [Ratio] 50.7 fl High 35.1-43.9 [facility] GFR/1.73 sq M.predicted frederic g non-blacks MDRD (S/P/Bld) [Vol rate/Area]Ordered By: Real Reed on 02-17-2025 Estimated GFR (MDRD) Non-Af Amer 89 >60 [facility] Comment on above: mL/min/1.73m2 CKD-EP I Creatinine Equation (2020) Glomerular filtration rate ( GFR) estimation/1.73 sq m using serum, plasma, or whole bOrdered By: Real Reed on 02-17-2025 GFR/1.73 sq M.predicted among non-blacks MDRD (S/P/Bld) [Vol rate/Area] 89 mL/min/{1.73_m2} >60 [facility] Comment on above: mL/min/1.73m2 CKD-EP I Creatinine Equation (2020) Hematocrit Auto (Bld) [Volum e fraction]Ordered By: Real Reed on 02-17-2025 Hematocrit (Bld) [Volume fraction] 39.2 % Low 40-54 [facility] Hemoglobin measurementOrdere d By: Real Reed on 02-17-2025 Hemoglobin (Bld) [Mass/Vol] 13.0 g/dL 13.0-16.5 [facility] Immature granulocytes/100 WB C Auto (Bld)Ordered By: Real Reed on 02-17-2025 Immature granulocytes/100 WBC (Bld) 0.800 % 0.0-0.9 [facility] Comment on above: IG% - Immature Granu locytes (promyelocytes, myelocytes and metamyelocytes) > 1% indicates that a LEFT SHIFT is Present. International normalized rat io (INR) calculationOrdered By: Real Reed on 02-17-2025 INR Coag (Bld) [Relative time] 2.0 {INR} [facility] L506.1001on 02-17-2025 Vitamin D 25-OH 20.4 ng/mL Low 30-100 [facility] Comment on above: Order Comment: DR ALYCE DAVENPORT ORDERED CBCD, TSH,CMP,VITD DR. REED ORDERED PT INR Result Comment: Rebecca min D Status Deficiency: <20 ng/mL (50nmol/L) Insufficiency: 20-30 ng/mL (50-75 nmol/L) Sufficiency: 30-100 ng/mL (75-250 nmol/L) Toxicity: >100 ng/mL (>250 nmol/L) Performed By: #### L 506.1001, L501.9520, L500.4050, L300.3900, L100.0100 #### [facility] [address] [place], [address] Laboratory - Chemistry and C hemistry - challengeOrdered By: Real Reed on 02-17-2025 AST [Catalytic activity/Vol] 22 U/L <38 [facility] Lymphocytes Auto (Unsp spec) [#/Vol]Ordered By: Real Reed on 02-17-2025 Lymphocytes (Bld) [#/Vol] 1.06 10*3/uL 0.83-4.5 1 [facility] Lymphocytes/100 WBC Auto (Un sp spec)Ordered By: Real Reed on 02-17-2025 Lymphocytes/100 WBC (Bld) 19.9 % 19-41 [facility] MCV (mean corpuscular volume ) determinationOrdered By: Real Reed on 02-17-2025 MCV (RBC) [Entitic vol] 98.7 fL High 80-94 [facility] Mean corpuscular hemoglobin (MCH) determinationOrdered By: Real Reed on 02-17-2025 MCH (RBC) [Entitic mass] 32.7 pg High 27.0-32.0 [facility] Mean corpuscular hemoglobin concentration (MCHC) determinationOrdered By: Real Reed on 02-17-2025 MCHC (RBC) [Mass/Vol] 33.2 g/dL 32-36 [facility] Mean platelet volume determi nationOrdered By: Real Reed on 02-17-2025 Platelet mean volume (Bld) [Entitic vol] 9.6 fL 6.2-12.0 [facility] Monocyte percentageOrdered B y: Real Reed on 02-17-2025 Monocytes/100 WBC (Bld) 14.8 % High 0-10 [facility] Neutrophil percentageOrdered By: Real Reed on 02-17-2025 Neutrophils/100 WBC (Bld) 63.0 % 47-70 [facility] Nucleated red blood cell per centageOrdered By: Real Reed on 02-17-2025 Nucleated RBC/100 WBC (Bld) [Ratio] 0 % 0-5 [facility] Platelet countOrdered By: Sherly Reed on 02-17-2025 Platelets (Bld) [#/Vol] 165 10*3/uL 150-450 [facility] Potassium (Unsp spec) [Mass/ Vol]Ordered By: Real Reed on 02-17-2025 Potassium [Moles/Vol] 4.4 mmol/L 3.3-5.1 [facility] Potassium measurement (mass/ volume)Ordered By: Real Reed on 02-17-2025 Potassium (Unsp spec) [Mass/Vol] 4.4 mmol/L 3.3-5.1 [facility] Prothrombin Time w/INRon INR Coag (PPP) [Relative time] 2.0 {INR} Normal [facility] Comment on above: Order Comment: DR ALYCE DAVENPORT ORDERED CBCD, TSH,CMP,VITD DR. REED ORDERED PT INR Performed By: #### L 506.1001, L501.9520, L500.4050, L300.3900, L100.0100 #### [facility] [address] [place], [address] PT Coag (PPP) [Time] 22.8 s High 11.7-14.9 [facility] Comment on above: Order Comment: DR ALYCE DAVENPORT ORDERED CBCD, TSH,CMP,VITD DR. REED ORDERED PT INR Performed By: #### L 506.1001, L501.9520, L500.4050, L300.3900, L100.0100 #### [facility] [address] [place], [address] Prothrombin timeOrdered By: Real Reed on 02-17-2025 PT Coag (PPP) [Time] 22.8 s High 11.7-14.9 [facility] RBC Auto (Bld) [#/Vol]Ordere d By: Real Reed on 02-17-2025 RBC (Bld) [#/Vol] 3.97 10*6/uL Low 4.6-6.2 [facility] Serum creatinine measurement (mass/volume)Ordered By: Real Reed on 02-17-2025 Creatinine [Mass/Vol] 0.88 mg/dL 0.70-1.20 [facility] Serum globulin measurementOr dered By: Real Reed on 02-17-2025 Globulin (S) [Mass/Vol] 3.3 g/dL 2.2-4.2 [facility] Serum glucose measurement (m ass/volume)Ordered By: Real Reed on 02-17-2025 Glucose [Mass/Vol] 93 mg/dL 70-99 [facility] Serum or plasma alanine soares otransferase (ALT) measurementOrdered By: Real Reed on 02-17-2025 ALT [Catalytic activity/Vol] 12 U/L <47 [facility] Serum or plasma albumin tia urement (mass/volume)Ordered By: Real Reed on 02-17-2025 Albumin [Mass/Vol] 3.8 g/dL 3.4-4.8 [facility] Serum or plasma albumin/glob ulin mass ratioOrdered By: Real Reed on 02-17-2025 Albumin/Globulin [Mass ratio] 1.2 {ratio} 0.9-2.4 [facility] Serum or plasma alkaline birdie sphatase measurementOrdered By: Rela Reed on 02-17-2025 ALP [Catalytic activity/Vol] 99 U/L 40-129 [facility] Serum or plasma calcium tia urement (mass/volume)Ordered By: Real Reed on 02-17-2025 Calcium [Mass/Vol] 8.8 mg/dL 7.6-11.0 [facility] Serum or plasma urea nitroge n measurement (mass/volume)Ordered By: Real Reed on 02-17-2025 Urea nitrogen [Mass/Vol] 19 mg/dL 4-19 [facility] Sodium levelOrdered By: Real Reed on 02-17-2025 Sodium [Moles/Vol] 139 mmol/L 133-145 [facility] TSH DL <= 0.005 mIU/L QnOrde red By: Real Reed on 02-17-2025 Thyroid Stimulating Hormone (TSH) 3.080 uIU/mL 0.300-4.200 [facility] TSH Qn 3.080 uIU/mL 0.300-4.200 [facility] Thyroid Stim Hormone (TSH)on 02-17-2025 TSH 3.080 uIU/mL Normal 0.300-4.200 [facility] Comment on above: Order Comment: DR ALYCE DAVENPORT ORDERED CBCD, TSH,CMP,VITD DR. REED ORDERED PT INR Performed By: #### L 506.1001, L501.9520, L500.4050, L300.3900, L100.0100 #### [facility] [address] [place], [address] Total proteinOrdered By: Rui Reed on 02-17-2025 Protein [Mass/Vol] 7.2 g/dL 5.9-8.4 [facility] Vitamin D, 25-hydroxyOrdered By: Real Reed on 02-17-2025 Vitamin D 25-Hydroxy 20.4 ng/mL Low 30-100 [facility] Comment on above: Vitamin D StatusDefi ciency: <20 ng/mL (50nmol/L)Insufficiency: 20-30 ng/mL (50-75 nmol/L)Sufficiency: 30-100 ng/mL (75-250 nmol/L)Toxicity: >100 ng/mL (>250 nmol/L) White blood cell (WBC) count Ordered By: Real Reed on 02-17-2025 WBC (Bld) [#/Vol] 5.3 10*3/uL 4.4-11.0 [facility] 12 Lead EKG performed by [facility] on 02-11-2025 12 Lead E[facility] performed by [facility] [address] [place] [address] 12 Lead EKG performed by [facility] 02/11/25 105 MR#: [id number] Acct: [id number] Name: TEE GARCIA Rep #: [id number] : 1945 79 From: Jovanni Tijerina MD Attending Dr: Dr. Jovanni Tijerina MD Status: DEP A MB Ordering Dr: Jovanni Tijerina MD Date: 02/11/25 [place] [facility] [place] Sex: M C Admitted: [facility]/12 Lead EKG performed by [facility] Sinus Bradycardia WITHIN NORMAL LIMITS 02/11/25 1619 Date Jovanni Tijerina MD CC: Dr. Nish Harrell MD Date Dictated: 02/11/251058 Date Transcribed: 02/11/251058 Internal Communications Specialist: [place] Signed Normal [facility] Cardiology Visit Reporton Cardiology Visit Report [facility] [address] [place] [address] OFFICE VISIT Date of Service: 02/11/25 MR#: [id number] Acct: [id number] Name: TEE GARCIA Rep #: [id number] : 1945 Provider: Dr. Jovanni Tjierina MD Age/Sex: 79/M Location: [facility] Status: Signed HPI HPI History of Present Illness Details: This is a 79-year-old white male who presents today for an outpatient cardiovascular follow-up of his history of underlying aortic valve disease/repair, aortic root replacement, paroxysmal atrial fibrillation, postoperative saddle pulmonary emboli, hyperlipidemia, ANTONI with CPAP therapy, and on chronic anticoagulant therapy. He denies chest, arm, jaw, or neck discomfort. He states intermittent palpitations. He denies bilateral lower extremity edema. He denies claudication. He denies shortness of breath with activity, shortness of breath at rest, orthopnea, or PND. He denies chronic cough. He denies significant, sudden weight gain. He denies lightheadedness, dizziness, near-syncope, or syncope. He denies blood in urine, blood in stool, or epistaxis. He denies fever with chills. He denies myalgia. He states fatigue that he wonders if related to low sleep hours. His exercise level has remained stable. 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 100 mcg-umeclid 1 inh inhalation QDAY 02/11/25 History 62.5 mcg-vilant 25 mcg inhalat.powder (Trelegy Ellipta) loratadine 10 mg tablet (Claritin) 10 mg PO QDAY 02/11/25 02/11/25 History montelukast 10 mg tablet 10 mg PO QDAY 02/11/25 02/11/25 Hi story Have you fallen in the past year?: No PFSH Medical History COPD (chronic obstructive pulmonary disease) Asthma COVID-19 History of prolonged Q-T interval on ECG Nonrheumatic aortic (valve) insufficiency Drug overdose Sleep apnea History of TIA (transient ischemic attack) Pulmonary nodule Pneumothorax Paroxysmal atrial fibrillation Ascending aortic aneurysm Hyperlipidemia Acute venous embolism and thrombosis of deep vessels of proximal lower extremity Pericardial effusion Atrial fibrillation 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) Surgical History History of hernia repair History of ascending aortic replacement (02/01/16) History of aortic valve repair (02/01/16) Family History Father Cancer Prostate cancer Mother [...] ROS Const Const: Negative for fatigue, weakness, headache(s), daytime sleepiness or difficulty sleeping ENT ENT: Negative for headache(s), dizziness or Nosebleed/epistaxi s Cardio Chest Pain: No Palpitations: No Edema: None Resp Respiratory: Negative for SOB with activity, SOB at rest, SOB orthopnea SOB lying down or Cough GI GI: Negative nausea, vomiting or heartburn Neuro Neuro: Negative for dizziness, lightheadedness, near syncope, headache(s) or weakness Endo Endo: Negative for fatigue Cardiology Exam Const Appearance: cooperative, healthy appearing, comfortable and no acute distress Nutritional Appearance: well nourished and overweight Orientation: alert, awake and oriented x3 Head Head: normal to inspection Ears: hearing grossly normal bilaterally Nose: external nose normal Face and Sinus: face s (more content not included)... Normal [facility] PT Coag (Bld) [Time]Ordered By: Real Reed on 01-20-2025 Bedside Prothrombin Time 26.0 SEC High 11.7-14.9 [facility] Protime w/INR Fingerstickon 01-20-2025 INR Coag (PPP) [Relative time] 2.4 {INR} Normal [facility] Comment on above: Result Comment: Crit ical Value > 4.0 Performed By: #### L 506.1001, L501.9520, L500.4050, L300.3900, L100.0100 #### [facility] [address] [place], [place], [id number] Protime Coagsen 26.0 SEC High 11.7-14.9 [facility] Comment on above: Performed By: #### L 506.1001, L501.9520, L500.4050, L300.3900, L100.0100 #### [facility] [address] [facility] [place], [place], [id number] Whole blood prothrombin time Ordered By: Real Reed on 01-20-2025 PT Coag (Bld) [Time] 26.0 s High 11.7-14.9 [facility] INR Coag (BldC) [Relative ti me]Ordered By: Real Reed on 12-02-2024 INR Coag (Bld) [Relative time] 2.3 {INR} [facility] Comment on above: Critical Value > 4.0 PT Coag (Bld) [Time]Ordered By: Real Reed on 12-02-2024 Bedside Prothrombin Time 25.1 SEC High 11.7-14.9 [facility] Protime w/INR Fingerstickon 12-02-2024 INR Coag (PPP) [Relative time] 2.3 {INR} Normal [facility] Comment on above: Result Comment: Crit ical Value > 4.0 Performed By: #### L 9200.0000 #### [facility] [address] [place], [place], [id number] (043) Protime Coagsen 25.1 SEC High 11.7-14.9 [facility] Comment on above: Performed By: #### L 9200.0000 #### [facility] [address] [place], [address] INR Coag (BldC) [Relative ti me]Ordered By: Real Reed on 11-01-2024 INR Coag (Bld) [Relative time] 2.1 {INR} [facility] Comment on above: Critical Value > 4.0 PT Coag (Bld) [Time]Ordered By: Real Reed on 11-01-2024 Bedside Prothrombin Time 23.3 SEC High 11.7-14.9 [facility] Protime w/INR Fingerstickon 11-01-2024 INR Coag (PPP) [Relative time] 2.1 {INR} Normal [facility] Comment on above: Result Comment: Crit ical Value > 4.0 Performed By: #### L 9200.0000 #### [facility] [address] [place], [address] Protime Coagsen 23.3 SEC High 11.7-14.9 [facility] Comment on above: Performed By: #### L 9200.0000 #### [facility] [address] [place], [address] Protime w/INR Fingerstickon 10-11-2024 INR Coag (PPP) [Relative time] 2.0 {INR} Normal [facility] Comment on above: Result Comment: Crit ical Value > 4.0 Performed By: #### L 9200.0000 #### [facility] [address] [place], [address] Protime Coagsen 22.3 SEC High 11.7-14.9 [facility] Comment on above: Performed By: #### L 9200.0000 #### [facility] [address] [place], [address] Protime w/INR Fingerstickon 09-27-2024 INR Coag (PPP) [Relative time] 3.2 {INR} Normal [facility] Comment on above: Result Comment: Crit ical Value > 4.0 Performed By: #### L 506.1001, L501.9520, L500.4050, L300.3900, L100.0100 #### [facility] [address] [place], [address] Protime Coagsen 31.5 SEC High 11.7-14.9 [facility] Comment on above: Performed By: #### L 506.1001, L501.9520, L500.4050, L300.3900, L100.0100 #### [facility] [address] [place], [address] Protime w/INR Fingerstickon 09-19-2024 INR Coag (PPP) [Relative time] 2.9 {INR} Normal [facility] Comment on above: Result Comment: Crit ical Value > 4.0 Performed By: #### L 506.1001, L501.9520, L500.4050, L300.3900, L100.0100 #### [facility] [address] [place], [address] Protime Coagsen 30.7 SEC High 11.7-14.9 [facility] Comment on above: Performed By: #### L 506.1001, L501.9520, L500.4050, L300.3900, L100.0100 #### [facility] [address] [place], [address] Prothrombin Time w/INRon INR Coag (PPP) [Relative time] 3.4 {INR} Normal [facility] Comment on above: Order Comment: DR ALYCE DAVENPORT ORDERED CBCD, TSH,CMP,VITD DR. REED ORDERED PT INR Performed By: #### L 506.1001, L501.9520, L500.4050, L300.3900, L100.0100 #### [facility] [address] [place], [address] PT Coag (PPP) [Time] 33.8 s High 11.7-14.9 [facility] Comment on above: Order Comment: DR ALYCE DAEVNPORT ORDERED CBCD, TSH,CMP,VITD DR. REED ORDERED PT INR Performed By: #### L 506.1001, L501.9520, L500.4050, L300.3900, L100.0100 #### [facility] [address] [place], [address] Protime w/INR Fingerstickon 08-30-2024 INR Coag (PPP) [Relative time] 3.7 {INR} Normal [facility] Comment on above: Result Comment: Crit ical Value > 4.0 Performed By: #### L 506.1001, L501.9520, L500.4050, L300.3900, L100.0100 #### [facility] [address] [place], [address] Protime Coagsen 36.2 SEC High 11.7-14.9 [facility] Comment on above: Performed By: #### L 506.1001, L501.9520, L500.4050, L300.3900, L100.0100 #### [facility] [address] [place], [address] CBC W/Diff, Automatedon 09-2 Absolute Lymph 1.03 X10 3/uL Normal 0.83-4.51 [facility] Comment on above: Performed By: #### L 506.1001, L501.9520, L500.4050, L300.3900, L100.0100 #### [facility] [address] [place], [address] Absolute Neut 3.0 X10 3/uL Normal 2.0-7.7 [facility] Comment on above: Performed By: #### L 506.1001, L501.9520, L500.4050, L300.3900, L100.0100 #### [facility] [address] [place], [address] Basophils/100 WBC (Bld) 0.6 % Normal 0-1 [facility] Comment on above: Performed By: #### L 506.1001, L501.9520, L500.4050, L300.3900, L100.0100 #### [facility] [address] [place], [address] Eosinophils/100 WBC (Bld) 0.6 % Normal 0-5 [facility] Comment on above: Performed By: #### L 506.1001, L501.9520, L500.4050, L300.3900, L100.0100 #### [facility] [address] [place], [address] Erythrocyte distribution width (RBC) [Ratio] 13.9 % Normal 11.6-14.6 [facility] Comment on above: Performed By: #### L 506.1001, L501.9520, L500.4050, L300.3900, L100.0100 #### [facility] [address] [place], [address] Hematocrit (Bld) [Volume fraction] 41.0 % Normal 40-54 [facility] Comment on above: Performed By: #### L 506.1001, L501.9520, L500.4050, L300.3900, L100.0100 #### [facility] [address] [place], [address] Hemoglobin (Bld) [Mass/Vol] 12.9 g/dL Low 13.0-16.5 [facility] Comment on above: Performed By: #### L 506.1001, L501.9520, L500.4050, L300.3900, L100.0100 #### [facility] [address] [place], [address] IG% 1.200 High 0.0-0.9 [facility] Comment on above: Result Comment: IG% - Immature Granulocytes (promyelocytes, myelocytes and metamyelocytes) > 1% indicates that a LEFT SHIFT is Present. Performed By: #### L 506.1001, L501.9520, L500.4050, L300.3900, L100.0100 #### [facility] [address] [place], [address] Lymphocytes/100 WBC (Bld) 20.4 % Normal 19-41 [facility] Comment on above: Performed By: #### L 506.1001, L501.9520, L500.4050, L300.3900, L100.0100 #### [facility] [address] [place], [address] MCH (RBC) [Entitic mass] 32.3 pg High 27.0-32.0 [facility] Comment on above: Performed By: #### L 506.1001, L501.9520, L500.4050, L300.3900, L100.0100 #### [facility] [address] [place], [address] MCHC (RBC) [Mass/Vol] 31.5 g/dL Low 32-36 [facility] Comment on above: Performed By: #### L 506.1001, L501.9520, L500.4050, L300.3900, L100.0100 #### [facility] [address] [place], [address] MCV (RBC) [Entitic vol] 102.5 fL High 80-94 [facility] Comment on above: Performed By: #### L 506.1001, L501.9520, L500.4050, L300.3900, L100.0100 #### [facility] [address] [place], [address] Monocytes/100 WBC (Bld) 16.9 % High 0-10 [facility] Comment on above: Performed By: #### L 506.1001, L501.9520, L500.4050, L300.3900, L100.0100 #### [facility] [address] [place], [address] Neutrophils/100 WBC (Bld) 60.3 % Normal 47-70 [facility] Comment on above: Performed By: #### L 506.1001, L501.9520, L500.4050, L300.3900, L100.0100 #### [facility] [address] [place], [address] Nucleated RBC (Bld) [#/Vol] 0 10*3/uL Normal 0-5 [facility] Comment on above: Performed By: #### L 506.1001, L501.9520, L500.4050, L300.3900, L100.0100 #### [facility] [address] [place], [address] Platelet mean volume (Bld) [Entitic vol] 10.3 fL Normal 6.2-12.0 [facility] Comment on above: Performed By: #### L 506.1001, L501.9520, L500.4050, L300.3900, L100.0100 #### [facility] [address] [place], [address] Platelets (Bld) [#/Vol] 177 10*3/uL Normal 150-450 [facility] Comment on above: Performed By: #### L 506.1001, L501.9520, L500.4050, L300.3900, L100.0100 #### [facility] [address] [place], [address] RBC (Bld) [#/Vol] 4.00 10*6/uL Low 4.6-6.2 [facility] Comment on above: Performed By: #### L 506.1001, L501.9520, L500.4050, L300.3900, L100.0100 #### [facility] [address] [place], [address] RDW SD 52.2 fl High 35.1-43.9 [facility] Comment on above: Performed By: #### L 506.1001, L501.9520, L500.4050, L300.3900, L100.0100 #### [facility] [address] [place], [address] WBC (Bld) [#/Vol] 5.0 10*3/uL Normal 4.4-11.0 [facility] Comment on above: Performed By: #### L 506.1001, L501.9520, L500.4050, L300.3900, L100.0100 #### [facility] [address] [place], [address] Comprehensive Metabolic Prof ilon 08-15-2024 Albumin [Mass/Vol] 3.2 g/dL Normal 3.2-5.0 [facility] Comment on above: Performed By: #### L 506.1001, L501.9520, L500.4050, L300.3900, L100.0100 #### [facility] [address] [place], [address] Albumin/Globulin [Mass ratio] 0.7 {ratio} Low 0.9-2.4 [facility] Comment on above: Performed By: #### L 506.1001, L501.9520, L500.4050, L300.3900, L100.0100 #### [facility] [address] [place], [address] ALK P 95 U/L Normal 45-117 [facility] Comment on above: Performed By: #### L 506.1001, L501.9520, L500.4050, L300.3900, L100.0100 #### [facility] [address] [place], [address] ALT [Catalytic activity/Vol] 21 U/L Normal 16-61 [facility] Comment on above: Performed By: #### L 506.1001, L501.9520, L500.4050, L300.3900, L100.0100 #### [facility] [address] [place], [address] AST [Catalytic activity/Vol] 32 U/L Normal 15-37 [facility] Comment on above: Result Comment: Mode rate Hemolysis, Result may be falsely increased. Performed By: #### L 506.1001, L501.9520, L500.4050, L300.3900, L100.0100 #### [facility] [address] [place], [address] Bilirubin [Mass/Vol] 0.40 mg/dL Normal 0.20-1.00 [facility] Comment on above: Result Comment: For patients on eltrombopag therapy, use of Dimension [place] TBIL is not recommended. Performed By: #### L 506.1001, L501.9520, L500.4050, L300.3900, L100.0100 #### [facility] [address] [place], [address] BUN/CRE 19.9 RATIO Normal 10-20 [facility] Comment on above: Performed By: #### L 506.1001, L501.9520, L500.4050, L300.3900, L100.0100 #### [facility] [address] [place], [address] CA,Total 8.9 mg/dL Normal 8.5-10.1 [facility] Comment on above: Performed By: #### L 506.1001, L501.9520, L500.4050, L300.3900, L100.0100 #### [facility] [address] [place], [address] Chloride [Moles/Vol] 106 mmol/L Normal 98-107 [facility] Comment on above: Performed By: #### L 506.1001, L501.9520, L500.4050, L300.3900, L100.0100 #### [facility] [address] [place], [address] CO2 [Moles/Vol] 31.0 mmol/L Normal 21.0-32.0 [facility] Comment on above: Performed By: #### L 506.1001, L501.9520, L500.4050, L300.3900, L100.0100 #### [facility] [address] [place], [address] Creatinine [Mass/Vol] 0.86 mg/dL Normal 0.70-1.30 [facility] Comment on above: Result Comment: The validity of the calculated GFR GFRAA in patients over 70 years has not been determined. Clinical correlation is essential. Performed By: #### L 506.1001, L501.9520, L500.4050, L300.3900, L100.0100 #### [facility] [address] [place], [address] EST GFR - AA 112 mL/min Normal >60 [facility] Comment on above: Result Comment: Afri can [place]ican GFR Calc Performed By: #### L 506.1001, L501.9520, L500.4050, L300.3900, L100.0100 #### [facility] [address] [place], [address] GAP 0 Low 5-15 [facility] Comment on above: Performed By: #### L 506.1001, L501.9520, L500.4050, L300.3900, L100.0100 #### [facility] [address] [place], [address] GFR/1.73 sq M.predicted among non-blacks MDRD (S/P/Bld) [Vol rate/Area] 92 mL/min/{1.73_m2} Normal >60 [facility] Comment on above: Result Comment: Non- GFR Calc Performed By: #### L 506.1001, L501.9520, L500.4050, L300.3900, L100.0100 #### [facility] [address] [place], [address] Globulin (S) [Mass/Vol] 4.6 g/dL High 2.2-4.2 [facility] Comment on above: Performed By: #### L 506.1001, L501.9520, L500.4050, L300.3900, L100.0100 #### [facility] [address] [place], [address] Glucose [Mass/Vol] 90 mg/dL Normal 74-106 [facility] Comment on above: Performed By: #### L 506.1001, L501.9520, L500.4050, L300.3900, L100.0100 #### [facility] [address] [place], [address] Potassium [Moles/Vol] 5.0 mmol/L Normal 3.5-5.1 [facility] Comment on above: Result Comment: Mode rate Hemolysis, Result may be falsely increased. Performed By: #### L 506.1001, L501.9520, L500.4050, L300.3900, L100.0100 #### [facility] [address] [place], [address] Sodium [Moles/Vol] 137 mmol/L Normal 136-145 [facility] Comment on above: Performed By: #### L 506.1001, L501.9520, L500.4050, L300.3900, L100.0100 #### [facility] [address] [place], [address] T PROT 7.8 g/dL Normal 6.4-8.2 [facility] Comment on above: Performed By: #### L 506.1001, L501.9520, L500.4050, L300.3900, L100.0100 #### [facility] [address] [place], [address] Urea nitrogen [Mass/Vol] 17 mg/dL Normal 7-18 [facility] Comment on above: Performed By: #### L 506.1001, L501.9520, L500.4050, L300.3900, L100.0100 #### [facility] [address] [place], [address] Thyroid Stim Hormone (TSH)on 08-15-2024 TSH 3.540 uIU/mL Normal 0.358-3.740 [facility] Comment on above: Performed By: #### L 506.1001, L501.9520, L500.4050, L300.3900, L100.0100 #### [facility] [address] [place], [address] Vitamin D,25 Hydroxyon 08-15 Vitamin D 25-OH 29.0 ng/mL Normal [facility] Comment on above: Result Comment: Rebecca min D 25(OH) Status Range Deficiency <20 ng/mL (50nmol/L) Insufficiency 20 - 30 ng/mL (50 - 75 nmol/L) Sufficiency 30 - 100 ng/mL (75 - 250 nmol/L) Toxicity >100 ng/mL (>250 nmol/L) Performed By: #### L 506.1001, L501.9520, L500.4050, L300.3900, L100.0100 #### [facility] [address] [place], [address] Echo Completeon 08-08-2024 Echo Complete [facility] [address] [place] [address] Echo Complete 08/08/24 1301 MR#: [id number] Acct: [id number] Name: TEE GARCIA Siva Rep #: [id number] : 1945 79 From: Jovanni Tijerina MD Attending Dr: RICHMOND AlemanC Status: REG CLI Ordering Dr: Real Reed PROGRAM DIRECTOR/TRAFFIC DIRECTOR PROGRAM DIRECTOR/TRAFFIC DIRECTOR-C Date: 08/08/24 Location: [facility] Sex: M C Admitted: Reason For Study: AAFIB Procedure This was a 2D Doppler, Color Flow transthoracic echocardiogram. Exam performed in department. Left Ventricle Normal LV size. Moderate concentric left ventricular hypertrophy. The left ventricular ejection fraction is 65 %. No regional wall motion abnormalities noted. Right Ventricle Normal RV size. Normal systolic function. Atria Normal left atrium. Normal right atrium. Tricuspid Valve Normal tricuspid valve. Mild (1+) tricuspid valve insufficiency. Pulmonary artery systolic pressure is 40 mmHg. Aortic Valve Trisinus/trileafle t aortic valve. Mild diffuse aortic valve calcification. Peak aortic valve gradient 19 mmHg. Mean aortic valve gradient 10 mmHg. Mild aortic stenosis. Pulmonic Valve Normal pulmonic valve. Great Vessels Normal aortic root. Pericardium/Pleura l No pericardial effusion. MMode/2D Measurements Calculations LVIDd: 3.9 cm IVSd: 1.5 cm LAV(MOD-bp): 42.5 ml LVIDs: 3.0 cm LVPWd: 1.8 cm LAV(MOD-bp) Indexed: 20.1 ml/m2 FS: 23.4 % LAV(MOD-sp2): 43.8 ml LAV(MOD-sp4): 38.0 ml LVAd ap4: 24.7 cm2 SV(MOD-sp4): 43.7 ml SV(sp4-el): 43.6 ml LVLd ap4: 7.8 cm EDV(MOD-sp4): 66.5 ml EDV(sp4-el): 66.5 ml LVAs ap4: 13.2 cm2 LVLs ap4: 6.4 cm ESV(MOD-sp4): 22.8 ml ESV(sp4-el): 22.8 ml EF(MOD-sp4): 65.7 % EF(sp4-el): 65.6 % LA A4 area: 16.4 cm2 RA A4 area: 12.4 cm2 Time Measurements MV dec time: 0.31 sec Doppler Measurements Calculations MV E max cecil: 90.1 cm/sec Lat Peak E' Cecil: 9.0 cm/sec Med Peak E' Cecil: 7.3 cm/sec MV A max cecil: 90.1 cm/sec E/E' lat: 10.1 E/E' med: 12.3 MV E/A: 1.0 Ao V2 max: 217.7 cm/sec LV V1 max: 117.5 cm/sec TR max cecil: 304.2 cm/sec Ao max P.0 mmHg LV V1 max P.5 mmHg TR max P.0 mmHg Ao V2 mean: 148.6 cm/sec LV V1 mean P.3 mmHg Ao mean P.9 mmHg LV V1 mean: 85.0 cm/sec Ao V2 VTI: 50.4 cm LV V1 VTI: 29.5 cm AV (velocity ratio): 0.59 ECHO/Echo Complete Interpretation Summary Normal LV size. Moderate concentric left ventricular hypertrophy. The left ventricular ejection fraction is 65 %. Mild diffuse aortic valve calcification. Mild aortic stenosis. Ordering Physician: Real Reed Referring Physician: Real Reed Performed By: Tosha Norris and Student 08/12/24 0832 Date Jovanni Tijerina MD CC: PROGRAM DIRECTOR/TRAFFIC DIRECTORCarly Reed; Dr. Nish Harrell MD Date Dictated: 08/08/24 1301 Date Transcribed: 08/12/24 0832 Internal Communications Specialist: Signed Normal [facility] Protime w/INR Fingerstickon 08-02-2024 INR Coag (PPP) [Relative time] 3.2 {INR} Normal [facility] Comment on above: Result Comment: Crit ical Value > 4.0 Performed By: #### L 506.1001, L501.9520, L500.4050, L300.3900, L100.0100 #### [facility] [address] [place], [address] Protime Coagsen 31.9 SEC High 11.7-14.9 [facility] Comment on above: Performed By: #### L 506.1001, L501.9520, L500.4050, L300.3900, L100.0100 #### [facility] [address] [place], [address] Protime w/INR Fingerstickon 07-09-2024 INR Coag (PPP) [Relative time] 2.8 {INR} Normal [facility] Comment on above: Result Comment: Crit ical Value > 4.0 Performed By: #### L 9200.0000 #### [facility] [address] [place], [address] Protime Coagsen 28.7 SEC High 11.7-14.9 [facility] Comment on above: Performed By: #### L 9200.0000 #### [facility] [address] [place], [address] Cardiology Visit Reporton Cardiology Visit Report [facility] [address] [place] [address] OFFICE VISIT Date of Service: 06/25/24 MR#: [id number] Acct: [id number] Name: TEE GARCIA Rep #: [id number] : 1945 Provider: ARUNA paz Age/Sex: 79/M Location: [facility] Status: Signed [facility] History of Present Illness Details: This is a 79-year-old white male who presents today for an outpatient cardiovascular follow-up of his history of underlying aortic valve disease/repair, aortic root replacement, paroxysmal atrial fibrillation, postoperative saddle pulmonary emboli, hyperlipidemia, ANTONI with CPAP therapy, and on chronic anticoagulant therapy. He denies chest, arm, jaw, or neck discomfort. He states intermittent palpitations. He denies bilateral lower extremity edema. He denies claudication. He denies shortness of breath with activity, shortness of breath at rest, orthopnea, or PND. He denies chronic cough. He denies significant, sudden weight gain. He denies lightheadedness, dizziness, near-syncope, or syncope. He denies blood in urine, blood in stool, or epistaxis. He denies fever with chills. He denies myalgia. He states fatigue that he wonders if related to low sleep hours. His exercise level has remained stable. Intake Vital Signs 12/21/23 12:49 06/25/24 11:05 06/25/24 11:05 Height 5 ft 10 in 5 ft 10 in 5 ft 10 in Weight: 207 lb BMI 29.7 BP 127/73 H Blood Pressure Location Lt brachial Position Sitting Respiration 14 Pulse 62 Pulse Source NIBP Intake Visit Reasons: 6 M FU Allergies atorvastatin Adverse Reaction (Severe, Verified 12/21/23 13:06) Myalgias pravastatin Adverse Reaction (Severe, Verified 12/21/23 13:06) Aggitation rosuvastatin (From Crestor) Adverse Reaction (Severe, Verified 12/21/23 13:06) Myalgias Medications ???Medication ???Instructions ???Recorded ???Confirmed ???Type levothyroxine 50 mcg tablet 50 mcg PO DAILY 10/20/22 06/25/24 History sotalol 160 mg tablet 160 mg PO BID #180 tabs 07/03/23 06/25/24 Rx budesonide 0.5 mg/2 mL suspension 0.5 mg inhalation DAILY 10/17/23 06/25/24 History for nebulization warfarin 4 mg tablet 4 mg PO .COMPLEX #180 tabs 11/23/23 06/25/24 Rx Have you fallen in the past year?: No PFSH Medical History (Reviewed 06/25/24 @ 11:05 by Real Reed PROGRAM DIRECTOR/TRAFFIC DIRECTOR, PROGRAM DIRECTOR/TRAFFIC DIRECTOR-C) COVID-19 History of prolonged Q-T interval on ECG Nonrheumatic aortic (valve) insufficiency Drug overdose Sleep apnea History of TIA (transient ischemic attack) Pulmonary nodule Pneumothorax Paroxysmal atrial fibrillation Ascending aortic aneurysm Hyperlipidemia Acute venous embolism and thrombosis of deep vessels of proximal lower extremity Pericardial effusion Atrial fibrillation 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) Surgical History History of hernia repair History of ascending aortic replacement (02/01/16) History of aortic valve repair (02/01/16) Family History Father Cancer Prostate cancer Mother [...] safe at home: Yes ROS Const Const: Positive for fatigue; Negative for weakness, body ache, fever(s) or chills ENT ENT: Negative for dizziness or Nosebleed/epistaxi s Cardio Chest Pain: No Palpitations: Yes Edema: None Muscle aches with walking: None Resp Respiratory: Negative for SOB with activity, SOB at rest, SOB orthopnea SOB lying down, Cough or paroxysmal nocturnal dyspnea GI GI: Negative nausea, vomiting blood/hematemesis, bright, red blood in stools or black,tarry stools : Negative for hematuria or frequent nighttime urination/ nocturia Musc Musc: Positive for joint pain (Left hip); Negative for muscle aches/ myalgia Skin Skin: Negative non-healing lesions or rash Neuro Neuro: Negative for dizziness, lightheadedness, near syncope, syncope, orthostatic symptoms or weakness Endo Endo: Positive for fatigue Allergy Allergy/Immunology : Negative for rash Cardiology Exam Const Appearance: cooperative, healthy appearing, comfortable and no acute distress Nutritional Appearance: well nourished and overweight Orientation: alert, awake and oriented x3 Head Head: normal to inspection Ears: hearing grossly normal bilaterally Nose: external nose (more content not included)... Normal [facility] Capillary blood internationa l normalized ratio (INR)Ordered By: Real Reed on 03-07-2024 INR Coag (BldC) [Relative time] 2.2 [facility] Comment on above: Critical Value > 4.0 Whole blood prothrombin time Ordered By: Real Reed on 04-18-2024 PT Coag (Bld) [Time] 23.6 s 11.7-14.9 [facility] Capillary blood internationa l normalized ratio (INR)Ordered By: Real Reed on 02-16-2024 INR Coag (BldC) [Relative time] 2.0 [facility] Comment on above: Critical Value > 4.0 Whole blood prothrombin time Ordered By: Real Reed on 02-16-2024 PT Coag (Bld) [Time] 21.5 s 11.7-14.9 [facility] Absolute lymphocyte countOrd ered By: Nish Harrell on 02-14-2024 Lymphocytes Auto (Unsp spec) [#/Vol] 0.94 10*3/uL 0.83-4.51 [facility] Automated lymphocyte count a s percentage of total leukocytesOrdered By: Nish Harrell on 02-14-2024 Lymphocytes/100 WBC Auto (Unsp spec) 22.8 % 19-41 [facility] Basophil percentageOrdered B y: Nish Harrell on 02-14-2024 Basophils/100 WBC (Bld) 1.0 % 0-1 [facility] Bilirubin [Mass/Vol] 0.50 mg/dL 0.20-1.00 [facility] Comment on above: For patients on eltr ombopag therapy, use of Dimension [place] TBIL is not recommended. Chloride [Moles/Vol] 110 mmol/L 98-107 [facility] Eosinophils/100 WBC (Bld) 0.5 % 0-5 [facility] Glucose [Mass/Vol] 104 mg/dL 74-106 [facility] Comment on above: Fasting Glucose resu lt from 100 to 125 mg/dL suggests IMPAIRED HOMEOSTASIS per A.D.A. criteria. Hemoglobin (Bld) [Mass/Vol] 12.4 g/dL 13.0-16.5 [facility] Monocytes/100 WBC (Bld) 15.5 % 0-10 [facility] Neutrophils (Bld) [#/Vol] 2.5 10*3/uL 2.0-7.7 [facility] Neutrophils/100 WBC (Bld) 59.2 % 47-70 [facility] Potassium [Moles/Vol] 3.8 mmol/L 3.5-5.1 [facility] Protein [Mass/Vol] 7.0 g/dL 6.4-8.2 [facility] Sodium [Moles/Vol] 142 mmol/L 136-145 [facility] WBC (Bld) [#/Vol] 4.1 10*3/uL 4.4-11.0 [facility] Determination of erythrocyte mean corpuscular volume (MCV)Ordered By: Nish Harrell on 02-14-2024 MCV (RBC) [Entitic vol] 102.3 fL 80-94 [facility] Erythrocyte distribution wid th ratioOrdered By: [facility]-14-2024 Erythrocyte distribution width (RBC) [Ratio] 13.9 % 11.6-14.6 [facility] Erythrocyte distribution wid th standard deviationOrdered By: [facility] on 02-14-2024 Erythrocyte distribution width (RBC) [Entitic vol] 53.1 fL 35.1-43.9 [facility] Hematocrit Auto (Bld) [Volum e fraction]Ordered By: Nish Harrell 02-14-2024 Hematocrit (Bld) [Volume fraction] 39.3 % 40-54 [facility] Immature granulocytes/100 WB C Auto (Bld)Ordered By: [facility] 02-14-2024 Immature granulocytes/100 WBC (Bld) 1.000 % 0.0-0.9 [facility] Comment on above: IG% - Immature Granu locytes (promyelocytes, myelocytes and metamyelocytes) > 1% indicates that a LEFT SHIFT is Present. Laboratory - Chemistry and C hemistry - challengeOrdered By: Nish Harrell 02-14-2024 Albumin/Globulin [Mass ratio] 0.8 {ratio} 0.9-2.4 [facility] ALP [Catalytic activity/Vol] 80 U/L 45-117 [facility] ALT [Catalytic activity/Vol] 15 U/L 16-61 [facility] CO2 [Moles/Vol] 28.0 mmol/L 21.0-32.0 [facility] Globulin (S) [Mass/Vol] 4.0 g/dL 2.2-4.2 [facility] Urea nitrogen/Creatinine [Mass ratio] 24.0 mg/mg 10-20 [facility] - Hematology and Cell countsOrdered By: Nish Harrell on 02-14-2024 MCH (RBC) [Entitic mass] 32.3 pg 27.0-32.0 [facility] MCHC (RBC) [Mass/Vol] 31.6 g/dL 32-36 [facility] Nucleated RBC/100 WBC (Bld) [Ratio] 0 % 0-5 [facility] Platelet mean volume (Bld) [Entitic vol] 10.3 fL 6.2-12.0 [facility] Platelets (Bld) [#/Vol] 187 10*3/uL 150-450 [facility] No Panel InformationOrdered By: Nish Harrell on 02-14-2024 Estimated GFR (MDRD) Amer 98 mL/min >60 [facility] Comment on above: GFR Calc Estimated GFR (MDRD) Non-Af Amer 81 mL/min >60 [facility] Comment on above: Non- GFR Calc Vitamin D 25-Hydroxy 30.4 ng/mL [facility] Comment on above: Vitamin D 25(OH) Sta tus Range Deficiency <20 ng/mL (50nmol/L) Insufficiency 20 - 30 ng/mL (50 - 75 nmol/L) Sufficiency 30 - 100 ng/mL (75 - 250 nmol/L) Toxicity >100 ng/mL (>250 nmol/L) RBC Auto (Bld) [#/Vol]Ordere d By: Nish Harrell on 02-14-2024 RBC (Bld) [#/Vol] 3.84 10*6/uL 4.6-6.2 [facility] Serum or plasma calcium tia urement (mass/volume)Ordered By: Nish Harrell on 02-14-2024 Calcium [Mass/Vol] 8.5 mg/dL 8.5-10.1 [facility] Serum or plasma creatinine m easurement (mass/volume)Ordered By: Nsih Harrell 02-14-2024 Creatinine [Mass/Vol] 0.96 mg/dL 0.70-1.30 [facility] Comment on above: The validity of the calculated GFR & GFRAA in patients over 70 years has not been determined. Clinical correlation is essential. Serum or plasma thyroid stim ulating hormone (TSH) measurement (units/volume)Ordered By: Nish Harrell on 02-14-2024 TSH Qn 3.03 uIU/mL 0.358-3.74 [facility] Serum or plasma urea nitroge n measurement (mass/volume)Ordered By: Nish Harrell on 02-14-2024 Urea nitrogen [Mass/Vol] 23 mg/dL 7-18 [facility] Thin prep Papanicolaou smear with manual screeningOrdered By: Nish Harrell on 02-14-2024 Thin prep Papanicolaou smear with manual screening 3.0 g/dL 3.2-5.0 [facility] Thin prep Papanicolaou smear with manual screening 21 U/L 15-37 [facility] Thin prep Papanicolaou smear with manual screening 4 5-15 [facility] Capillary blood internationa l normalized ratio (INR)Ordered By: Real Reed on 02-02-2024 INR Coag (BldC) [Relative time] 3.0 [facility] Comment on above: Critical Value > 4.0 Whole blood prothrombin time Ordered By: Real Reed on 02-02-2024 PT Coag (Bld) [Time] 32.4 s 11.7-14.9 [facility] No Panel Informationon 01-18 INR International Normalized Ratio 1.3 [facility] Capillary blood internationa l normalized ratio (INR)Ordered By: Real Reed on 01-05-2024 INR Coag (BldC) [Relative time] 1.8 [facility] Comment on above: Critical Value > 4.0 Whole blood prothrombin time Ordered By: Real Reed on 01-05-2024 PT Coag (Bld) [Time] 19.5 s 11.7-14.9 [facility] Capillary blood internationa l normalized ratio (INR)Ordered By: Real Reed on 12-19-2023 INR Coag (BldC) [Relative time] 2.5 [facility] Comment on above: Critical Value > 4.0 Whole blood prothrombin time Ordered By: Real Reed on 12-19-2023 PT Coag (Bld) [Time] 26.7 s 11.7-14.9 [facility] Laboratory - CoagulationOrde red By: Real Reed on 11-09-2023 INR Coag (Bld) [Relative time] 2.6 {INR} [facility] Comment on above: Critical Value > 4.0 Whole blood prothrombin time Ordered By: Real Reed on 11-09-2023 PT Coag (Bld) [Time] 28.0 s 11.7-14.9 [facility] Laboratory - CoagulationOrde red By: Real Reed on 10-18-2023 INR Coag (Bld) [Relative time] 3.1 {INR} [facility] Comment on above: Critical Value > 4.0 Whole blood prothrombin time Ordered By: Real Reed on 10-18-2023 PT Coag (Bld) [Time] 33.1 s 11.7-14.9 [facility] Laboratory - CoagulationOrde red By: Real Reed on 09-07-2023 INR Coag (Bld) [Relative time] 2.1 {INR} [facility] Comment on above: Critical Value > 4.0 Whole blood prothrombin time Ordered By: Real Reed on 09-07-2023 PT Coag (Bld) [Time] 22.8 s 11.7-14.9 [facility] Laboratory - CoagulationOrde red By: Real Reed on 08-07-2023 INR Coag (Bld) [Relative time] 2.3 {INR} [facility] Comment on above: Critical Value > 4.0 Whole blood prothrombin time Ordered By: Real Reed on 08-07-2023 PT Coag (Bld) [Time] 24.8 s 11.7-14.9 [facility] Absolute lymphocyte countOrd ered By: Nish Harrell on 07-31-2023 Lymphocytes Auto (Unsp spec) [#/Vol] 1.11 10*3/uL 0.83-4.51 [facility] Basophil percentageOrdered B y: Nish Harrell on 07-31-2023 Basophils/100 WBC (Bld) 0.8 % 0-1 [facility] Bilirubin [Mass/Vol] 0.50 mg/dL 0.20-1.00 [facility] Comment on above: For patients on eltr ombopag therapy, use of Dimension [place] TBIL is not recommended. Chloride [Moles/Vol] 107 mmol/L 98-107 [facility] Eosinophils/100 WBC (Bld) 0.5 % 0-5 [facility] Glucose [Mass/Vol] 102 mg/dL 74-106 [facility] Comment on above: Fasting Glucose resu lt from 100 to 125 mg/dL suggests IMPAIRED HOMEOSTASIS per A.D.A. criteria. Neutrophils (Bld) [#/Vol] 2.3 10*3/uL 2.0-7.7 [facility] Neutrophils/100 WBC (Bld) 57.1 % 47-70 [facility] Potassium [Moles/Vol] 3.9 mmol/L 3.5-5.1 [facility] Protein [Mass/Vol] 6.9 g/dL 6.4-8.2 [facility] Sodium [Moles/Vol] 139 mmol/L 136-145 [facility] WBC (Bld) [#/Vol] 4.0 10*3/uL 4.4-11.0 [facility] Blood erythrocytes count (nu mber/volume)Ordered By: Nish Harrell on 07-31-2023 RBC (Bld) [#/Vol] 4.09 10*6/uL 4.6-6.2 [facility] Blood hemoglobin measurement (mass/volume)Ordered By: Nish Harrell on 07-31-2023 Hemoglobin (Bld) [Mass/Vol] 13.5 g/dL 13.0-16.5 [facility] Blood lymphocytes/100 leukoc ytesOrdered By: Nish Harrell on 07-31-2023 Lymphocytes/100 WBC (Bld) 27.8 % 19-41 [facility] Blood monocytes/100 leukocyt esOrdered By: Nish Harrell on 07-31-2023 Monocytes/100 WBC (Bld) 12.8 % 0-10 [facility] Blood platelet mean volumeOr dered By: Nish Harrell on 07-31-2023 Platelet mean volume (Bld) [Entitic vol] 9.7 fL 6.2-12.0 [facility] Determination of erythrocyte mean corpuscular volume (MCV)Ordered By: Nish Harrell on 07-31-2023 MCV (RBC) [Entitic vol] 104.2 fL 80-94 [facility] Hematocrit Auto (Bld) [Volum e fraction]Ordered By: Nish Harrell on 07-31-2023 Hematocrit (Bld) [Volume fraction] 42.6 % 40-54 [facility] INR in Blood by Coagulation assayOrdered By: Debora Hoover on 07-31-2023 INR Coag (Bld) [Relative time] 1.6 {INR} [facility] Laboratory - Chemistry and C hemistry - challengeOrdered By: Nish Harrell on 07-31-2023 ALP [Catalytic activity/Vol] 87 U/L 45-117 [facility] ALT [Catalytic activity/Vol] 23 U/L 16-61 [facility] CO2 [Moles/Vol] 28.0 mmol/L 21.0-32.0 [facility] Globulin (S) [Mass/Vol] 3.9 g/dL 2.2-4.2 [facility] Urea nitrogen/Creatinine [Mass ratio] 23.8 mg/mg 10-20 [facility] Laboratory - CoagulationOrde red By: Debora Hoover on 07-31-2023 PT Coag (PPP) [Time] 18.9 s 11.7-14.9 [facility] Laboratory - Hematology and Cell countsOrdered By: Nish Harrell on 07-31-2023 Erythrocyte distribution width (RBC) [Entitic vol] 58.1 fL 35.1-43.9 [facility] Erythrocyte distribution width (RBC) [Ratio] 14.8 % 11.6-14.6 [facility] Immature granulocytes/100 WBC (Bld) 1.000 % 0.0-0.9 [facility] Comment on above: IG% - Immature Granu locytes (promyelocytes, myelocytes and metamyelocytes) > 1% indicates that a LEFT SHIFT is Present. MCH (RBC) [Entitic mass] 33.0 pg 27.0-32.0 [facility] Nucleated RBC/100 WBC (Bld) [Ratio] 0 % 0-5 [facility] MCHC Auto (RBC) [Mass/Vol]Or dered By: Nish Harrell on 07-31-2023 MCHC (RBC) [Mass/Vol] 31.7 g/dL 32-36 [facility] No Panel InformationOrdered By: Nish Harrell on 07-31-2023 Estimated GFR (MDRD) Amer 102 mL/min >60 [facility] Comment on above: GFR Calc Estimated GFR (MDRD) Non-Af Amer 84 mL/min >60 [facility] Comment on above: Non- GFR Calc Thyroid Stimulating Hormone (TSH) 3.49 uIU/mL 0.358-3.74 [facility] Vitamin D 25-Hydroxy 31.4 ng/mL [facility] Comment on above: Vitamin D 25(OH) Sta tus Range Deficiency <20 ng/mL (50nmol/L) Insufficiency 20 - 30 ng/mL (50 - 75 nmol/L) Sufficiency 30 - 100 ng/mL (75 - 250 nmol/L) Toxicity >100 ng/mL (>250 nmol/L) Platelets bldOrdered By: Nish Harrell on 07-31-2023 Platelets (Bld) [#/Vol] 203 10*3/uL 150-450 [facility] Serum or plasma albumin tia urement (mass/volume)Ordered By: Nish Harrell on 07-31-2023 Albumin [Mass/Vol] 3.0 g/dL 3.2-5.0 [facility] Serum or plasma albumin/glob ulin mass ratioOrdered By: Nish Harrell on 07-31-2023 Albumin/Globulin [Mass ratio] 0.8 {ratio} 0.9-2.4 [facility] Serum or plasma calcium tia urement (mass/volume)Ordered By: Nish Harrell 07-31-2023 Calcium [Mass/Vol] 8.7 mg/dL 8.5-10.1 [facility] Serum or plasma creatinine m easurement (mass/volume)Ordered By: Nish Harrell 07-31-2023 Creatinine [Mass/Vol] 0.93 mg/dL 0.70-1.30 [facility] Comment on above: The validity of the calculated GFR & GFRAA in patients over 70 years has not been determined. Clinical correlation is essential. Serum or plasma urea nitroge n measurement (mass/volume)Ordered By: Nish Harrell on 07-31-2023 Urea nitrogen [Mass/Vol] 22 mg/dL 7-18 [facility] Thin prep Papanicolaou smear with manual screeningOrdered By: Nish Harrell 07-31-2023 Thin prep Papanicolaou smear with manual screening 19 U/L 15-37 [facility] Thin prep Papanicolaou smear with manual screening 4 5-15 [facility] Laboratory - CoagulationOrde red By: José Miguel Monte on 07-03-2023 INR Coag (Bld) [Relative time] 2.5 {INR} [facility] Comment on above: Critical Value > 4.0 Whole blood prothrombin time Ordered By: José Miguel Monte on 07-03-2023 PT Coag (Bld) [Time] 27.2 s 11.7-14.9 [facility] Laboratory - Microbiology an d Antimicrobial susceptibilityOrdered By: Nish Harrell on 06-27-2023 SARS-CoV-2 (COVID-19) RNA PAOLA+probe Ql (Unsp spec) [facility] SARS-CoV-2 (COVID-19) RNA PAOLA+probe Ql (Unsp spec) [facility] No Panel InformationOrdered By: Nish Harrell on 06-27-2023 Influenza Types A,B Direct FA (ALIA) [facility] Influenza Types A,B Direct FA (ALIA) [facility] RSV Ag EIAOrdered By: Nish davenport on 06-27-2023 RSV Ag Immune stain Ql (Tiss) [facility] RSV Ag Immune stain Ql (Tiss) [facility] Laboratory - Microbiology an d Antimicrobial susceptibilityOrdered By: Nish Harrell on 06-22-2023 SARS-CoV-2 (COVID-19) RNA PAOLA+probe Ql (Unsp spec) [facility] No Panel InformationOrdered By: Nish Harrell on 06-22-2023 Influenza Types A,B Direct FA (ALIA) [facility] RSV Ag EIAOrdered By: Nish davenport on 06-22-2023 RSV Ag Immune stain Ql (Tiss) [facility] Laboratory - Microbiology an d Antimicrobial susceptibilityOrdered By: Nish Harrell on 06-21-2023 SARS-CoV-2 (COVID-19) RNA PAOLA+probe Ql (Unsp spec) [facility] No Panel InformationOrdered By: Nish Harrell on 06-21-2023 Influenza Types A,B Direct FA (ALIA) [facility] RSV Ag EIAOrdered By: Nish davenport on 06-21-2023 RSV Ag Immune stain Ql (Tiss) [facility] Laboratory - CoagulationOrde red By: José Miguel Monte on 05-19-2023 INR Coag (Bld) [Relative time] 2.6 {INR} [facility] Comment on above: Critical Value > 4.0 Whole blood prothrombin time Ordered By: José Miguel Monte on 05-19-2023 PT Coag (Bld) [Time] 27.7 s 11.7-14.9 [facility] Laboratory - CoagulationOrde red By: Dr. Monte on 03-22-2023 INR Coag (Bld) [Relative time] 2.8 {INR} [facility] Comment on above: Critical Value > 4.0 Whole blood prothrombin time Ordered By: Dr. Monte on 03-22-2023 PT Coag (Bld) [Time] 30.4 s 11.7-14.9 [facility] Laboratory - CoagulationOrde red By: Dr. Monte on 03-15-2023 INR Coag (Bld) [Relative time] 3.1 {INR} [facility] Comment on above: Critical Value > 4.0 Whole blood prothrombin time Ordered By: Dr. Monte on 03-15-2023 PT Coag (Bld) [Time] 33.4 s 11.7-14.9 [facility] Laboratory - CoagulationOrde red By: Dr. Monte on 02-15-2023 INR Coag (Bld) [Relative time] 3.1 {INR} [facility] Comment on above: Critical Value > 4.0 Whole blood prothrombin time Ordered By: Dr. Monte on 02-15-2023 PT Coag (Bld) [Time] 33.0 s 11.7-14.9 [facility] Absolute lymphocyte countOrd ered By: Dr. Harrell on 02-06-2023 Lymphocytes Auto (Unsp spec) [#/Vol] 0.89 10*3/uL 0.83-4.51 [facility] Basophil percentageOrdered B y: Dr. Harrell on 02-06-2023 Basophils/100 WBC (Bld) 1.1 % 0-1 [facility] Bilirubin [Mass/Vol] 0.60 mg/dL 0.20-1.00 [facility] Comment on above: For patients on eltr ombopag therapy, use of Dimension [place] TBIL is not recommended. Chloride [Moles/Vol] 107 mmol/L 98-107 [facility] Eosinophils/100 WBC (Bld) 0.5 % 0-5 [facility] Glucose [Mass/Vol] 101 mg/dL 74-106 [facility] Comment on above: Fasting Glucose resu lt from 100 to 125 mg/dL suggests IMPAIRED HOMEOSTASIS per A.D.A. criteria. Neutrophils (Bld) [#/Vol] 2.1 10*3/uL 2.0-7.7 [facility] Neutrophils/100 WBC (Bld) 56.0 % 47-70 [facility] Potassium [Moles/Vol] 3.8 mmol/L 3.5-5.1 [facility] Protein [Mass/Vol] 6.9 g/dL 6.4-8.2 [facility] Sodium [Moles/Vol] 142 mmol/L 136-145 [facility] WBC (Bld) [#/Vol] 3.7 10*3/uL 4.4-11.0 [facility] Blood erythrocytes count (nu mber/volume)Ordered By: Dr. Harrell on 02-06-2023 RBC (Bld) [#/Vol] 3.92 10*6/uL 4.6-6.2 [facility] Blood hemoglobin measurement (mass/volume)Ordered By: Dr. Harrell on 02-06-2023 Hemoglobin (Bld) [Mass/Vol] 13.0 g/dL 13.0-16.5 [facility] Blood lymphocytes/100 leukoc ytesOrdered By: Dr. Harrell on 02-06-2023 Lymphocytes/100 WBC (Bld) 24.2 % 19-41 [facility] Blood monocytes/100 leukocyt esOrdered By: Dr. Harrell on 02-06-2023 Monocytes/100 WBC (Bld) 16.8 % 0-10 [facility] Blood platelet mean volumeOr dered By: Dr. Harrell on 02-06-2023 Platelet mean volume (Bld) [Entitic vol] 10.4 fL 6.2-12.0 [facility] Determination of erythrocyte mean corpuscular volume (MCV)Ordered By: Dr. Harrell on 02-06-2023 MCV (RBC) [Entitic vol] 101.8 fL 80-94 [facility] Hematocrit Auto (Bld) [Volum e fraction]Ordered By: Dr. Harrell on 02-06-2023 Hematocrit (Bld) [Volume fraction] 39.9 % 40-54 [facility] Laboratory - Chemistry and C hemistry - challengeOrdered By: Dr. Harrell on 02-06-2023 ALP [Catalytic activity/Vol] 81 U/L 45-117 [facility] ALT [Catalytic activity/Vol] 24 U/L 16-61 [facility] CO2 [Moles/Vol] 30.0 mmol/L 21.0-32.0 [facility] Globulin (S) [Mass/Vol] 3.6 g/dL 2.2-4.2 [facility] Urea nitrogen/Creatinine [Mass ratio] 22.5 mg/mg 10-20 [facility] Laboratory - Hematology and Cell countsOrdered By: Dr. Harrell on 02-06-2023 Erythrocyte distribution width (RBC) [Entitic vol] 53.0 fL 35.1-43.9 [facility] Erythrocyte distribution width (RBC) [Ratio] 14.1 % 11.6-14.6 [facility] Immature granulocytes/100 WBC (Bld) 1.400 % 0.0-0.9 [facility] Comment on above: IG% - Immature Granu locytes (promyelocytes, myelocytes and metamyelocytes) > 1% indicates that a LEFT SHIFT is Present. MCH (RBC) [Entitic mass] 33.2 pg 27.0-32.0 [facility] Nucleated RBC/100 WBC (Bld) [Ratio] 0 % 0-5 [facility] MCHC Auto (RBC) [Mass/Vol]Or dered By: Dr. Harrell on 02-06-2023 MCHC (RBC) [Mass/Vol] 32.6 g/dL 32-36 [facility] No Panel InformationOrdered By: Dr. Harrell on 02-06-2023 Estimated GFR (MDRD) Amer 101 mL/min >60 [facility] Comment on above: GFR Calc Estimated GFR (MDRD) Non-Af Amer 84 mL/min >60 [facility] Comment on above: Non- GFR Calc Thyroid Stimulating Hormone (TSH) 2.99 uIU/mL 0.358-3.74 [facility] Vitamin D 25-Hydroxy 26.0 ng/mL [facility] Comment on above: Vitamin D 25(OH) Sta tus Range Deficiency <20 ng/mL (50nmol/L) Insufficiency 20 - 30 ng/mL (50 - 75 nmol/L) Sufficiency 30 - 100 ng/mL (75 - 250 nmol/L) Toxicity >100 ng/mL (>250 nmol/L) Platelets bldOrdered By: Dr. Harrell on 02-06-2023 Platelets (Bld) [#/Vol] 215 10*3/uL 150-450 [facility] Serum or plasma albumin tia urement (mass/volume)Ordered By: Dr. Harrell on 02-06-2023 Albumin [Mass/Vol] 3.3 g/dL 3.2-5.0 [facility] Serum or plasma albumin/glob ulin mass ratioOrdered By: Dr. Harrell on 02-06-2023 Albumin/Globulin [Mass ratio] 0.9 {ratio} 0.9-2.4 [facility] Serum or plasma calcium tia urement (mass/volume)Ordered By: Dr. Harrell on 02-06-2023 Calcium [Mass/Vol] 8.9 mg/dL 8.5-10.1 [facility] Serum or plasma creatinine m easurement (mass/volume)Ordered By: Dr. Harrell on 02-06-2023 Creatinine [Mass/Vol] 0.93 mg/dL 0.70-1.30 [facility] Comment on above: The validity of the calculated GFR & GFRAA in patients over 70 years has not been determined. Clinical correlation is essential. Serum or plasma urea nitroge n measurement (mass/volume)Ordered By: Dr. Harrell on 02-06-2023 Urea nitrogen [Mass/Vol] 21 mg/dL 7-18 [facility] Thin prep Papanicolaou smear with manual screeningOrdered By: Dr. Harrell on 02-06-2023 Thin prep Papanicolaou smear with manual screening 25 U/L 15-37 [facility] Thin prep Papanicolaou smear with manual screening 5 5-15 [facility] Laboratory - CoagulationOrde red By: Dr. Monte on 01-10-2023 INR Coag (Bld) [Relative time] 2.7 {INR} [facility] Comment on above: Critical Value > 4.0 Whole blood prothrombin time Ordered By: Dr. Monte on 01-10-2023 PT Coag (Bld) [Time] 31.0 s 11.7-14.9 [facility] COVID-19 virus antigen assay Ordered By: Dr. Harrell on 01-06-2023 SARS-CoV-2 (COVID-19) Ag IA.rapid Ql (Resp) Not detected Not Detect [facility] Comment on above: Normal Reference Ran ge: Not DetectedMethod:(RT-PCR) real-time reverse transcriptase PCRLuminex ARVIND Instrument*The Food and Drug Administration (FDA) has issued an Emergency Use Authorization (EAU) for the ARVIND SARS-CoV-2 Assay for the rapid detection of the virus that causes COVID-19. This test has been validated, but the FDAs independent review of this validation is pending.*Negative results do not preclude infection and should not be used as the sole basis for treatment or patient management. Optimum specimen types and timing for peak viral levels during infections caused by SARS-CoV-2 have not been determined. Collection of multiple specimens from the same patient may be necessary to detect the virus. The possibility of a false negative result should be considered if the patient has clinical presentation or has had recent exposure. No Panel InformationOrdered By: Dr. Harrell on 01-06-2023 Influenza Types A,B Direct FA (ALIA) [facility] RSV Ag EIAOrdered By: Dr. Alyce davenport on 01-06-2023 RSV Ag Immune stain Ql (Tiss) [facility] Laboratory - CoagulationOrde red By: Dr. Monte on 12-13-2022 INR Coag (Bld) [Relative time] 2.6 {INR} [facility] Comment on above: Critical Value > 4.0 Whole blood prothrombin time Ordered By: Dr. Monte on 12-13-2022 PT Coag (Bld) [Time] 30.1 s 11.7-14.9 [facility] Laboratory - Microbiology an d Antimicrobial susceptibilityon 11-05-2022 SARS-CoV-2 (COVID-19) RNA PAOLA+probe Ql (Unsp spec) Not detected [facility] No Panel Informationon 11-05 Influenza Types A,B Rapid (Clinic) Detected [facility] Laboratory - CoagulationOrde red By: Dr. Monte on 10-20-2022 INR Coag (Bld) [Relative time] 2.5 {INR} [facility] Comment on above: Critical Value > 4.0 No Panel InformationOrdered By: Dr. Harrell on 10-20-2022 Thyroid Stimulating Hormone (TSH) 2.69 uIU/mL 0.358-3.74 [facility] Whole blood prothrombin time Ordered By: Dr. Monte on 10-20-2022 PT Coag (Bld) [Time] 29.5 s 11.7-14.9 [facility] Laboratory - CoagulationOrde red By: Dr. Monte on 09-27-2022 INR Coag (Bld) [Relative time] 1.9 {INR} [facility] Comment on above: Critical Value > 4.0 Whole blood prothrombin time Ordered By: Dr. Monte on 09-27-2022 PT Coag (Bld) [Time] 22.4 s 11.7-14.9 [facility] No Panel InformationOrdered By: Dr. Harrell on 09-06-2022 Influenza Types A,B Direct FA (ALIA) [facility] RSV Ag EIAOrdered By: Dr. Alyce davenport on 09-06-2022 RSV Ag Immune stain Ql (Tiss) [facility] Laboratory - CoagulationOrde red By: Dr. Monte on 08-24-2022 INR Coag (Bld) [Relative time] 2.7 {INR} [facility] Comment on above: Critical Value > 4.0 No Panel Informationon 08-24 INR International Normalized Ratio 2.7 [facility] Whole blood prothrombin time Ordered By: Dr. Monte on 08-24-2022 PT Coag (Bld) [Time] 31.3 s 11.7-14.9 [facility] Absolute lymphocyte counton 08-10-2022 Lymphocytes Auto (Unsp spec) [#/Vol] 1.33 10*3/uL 0.83-4.51 [facility] Work Phone: Basophil percentageon 2021 Basophils/100 WBC (Bld) 1.0 % 0-1 [facility] Work Phone: Bilirubin [Mass/Vol] 0.50 mg/dL 0.20-1.00 [facility] Work Phone: Comment on above: For patients on eltr ombopag therapy, use of Dimension [place] TBIL is not recommended. Chloride [Moles/Vol] 105 mmol/L 98-107 [facility] Work Phone: Eosinophils/100 WBC (Bld) 0.7 % 0-5 [facility] Work Phone: Glucose [Mass/Vol] 91 mg/dL 74-106 [facility] Work Phone: Neutrophils (Bld) [#/Vol] 3.5 10*3/uL 2.0-7.7 [facility] Work Phone: Neutrophils/100 WBC (Bld) 57.9 % 47-70 [facility] Work Phone: Potassium [Moles/Vol] 4.2 mmol/L 3.5-5.1 [facility] Work Phone: Protein [Mass/Vol] 7.4 g/dL 6.4-8.2 [facility] Work Phone: Sodium [Moles/Vol] 140 mmol/L 136-145 [facility] Work Phone: WBC (Bld) [#/Vol] 6.0 10*3/uL 4.4-11.0 [facility] Work Phone: Blood erythrocytes count (nu mber/volume)on 08-10-2022 RBC (Bld) [#/Vol] 3.93 10*6/uL 4.6-6.2 [facility] Work Phone: Blood hemoglobin measurement (mass/volume)on 08-10-2022 Hemoglobin (Bld) [Mass/Vol] 13.0 g/dL 13.0-16.5 [facility] Work Phone: Blood lymphocytes/100 leukoc yteson 08-10-2022 Lymphocytes/100 WBC (Bld) 22.3 % 19-41 [facility] Work Phone: Blood monocytes/100 leukocyt eson 08-10-2022 Monocytes/100 WBC (Bld) 14.6 % 0-10 [facility] Work Phone: Blood platelet mean volumeon 08-10-2022 Platelet mean volume (Bld) [Entitic vol] 10.2 fL 6.2-12.0 [facility] Work Phone: Determination of erythrocyte mean corpuscular volume (MCV)on 08-10-2022 MCV (RBC) [Entitic vol] 102.3 fL 80-94 [facility] Work Phone: Hematocrit Auto (Bld) [Volum e fraction]on 08-10-2022 Hematocrit (Bld) [Volume fraction] 40.2 % 40-54 [facility] Work Phone: INR in Blood by Coagulation assayon 08-10-2022 INR Coag (Bld) [Relative time] 1.7 {INR} [facility] Work Phone: Laboratory - Chemistry and C hemistry - challengeon 08-10-2022 ALP [Catalytic activity/Vol] 74 U/L 45-117 [facility] Work Phone: ALT [Catalytic activity/Vol] 29 U/L 16-61 [facility] Work Phone: CO2 [Moles/Vol] 30.0 mmol/L 21.0-32.0 [facility] Work Phone: Globulin (S) [Mass/Vol] 4.1 g/dL 2.2-4.2 [facility] Work Phone: Urea nitrogen/Creatinine [Mass ratio] 26.8 mg/mg 10-20 [facility] Work Phone: Laboratory - Coagulationon 0 08-10-2022 PT Coag (PPP) [Time] 19.3 s 11.7-14.9 [facility] Work Phone: Laboratory - Hematology and Cell countson 08-10-2022 Erythrocyte distribution width (RBC) [Entitic vol] 52.5 fL 35.1-43.9 [facility] Work Phone: [phone] Erythrocyte distribution width (RBC) [Ratio] 13.9 % 11.6-14.6 [facility] Work Phone: [phone] Immature granulocytes/100 WBC (Bld) 3.500 % 0.0-0.9 [facility] Work Phone: [phone] Comment on above: IG% - Immature Granu locytes (promyelocytes, myelocytes and metamyelocytes) > 1% indicates that a LEFT SHIFT is Present. MCH (RBC) [Entitic mass] 33.1 pg 27.0-32.0 [facility] Work Phone: [phone] Nucleated RBC/100 WBC (Bld) [Ratio] 0 % 0-5 [facility] Work Phone: [phone] MCHC Auto (RBC) [Mass/Vol]on 08-10-2022 MCHC (RBC) [Mass/Vol] 32.3 g/dL 32-36 [facility] Work Phone: No Panel Informationon 08-10 Estimated GFR (MDRD) Amer 112 mL/min >60 [facility] Work Phone: [phone] Comment on above: GFR Calc Estimated GFR (MDRD) Non-Af Amer 92 mL/min >60 [facility] Work Phone: [phone] Comment on above: Non- GFR Calc Thyroid Stimulating Hormone (TSH) 3.91 uIU/mL 0.358-3.74 [facility] Work Phone: [phone] Vitamin D 25-Hydroxy 33.2 ng/mL [facility] Work Phone: [phone] Comment on above: Vitamin D 25(OH) Sta tus Range Deficiency <20 ng/mL (50nmol/L) Insufficiency 20 - 30 ng/mL (50 - 75 nmol/L) Sufficiency 30 - 100 ng/mL (75 - 250 nmol/L) Toxicity >100 ng/mL (>250 nmol/L) Platelets bldon 08-10-2022 Platelets (Bld) [#/Vol] 243 10*3/uL 150-450 [facility] Work Phone: Serum or plasma albumin tia urement (mass/volume)on 08-10-2022 Albumin [Mass/Vol] 3.3 g/dL 3.2-5.0 [facility] Work Phone: [phone] Serum or plasma albumin/glob ulin mass ratioon 08-10-2022 Albumin/Globulin [Mass ratio] 0.8 {ratio} 0.9-2.4 [facility] Work Phone: Serum or plasma calcium tia urement (mass/volume)on 08-10-2022 Calcium [Mass/Vol] 8.9 mg/dL 8.5-10.1 [facility] Work Phone: Serum or plasma creatinine m easurement (mass/volume)on 08-10-2022 Creatinine [Mass/Vol] 0.86 mg/dL 0.70-1.30 [facility] Work Phone: Comment on above: The validity of the calculated GFR & GFRAA in patients over 70 years has not been determined. Clinical correlation is essential. Serum or plasma urea nitroge n measurement (mass/volume)on 08-10-2022 Urea nitrogen [Mass/Vol] 23 mg/dL 7-18 [facility] Work Phone: [phone] Thin prep Papanicolaou smear with manual screeningon 08-10-2022 Thin prep Papanicolaou smear with manual screening 21 U/L 15-37 [facility] Work Phone: [phone] Thin prep Papanicolaou smear with manual screening 5 5-15 [facility] Work Phone: [phone] No Panel Informationon 08-02 POC SARS CoV-2 Antigen Positive [facility] Work Phone: Laboratory - Coagulationon 0 07-19-2022 INR Coag (Bld) [Relative time] 3.2 {INR} [facility] Work Phone: Comment on above: Critical Value > 4.0 Whole blood prothrombin time on 07-19-2022 PT Coag (Bld) [Time] 36.5 s 11.7-14.9 [facility] Work Phone: Laboratory - Coagulationon 0 05-24-2022 INR Coag (Bld) [Relative time] 2.3 {INR} [facility] Work Phone: [phone] Comment on above: Critical Value > 4.0 Whole blood prothrombin time on 05-24-2022 PT Coag (Bld) [Time] 26.5 s 11.7-14.9 [facility] Work Phone: Laboratory - Coagulationon 0 04-29-2022 INR Coag (Bld) [Relative time] 2.9 {INR} [facility] Work Phone: Comment on above: Critical Value > 4.0 Whole blood prothrombin time on 04-29-2022 PT Coag (Bld) [Time] 33.0 s 11.7-14.9 [facility] Work Phone: Laboratory - Coagulationon 0 04-15-2022 INR Coag (Bld) [Relative time] 1.8 {INR} [facility] Work Phone: Comment on above: Critical Value > 4.0 Whole blood prothrombin time on 04-15-2022 PT Coag (Bld) [Time] 21.9 s 11.7-14.9 [facility] Work Phone: Laboratory - Coagulationon 0 03-09-2022 INR Coag (Bld) [Relative time] 2.4 {INR} [facility] Work Phone: [phone] Comment on above: Critical Value > 4.0 Whole blood prothrombin time on 03-09-2022 PT Coag (Bld) [Time] 28.2 s 11.7-14.9 [facility] Work Phone: Absolute lymphocyte counton 02-02-2022 Lymphocytes Auto (Unsp spec) [#/Vol] 0.96 10*3/uL 0.83-4.51 [facility] Work Phone: Basophil percentageon 2021 Basophils/100 WBC (Bld) 1.0 % 0-1 [facility] Work Phone: Bilirubin [Mass/Vol] 0.70 mg/dL 0.20-1.00 [facility] Work Phone: Comment on above: For patients on eltr ombopag therapy, use of Dimension [place] TBIL is not recommended. Chloride [Moles/Vol] 104 mmol/L 98-107 [facility] Work Phone: Eosinophils/100 WBC (Bld) 0.5 % 0-5 [facility] Work Phone: Glucose [Mass/Vol] 80 mg/dL 74-106 [facility] Work Phone: Neutrophils (Bld) [#/Vol] 3.6 10*3/uL 2.0-7.7 [facility] Work Phone: Neutrophils/100 WBC (Bld) 60.4 % 47-70 [facility] Work Phone: Potassium [Moles/Vol] 4.1 mmol/L 3.5-5.1 [facility] Work Phone: Protein [Mass/Vol] 6.7 g/dL 6.4-8.2 [facility] Work Phone: Sodium [Moles/Vol] 138 mmol/L 136-145 [facility] Work Phone: WBC (Bld) [#/Vol] 5.9 10*3/uL 4.4-11.0 [facility] Work Phone: Blood erythrocytes count (nu mber/volume)on 02-02-2022 RBC (Bld) [#/Vol] 4.00 10*6/uL 4.6-6.2 [facility] Work Phone: Blood hemoglobin measurement (mass/volume)on 02-02-2022 Hemoglobin (Bld) [Mass/Vol] 13.2 g/dL 13.0-16.5 [facility] Work Phone: Blood lymphocytes/100 leukoc yteson 02-02-2022 Lymphocytes/100 WBC (Bld) 16.2 % 19-41 [facility] Work Phone: Blood monocytes/100 leukocyt eson 02-02-2022 Monocytes/100 WBC (Bld) 17.7 % 0-10 [facility] Work Phone: Blood platelet mean volumeon 02-02-2022 Platelet mean volume (Bld) [Entitic vol] 10.2 fL 6.2-12.0 [facility] Work Phone: Determination of erythrocyte mean corpuscular volume (MCV)on 02-02-2022 MCV (RBC) [Entitic vol] 99.3 fL 80-94 [facility] Work Phone: Hematocrit Auto (Bld) [Volum e fraction]on 02-02-2022 Hematocrit (Bld) [Volume fraction] 39.7 % 40-54 [facility] Work Phone: Laboratory - Chemistry and C hemistry - challengeon 02-02-2022 ALP [Catalytic activity/Vol] 86 U/L 45-117 [facility] Work Phone: ALT [Catalytic activity/Vol] 25 U/L 16-61 [facility] Work Phone: CO2 [Moles/Vol] 31.0 mmol/L 21.0-32.0 [facility] Work Phone: [phone] Globulin (S) [Mass/Vol] 3.5 g/dL 2.2-4.2 [facility] Work Phone: Urea nitrogen/Creatinine [Mass ratio] 20.8 mg/mg 10-20 [facility] Work Phone: Laboratory - Hematology and Cell countson 02-02-2022 Erythrocyte distribution width (RBC) [Entitic vol] 50.2 fL 35.1-43.9 [facility]: Erythrocyte distribution width (RBC) [Ratio] 13.6 % 11.6-14.6 [facility] Work Phone: [phone] Immature granulocytes/100 WBC (Bld) 4.200 % 0.0-0.9 [facility] Work Phone: [phone] Comment on above: IG% - Immature Granu locytes (promyelocytes, myelocytes and metamyelocytes) > 1% indicates that a LEFT SHIFT is Present. MCH (RBC) [Entitic mass] 33.0 pg 27.0-32.0 [facility] Work Phone: [phone] Nucleated RBC/100 WBC (Bld) [Ratio] 0 % 0-5 [facility] Work Phone: [phone] MCHC Auto (RBC) [Mass/Vol]on 02-02-2022 MCHC (RBC) [Mass/Vol] 33.2 g/dL 32-36 [facility] Work Phone: No Panel Informationon 02-02 Estimated GFR (MDRD) Amer 93 mL/min >60 [facility] Work Phone: [phone] Comment on above: GFR Calc Estimated GFR (MDRD) Non-Af Amer 77 mL/min >60 [facility] Work Phone: [phone] Comment on above: Non- GFR Calc Thyroid Stimulating Hormone (TSH) 2.68 uIU/mL 0.358-3.74 [facility] Work Phone: [phone] Vitamin D 25-Hydroxy 27.4 ng/mL [facility] Work Phone: [phone] Comment on above: Vitamin D 25(OH) Sta tus Range Deficiency <20 ng/mL (50nmol/L) Insufficiency 20 - 30 ng/mL (50 - 75 nmol/L) Sufficiency 30 - 100 ng/mL (75 - 250 nmol/L) Toxicity >100 ng/mL (>250 nmol/L) Platelets bldon 02-02-2022 Platelets (Bld) [#/Vol] 213 10*3/uL 150-450 [facility] Work Phone: Serum or plasma albumin tia urement (mass/volume)on 02-02-2022 Albumin [Mass/Vol] 3.2 g/dL 3.2-5.0 [facility] Work Phone: [phone] Serum or plasma albumin/glob ulin mass ratioon 02-02-2022 Albumin/Globulin [Mass ratio] 0.9 {ratio} 0.9-2.4 [facility] Work Phone: [phone] Serum or plasma calcium tia urement (mass/volume)on 02-02-2022 Calcium [Mass/Vol] 8.7 mg/dL 8.5-10.1 [facility] Work Phone: [phone] Serum or plasma creatinine m easurement (mass/volume)on 02-02-2022 Creatinine [Mass/Vol] 1.01 mg/dL 0.70-1.30 [facility] Work Phone: Comment on above: The validity of the calculated GFR & GFRAA in patients over 70 years has not been determined. Clinical correlation is essential. Serum or plasma urea nitroge n measurement (mass/volume)on 02-02-2022 Urea nitrogen [Mass/Vol] 21 mg/dL 7-18 [facility] Work Phone: Thin prep Papanicolaou smear with manual screeningon 02-02-2022 Thin prep Papanicolaou smear with manual screening 19 U/L 15-37 [facility] Work Phone: Thin prep Papanicolaou smear with manual screening 3 5-15 [facility] Work Phone: Laboratory - Microbiology an d Antimicrobial susceptibilityon 01-25-2022 SARS-CoV-2 (COVID-19) RNA PAOLA+probe Ql (Unsp spec) Not detected Not Detect [facility] Work Phone: Comment on above: Normal Reference Ran ge: Not DetectedMethod:(RT-PCR) real-time reverse transcriptase PCRLuminex ARVIND Instrument*The Food and Drug Administration (FDA) has issued an Emergency Use Authorization (EAU) for the ARVIND SARS-CoV-2 Assay for the rapid detection of the virus that causes COVID-19. This test has been validated, but the FDAs independent review of this validation is pending.*Negative results do not preclude infection and should not be used as the sole basis for treatment or patient management. Optimum specimen types and timing for peak viral levels during infections caused by SARS-CoV-2 have not been determined. Collection of multiple specimens from the same patient may be necessary to detect the virus. The possibility of a false negative result should be considered if the patient has clinical presentation or has had recent exposure. No Panel Informationon 01-25 Influenza Types A,B Direct FA (ALIA) [facility] Work Phone: Laboratory - Coagulationon 0 01-05-2022 INR Coag (Bld) [Relative time] 2.0 {INR} [facility] Work Phone: Comment on above: Critical Value > 4.0 Whole blood prothrombin time on 01-05-2022 PT Coag (Bld) [Time] 23.4 s 11.9-14.4 [facility] Work Phone: Lab Report: Prothrombin Time w/INRon 01-17-2018 Coagulation tissue factor induced in platelet poor plasma 19.9 s High 11.7-14.9 [facility] Work Phone: [phone] INR in blood by coagulation 1.7 {INR} Invalid Interpretation Code [facility] Work Phone: [phone] Lab Report: Protime w/INR Fi ngerstickon 12-08-2017 Coagulation tissue factor induced in platelet poor plasma 32.1 s High 11.9-14.4 [facility] Work Phone: [phone] INR in blood by coagulation 2.80 {INR} Invalid Interpretation Code [facility] Work Phone: [phone] Lab Report: Protime w/INR Fi ngerstickon 11-04-2017 Coagulation tissue factor induced in platelet poor plasma 24.4 s High 11.9-14.4 [facility] Work Phone: [phone] INR in blood by coagulation 2.10 {INR} Invalid Interpretation Code [facility] Work Phone: [phone] Coumadin Management: César Bertrand 09-25-2017 INR Coag RelTime (Bld) Hospital lab Invalid Interpretation Code [facility] Work Phone: INR Coag RelTime (Bld) 2 to 3 Invalid Interpretation Code [facility] Work Phone: [phone] INR Coag RelTime (PPP) 2.0 {INR} Invalid Interpretation Code [facility] Work Phone: [phone] Prothrombin time (PT) Coag time (PPP) 21.9 s Invalid Interpretation Code [facility] Work Phone: [phone] Lab Report: Prothrombin Time w/INRon 09-22-2017 Prothrombin time (PT) Coag time (PPP) 21.9 s High 11.7-14.9 [facility] Work Phone: [phone] Coumadin Management: César stock Calcon 08-14-2017 Coagulation tissue factor induced in platelet poor plasma 27.4 s Invalid Interpretation Code [facility] Work Phone: [phone] INR in blood by coagulation Hospital lab Invalid Interpretation Code [facility] Work Phone: [phone] INR in blood by coagulation 2.4 {INR} Invalid Interpretation Code [facility] Work Phone: [phone] INR in blood by coagulation 2 to 3 Invalid Interpretation Code [facility] Work Phone: [phone] Replaced Document: Protime w /INR Fingerstickon 08-14-2017 Coagulation tissue factor induced in platelet poor plasma 27.4 s High 11.9-14.4 [facility] Work Phone: [phone] Coumadin Management: César stock Calcon 07-28-2017 Coagulation tissue factor induced in platelet poor plasma 18.4 s Invalid Interpretation Code [facility] Work Phone: [phone] INR in blood by coagulation Hospital lab Invalid Interpretation Code [facility] Work Phone: [phone] INR in blood by coagulation 1.6 {INR} Invalid Interpretation Code [facility] Work Phone: [phone] INR in blood by coagulation 2 to 3 Invalid Interpretation Code [facility] Work Phone: [phone] Lab Report: Protime w/INR Fi ngerstickon 07-27-2017 Coagulation tissue factor induced in platelet poor plasma 18.4 s High 11.9-14.4 [facility] Work Phone: [phone] Office Visiton 07-10-2017 Documentation of current medications (procedure) Done Invalid Interpretation Code [facility] Work Phone: [phone] Fall risk assessment No Invalid Interpretation Code [facility] Work Phone: [phone] Coumadin Management: Warfari n Calcon 06-29-2017 INR Coag RelTime (Bld) Hospital lab Invalid Interpretation Code [facility] Work Phone: [phone] INR Coag RelTime (PPP) 2.2 {INR} [facility] Work Phone: [phone] INR in blood by coagulation 2.2 {INR} Invalid Interpretation Code [facility] Work Phone: [phone] INR in blood by coagulation 2 to 3 Invalid Interpretation Code [facility] Work Phone: [phone] international normalized ratio (INR) range 2 to 3 [facility] Work Phone: [phone] Prothrombin time (PT) Coag time (PPP) 25.4 s Invalid Interpretation Code [facility] Work Phone: [phone] Lab Report: Protime w/INR Fi ngerstickon 06-28-2017 Prothrombin time (PT) Coag time (PPP) 25.4 s High 11.9-14.4 [facility] Work Phone: [phone] Coumadin Management: Warfmagda stock Calcon 05-30-2017 Coagulation tissue factor induced in platelet poor plasma 26.2 s Invalid Interpretation Code [facility] Work Phone: [phone] INR in blood by coagulation Hospital lab Invalid Interpretation Code [facility] Work Phone: [phone] INR in blood by coagulation 2.3 {INR} Invalid Interpretation Code [facility] Work Phone: [phone] INR in blood by coagulation 2 to 3 Invalid Interpretation Code [facility] Work Phone: [phone] Lab Report: Prothrombin Time Fingerstickon 05-30-2017 Coagulation tissue factor induced in platelet poor plasma 26.2 s High 11.9-14.4 [facility] Work Phone: [phone] Coumadin Management: Warfari n Calcon 2017 INR Coag RelTime (Bld) Hospital lab [facility] Work Phone: [phone] INR Coag RelTime (PPP) 2.1 {INR} [facility] Work Phone: [phone] international normalized ratio (INR) range 2 to 3 [facility] Work Phone: [phone] Prothrombin time (PT) Coag time (PPP) 23.8 s [facility] Work Phone: [phone] Lab Report: Prothrombin Time Fingerstickon 2017 Prothrombin time (PT) Coag time (PPP) 23.8 s High 11.9-14.4 [facility] Work Phone: [phone] Coumadin Management: César Bertrand 04-25-2017 Coagulation tissue factor induced in platelet poor plasma 26.0 s Invalid Interpretation Code [facility] Work Phone: [phone] INR in blood by coagulation Hospital lab Invalid Interpretation Code [facility] Work Phone: [phone] INR in blood by coagulation 2.3 {INR} Invalid Interpretation Code [facility] Work Phone: [phone] INR in blood by coagulation 2 to 3 Invalid Interpretation Code [facility] Work Phone: [phone] Lab Report: Prothrombin Time Fingerstickon 04-25-2017 Coagulation tissue factor induced in platelet poor plasma 26 s High 11.9-14.4 [facility] Work Phone: [phone] Coumadin Management: César Bertrand 04-18-2017 INR Coag (Bld) [Relative time] Hospital lab [facility] Work Phone: [phone] INR Coag (PPP) [Relative time] 1.3 {INR} [facility] Work Phone: [phone] international normalized ratio (INR) range 2 to 3 [facility] Work Phone: [phone] PT Coag (PPP) [Time] 15.[address] [facility] Work Phone: [phone] Lab Report: Prothrombin Time Fingerstickon 04-14-2017 PT Coag (PPP) [Time] 13.8 s 11.9-14.[address] [facility] Work Phone: [phone] Lab Report: Prothrombin Time w/INRon 04-14-2017 PT Coag (PPP) [Time] 15.3 s High 11.7-14.[address] [facility] Work Phone: [phone] Coumadin Management: Warfari n Calcon 03-29-2017 Coagulation tissue factor induced in platelet poor plasma 20.8 s Invalid Interpretation Code [facility] Work Phone: [phone] INR in blood by coagulation Hospital lab Invalid Interpretation Code [facility] Work Phone: [phone] INR in blood by coagulation 1.8 {INR} Invalid Interpretation Code [facility] Work Phone: [phone] INR in blood by coagulation 2 to 3 Invalid Interpretation Code [facility] Work Phone: [phone] Lab Report: Prothrombin Time Fingerstickon 03-29-2017 Coagulation tissue factor induced in platelet poor plasma 20.8 s High 11.9-14.4 [facility] Work Phone: [phone] Lab Report: Prothrombin Time w/INRon 01-25-2017 Coagulation tissue factor induced in platelet poor plasma 39.1 s High 11.7-14.9 [facility] Work Phone: [phone] Office Visit: [facility] 09-09-20 16 Dietary management education, guidance, and counseling (procedure) yes Invalid Interpretation Code [facility] Work Phone: [phone] Documentation of current medications (procedure) Done Invalid Interpretation Code [facility] Work Phone: [phone] Protein mass conc Done [facility] Work Phone: [phone] Office Visiton 06-09-2016 Tobacco smoking status NHIS Tobacco smoking status NHIS Invalid Interpretation Code [facility] Work Phone: [phone] Tobacco smoking status NHIS Never smoker [facility] Work Phone: [phone] Tobacco use [facility] Never smoker Invalid Interpretation Code [facility] Work Phone: [phone] 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 BUN/Creatinine Ratio 21.9 mg/mg Invalid Interpretation Code [facility] Work Phone: [phone] Calcium 8.5 mg/dL Invalid Interpretation Code [facility] Work Phone: [phone] Chloride 103 mmol/L Invalid Interpretation Code [facility] Work Phone: [phone] CO2 28.0 mmol/L Invalid Interpretation Code [facility] Work Phone: [phone] CO2 (BldV) [Partial pressure] 28.0 mmol/L [facility] Work Phone: [phone] Creatinine 1.05 mg/dL Invalid Interpretation Code [facility] Work Phone: [phone] Glucose 117 mg/dL Invalid Interpretation Code [facility] Work Phone: [phone] Glucose [Mass/Vol] 117 mg/dL Invalid Interpretation Code [facility] Work Phone: [phone] Hematocrit (Bld) [Volume fraction] 38.5 % [facility] Work Phone: [phone] Hematocrit (HCT) 38.5 % Invalid Interpretation Code [facility] Work Phone: [phone] Hemoglobin (HGB) 12.4 g/dL Invalid Interpretation Code [facility] Work Phone: [phone] Platelets 212 10*3/mm3 Invalid Interpretation Code [facility] Work Phone: [phone] Platelets (Bld) [#/Vol] 212 10*3/mm3 [facility] Work Phone: [phone] Potassium 5.0 mmol/L Invalid Interpretation Code [facility] Work Phone: [phone] Sodium 134 mmol/L Invalid Interpretation Code [facility] Work Phone: [phone] Urea nitrogen 23 mg/dL Invalid Interpretation Code [facility] Work Phone: [phone] WBC (Bld) [#/Vol] 9.0 10*3/uL [facility] Work Phone: [phone] WBC (Leukocytes) 9.0 10*3/uL Invalid Interpretation Code [facility] Work Phone: [phone] Replaced Document: Thom Butler 03-11-2016 EKG QRS axis -6 deg Invalid Interpretation Code [facility] Work Phone: [phone] electrocardiogram interpretation Sinus Rhythm - Nonspecific T-abnormality. ABNORMAL Invalid Interpretation Code [facility] Work Phone: [phone] GE use only - for [employer] import when terms are not otherwise specified 425 ms Invalid Interpretation Code [employer] Phone: [phone] Interpretation Sinus Rhythm - Nonspecific T-abnormality. ABNORMAL Invalid Interpretation Code [facility] Work Phone: [phone] P [place] 42 deg Invalid Interpretation Code [facility] Work Phone: [phone] P wave axis, electrocardiogram 42 deg Invalid Interpretation Code [facility] Work Phone: [phone] TX Interval 150 ms Invalid Interpretation Code [facility] Work Phone: [phone] TX interval, electrocardiogram 150 ms Invalid Interpretation Code [facility] Work Phone: [phone] Pulse (Heart Rate) 64 /min Invalid Interpretation Code [employer] Phone: [phone] QRS axis, electrocardiogram -6 deg Invalid Interpretation Code [facility] Work Phone: [phone] QRS Duration 90 ms Invalid Interpretation Code [facility] Work Phone: [phone] QRS duration, electrocardiogram 90 ms Invalid Interpretation Code [employer] Phone: [phone] QT Interval new path ms Invalid Interpretation Code [employer] Phone: [phone] QT interval, electrocardiogram new path ms Invalid Interpretation Code [employer] Phone: [phone] QTc [place] 425 ms Invalid Interpretation Code [employer] Phone: [phone] T [place] -1 deg Invalid Interpretation Code [facility] Work Phone: [phone] T wave axis, electrocardiogram -1 deg Invalid Interpretation Code [employer] Phone: [phone] 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 02-08-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 Left ventricular Ejection fraction 64 % Invalid Interpretation Code [employer] Phone: [phone] Lab Report: Blood Gas Specim en Typeon 01-19-2016 arterial blood gas ART Invalid Interpretation Code [facility] Work Phone: BLD GAS TYPE ART Invalid Interpretation Code [facility] Work Phone: [phone] Lab Report: PO2 I-[place] Oxygen (Bld) [Partial pressure] 81 mm[Hg] 75-100 [facility] Work Phone: [phone] Oxygen in arterial blood 81 mm[Hg] Invalid Interpretation Code 75-100 [facility] Work Phone: [phone] Lab Report: SO2 ISTATon 03-0 O2 saturation 95 % Invalid Interpretation Code 95-99 [facility] Work Phone: [phone] SaO2% (BldA) [Mass fraction] 95 % 95-99 [facility] Work Phone: [phone] Lab Report: VBG PO2 I-Solange 01-19-2016 oxygen, partial pressure, venous blood 45 mm[Hg] High 25-40 [facility] Work Phone: [phone] VBG PO2 I-STAT 45 mm[Hg] High 25-40 [facility] Work Phone: [phone] Lab Report: VBG SO2 ISTATon 01-19-2016 saturation venous oxygen 78 % High 50-70 [facility] Work Phone: [phone] VBG SO2 ISTAT 78 % High 50-70 [facility] Work Phone: [phone] Lab Report: CBC W/Diff, Auto matedon 01-15-2016 Absolute Neut 4.2 X10 3/UL Invalid Interpretation Code 2.0-7.7 [facility] Work Phone: [phone] Basophils/100 leukocytes 0.5 % Invalid Interpretation Code 0-1 [facility] Work Phone: [phone] Basophils/100 WBC (Bld) 0.5 % 0-1 [facility] Work Phone: [phone] Eosinophils/100 leukocytes 1.0 % Invalid Interpretation Code 0-5 [facility] Work Phone: [phone] Eosinophils/100 WBC (Bld) 1.0 % 0-5 [facility] Work Phone: [phone] Erythrocyte distribution width (RBC) [Ratio] 47.8 fL High 35.1-43.9 [facility] Work Phone: [phone] Erythrocyte distribution width (RBC) [Ratio] 13.6 % 11.6-14.6 [facility] Work Phone: [phone] Erythrocytes (RBC) 4.74 10*6/uL Invalid Interpretation Code 4.6-6.2 [facility] Work Phone: [phone] Immature granulocytes (Bld) [#/Vol] 0.500 % 0.0-0.9 [facility] Work Phone: 1() immature granulocytes, percentage of total cells, blood 0.500 % Invalid Interpretation Code 0.0-0.9 [facility] Work Phone: [phone] Immature granulocytes/100 WBC (Bld) 0.500 % Invalid Interpretation Code 0.0-0.9 [facility] Work Phone: 1() 00 Lymphocytes 0.82 X10 3/UL Low 0.83-4.51 [facility] Work Phone: 1() Lymphocytes (Bld) [#/Vol] 0.82 X10 3/UL Low 0.83-4. 51 [facility] Work Phone: 1() 00 Lymphocytes/100 leukocytes 14.1 % Low 19-41 [facility] Work Phone: 1() 00 Lymphocytes/100 WBC (Bld) 14.1 % Low 19-41 [facility] Work Phone: 1() 00 MCH 30.6 pg Invalid Interpretation Code 27.0-32.0 [facility] Work Phone: 1() 00 MCH (RBC) [Entitic mass] 30.6 pg 27.0-32.0 [facility] Work Phone: 1() 00 MCHC 31.7 G/GL Low 32-36 [facility] Work Phone: [phone] MCHC (RBC) [Mass/Vol] 31.7 G/GL Low 32-36 [facility] Work Phone: 1() 00 MCV 96.4 fL High 80-94 [facility] Work Phone: [phone] MCV (RBC) [Entitic vol] 96.4 fL High 80-94 [facility] Work Phone: 1() 00 Monocytes/100 leukocytes 11.7 % High 0-10 [facility] Work Phone: [phone] Monocytes/100 WBC (Bld) 11.7 % High 0-10 [facility] Work Phone: [phone] neutrophil count, blood 4.2 X10 3/UL Invalid Interpretation Code 2.0-7.7 [facility] Work Phone: [phone] Neutrophils (Bld) [#/Vol] 4.2 X10 3/UL 2.0-7.7 [facility] Work Phone: [phone] Neutrophils/100 leukocytes 72.2 % High 47-70 [facility] Work Phone: [phone] Neutrophils/100 WBC (Bld) 72.2 % High 47-70 [facility] Work Phone: [phone] Platelet mean volume (Bld) [Entitic vol] 9.8 fL 6.2-12.0 [facility] Work Phone: [phone] PMV by Shannon 9.8 fL Invalid Interpretation Code 6.2-12.0 [facility] Work Phone: [phone] RBC (Bld) [#/Vol] 4.74 10*6/uL 4.6-6.2 [facility] Work Phone: [phone] RDW SD 47.8 fL High 35.1-43.9 [facility] Work Phone: [phone] RDW-CA 13.6 % Invalid Interpretation Code 11.6-14.6 [facility] Work Phone: [phone] red blood cell distribution width, size density 47.8 fL High 35.1-43.9 [facility] Work Phone: [phone] Lab Report: [facility] 01-15-2016 Alanine aminotransferase (ALT) 31 U/L Invalid Interpretation Code 12-78 [facility] Work Phone: [phone] Albumin 3.5 g/dL Invalid Interpretation Code 3.4-5.0 [facility] Work Phone: [phone] Albumin/Globulin Ratio 1 {ratio} Invalid Interpretation Code 0.9-2.4 [facility] Work Phone: [phone] Alkaline phosphatase (ALP) 73 U/L Invalid Interpretation Code 50-136 [facility] Work Phone: [phone] ALP (Bld) [Catalytic activity/Vol] 73 U/L 50-136 [facility] Work Phone: [phone] Anion gap 5 mmol/L Invalid Interpretation Code 5-15 [facility] Work Phone: [phone] Anion gap [Moles/Vol] 5 mmol/L 5-15 [facility] Work Phone: [phone] Aspartate aminotransferase (AST) 17 U/L Invalid Interpretation Code 15-37 [facility] Work Phone: [phone] Bilirubin (total) 1.30 mg/dL High 0.20-1.00 [facility] Work Phone: [phone] eGFR (non-black) 93 mL/min/{1.73_m2} Invalid Interpretation Code >60 [facility] Work Phone: [phone] eGFR (non-black) 112 mL/min/{1.73_m2} Invalid Interpretation Code >60 [facility] Work Phone: [phone] EST GFR - AA 112 mL/min >60 [facility] Work Phone: [phone] Globulin 3.6 g/dL High 2.3-3.5 [facility] Work Phone: [phone] Globulin (S) [Mass/Vol] 3.6 g/dL High 2.3-3.5 [facility] Work Phone: [phone] Protein 7.1 g/dL Invalid Interpretation Code 6.4-8.2 [facility] Work Phone: [phone] Lab Report: Partial Thrombop last Timeon 01-15-2016 aPTT 29.2 s Invalid Interpretation Code 24.1-36.2 [facility] Work Phone: [phone]) Lab Report: Thyroid Stim Hor kassidy (TSH)on 01-15-2016 Thyroid stimulating hormone (TSH) 1.91 u[iU]/mL Invalid Interpretation Code 0.358-3.74 [facility] Work Phone: [phone] Lab Report: CBC W/Diff, Auto matedon 07-16-2015 Absolute Neut 2.3 X10 3/UL Invalid Interpretation Code 2.0-7.7 [facility] Work Phone: [phone] Absolute Neutrophil count 2.3 X10 3/UL Invali d Interpretation Code 2.0-7.7 [facility] Work Phone: [phone] Lymphocytes 0.97 X10 3/UL Invalid Interpretation Code 0.83-4.51 [facility] Work Phone: [phone] Lymphocytes (Bld) [#/Vol] 0.97 X10 3/UL 0.83-4. 51 [facility] Work Phone: [phone] Office Visit: [facility] 11-03-20 14 cardiac risk group C Invalid Interpretation Code [facility] Work Phone: [phone] General cardiovascular disease 10Y risk [#] [place].D'Agostino 11 % Invalid Interpretation Code [facility] Work Phone: [phone] Office Visiton 05-12-2014 Tobacco smoking status NHIS Never Invalid Interpretation Code [facility] Work Phone: [phone] Lab Report: LIVERon 11-25-19 14 Bilirubin (direct) 0.18 mg/dL Normal 0.00-0.30 [facility] Work Phone: [phone] Lab Report: LIPIDon 05-28-20 13 Cholesterol 215 mg/dL High 200 [facility] Work Phone: [phone] HDL Cholesterol 52 mg/dL Normal [facility] Work Phone: [phone] LDL Cholesterol 153 mg/dL High 0-130 [facility] Work Phone: [phone] Triglyceride 49 mg/dL Normal [facility] Work Phone: [phone] very low density lipoproteins 10 mg/dL Normal 5-40 [facility] Work Phone: [phone] Replaced Document: ACEon angiotensin converting enzyme, serum 35 U/L Normal 12-68 [facility] Work Phone: [phone] Lab Report: SEDon 03-05-2013 Erythrocyte sedimentation rate 9 mm/h Normal 0-20 [facility] Work Phone: [phone] Replaced Document: Mid[employer] E CG Observationson 01-21-2013 Pulse (Heart Rate) 442 ms Invalid Interpretation Code [facility] Work Phone: [phone] 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 06-12-2012 MCHC 34.0 % Invalid Interpretation Code [facility] Work Phone: [phone] MCHC (RBC) [Mass/Vol] 34.0 % [facility] Work Phone: [phone] Lab Report: CUFon 02-03-2012 fungus culture isolated from skin, hair, nails ___ Invalid Interpretation Code [facility] Work Phone: [phone] No Panel Information Influenza Types A,B Direct FA (ALIA) [facility] Work Phone: RSV Ag EIA RSV Ag Immune stain Ql (Tiss) [facility] Work Phone: Vital Signs Date Time Vital Sign Value Performing Clinician Faci lity 04-20-2025 19:16-0400 Body mass index (BMI) [Ratio] 28 kg/m2 Dr. Nish Harrell MD Work Phone: [facility] 03-19-2025 22:30-0400 Body mass index (BMI) [Ratio] 28 kg/m2 Dr. Nish Harrell MD Work Phone: [facility] 02-17-2025 21:49-0400 Body mass index (BMI) [Ratio] 28 kg/m2 Dr. Nish Harrell MD Work Phone: [facility] 02-11-2025 10:59-0400 Body height 177.[address] Nish Harrell MD Work Phone: [facility] 02-11-2025 10:59-0400 Body mass index (BMI) [Ratio] 29.9 kg/m2 Dr. Nish Harrell MD Work Phone: [facility] 02-11-2025 10:59-0400 Body weight 94.[address] Nish Harrell MD Work Phone: 6(078)047-468635 [place] [address] 02-11-2025 10:59-0400 Diastolic blood pressure 77 mm[Hg] Dr. Nish Harrell MD Work Phone: 0(965)208-756935 [place] [address] 02-11-2025 10:59-0400 Heart rate 57 /min Dr. Nish Harrell MD Work Phone: 0(514)342-246335 [place] [address] 02-11-2025 10:59-0400 Respiratory rate 16 /min Dr. Nish Harrell MD Work Phone: 4(018)836-104068 [place] [address] 02-11-2025 10:59-0400 Systolic blood pressure 134 mm[Hg] Dr. Nish Harrell MD Work Phone: 5(211)284-366068 [place] [address] 12-21-2024 02:21-0500 Body mass index (BMI) [Ratio] 28 kg/m2 Dr. Nish Harrell MD Work Phone: 8(576)344-311368 [place] [address] 11-20-2024 05:13-0500 Body mass index (BMI) [Ratio] 28 kg/m2 Dr. Nish Harrell MD Work Phone: 2(837)088-894568 [place] [address] 10-20-2024 02:23-0500 Body mass index (BMI) [Ratio] 28 kg/m2 Dr. Nish Harrell MD Work Phone: 9(117)156-922668 [place] [address] 02-17-2024 21:35-0400 Body mass index (BMI) [Ratio] 28 kg/m2 Dr. Nish Harrell Work Phone: 7(020)908-700468 [place] [address] 01-19-2024 02:20-0500 Body mass index (BMI) [Ratio] 28 kg/m2 Dr. Nish Harrell Work Phone: 6(143)324-105368 [place] [address] 12-21-2023 12:49-0500 Body height 177.[address] Nish Harrell Work Phone: 2(642)445-939968 [place] [address] 12-21-2023 12:49-0500 Body mass index (BMI) [Ratio] 29.7 kg/m2 Dr. Nish Harrell Work Phone: 4(021)067-547668 [place] [address] 12-21-2023 12:49-0500 Body weight 93.[address] Nish Harrell Work Phone: 3(207)456-196335 [place] [address] 12-21-2023 12:49-0500 Diastolic blood pressure 69 mm[Hg] Dr. Nish Harrell Work Phone: 2(182)223-050935 [place] [address] 12-21-2023 12:49-0500 Heart rate 62 /min Dr. Nish Harrell Work Phone: 8(442)904-837135 [place] [address] 12-21-2023 12:49-0500 Respiratory rate 18 /min Dr. Nish Harrell Work Phone: 2(084)181-319535 [place] [address] 12-21-2023 12:49-0500 Systolic blood pressure 122 mm[Hg] Dr. Nish Harrell Work Phone: 5(120)915-528768 [place] [address] 12-20-2023 23:44-0500 Body mass index (BMI) [Ratio] 28 kg/m2 Dr. Nish Harrell Work Phone: 0(934)289-612368 [place] [address] 11-19-2023 23:33-0500 Body mass index (BMI) [Ratio] 28 kg/m2 Dr. Nish Harrell Work Phone: 3(608)228-965068 [place] [address] 10-20-2023 05:41-0500 Body mass index (BMI) [Ratio] 28 kg/m2 Dr. Nish Harrell Work Phone: 5(997)430-523435 [place] [address] 09-29-2023 15:28-0500 Body temperature 98.6 [degF] Dr. Nish Harrell Work Phone: 8(855)836-881135 [place] [address] 09-29-2023 15:28-0500 Diastolic blood pressure 82 mm[Hg] Dr. Nish Harrell Work Phone: 2(513)055-624435 [place] [address] 09-29-2023 15:28-0500 Heart rate 69 /min Dr. Nish Harrell Work Phone: 1(462)455-021235 [place] [address] 09-29-2023 15:28-0500 Respiratory rate 16 /min Dr. Nish Harrell Work Phone: 5(536)331-640935 [place] [address] 09-29-2023 15:28-0500 SaO2% (BldA) [Mass fraction] 95 % Dr. Nish Harrell Work Phone: [facility] 09-29-2023 15:28-0500 Systolic blood pressure 128 mm[Hg] Dr. Nish Harrell Work Phone: [facility] 09-19-2023 23:11-0400 Body mass index (BMI) [Ratio] 28 kg/m2 Dr. Nish Harrell Work Phone: 9(194)526-829535 [place] [address] 08-20-2023 05:02-0400 Body mass index (BMI) [Ratio] 28 kg/m2 Dr. Nish Harrell Work Phone: 7(554)894-580068 [place] [address] 07-21-2023 02:04-0400 Body mass index (BMI) [Ratio] 28 kg/m2 Dr. Nish Harrell Work Phone: 9(239)346-452435 [place] [address] 06-20-2023 13:09-0400 Body height 177.[address] Nish Harrell Work Phone: 7(596)976-939835 [place] [address] 06-20-2023 13:09-0400 Body mass index (BMI) [Ratio] 29.8 kg/m2 Dr. Nish Harrell Work Phone: 2(137)048-765268 [place] [address] 06-20-2023 13:09-0400 Body weight 94.[address] Nish Harrell Work Phone: 4(664)319-877035 [place] [address] 06-20-2023 13:09-0400 Diastolic blood pressure 78 mm[Hg] Dr. Nish Harrell Work Phone: 8(263)973-038435 [place] [address] 06-20-2023 13:09-0400 Heart rate 62 /min Dr. Nish Harrell Work Phone: 2(713)561-750235 [place] [address] 06-20-2023 13:09-0400 Respiratory rate 18 /min Dr. Nish Harrell Work Phone: 2(729)977-281335 [place] [address] 06-20-2023 13:09-0400 SaO2% (BldA) [Mass fraction] 98 % Dr. Nish Harrell Work Phone: 8(986)919-312135 [place] [address] 06-20-2023 13:09-0400 Systolic blood pressure 124 mm[Hg] Dr. Nish Harrell Work Phone: [facility] 05-20-2023 02:43-0400 Body mass index (BMI) [Ratio] 28 kg/m2 Dr. Nish Harrell Work Phone: [facility] 04-20-2023 08:09-0400 Body mass index (BMI) [Ratio] 28 kg/m2 [facility] 03-19-2023 05:23-0400 Body mass index (BMI) [Ratio] 28 kg/m2 [facility] 02-17-2023 20:56-0400 Body mass index (BMI) [Ratio] 28 kg/m2 [facility] 01-17-2023 23:18-0500 Body mass index (BMI) [Ratio] 28 kg/m2 Dr. Nish Harrell Work Phone: [facility] 12-21-2022 07:25-0500 Body mass index (BMI) [Ratio] 28 kg/m2 Dr. Nish Harrell Work Phone: [facility] 11-20-2022 00:45-0500 Body mass index (BMI) [Ratio] 28 kg/m2 Dr. Nish Harrell Work Phone: [facility] 11-05-2022 12:53-0500 Body temperature 98.4 [degF] Dr. Nish Harrell Work Phone: [facility] 11-05-2022 12:53-0500 Diastolic blood pressure 68 mm[Hg] Dr. Nish Harrell Work Phone: [facility] 11-05-2022 12:53-0500 Heart rate 89 /min Dr. Nish Harrell Work Phone: [facility] 11-05-2022 12:53-0500 Respiratory rate 15 /min Dr. Nish Harrell Work Phone: [facility] 11-05-2022 12:53-0500 SaO2% (BldA) [Mass fraction] 95 % Dr. Nish Harrell Work Phone: [facility] 11-05-2022 12:53-0500 Systolic blood pressure 130 mm[Hg] Dr. Nish Harrell Work Phone: [facility] 10-20-2022 15:39-0500 Body height 177.[address] Nish Harrell Work Phone: [facility] 10-20-2022 15:39-0500 Body mass index (BMI) [Ratio] 29 kg/m2 Dr. Nish Harrell Work Phone: [facility] 10-20-2022 15:39-0500 Body weight 91.[address] Nish Harrell Work Phone: [facility] 10-20-2022 15:39-0500 Diastolic blood pressure 62 mm[Hg] Dr. Nish Harrell Work Phone: [facility] 10-20-2022 15:39-0500 Heart rate 64 /min Dr. Nish Harrell Work Phone: 9(681)971-699235 [place] [address] 10-20-2022 15:39-0500 Respiratory rate 16 /min Dr. Nish Harrell Work Phone: [facility] 10-20-2022 15:39-0500 Systolic blood pressure 120 mm[Hg] Dr. Nish Harrell Work Phone: [facility] 10-20-2022 02:27-0500 Body mass index (BMI) [Ratio] 28 kg/m2 Dr. Nish Harrell Work Phone: [facility] 09-20-2022 10:29-0400 Body mass index (BMI) [Ratio] 28 kg/m2 Dr. Nish Harrell Work Phone: [facility] 08-02-2022 17:15-0400 Body height 177.[address] Nish Harrell Work Phone: [facility] Work Phone: 08-02-2022 17:15-0400 Body mass index (BMI) [Ratio] 28.7 kg/m2 Dr. Nish Harrell Work Phone: [facility] Work Phone: 08-02-2022 17:15-0400 Body temperature 99.5 [degF] Dr. Nish Harrell Work Phone: [facility] Work Phone: 08-02-2022 17:15-0400 Body weight 90.[address] Nish Harrell Work Phone: [facility] Work Phone: 08-02-2022 17:15-0400 Diastolic blood pressure 70 mm[Hg] Dr. Nish Harrell Work Phone: [facility] Work Phone: 08-02-2022 17:15-0400 Heart rate 85 /min Dr. Nish Harrell Work Phone: [facility] Work Phone: 08-02-2022 17:15-0400 Respiratory rate 16 /min Dr. Nish Harrell Work Phone: [facility] Work Phone: 08-02-2022 17:15-0400 SaO2% (BldA) [Mass fraction] 96 % Dr. Nish Harrell Work Phone: [facility] Work Phone: 08-02-2022 17:15-0400 Systolic blood pressure 120 mm[Hg] Dr. Nish Harrell Work Phone: [facility] Work Phone: 07-21-2022 01:02-0400 Body mass index (BMI) [Ratio] 28 kg/m2 Dr. Nish Harrell Work Phone: [facility] 06-19-2022 03:29-0400 Body mass index (BMI) [Ratio] 28 kg/m2 [facility] Work Phone: 05-20-2022 08:19-0400 Body mass index (BMI) [Ratio] 28 kg/m2 [facility] Work Phone: 04-19-2022 21:49-0400 Body mass index (BMI) [Ratio] 28 kg/m2 [facility] Work Phone: 03-20-2022 02:48-0400 Body mass index (BMI) [Ratio] 28 kg/m2 Dr. Nish Harrell Work Phone: [facility] Work Phone: 01-18-2022 09:27-0500 Body mass index (BMI) [Ratio] 28 kg/m2 [facility] Work Phone: 01-18-2022 08:27-0500 Body mass index (BMI) [Ratio] 28 kg/m2 Dr. Nish Harrell Work Phone: [facility] Work Phone: 01-05-2022 09:57-0500 Body height 177.[address] Nish Harrell Work Phone: [facility] Work Phone: 01-05-2022 09:57-0500 Body weight 90.[address] Nish Harrell Work Phone: [facility] Work Phone: 01-05-2022 09:57-0500 Diastolic blood pressure 74 mm[Hg] Dr. Nish Harrell Work Phone: [facility] Work Phone: 01-05-2022 09:57-0500 Heart rate 60 /min Dr. Nish Harrell Work Phone: [facility] Work Phone: 01-05-2022 09:57-0500 Respiratory rate 16 /min Dr. Nish Harrell Work Phone: [facility] Work Phone: 01-05-2022 09:57-0500 Systolic blood pressure 130 mm[Hg] Dr. Nish Harrell Work Phone: [facility] Work Phone: 10-20-2021 03:12-0500 Body mass index (BMI) [Ratio] 28 kg/m2 Dr. Nish Harrell Work Phone: [facility] Work Phone: 04-01-2021 14:10-0400 Body mass index (BMI) [Ratio] 28 kg/m2 Dr. Nish Harrell Work Phone: [facility] Work Phone: 07-10-2017 14:46-0400 BMI (Body Mass Index) 29.33 kg/m2 [facility] Work Phone: 07-10-2017 14:46-0400 BP Diastolic 60 mm[Hg] Karencourtney Mcwilliams [facility] Work Phone: 07-10-2017 14:46-0400 BP Systolic 120 mm[Hg] Karencourtney Poppy [facility] Work Phone: 07-10-2017 14:46-0400 Height 177.8 cm Karencourtney Poppy [facility] Work Phone: 07-10-2017 14:46-0400 Pulse (Heart Rate) 56 /min [facility] Work Phone: 07-10-2017 14:46-0400 Respiratory Rate 20 /min [facility] Work Phone: 07-10-2017 14:46-0400 Weight 92.72 kg Omarfarrukh Poppy [facility] Work Phone: 09-09-2016 15:39-0400 BMI (Body Mass Index) 30.52 kg/m2 [facility] Work Phone: 09-09-2016 15:39-0400 Body weight 96.48 kg [facility] Work Phone: 09-09-2016 15:39-0400 BP Diastolic 72 mm[Hg] [facility] Work Phone: 09-09-2016 15:39-0400 BP Systolic 126 mm[Hg] [facility] Work Phone: 09-09-2016 15:39-0400 BSA (Body Surface Area) 2.14 m2 Neda Gonzalez RN [facility] Work Phone: 09-09-2016 15:39-0400 Pulse (Heart Rate) 80 /min Neda Gonzalez RN [facility] Work Phone: 09-09-2016 15:39-0400 Respiratory Rate 16 /min Neda Gonzalez RN [facility] Work Phone: 09-09-2016 15:39-0400 Weight 96.48 kg Neda Gonzalez RN [facility] Work Phone: 06-09-2016 14:35-0400 Height 177.8 cm Neda Gonzalez RN [facility] Work Phone: 03-11-2016 10:12-0400 Heart rate 64 /min Neda Gonzalez RN [facility] Work Phone: 02-19-2016 12:23-0400 Body Temperature 98.7 [degF] Neda Gonzalez RN [facility] Work Phone: 02-19-2016 12:23-0400 Pulse Oximetry 93 % Neda Gonzalez RN [facility] Work Phone: 01-21-2013 11:37-0500 Heart rate 442 ms Neda Gonzalez RN [facility] Work Phone: 05-18-2011 09:49-0400 Pulse Oximetry 98 % Neda Gonzalez RN [facility] Work Phone: Encounters Encounter Date Encounter Type Care Provider Facility Start: 06-20-2025 ambulatory Real Reed NP Facility :[facility] Start: 06-03-2025 End: 06-19-2025 Discharged Recurring Real Reed PROGRAM DIRECTOR/TRAFFIC DIRECTOR-C -Laboratory [facility] Work Phone: Start: 06-03-2025 End: 06-19-[address] Nish Harrell MD Work Phone: -[facility] Start: 04-17-2025 End: 04-17-2025 Discharged Recurring Real H Roof PROGRAM DIRECTOR/TRAFFIC DIRECTOR-C -Laboratory [place] Work Phone: Start: 04-17-2025 End: 04-17-[address] Nish Harrell MD Work Phone: [facility] Work Phone: Start: 03-18-2025 End: 03-19-2025 Discharged Recurring Real H Roof PROGRAM DIRECTOR/TRAFFIC DIRECTOR-C -[facility] [place] Work Phone: Start: 03-18-2025 End: 03-19-2025 ambulatory Real H Roof PROGRAM DIRECTOR/TRAFFIC DIRECTOR Facility:[facility] Start: 02-17-2025 End: 02-17-[address] Nish Harrell MD Work Phone: [facility] Work Phone: Start: 02-17-2025 End: 02-17-2025 Discharged Recurring Real H Roof PROGRAM DIRECTOR/TRAFFIC DIRECTOR-C -Laboratory Work Phone: Start: 02-11-2025 End: 02-11-[address] Jovanni Tijerina MD -[facility] Work Phone: Start: 02-11-2025 End: 02-11-2025 ambulatory Nish Harrell Facility[place] Start: 12-02-2024 End: 12-02-2024 Discharged Recurring Real H Roof PROGRAM DIRECTOR/TRAFFIC DIRECTOR-C -Laboratory, [place] Work Phone: Start: 12-02-2024 End: 12-02-2024 ambulatory Real H Roof PROGRAM DIRECTOR/TRAFFIC DIRECTOR Facility:[facility] Start: 11-01-2024 End: 11-01-2024 Discharged Recurring Real H Roof PROGRAM DIRECTOR/TRAFFIC DIRECTOR-C -Laboratory, [place] Work Phone: Start: 11-01-2024 End: 11-01-2024 ambulatory Real H Roof PROGRAM DIRECTOR/TRAFFIC DIRECTOR Facility:[facility] Start: 10-11-2024 End: 10-19-2024 ambulatory Real H Roof PROGRAM DIRECTOR/TRAFFIC DIRECTOR Facility:[facility] Start: 09-06-2024 End: 09-06-2024 ambulatory Real H Roof PROGRAM DIRECTOR/TRAFFIC DIRECTOR Facility:[facility] Start: 08-15-2024 End: 08-15-2024 ambulatory Nish Harrell Facility:[facility] Start: 08-08-2024 ambulatory Nish Harrell Facility:[facility] Start: 08-08-2024 End: 08-08-2024 ambulatory Real H Roof PROGRAM DIRECTOR/TRAFFIC DIRECTOR Facility:[facility] Start: 08-02-2024 End: 08-02-2024 ambulatory Real H Roof PROGRAM DIRECTOR/TRAFFIC DIRECTOR Facility:[facility] Start: 06-28-2024 End: 06-28-2024 ambulatory Real H Roof PROGRAM DIRECTOR/TRAFFIC DIRECTOR Facility:[facility] Start: 06-25-2024 End: 06-25-2024 ambulatory Real H Roof PROGRAM DIRECTOR/TRAFFIC DIRECTOR Facility:[facility] Start: 03-07-2024 End: 03-19-[address] Nish Harrell Work Phone: [facility] Work Phone: Start: 03-07-2024 End: 03-19-[address] Nish Harrell Work Phone: [facility] Work Phone: Start: 02-16-2024 End: 02-17-[address] Nish Harrell Work Phone: [facility] Work Phone: Start: 02-16-2024 End: 02-17-2024 Discharged Recurring Dr. Nish Harrell [facility]: Start: 02-14-2024 End: 02-14-[address] Nish Harrell Work Phone: [facility] Work Phone: Start: 02-14-2024 End: 02-14-[address] Nish Harrell [facility] Phone[facility] Start: 01-19-2024 Non-patient / Non-visit Dr. Bennie Harrell Work Phone: [facility] Work Phone: Start: 01-05-2024 End: 01-18-[address] Nish Harrell Work Phone: [facility] Work Phone: Start: 01-05-2024 End: 01-18-[address] Nish Harrell Work Phone: [facility] Work Phone: Start: 12-21-2023 End: 12-21-[address] Nish Harrell Work Phone: [facility] [employer] [employer] Work Phone: Start: 12-19-2023 End: 12-20-[address] Nish Harrell Work Phone: [facility] Work Phone: Start: 12-19-2023 End: 12-20-[address] Nish Harrell Work Phone: [facility] Work Phone: Start: 11-09-2023 End: 11-19-[address] Nish Harrell Work Phone: [facility] Work Phone: Start: 11-09-2023 End: 11-19-[address] Nish Harrell Work Phone: [facility] Work Phone: Start: 10-18-2023 End: 10-19-[address] Nish Harrell Work Phone: [facility] Work Phone: Start: 10-18-2023 End: 10-19-[address] Nish Harrell Work Phone: [facility] Work Phone: Start: 09-29-2023 End: 09-29-[address] Nish Harrell Work Phone: [facility] Work Phone: Start: 09-29-2023 End: 09-29-[address] Nish Harrell Work Phone: [facility] Work Phone: Start: 09-07-2023 End: 09-07-[address] Nish Harrell Work Phone: [facility] Work Phone: Start: 09-07-2023 End: 09-07-[address] Nish Harrell Work Phone: [facility] Work Phone: Start: 08-07-2023 End: 08-07-[address] Nish Harrell Work Phone: [facility] Work Phone: Start: 07-31-2023 End: 07-31-[address] Nish Harrell Work Phone: [facility] Work Phone: Start: 07-31-2023 End: 07-31-[address] Nish Harrell Work Phone: [facility], [address] Start: 07-03-2023 End: 07-03-[address] Nish Harrell Work Phone: [facility] Work Phone: Start: 07-03-2023 End: 07-03-[address] Nish Harrell Work Phone: [facility] Work Phone: Start: 06-27-2023 End: 06-27-[address] Nish Harrell Work Phone: [facility] Work Phone: Start: 06-27-2023 End: 06-27-[address] Nish Harrell [facility] Work Phone: Start: 06-21-2023 End: 06-21-[address] Nish Harrell Work Phone: [facility] Work Phone: Start: 06-21-2023 End: 06-21-[address] Nish Harrell [facility] Work Phone: Start: 06-20-2023 End: 06-20-[address] Nish Harrell Work Phone: [facility] Work Phone: Start: 05-19-2023 End: 05-19-2023 ambulatory [facility] Work Phone: Start: 05-19-2023 End: 05-19-2023 Discharged Recurring [facility] Work Phone: Start: 03-22-2023 End: 03-22-2023 ambulatory [facility] Work Phone: Start: 03-22-2023 End: 03-22-2023 Discharged Recurring [facility] Start: 03-15-2023 End: 03-19-2023 Discharged Recurring [facility] Start: 02-15-2023 End: 02-17-[address] Nish Harrell Work Phone: [facility] Work Phone: Start: 02-15-2023 End: 02-17-[address] Nish Harrell Work Phone: [facility] Start: 02-06-2023 End: 02-06-[address] Nish Harrell Work Phone: [facility] Work Phone: Start: 02-06-2023 End: 02-06-[address] Nish Harrell Work Phone: [facility], [address] Start: 01-10-2023 End: 01-10-[address] Nish Harrell Work Phone: [facility] Work Phone: Start: 01-10-2023 End: 01-10-[address] Nish Harrell Work Phone: [facility] Start: 01-10-[address] Nish gama Work Phone: [facility] Start: 01-06-2023 End: 01-06-[address] Nish Harrell Work Phone: [facility] Work Phone: Start: 01-06-2023 End: 01-06-[address] Nish Harrell Work Phone: [facility]-Pulmonary Services/Neurology Start: 12-13-2022 End: 12-13-[address] Nish Harrell Work Phone: [facility] Work Phone: Start: 12-13-2022 End: 12-13-[address] Nish Harrell Work Phone: [facility] Start: 11-07-2022 End: 11-07-[address] Nish Harrell Work Phone: [facility]-Radiology, [facility] Start: 11-05-2022 End: 11-05-[address] Nish Harrell Work Phone: [facility] Start: 11-01-2022 Non-patient / Non-visit Dr. Bennie Harrell Work Phone: [facility] Start: 11-01-2022 End: 11-01-[address] Nish Harrell Work Phone: [facility] Work Phone: Start: 11-01-2022 End: 11-01-[address] Nish [facility] Start: 10-20-2022 End: 10-20-[address] Nish Harrell Work Phone: [facility] Start: 10-20-[address] Nish gama Work Phone: [facility] Start: 10-20-2022 End: 10-20-[address] Nish Harrell Work Phone: [facility] Work Phone: Start: 10-20-2022 End: 10-20-[address] Nish Harrell Work Phone: [facility] [employer] Start: 09-27-2022 End: 10-19-[address] Nish [facility] Start: 09-06-2022 End: 09-06-[address] Nish Harrell Work Phone: [facility] Work Phone: Start: 09-06-2022 End: 09-06-[address] Nish Harrell Work Phone: [facility]-Pulmonary Services/Neurology Start: 08-24-2022 Non-patient / Non-visit Dr. Bennie Harrell Work Phone: [facility] [employer] Start: 08-24-2022 End: 08-24-[address] Nish Harrell Work Phone: [facility] Work Phone: Start: 08-24-2022 End: 08-24-[address] Nish Harrell Work Phone: [facility] Start: 08-24-[address] Nish gama Work Phone: [facility] Start: 08-10-2022 End: 08-10-[address] Nish Harrell Work Phone: [facility], [facility] 3rd Flr Start: 08-02-2022 End: 08-02-[address] Nish Harrell Work Phone: [facility] Start: 07-19-2022 End: 07-19-2022 ambulatory [facility] Work Phone: Start: 07-19-2022 End: 07-19-2022 Discharged Recurring [facility] Start: 05-24-2022 End: 06-19-2022 Discharged Recurring [facility] Start: 04-29-2022 End: 05-19-2022 Discharged Recurring [facility] Start: 04-15-2022 End: 04-15-[address] Nish Harrell Work Phone: [facility] Start: 03-09-2022 End: 03-09-[address] Nish Harrell Work Phone: [facility] Start: 02-02-2022 End: 02-02-[address] Nish Har[facility] 3[facility] Fl[facility] Start: 01-25-2022 End: 01-25-[address] Nish Harrell [facility] Start: 01-05-2022 End: 01-05-[address] Nish Harrell [facility] Phone[facility] Start: 01-05-2022 End: 01-05-[address] Nish Harrell Work Phone: [facility] [employer] Procedures Date Procedure Procedure Detail Performing Clinician Start: 02-17-2025 Vitamin D, 25-hydrox y measurement Dr. Nish Harrell MD Work Phone: Comment on above: Vitamin D StatusDefi ciency: <20 ng/mL (50nmol/L)Insufficiency: 20-30 ng/mL (50-75 nmol/L)Sufficiency: 30-100 ng/mL (75-250 nmol/L)Toxicity: >100 ng/mL (>250 nmol/L) Start: 02-11-2025 Evaluation of diagno stic study results Dr. Nish Harrell MD Work Phone: Start: 09-29-2023 Diagnostic radiograp hy of finger Dr. Nish Harrell Work Phone: Start: 06-27-2023 Coronavirus COVID-[address] Nish Harrell Work Phone: Start: 06-27-2023 Influenza Types A,B Direct FA (ALIA) Dr. Nish Harrell Work Phone: Start: 06-27-2023 Respiratory syncytia l virus antigen assay Dr. Nish Harrell Work Phone: Start: 06-21-2023 Coronavirus COVID-[address] Nish Harrell Work Phone: Start: 06-21-2023 Influenza Types A,B Direct FA (ALIA) Dr. Nish Harrell Work Phone: Start: 06-21-2023 Respiratory syncytia l virus antigen assay Dr. Nish Harrell Work Phone: Start: 11-07-2022 Plain chest X-ray Dr. Skyler Harrell Work Phone: Start: 01-25-2022 Influenza Types A,B Direct FA (ALIA) Dr. Nish Harrell Work Phone: Start: 01-25-2022 End: 01-25-2022 Respiratory syncytial virus antigen assay Dr. Nish Harrell Work Phone: Start: 07-10-2017 End: 07-10-2017 Follow Up Appt 6 months José Miguel Monte MD Start: 07-10-2017 End: 07-10-2017 PAVAN Monte MD Start: 07-10-2017 End: 07-10-2017 Follow Up Appt 6 months José Miguel Monte MD Start: 07-10-2017 End: 07-10-2017 MMM José Miguel Monte MD Start: 09-09-2016 End: 09-09-2016 Dietary management education, guidance, and counseling Neda Gonzalez RN Start: 09-09-2016 End: 09-09-2016 Documentation of current medications Neda Gonzalez RN Start: 09-09-2016 End: 09-09-2016 Follow Up Appt 6 months Debora dinero PA-C Work Phone: Start: 09-09-2016 End: 09-09-2016 PF Debora Hoover PA-C Work Phone: Start: 09-09-2016 End: 09-09-2016 Follow Up Appt 6 months Debora dinero PA-C Work Phone: Start: 09-09-2016 End: 09-09-2016 PF Debora Hoover PA-C Work Phone: Start: 09-09-2016 End: 09-10-2016 Referral to vascular surgeon Debora Hoover PA-C Work Phone: Start: 07-11-2016 End: 09-01-2016 Venous doppler José Migule Monte MD Start: 07-11-2016 End: 09-01-2016 Venous doppler José Miguel Monte MD Start: 06-09-2016 End: 06-09-2016 Follow Up Appt 3 months José Miguel Monte MD Start: 06-09-2016 End: 06-09-2016 MMM José Miguel Monte MD Start: 06-09-2016 End: 06-09-2016 Follow Up Appt 3 months José Miguel Monte MD Start: 06-09-2016 End: 06-09-2016 MMM José Miguel Monte MD Start: 03-14-2016 End: 09-01-2016 Cardiac Rehab José Miguel Monte MD Start: 03-14-2016 End: 09-01-2016 Cardiac Rehab José Miguel Monte MD Start: 03-11-2016 End: 04-06-2016 Cardiovascular stress test using treadmill José Miguel Monte MD Start: 03-11-2016 End: 04-06-2016 Chest x-ray José Miguel Monte MD Start: 03-11-2016 End: 03-11-2016 Ecg routine ecg w/least 12 lds w/i&r José Miguel Monte MD Start: 03-11-2016 End: 04-06-2016 Echocardiography José Miguel Monte MD Start: 03-11-2016 End: 03-11-2016 Follow Up Appt 3 months José Miguel Monte MD Start: 03-11-2016 End: 03-11-2016 PFM José Miguel Motne MD Start: 03-11-2016 End: 04-06-2016 Cardiovascular stress test using treadmill José Miguel Monte MD Start: 03-11-2016 End: 04-06-2016 Chest x-ray José Miguel Monte MD Start: 03-11-2016 End: 04-06-2016 Echocardiography José Miguel Monte MD Start: 03-11-2016 End: 03-11-2016 Electrocardiogram, complete José Miguel blanton MD Start: 03-11-2016 End: 03-11-2016 Follow Up Appt 3 months José Miguel Monte MD Start: 03-11-2016 End: 03-11-2016 PFM José Miguel Monte MD Start: 02-19-2016 End: 02-19-2016 Ecg routine ecg w/least 12 lds w/i&r José Miguel Monte MD Start: 02-19-2016 End: 02-19-2016 Follow Up Appt Other José Miguel Monte MD Start: 02-19-2016 End: 02-19-2016 Nurse, Teaching, Wound Check (no charge) José Miguel Monte MD Start: 02-19-2016 End: 04-06-2016 Venous doppler José Miguel Monte MD Start: 02-19-2016 End: 04-06-2016 Electrocardiogram, complete José Miguel blanton MD Start: 02-19-2016 End: 02-19-2016 Follow Up Appt Other José Miguel Monte MD Start: 02-19-2016 End: 02-19-2016 Nurse, Teaching, Wound Check (no charge) José Miguel Monte MD Start: 02-19-2016 End: 04-06-2016 Venous doppler José Miguel Monte MD Start: 01-11-2016 End: 01-15-2016 *BMP José Miguel Monte MD Start: 01-11-2016 End: 01-15-2016 aPTT in Platelet poor plasma by Coagulation assay José Miguel Monte MD Start: 01-11-2016 End: 01-15-2016 CBC W Auto Differential panel - Blood José Miguel Monte MD Start: 01-11-2016 End: 01-12-2016 Ecg routine ecg w/least 12 lds w/i&r José Miguel Monte MD Start: 01-11-2016 End: 01-12-2016 Follow Up Appt 2 months José Miguel Monte MD Start: 01-11-2016 End: 01-15-2016 INR in Platelet poor plasma by Coagulation assay José Miguel Monte MD Start: 01-11-2016 End: 01-19-2016 Left & Right Heart Cath José Miguel Monte MD Start: 01-11-2016 End: 01-12-2016 PFM José Miguel Monte MD Start: 01-11-2016 End: 01-15-2016 *BMP José Miguel Monte MD Start: 01-11-2016 End: 01-15-2016 aPTT José Miguel Monte MD Start: 01-11-2016 End: 01-15-2016 CBC W Auto Differential panel - Blood José Miguel Monte MD Start: 01-11-2016 End: 01-15-2016 Coagulation factor induced.INR assay in platelet poor plasma José Miguel Monte MD Start: 01-11-2016 End: 01-12-2016 Electrocardiogram, complete José Miguel blanton MD Start: 01-11-2016 End: 01-12-2016 Follow Up Appt 2 months José Miguel Monte MD Start: 01-11-2016 End: 01-19-2016 Left & Right Heart Cath José Miguel Monte MD Start: 01-11-2016 End: 01-12-2016 PFMando Monte MD Start: 01-07-2016 End: 01-15-2016 *BMP José Miguel Monte MD Start: 01-07-2016 End: 01-15-2016 aPTT in Platelet poor plasma by Coagulation assay José Miguel Monte MD Start: 01-07-2016 End: 01-15-2016 CBC W Auto Differential panel - Blood José Miguel Monte MD Start: 01-07-2016 End: 01-15-2016 INR in Platelet poor plasma by Coagulation assay José Miguel Monte MD Start: 01-07-2016 End: 01-15-2016 *BMP José Miguel Monte MD Start: 01-07-2016 End: 01-15-2016 aPTT José Miguel Monte MD Start: 01-07-2016 End: 01-15-2016 CBC W Auto Differential panel - Blood José Miguel Monte MD Start: 01-07-2016 End: 01-15-2016 Coagulation factor induced.INR assay in platelet poor plasma José Miguel Monte MD Start: 12-29-2015 End: 04-06-2016 Cardiac Referral José Miguel Monte MD Start: 12-29-2015 End: 04-06-2016 Cardiac Referral José Miguel Monte MD Start: 07-17-2015 End: 04-06-2016 Chest x-ray José Miguel Monte MD Start: 07-17-2015 End: 04-06-2016 Ct thorax w/contrast material José Miguel Monte MD Start: 07-17-2015 End: 07-18-2015 Documentation of current medications José Miguel Monet MD Start: 07-17-2015 End: 04-06-2016 Echocardiography José Miguel Monte MD Start: 07-17-2015 End: 07-17-2015 Follow Up Appt 6 months José Miguel Monte MD Start: 07-17-2015 End: 07-17-2015 MMM José Miguel Monte MD Start: 07-17-2015 End: 04-06-2016 Chest x-ray José Miguel Monte MD Start: 07-17-2015 End: 04-06-2016 Ct thorax w/dye José Miguel Monte MD Start: 07-17-2015 End: 07-18-2015 Documentation of current medications José Miguel Monte MD Start: 07-17-2015 End: 04-06-2016 Echocardiography José Miguel Monte MD Start: 07-17-2015 End: 07-17-2015 Follow Up Appt 6 months José Miguel Monte MD Start: 07-17-2015 End: 07-17-2015 MMM José Miguel Monte MD Start: 06-12-2015 End: 06-12-2016 INR in Platelet poor plasma by Coagulation assay José Miguel Monte MD Start: 06-12-2015 End: 06-12-2016 Coagulation factor induced.INR assay in platelet poor plasma José Miguel Monte MD Start: 11-03-2014 End: 04-06-2016 Echocardiography Debora Hoover PA-C Work Phone: Start: 11-03-2014 End: 04-06-2016 Follow Up Appt 6 months Debora dinero PA-C Work Phone: Start: 11-03-2014 End: 04-06-2016 PFM Debora Hoover PA-C Work Phone: Start: 11-03-2014 End: 04-06-2016 Echocardiography Debora Hoover PA-C Work Phone: Start: 11-03-2014 End: 04-06-2016 Follow Up Appt 6 months Debora dinero PA-C Work Phone: Start: 11-03-2014 End: 04-06-2016 PFM Debora Hoover PA-C Work Phone: Start: 05-27-2014 End: 10-23-2014 INR in Platelet poor plasma by Coagulation assay José Miguel Monte MD Start: 05-27-2014 End: 10-23-2014 Coagulation factor induced.INR assay in platelet poor plasma José Miguel Monte MD Start: 05-12-2014 End: 10-23-2014 Ct thorax w/contrast material José Miguel Monte MD Start: 05-12-2014 End: 10-23-2014 Echocardiography José Miguel Monte MD Start: 05-12-2014 End: 05-12-2014 Follow Up Appt 6 months José Miguel Monte MD Start: 05-12-2014 End: 05-12-2014 MMM José Miguel Monte MD Start: 05-12-2014 End: 10-23-2014 Coagulation factor induced.INR assay in platelet poor plasma José Miguel Monte MD Start: 05-12-2014 End: 10-23-2014 Ct thorax w/contrast material José Miguel Monte MD Start: 05-12-2014 End: 10-23-2014 Echocardiography José Miguel Monte MD Start: 05-12-2014 End: 05-12-2014 Follow Up Appt 6 months José Miguel Monte MD Start: 05-12-2014 End: 05-12-2014 MMM José Miguel Monte MD Start: 10-29-2013 End: 01-09-2014 *BMP Debora Hoover PA-C Work Phone: Start: 10-29-2013 End: 10-23-2014 Chest x-ray Debora Hoover PA-C Work Phone: Start: 10-29-2013 End: 10-23-2014 Ct thorax w/contrast material Debora Hoover PA-C Work Phone: Start: 10-29-2013 End: 10-23-2014 Echocardiography Debora Hoover PA-C Work Phone: Start: 10-29-2013 End: 10-29-2013 Follow Up Appt 6 months Debora dinero PA-C Work Phone: Start: 10-29-2013 End: 01-09-2014 *BMP Debora Hoover PA-C Work Phone: Start: 10-29-2013 End: 10-23-2014 Chest x-ray Debora Hoover PA-C Work Phone: Start: 10-29-2013 End: 10-23-2014 Ct thorax w/dye Debora Hoover PA-C Work Phone: Start: 10-29-2013 End: 10-23-2014 Echocardiography Debora Hoover PA-C Work Phone: Start: 10-29-2013 End: 10-29-2013 Follow Up Appt 6 months Debora dinero PA-C Work Phone: Start: 05-28-2013 End: 07-11-2013 INR in Platelet poor plasma by Coagulation assay José Miguel Monte MD Start: 05-28-2013 End: 07-11-2013 Coagulation factor induced.INR assay in platelet poor plasma José Miguel Monte MD Start: 05-20-2013 End: 05-28-2013 *Hepatic Function Panel José Miguel Monte MD Start: 05-20-2013 End: 05-28-2013 Lipid 1996 panel - Serum or Plasma José Miguel Monte MD Start: 05-20-2013 End: 05-28-2013 *Hepatic Function Panel José Miguel Monte MD Start: 05-20-2013 End: 05-28-2013 Lipid panel [AGGREGATE] José Miguel Monte MD Start: 01-21-2013 End: 01-21-2013 Ecg routine ecg w/least 12 lds w/i&r José Miguel Monte MD Start: 01-21-2013 End: 07-11-2013 Follow Up Appt 6 months José Miguel Monte MD Start: 01-21-2013 End: 01-21-2013 MMM José Miguel Monte MD Start: 01-21-2013 End: 01-21-2013 Electrocardiogram, complete José Miguel blanton MD Start: 01-21-2013 End: 07-11-2013 Follow Up Appt 6 months José Miguel Monte MD Start: 01-21-2013 End: 01-21-2013 MMM José Miguel Monte MD Start: 01-09-2013 End: 01-09-2014 Pulmonary Referral José Miguel Monte MD Start: 01-09-2013 End: 01-09-2014 Pulmonary Referral José Miguel Monte MD Start: 11-20-2012 End: 11-28-2012 *Hepatic Function Panel José Miguel Monte MD Start: 11-20-2012 End: 11-28-2012 Lipid 1996 panel - Serum or Plasma José Miguel Monte MD Start: 11-20-2012 End: 11-28-2012 *Hepatic Function Panel José Miguel Monte MD Start: 11-20-2012 End: 11-28-2012 Lipid panel [AGGREGATE] José Miguel Monte MD Start: 07-20-2012 End: 08-21-2012 *Hepatic Function Panel José Miguel Monte MD Start: 07-20-2012 End: 08-21-2012 Lipid 1996 panel - Serum or Plasma José Miguel Monte MD Start: 07-20-2012 End: 08-21-2012 *Hepatic Function Panel José Miguel Monte MD Start: 07-20-2012 End: 08-21-2012 Lipid panel [AGGREGATE] José Miguel Monte MD Start: 07-16-2012 End: 07-17-2012 *Hepatic Function Panel José Miguel Monte MD Start: 07-16-2012 End: 07-11-2013 Chest x-ray José Miguel Monte MD Start: 07-16-2012 End: 07-11-2013 Ct thorax w/contrast material José Miguel Monte MD Start: 07-16-2012 End: 07-11-2013 Echocardiography José Miguel Monte MD Start: 07-16-2012 End: 07-16-2012 Follow Up Appt 6 months José Miguel Monte MD Start: 07-16-2012 End: 07-16-2012 Follow Up Appt Other José Miguel Monte MD Start: 07-16-2012 End: 07-17-2012 Lipid 1996 panel - Serum or Plasma José Miguel Monte MD Start: 07-16-2012 End: 07-17-2012 *Hepatic Function Panel José Miguel Monte MD Start: 07-16-2012 End: 07-11-2013 Chest x-ray José Miguel Monte MD Start: 07-16-2012 End: 07-11-2013 Ct thorax w/contrast material José Miguel Monte MD Start: 07-16-2012 End: 07-11-2013 Echocardiography José Miguel Monte MD Start: 07-16-2012 End: 07-16-2012 Follow Up Appt 6 months José Miguel Monte MD Start: 07-16-2012 End: 07-16-2012 Follow Up Appt Other José Miguel Monte MD Start: 07-16-2012 End: 07-11-2013 Lipid panel [AGGREGATE] José Miguel oMnte MD Start: 06-12-2012 End: 07-11-2013 Nuclear stress test -exercise José Miguel Monte MD Start: 06-12-2012 End: 07-11-2013 Nuclear stress test -exercise José Miguel Monte MD Start: 05-08-2012 End: 07-11-2013 24 hour holter monitor Scottie Jaramillo MD Start: 05-08-2012 End: 07-11-2013 24 hour holter monitor Scottie Jaramillo MD Start: 01-12-2012 End: 01-12-2012 Ecg routine ecg w/least 12 lds w/i&r José Miguel Monte MD Start: 01-12-2012 End: 01-12-2012 Follow Up Appt 6 months José Miguel Monte MD Start: 01-12-2012 End: 01-12-2012 Follow Up Appt Other José Miguel Monte MD Start: 01-12-2012 End: 01-12-2012 Electrocardiogram, complete José Miguel blanton MD Start: 01-12-2012 End: 01-12-2012 Follow Up Appt 6 months José Miguel Monte MD Start: 01-12-2012 End: 01-12-2012 Follow Up Appt Other José Miguel Monte MD Influenza Types A,B Direct FA (ALIA) Influenza Types A,B Direct FA (ALIA) Dr. Nish Harrell Work Phone: Influenza Types A,B Direct FA (ALIA) Dr. Nish Harrell Work Phone: Respiratory syncytia l virus antigen assay Respiratory syncytia l virus antigen assay Dr. Nish Harrell Work Phone: Respiratory syncytia l virus antigen assay Dr. Nish Harrell Work Phone: Plan of Treatment Date Care Activity Detail Author Start: 01-17-2018 End: 01-17-2018 Appointment Appointment [facility] Work Phone: Start: 07-10-2017 End: 07-10-2017 Appointment Appointment [facility] Work Phone: Start: 07-10-2017 End: 07-10-2017 Appointment Appointment [facility] Work Phone: Start: 07-10-2017 End: 07-10-2017 Follow Up Appt 6 months Follow Up Appt 6 months [facility] Work Phone: Start: 07-10-2017 End: 07-10-2017 MMM MMM [facility] Work Phone: Start: 07-10-2017 End: 07-10-2017 Follow Up Appt 6 months Follow Up Appt 6 months [facility] Work Phone: Start: 07-10-2017 End: 07-10-2017 MMM MMM [facility] Work Phone: Start: 09-09-2016 End: 09-09-2016 Follow Up Appt 6 months Follow Up Appt 6 months [facility] Work Phone: Start: 09-09-2016 End: 09-09-2016 PFM PFM [facility] Work Phone: Start: 09-09-2016 End: 09-09-2016 Vascular Surgery Vascular Surgery Zachary Mcrae MD, [facility], [address] [facility] Work Phone: Start: 09-09-2016 End: 09-09-2016 Follow Up Appt 6 months Follow Up Appt 6 months [facility] Work Phone: Start: 09-09-2016 End: 09-09-2016 PFM PFM [facility] Work Phone: Start: 09-09-2016 End: 01-10-2018 Vascular Surgery Vascular Surgery Zachary Mcrae MD, [address], [place] [address], [place], [address] [facility] Work Phone: Start: 07-11-2016 End: 09-01-2016 Venous doppler Venous doppler [facility] Work Phone: Start: 07-11-2016 End: 09-01-2016 Venous doppler Venous doppler [facility] Work Phone: Start: 06-09-2016 End: 06-09-2016 Follow Up Appt 3 months Follow Up Appt 3 months [facility] Work Phone: Start: 06-09-2016 End: 06-09-2016 MMM MMM [facility] Work Phone: Start: 06-09-2016 End: 06-09-2016 Follow Up Appt 3 months Follow Up Appt 3 months [facility] Work Phone: Start: 06-09-2016 End: 06-09-2016 MMM MMM [facility] Work Phone: Start: 03-14-2016 End: 03-14-2016 Cardiac Rehab Cardiac Rehab [address] [place], [address] [facility] Work Phone: Start: 03-14-2016 End: 03-14-2016 Cardiac Rehab Cardiac Rehab [address] [place], [address] [facility] Work Phone: Start: 03-11-2016 End: 03-11-2016 Cardiovascular stress test using treadmill Treadmill stress test (no imaging) [facility] Work Phone: Start: 03-11-2016 End: 04-06-2016 Chest x-ray X-Ray, Chest, PA & Lateral [facility] Work Phone: Start: 03-11-2016 End: 03-11-2016 Ecg routine ecg w/least 12 lds w/i&r EKG (In office) [facility] Work Phone: Start: 03-11-2016 End: 03-11-2016 Echocardiography Echocardiogram (complete) [facility] Work Phone: Start: 03-11-2016 End: 03-11-2016 Follow Up Appt 3 months Follow Up Appt 3 months [facility] Work Phone: Start: 03-11-2016 End: 03-11-2016 PFM PFM [facility] Work Phone: Start: 03-11-2016 End: 03-11-2016 Cardiovascular stress test using treadmill Treadmill stress test (no imaging) [facility] Work Phone: Start: 03-11-2016 End: 04-06-2016 Chest x-ray X-Ray, Chest, PA & Lateral [facility] Work Phone: Start: 03-11-2016 End: 03-11-2016 Echocardiography Echocardiogram (complete) [facility] Work Phone: Start: 03-11-2016 End: 03-11-2016 Electrocardiogram, complete EKG (In office) [facility] Work Phone: Start: 03-11-2016 End: 03-11-2016 Follow Up Appt 3 months Follow Up Appt 3 months [facility] Work Phone: Start: 03-11-2016 End: 03-11-2016 PFM PFM [facility] Work Phone: Start: 02-19-2016 End: 02-19-2016 Ecg routine ecg w/least 12 lds w/i&r EKG (In office) [facility] Work Phone: Start: 02-19-2016 End: 02-19-2016 Follow Up Appt Other Follow Up Appt Other [facility] Work Phone: Start: 02-19-2016 End: 04-06-2016 Venous doppler Venous doppler [facility] Work Phone: Start: 02-19-2016 End: 02-19-2016 Electrocardiogram, complete EKG (In office) [facility] Work Phone: Start: 02-19-2016 End: 02-19-2016 Follow Up Appt Other Follow Up Appt Other [facility] Work Phone: Start: 02-19-2016 End: 04-06-2016 Venous doppler Venous doppler [facility] Work Phone: Start: 01-11-2016 End: 01-15-2016 *BMP *BMP [facility] Work Phone: Start: 01-11-2016 End: 01-15-2016 aPTT *PTT-Partial Thromboplastin Time [facility] Work Phone: Start: 01-11-2016 End: 01-15-2016 CBC W Auto Differential panel - Blood *CBC without Diff [facility] Work Phone: Start: 01-11-2016 End: 01-12-2016 Ecg routine ecg w/least 12 lds w/i&r EKG (In office) [facility] Work Phone: Start: 01-11-2016 End: 01-12-2016 Follow Up Appt 2 months Follow Up Appt 2 months [facility] Work Phone: Start: 01-11-2016 End: 01-15-2016 INR Coag RelTime (PPP) *PT/INR [facility] Work Phone: Start: 01-11-2016 End: 01-12-2016 Left & Right Heart Cath Left & Right Heart Cath [facility] Work Phone: Start: 01-11-2016 End: 01-12-2016 PFM PFM [facility] Work Phone: Start: 01-11-2016 End: 01-15-2016 *BMP *BMP [facility] Work Phone: Start: 01-11-2016 End: 01-15-2016 aPTT *PTT-Partial Thromboplastin Time [facility] Work Phone: Start: 01-11-2016 End: 01-15-2016 aPTT Coag time (PPP) *PTT-Partial Thromboplastin Time [facility] Work Phone: Start: 01-11-2016 End: 01-15-2016 CBC W Auto Differential panel - Blood *CBC without Diff [facility] Work Phone: Start: 01-11-2016 End: 01-15-2016 Coagulation factor induced.INR assay in platelet poor plasma *PT/INR [facility] Work Phone: Start: 01-11-2016 End: 01-12-2016 Electrocardiogram, complete EKG (In office) [facility] Work Phone: Start: 01-11-2016 End: 01-12-2016 Follow Up Appt 2 months Follow Up Appt 2 months [facility] Work Phone: Start: 01-11-2016 End: 01-12-2016 Left & Right Heart Cath Left & Right Heart Cath [facility] Work Phone: Start: 01-11-2016 End: 01-12-2016 PFM PFM [facility] Work Phone: Start: 01-07-2016 End: 01-15-2016 *BMP *BMP [facility] Work Phone: Start: 01-07-2016 End: 01-15-2016 aPTT *PTT-Partial Thromboplastin Time [facility] Work Phone: Start: 01-07-2016 End: 01-15-2016 CBC W Auto Differential panel - Blood *CBC without Diff [facility] Work Phone: Start: 01-07-2016 End: 01-15-2016 INR Coag RelTime (PPP) *PT/INR [facility] Work Phone: Start: 01-07-2016 End: 01-15-2016 *BMP *BMP [facility] Work Phone: Start: 01-07-2016 End: 01-15-2016 aPTT *PTT-Partial Thromboplastin Time [facility] Work Phone: Start: 01-07-2016 End: 01-15-2016 aPTT Coag time (PPP) *PTT-Partial Thromboplastin Time [facility] Work Phone: Start: 01-07-2016 End: 01-15-2016 CBC W Auto Differential panel - Blood *CBC without Diff [facility] Work Phone: Start: 01-07-2016 End: 01-15-2016 Coagulation factor induced.INR assay in platelet poor plasma *PT/INR [facility] Work Phone: Start: 12-29-2015 End: 12-29-2015 Cardiac Referral Cardiac Referral KARLENE Keller, [address], [place], [address] [facility] Work Phone: Start: 12-29-2015 End: 12-29-2015 Cardiac Referral Cardiac Referral KARLENE Keller, [address], [place], [address] [facility] Work Phone: Start: 07-17-2015 End: 07-17-2015 Chest x-ray X-Ray, Chest, PA & Lateral [facility] Work Phone: Start: 07-17-2015 End: 07-17-2015 Ct thorax w/contrast material CT Chest with Contrast [facility] Work Phone: Start: 07-17-2015 End: 07-17-2015 Echocardiography Echocardiogram (complete) [facility] Work Phone: Start: 07-17-2015 End: 07-17-2015 Follow Up Appt 6 months Follow Up Appt 6 months [facility] Work Phone: Start: 07-17-2015 End: 07-17-2015 MMM MMM [facility] Work Phone: Start: 07-17-2015 End: 07-17-2015 Chest x-ray X-Ray, Chest, PA & Lateral [facility] Work Phone: Start: 07-17-2015 End: 07-17-2015 Ct thorax w/dye CT Chest with Contrast [facility] Work Phone: Start: 07-17-2015 End: 07-17-2015 Echocardiography Echocardiogram (complete) [facility] Work Phone: Start: 07-17-2015 End: 07-17-2015 Follow Up Appt 6 months Follow Up Appt 6 months [facility] Work Phone: Start: 07-17-2015 End: 07-17-2015 MMM MMM [facility] Work Phone: Start: 06-12-2015 End: 06-22-2015 INR Coag RelTime (PPP) *PT/INR - Standing Order [facility] Work Phone: Start: 06-12-2015 End: 06-22-2015 Coagulation factor induced.INR assay in platelet poor plasma *PT/INR - Standing Order [facility] Work Phone: Start: 11-03-2014 End: 04-06-2016 Follow Up Appt 6 months Follow Up Appt 6 months [facility] Work Phone: Start: 11-03-2014 End: 04-06-2016 Follow Up Appt Other Follow Up Appt Other [facility] Work Phone: Start: 11-03-2014 End: 04-06-2016 PFM PFM [facility] Work Phone: Start: 11-03-2014 End: 04-06-2016 Follow Up Appt 6 months Follow Up Appt 6 months [facility] Work Phone: Start: 11-03-2014 End: 04-06-2016 Follow Up Appt Other Follow Up Appt Other [facility] Work Phone: Start: 11-03-2014 End: 04-06-2016 PFM PFM [facility] Work Phone: Start: 05-27-2014 End: 10-23-2014 INR Coag RelTime (PPP) *PT/INR - Standing Order [facility] Work Phone: Start: 05-27-2014 End: 10-23-2014 Coagulation factor induced.INR assay in platelet poor plasma *PT/INR - Standing Order [facility] Work Phone: Start: 05-12-2014 End: 05-12-2014 Ct thorax w/contrast material CT Chest with Contrast [facility] Work Phone: Start: 05-12-2014 End: 05-12-2014 Echocardiography Echocardiogram (complete) [facility] Work Phone: Start: 05-12-2014 End: 05-12-2014 Follow Up Appt 6 months Follow Up Appt 6 months [facility] Work Phone: Start: 05-12-2014 End: 05-12-2014 MMM MMM [facility] Work Phone: Start: 05-12-2014 End: 05-12-2014 Ct thorax w/dye CT Chest with Contrast [facility] Work Phone: Start: 05-12-2014 End: 05-12-2014 Echocardiography Echocardiogram (complete) [facility] Work Phone: Start: 05-12-2014 End: 05-12-2014 Follow Up Appt 6 months Follow Up Appt 6 months [facility] Work Phone: Start: 05-12-2014 End: 05-12-2014 MMM MMM [facility] Work Phone: Start: 10-29-2013 End: 01-09-2014 *BMP *BMP [facility] Work Phone: Start: 10-29-2013 End: 10-23-2014 Chest x-ray X-Ray, Chest, PA & Lateral [facility] Work Phone: Start: 10-29-2013 End: 10-29-2013 Ct thorax w/contrast material CT Chest with Contrast [facility] Work Phone: Start: 10-29-2013 End: 10-29-2013 Echocardiography Echocardiogram (complete) [facility] Work Phone: Start: 10-29-2013 End: 10-29-2013 Follow Up Appt 6 months Follow Up Appt 6 months [facility] Work Phone: Start: 10-29-2013 End: 10-29-2013 PFM PFM [facility] Work Phone: Start: 10-29-2013 End: 01-09-2014 *BMP *BMP [facility] Work Phone: Start: 10-29-2013 End: 10-23-2014 Chest x-ray X-Ray, Chest, PA & Lateral [facility] Work Phone: Start: 10-29-2013 End: 10-29-2013 Ct thorax w/dye CT Chest with Contrast [facility] Work Phone: Start: 10-29-2013 End: 10-29-2013 Echocardiography Echocardiogram (complete) [facility] Work Phone: Start: 10-29-2013 End: 10-29-2013 Follow Up Appt 6 months Follow Up Appt 6 months [facility] Work Phone: Start: 10-29-2013 End: 10-29-2013 PFM PFM [facility] Work Phone: Start: 05-28-2013 End: 07-11-2013 INR Coag RelTime (PPP) *PT/INR - Standing Order [facility] Work Phone: Start: 05-28-2013 End: 07-11-2013 Coagulation factor induced.INR assay in platelet poor plasma *PT/INR - Standing Order [facility] Work Phone: Start: 05-20-2013 End: 05-28-2013 *Hepatic Function Panel *Hepatic Function Panel [facility] Work Phone: Start: 05-20-2013 End: 05-28-2013 Lipid panel [AGGREGATE] *Lipid Profile [facility] Work Phone: Start: 05-20-2013 End: 05-28-2013 *Hepatic Function Panel *Hepatic Function Panel [facility] Work Phone: Start: 05-20-2013 End: 05-28-2013 Lipid panel [AGGREGATE] *Lipid Profile [facility] Work Phone: Start: 01-21-2013 End: 01-21-2013 Ecg routine ecg w/least 12 lds w/i&r EKG (In office) [facility] Work Phone: Start: 01-21-2013 End: 07-11-2013 Follow Up Appt 6 months Follow Up Appt 6 months [facility] Work Phone: Start: 01-21-2013 End: 01-21-2013 MMM MMM [facility] Work Phone: Start: 01-21-2013 End: 01-21-2013 Electrocardiogram, complete EKG (In office) [facility] Work Phone: Start: 01-21-2013 End: 07-11-2013 Follow Up Appt 6 months Follow Up Appt 6 months [facility] Work Phone: Start: 01-21-2013 End: 01-21-2013 MMM MMM [facility] Work Phone: Start: 01-09-2013 End: 07-11-2013 Pulmonary Referral Pulmonary Referral [facility] Work Phone: Start: 01-09-2013 End: 07-11-2013 Pulmonary Referral Pulmonary Referral [facility] Work Phone: Start: 11-20-2012 End: 11-28-2012 *Hepatic Function Panel *Hepatic Function Panel [facility] Work Phone: Start: 11-20-2012 End: 11-28-2012 Lipid panel [AGGREGATE] *Lipid Profile [facility] Work Phone: Start: 11-20-2012 End: 11-28-2012 *Hepatic Function Panel *Hepatic Function Panel [facility] Work Phone: Start: 11-20-2012 End: 11-28-2012 Lipid panel [AGGREGATE] *Lipid Profile [facility] Work Phone: Start: 07-20-2012 End: 08-21-2012 *Hepatic Function Panel *Hepatic Function Panel [facility] Work Phone: Start: 07-20-2012 End: 08-21-2012 Lipid panel [AGGREGATE] *Lipid Profile [facility] Work Phone: Start: 07-20-2012 End: 08-21-2012 *Hepatic Function Panel *Hepatic Function Panel [facility] Work Phone: Start: 07-20-2012 End: 08-21-2012 Lipid panel [AGGREGATE] *Lipid Profile [facility] Work Phone: Start: 07-16-2012 End: 07-17-2012 *Hepatic Function Panel *Hepatic Function Panel [facility] Work Phone: Start: 07-16-2012 End: 07-11-2013 Chest x-ray X-Ray, Chest, PA & Lateral [facility] Work Phone: Start: 07-16-2012 End: 07-16-2012 Ct thorax w/contrast material CT Chest with Contrast [facility] Work Phone: Start: 07-16-2012 End: 07-16-2012 Echocardiography Echocardiogram (complete) [facility] Work Phone: Start: 07-16-2012 End: 07-16-2012 Follow Up Appt 6 months Follow Up Appt 6 months [facility] Work Phone: Start: 07-16-2012 End: 07-16-2012 Follow Up Appt Other Follow Up Appt Other [facility] Work Phone: Start: 07-16-2012 End: 07-17-2012 Lipid panel [AGGREGATE] *Lipid Profile [facility] Work Phone: Start: 07-16-2012 End: 07-17-2012 *Hepatic Function Panel *Hepatic Function Panel [facility] Work Phone: Start: 07-16-2012 End: 07-11-2013 Chest x-ray X-Ray, Chest, PA & Lateral [facility] Work Phone: Start: 07-16-2012 End: 07-16-2012 Ct thorax w/dye CT Chest with Contrast [facility] Work Phone: Start: 07-16-2012 End: 07-16-2012 Echocardiography Echocardiogram (complete) [facility] Work Phone: Start: 07-16-2012 End: 07-16-2012 Follow Up Appt 6 months Follow Up Appt 6 months [facility] Work Phone: Start: 07-16-2012 End: 07-16-2012 Follow Up Appt Other Follow Up Appt Other [facility] Work Phone: Start: 07-16-2012 End: 07-17-2012 Lipid panel [AGGREGATE] *Lipid Profile [facility] Work Phone: Start: 06-12-2012 End: 06-13-2012 Nuclear stress test -exercise Nuclear stress test -exercise [facility] Work Phone: Start: 06-12-2012 End: 06-13-2012 Nuclear stress test -exercise Nuclear stress test -exercise [facility] Work Phone: Start: 05-08-2012 End: 07-11-2013 24 hour holter monitor 24 hour holter monitor [facility] Work Phone: Start: 05-08-2012 End: 07-11-2013 24 hour holter monitor 24 hour holter monitor [facility] Work Phone: Start: 01-12-2012 End: 01-12-2012 Ecg routine ecg w/least 12 lds w/i&r EKG (In office) [facility] Work Phone: Start: 01-12-2012 End: 01-12-2012 Follow Up Appt 6 months Follow Up Appt 6 months [facility] Work Phone: Start: 01-12-2012 End: 01-12-2012 Follow Up Appt Other Follow Up Appt Other [facility] Work Phone: Start: 01-12-2012 End: 01-12-2012 Electrocardiogram, complete EKG (In office) [facility] Work Phone: Start: 01-12-2012 End: 01-12-2012 Follow Up Appt 6 months Follow Up Appt 6 months [facility] Work Phone: Start: 01-12-2012 End: 01-12-2012 Follow Up Appt Other Follow Up Appt Other [facility]: Payers Date Payer Category Payer Self-pay [id number] 2023 Unknown [id number] 2012 Medicare [id number] Unknown [id number] [facility] [id number] Unknown [id number] 2.16.8 [id number] Unknown [id number] 2.16.8 [id number] Unknown [id number] 2.16.8 [id number] Unknown [id number] 2.16.8 [id number] Unknown [id number] 2.16.8 [id number] Unknown [id number] 2.16.8 [id number] Unknown [id number] 2.16.8 [id number] Unknown [id number] 2.16.8 [id number] Unknown [id number] 2.16.8 [id number] Unknown [id number] 2.16.8 [id number] Unknown [id number] 2.16.8 [id number] Unknown [id number] 2.16.8 [id number] Unknown [id number] 2.16.8 [id number] Unknown [id number] 2.16.8 [id number] Unknown [id number] 2.16.8 [id number] Unknown [id number] 2.16.8 [id number] Social History Date Type Detail Facility Start: 01-05-2022 End: 12-21-2023 Tobacco smoking status MAIS Unknown if ever smoked [facility] Start: 04-19-2019 None [facility] Start: 04-19-2019 Spouse/ Signif icant Other [facility] Start: 1945 Sex Assigned At Male [facility] Start: 12-21-2023 Tobacco smoking status NHIS Never smoked tobacco (finding) [facility] Start: 02-17-2025 Sex Male (finding) [facility] Clinical Notes 02-01-2016 Note Date & Type Note Facility 02-01-2016 Evaluation note Diagnosis Onset Date Hyperlipidemia chronic longterm current use of anticoagulant chronic Paroxysmal atrial fibrillation chronic History of aortic valve repair February 01, 2016 resolved History of ascending aortic replacement February 01, 2016 resolved [facility] Work Phone: 1(133) 754-468803-14-2016 Evaluation note* Diagnosis Onset Date Resolution Status MVP (mitral valve prolapse) acute Hyperlipidemia chronic longterm current use of anticoagulant chronic Paroxysmal atrial fibrillation chronic History of aortic valve repair February 01, 2016 resolved History of ascending aortic replacement January 31 16 resolved Influenza A acute [facility] Work Phone: 1(737) 314-569403-14-2016 Evaluation note* Diagnosis Onset Date Resolution Status MVP (mitral valve prolapse) acute Hyperlipidemia chronic longterm current use of anticoagulant chronic Paroxysmal atrial fibrillation chronic History of aortic valve repair February 01, 2016 resolved History of ascending aortic replacement January 31 16 resolved [facility] Work Phone: 1(245) 802-241703-14-2016 Evaluation note* Diagnosis Onset Date Resolution Status MVP (mitral valve prolapse) acute Hyperlipidemia chronic longterm current use of anticoagulant chronic Paroxysmal atrial fibrillation chronic History of aortic valve repair February 01, 2016 resolved History of ascending aortic replacement January 31 16 resolved Contusion of left thumb acut e [facility] Work Phone: 1(352) 250-689203-14-2016 Evaluation note* Diagnosis Onset Date Resolution Status Contusion of left thumb acut e History of aortic valve repair February 01, 2016 chronic History of ascending aortic replacement January 31 16 chronic 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 Paroxysmal atrial fibrillation chronic [facility] Work Phone: 1([phone]) 420-875403-14-2016 Evaluation note* Diagnosis Onset Date Resolution Status History of aortic valve repair February 01, 2016 chronic History of ascending aortic replacement January 31 16 chronic 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 Paroxysmal atrial fibrillation chronic [facility] Work Phone: [phone]) 845-128103-14-2016 Evaluation note* Diagnosis Onset Date Resolution Status Admit Date History of aortic valve repair February 01, 2016 chronic February 11 10:57am History of ascending aortic replacement February 01, 2016 chronic February 11 10:57am Hyperlipidemia chronic January 10:57am longterm current use of anticoagulant chronic February 11, 2025 10:57am Paroxysmal atrial fibrillation chronic February 11, 2025 10:57am [facility] Work Phone: Evaluation noteNo assessment information available [facility] Work Phone: Evaluation note* Diagnosis Onset Date Resolution Status COVID-19 acute [facility] Work Phone: Evaluation note* Diagnosis Onset Date Resolution Status COVID-19 acute MVP (mitral valve prolapse) acute Hyperlipidemia chronic longterm current use of anticoagulant chronic Paroxysmal atrial fibrillation chronic History of aortic valve repair February 01, 2016 resolved History of ascending aortic replacement January 31 16 resolved [facility] Work Phone: Evaluation note* Diagnosis Onset Date Resolution Status COVID-19 acute MVP (mitral valve prolapse) acute 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 Paroxysmal atrial fibrillation chronic History of aortic valve repair February 01, 2016 resolved History of ascending aortic replacement January 31 16 resolved Influenza A acute [facility] Work Phone: Evaluation note* Diagnosis Onset Date Resolution Status Contusion of left thumb acut e [facility] Work Phone: Reason for referral (narrative)[facility] for [facility] Chief Complaint and Reason for Visit Chief Complaint 9 m fu INR- S/O- FINGERSTICK TESTING INR- S/O- FINGERSTICK Reason for Visit Hyperlipidemia longterm current use of anticoagulant Paroxysmal atrial fibrillation History of aortic valve repair History of ascending aortic replacement Chief Complaint 9 m fu INR- S/O- FINGERSTICK TESTING INR- S/O- FINGERSTICK INR- S/O- FINGERSTICK Reason for Visit 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 Paroxysmal atrial fibrillation History of aortic valve repair History of ascending aortic replacement Chief Complaint TESTING INR- S/O- FINGERSTICK INR- S/O- FINGERSTICK INR- S/O- FINGERSTICK Chief Complaint INR- S/O- FINGERSTIC K INR- S/O- FINGERSTICK INR- S/O- FINGERSTICK INR- S/O- FINGERSTICK Chief Complaint INR- S/O- FINGERSTIC K INR- S/O- FINGERSTICK COVID TEST/POS HOME TEST INR- S/O- FINGERSTICK CHILLS WITHOUT FEVER Reason for Visit COVID-19 Chief Complaint INR- S/O- FINGERSTIC K COVID TEST/POS HOME TEST INR- S/O- FINGERSTICK CHILLS WITHOUT FEVER INR- S/O- FINGERSTICK INR- S/O- FINGERSTICK 9 m fu Reason for Visit COVID-19 MVP (mitral valve prolapse) Hyperlipidemia longterm current use of anticoagulant Paroxysmal atrial fibrillation History of aortic valve repair History of ascending aortic replacement Chief Complaint INR- S/O- FINGERSTIC K COVID TEST/POS HOME TEST INR- S/O- FINGERSTICK CHILLS WITHOUT FEVER INR- S/O- FINGERSTICK INR- S/O- FINGERSTICK 9 m fu MURMUR COUGH, BODY ACHES WHEEZING Reason for Visit COVID-19 MVP (mitral valve prolapse) Hyperlipidemia longterm current use of anticoagulant Paroxysmal atrial fibrillation History of aortic valve repair History of ascending aortic replacement Influenza A Chief Complaint COVID TEST/POS HOME TEST INR- S/O- FINGERSTICK CHILLS WITHOUT FEVER INR- S/O- FINGERSTICK INR- S/O- FINGERSTICK 9 m fu MURMUR COUGH, BODY ACHES WHEEZING Reason for Visit COVID-19 MVP (mitral valve prolapse) 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 Paroxysmal atrial fibrillation History of aortic valve repair History of ascending aortic replacement Influenza A Chief Complaint INR- S/O- FINGERSTIC K CHILLS WITHOUT FEVER INR- S/O- FINGERSTICK INR- S/O- FINGERSTICK 9 m fu MURMUR COUGH, BODY ACHES WHEEZING INR- S/O- FINGERSTICK Reason for Visit MVP (mitral valve pr olapse) Hyperlipidemia longterm current use of anticoagulant Paroxysmal atrial fibrillation History of aortic valve repair History of ascending aortic replacement Influenza A Chief Complaint INR- S/O- FINGERSTIC K INR- S/O- FINGERSTICK 9 m fu MURMUR COUGH, BODY ACHES WHEEZING INR- S/O- FINGERSTICK SCREENING INR- S/O- FINGERSTICK Reason for Visit MVP (mitral valve pr olapse) Hyperlipidemia longterm current use of anticoagulant Paroxysmal atrial fibrillation History of aortic valve repair History of ascending aortic replacement Influenza A Chief Complaint INR- S/O- FINGERSTIC K 9 m fu MURMUR COUGH, BODY ACHES WHEEZING INR- S/O- FINGERSTICK SCREENING INR- S/O- FINGERSTICK Reason for Visit MVP (mitral valve pr olapse) Hyperlipidemia longterm current use of anticoagulant Paroxysmal atrial fibrillation History of aortic valve repair History of ascending aortic replacement Influenza A Chief Complaint INR- S/O- FINGERSTIC K 9 m fu MURMUR COUGH, BODY ACHES WHEEZING INR- S/O- FINGERSTICK SCREENING INR- S/O- FINGERSTICK INR- S/O- FINGERSTICK Reason for Visit MVP (mitral valve pr olapse) Hyperlipidemia longterm current use of anticoagulant Paroxysmal atrial fibrillation History of aortic valve repair History of ascending aortic replacement Influenza A Chief Complaint SCREENING INR- S/O- FINGERSTICK INR- S/O- FINGERSTICK INR- S/O- FINGERSTICK INR- S/O- FINGERSTICK Chief Complaint INR- S/O- FINGERSTIC K INR- S/O- FINGERSTICK INR- S/O- FINGERSTICK 6 m fu CHILLS WITHOUT FEVER CHILLS WITHOUT FEVER Reason for Visit MVP (mitral valve pr olapse) 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 Paroxysmal atrial fibrillation History of aortic valve repair History of ascending aortic replacement Chief Complaint INR- S/O- FINGERSTIC K 6 m fu CHILLS WITHOUT FEVER CHILLS WITHOUT FEVER INR- S/O- FINGERSTICK Reason for Visit MVP (mitral valve pr olapse) 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 Paroxysmal atrial fibrillation History of aortic valve repair History of ascending aortic replacement Chief Complaint 6 m fu CHILLS WITHOUT FEVER CHILLS WITHOUT FEVER INR- S/O- FINGERSTICK INR- S/O- FINGERSTICK INR- S/O- FINGERSTICK Reason for Visit MVP (mitral valve pr olapse) Hyperlipidemia longterm current use of anticoagulant Paroxysmal atrial fibrillation History of aortic valve repair History of ascending aortic replacement Chief Complaint 6 m fu CHILLS WITHOUT FEVER CHILLS WITHOUT FEVER INR- S/O- FINGERSTICK INR- S/O- FINGERSTICK INR- S/O- FINGERSTICK LEFT THUMB INJURY LEFT Thumb contusion Reason for Visit MVP (mitral valve pr olapse) 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 Paroxysmal atrial fibrillation History of aortic valve repair History of ascending aortic replacement Contusion of left thumb Chief Complaint CHILLS WITHOUT FEVER INR- S/O- FINGERSTICK INR- S/O- FINGERSTICK INR- S/O- FINGERSTICK LEFT THUMB INJURY LEFT Thumb contusion INR- S/O- FINGERSTICK Reason for Visit Contusion of left th umb Chief Complaint INR- S/O- FINGERSTIC K INR- S/O- FINGERSTICK LEFT THUMB INJURY LEFT Thumb contusion INR- S/O- FINGERSTICK INR- S/O- FINGERSTICK Reason for Visit Contusion of left th umb Chief Complaint INR- S/O- FINGERSTIC K LEFT THUMB INJURY LEFT Thumb contusion INR- S/O- FINGERSTICK INR- S/O- FINGERSTICK INR- S/O- FINGERSTICK Reason for Visit Contusion of left th umb Chief Complaint LEFT THUMB INJURY LEFT Thumb contusion INR- S/O- FINGERSTICK INR- S/O- FINGERSTICK INR- S/O- FINGERSTICK 6 M FU INR- S/O- FINGERSTICK Reason for Visit Contusion of left th umb History of aortic valve repair History of ascending aortic replacement Hyperlipidemia longterm current use of anticoagulant Paroxysmal atrial fibrillation Chief Complaint INR- S/O- FINGERSTIC K INR- S/O- FINGERSTICK 6 M FU INR- S/O- FINGERSTICK INR- S/O- FINGERSTICK Reason for Visit History of aortic va lve repair History of ascending aortic replacement Hyperlipidemia longterm current use of anticoagulant Paroxysmal atrial fibrillation Chief Complaint INR- S/O- FINGERSTIC K 6 M FU INR- S/O- FINGERSTICK INR- S/O- FINGERSTICK INR- S/O- FINGERSTICK Reason for Visit History of aortic va lve repair History of ascending aortic replacement Hyperlipidemia longterm current use of anticoagulant Paroxysmal atrial fibrillation Chief Complaint Admit Date INR- S/O- FINGERSTICK November 01 2:30pm INR- S/O- FINGERSTICK December 02, 2024 2:11pm 1 Y FU February 11, 2025 10: 57am INR- S/O- FINGERSTICK-lab order Julio Cesar nelsonsiva ay 02/17February 17, 2025 10:46am Reason for Visit Admit Date History of aortic valve repair January 10:57am History of ascending aortic replacement February 11, 2025 10:57am Hyperlipidemia February 11, 2025 10: 57am longterm current use of anticoagulant 2024 10:57am Paroxysmal atrial fibrillation January 10:57am Chief Complaint Admit Date 1 Y FU February 11, 2025 10: 57am INR- S/O- FINGERSTICK-lab order Julio Cesar michael ay 02/17February 17, 2025 10:46am INR- S/O- FINGERSTICK March 18, 2025 1 0:42am INR- S/O- FINGERSTICK April 17, 2025 1:2 3pm Chief Complaint Admit Date INR- S/O- FINGERSTICK March 18, 2025 1 0:42am INR- S/O- FINGERSTICK April 17, 2025 1:2 3pm INR- S/O- FINGERSTICK June 03, 2025 2: 26pm Family History No Family History Records Found Relationship Condition Age at Onset Recorded Date/T casimiro Not Specified Family history of ce rebrovascular accident (CVA) Unknown father Malignant neoplasm Unknown mother Cerebrovascular accident (CVA) Unknown brother Malignant neoplasm Unknown Advance Directives No Advanced Directives Records Found Advance Directive Response Recorded Date/ Time Living Will Yes May 20, 2019 8 :57am Power of Ballast Inspector Yes April 20, 2019 12:17am Advance Directive Response Recorded Date/ Time Living Will Yes May 20, 2019 7 :57am Power of Ballast Inspector Yes April 19, 2019 11:17pm Advance Directive Response Recorded Date/ Time Living Will Yes May 20, 2019 8 :57am Do you have a Healthcare Power of Ballast Inspector? Yes April 20, 2019 12:17am Living Will Yes October 20 3:23am Do you have a Healthcare Power of Ballast Inspector? Yes October 20, 2024 3:23am Living Will Yes December 21 3:21am Do you have a Healthcare Power of Ballast Inspector? Yes December 21, 2024 3:21am Living Will Yes November 20 6:13am Do you have a Healthcare Power of Ballast Inspector? Yes November 20, 2024 6:13am Advance Directive Response Recorded Date/ Time Living Will Yes May 20, 2019 8 :57am Do you have a Healthcare Power of Ballast Inspector? Yes April 20, 2019 12:17am Living Will Yes December 21 3:21am Do you have a Healthcare Power of Ballast Inspector? Yes December 21, 2024 3:21am Living Will Yes February 17, 2025 9:49pm Do you have a Healthcare Power of Ballast Inspector? Yes February 17, 2025 9:49pm Living Will Yes March 19, 2025 10:30pm Do you have a Healthcare Power of Ballast Inspector? Yes March 19, 2025 10:30pm Advance Directive Response Recorded Date/ Time Living Will Yes February 17, 2025 9:49pm Do you have a Healthcare Power of Ballast Inspector? Yes February 17, 2025 9:49pm Living Will Yes March 19, 2025 10:30pm Do you have a Healthcare Power of Ballast Inspector? Yes March 19, 2025 10:30pm Living Will Yes April 20, 2025 7 :16pm Do you have a Healthcare Power of Ballast Inspector? Yes April 20, 2025 7:16pm Summary Purpose Additional Source Comments Goals (unrecognized section and content) Goals may be documented in a n alternate sectionGoals may be documented in an alternate sectionGoals may be documented in an alternate sectionGoals may be documented in an alternate sectionGoals may be documented in an alternate sectionGoals may be documented in an alternate sectionGoals may be documented in an alternate sectionGoals may be documented in an alternate sectionGoals may be documented in an alternate sectionGoals may be documented in an alternate sectionGoals may be documented in an alternate sectionGoals may be documented in an alternate sectionGoals may be documented in an alternate sectionGoals may be documented in an alternate sectionGoals may be documented in an alternate sectionGoals may be documented in an alternate sectionGoals may be documented in an alternate sectionGoals may be documented in an alternate sectionGoals may be documented in an alternate sectionGoals may be documented in an alternate sectionGoals may be documented in an alternate sectionGoals may be documented in an alternate sectionGoals may be documented in an alternate sectionGoals may be documented in an alternate sectionGoals may be documented in an alternate sectionGoals may be documented in an alternate sectionGoals may be documented in an alternate sectionGoals may be documented in an alternate sectionGoals may be documented in an alternate sectionGoals may be documented in an alternate sectionGoals may be documented in an alternate sectionGoals may be documented in an alternate sectionGoals may be documented in an alternate section Care Teams (unrecognized sec tion and content) Team Status: Active Member Role Status Dates Dr. Nish Harrell MD Family Provider Active Dr. Nish Harrell MD Primary Care Provider Active Team Status: Inactive Member Role Status Dates Dr. Nish Harrell MD Primary Care Provider, Referring Provider Active Dr. José Miguel Monte MD Attending Provider Active Team Status: Active Member Role Status Dates Dr. Nish Harrell MD Primary Care Provider, Attending Provider Active Team Status: Active Member Role Status Dates Dr. Nish Harrell MD Primary Care Provider Active Dr. José Miguel Monte MD Attending Provider Active Team Status: Inactive Member Role Status Dates Dr. Nish Harrell MD Primary Care Provider, Referring Provider Active Real Reed PROGRAM DIRECTOR/TRAFFIC DIRECTOR, PROGRAM DIRECTOR/TRAFFIC DIRECTOR-C Attending Provider Active Team Status: Inactive Member Role Status Dates Dr. Nish Harrell MD Primary Care Provider, Family Pr ovider Active Dr. José Miguel Monte MD Attending Provider, Referring Provider Active Team Status: Inactive Member Role Status Dates Dr. Nish Harrell MD Primary Care Provi stuart, Attending Provider, Referring Provider Active Team Status: Inactive Member Role Status Dates Dr. Nish Harrell MD Primary Care Provider, Attending Provider Active Team Status: Inactive Member Role Status Dates Dr. José Miguel Monte MD Attending Provider Active Dr. Nish Harrell MD Primary Care Provider Active Team Status: Active Member Role Status Dates Dr. Nish Harrell MD Primary Care Provider, Family Pr ovider Active Dr. José Miguel Monte MD Attending Provider, Referring Provider Active Team Status: Active Member Role Status Dates Dr. Nish Harrell MD Primary Care Provi stuart, Attending Provider, Referring Provider Active Team Status: Inactive Member Role Status Dates Dr. Nish Harrell MD Primary Care Provider, Family Pr ovider Active Real Reed PROGRAM DIRECTOR/TRAFFIC DIRECTOR, PROGRAM DIRECTOR/TRAFFIC DIRECTOR-C Attending Provider, Referring Pro vider Active Team Status: Inactive Member Role Status Dates Dr. Nish Harrell MD Primary Care Provider, Referring Provider Active Silviano KURTZ PA Attending Provider Active Team Status: Inactive Member Role Status Dates Dr. Nish Harrell MD Primary Care Provider Active Silviano KURTZ PA Attending Provider, Referring Provi stuart Active Team Status: Inactive Member Role Status Dates Dr. Nihs Harrell MD Primary Care Provider Active Start: November 01, 2024 End: November 01, 2024 Dr. Nish Harrell MD Family Provider Active Sta rt: November 01, 2024 End: November 01, 2024 Real Reed PROGRAM DIRECTOR/TRAFFIC DIRECTOR, PROGRAM DIRECTOR/TRAFFIC DIRECTOR-C Attending Provider Active S tart: November 01, 2024 End: November 01, 2024 Real Reed PROGRAM DIRECTOR/TRAFFIC DIRECTOR, PROGRAM DIRECTOR/TRAFFIC DIRECTOR-C Referring Provider Active S tart: November 01, 2024 End: November 01, 2024 Team Status: Inactive Member Role Status Dates Dr. Nish Harrell MD Primary Care Provider Active Start: December 02, 2024 End: December 02, 2024 Dr. Nish Harrell MD Family Provider Active Sta rt: December 02, 2024 End: December 02, 2024 Real Reed PROGRAM DIRECTOR/TRAFFIC DIRECTOR, PROGRAM DIRECTOR/TRAFFIC DIRECTOR-C Attending Provider Active S tart: December 02, 2024 End: December 02, 2024 Real Reed PROGRAM DIRECTOR/TRAFFIC DIRECTOR, PROGRAM DIRECTOR/TRAFFIC DIRECTOR-C Referring Provider Active S tart: December 02, 2024 End: December 02, 2024 Team Status: Inactive Member Role Status Dates Dr. Nish Harrell MD Primary Care Provider Active Start: February 11, 2025 End: February 11, 2025 Dr. Nish Harrell MD Referring Provider Active Start: February 11, 2025 End: February 11, 2025 Dr. Jovanni Tijerina MD Attending Provider Active S tart: February 11, 2025 End: February 11, 2025 Team Status: Inactive Member Role Status Dates Dr. Nish Harrell MD Primary Care Provider Active Start: February 17, 2025 End: February 17, 2025 Dr. Nish Harrell MD Family Provider Active Sta rt: February 17, 2025 End: February 17, 2025 Dr. Nish Harrell MD Referring Provider Active Start: February 17, 2025 End: February 17, 2025 Real Reed PROGRAM DIRECTOR/TRAFFIC DIRECTOR, PROGRAM DIRECTOR/TRAFFIC DIRECTOR-C Attending Provider Active S tart: February 17, 2025 End: February 17, 2025 Team Status: Inactive Member Role Status Dates Dr. Nish Harrell MD Primary Care Provider Active Start: March 18, 2025 End: March 19, 2025 Dr. Nish Harrell MD Family Provider Active Sta rt: March 18, 2025 End: March 19, 2025 Real Reed PROGRAM DIRECTOR/TRAFFIC DIRECTOR, PROGRAM DIRECTOR/TRAFFIC DIRECTOR-C Attending Provider Active S tart: March 18, 2025 End: March 19, 2025 Real Reed PROGRAM DIRECTOR/TRAFFIC DIRECTOR, PROGRAM DIRECTOR/TRAFFIC DIRECTOR-C Referring Provider Active S tart: March 18, 2025 End: March 19, 2025 Team Status: Inactive Member Role Status Dates Dr. Nish Harrell MD Primary Care Provider Active Start: April 17, 2025 End: April 17, 2025 Dr. Nish Harrell MD Family Provider Active Sta rt: April 17, 2025 End: April 17, 2025 Real Reed PROGRAM DIRECTOR/TRAFFIC DIRECTOR, PROGRAM DIRECTOR/TRAFFIC DIRECTOR-C Attending Provider Active S tart: April 17, 2025 End: April 17, 2025 Real Reed PROGRAM DIRECTOR/TRAFFIC DIRECTOR, PROGRAM DIRECTOR/TRAFFIC DIRECTOR-C Referring Provider Active S tart: April 17, 2025 End: April 17, 2025 Team Status: Active Member Role/Relationship Status Dates Dr. Nish Harrell MD Family Provider Active Dr. Nish Harrell MD Primary Care Provider Active Team Status: Inactive Member Role/Relationship Status Dates Dr. Nish Harrell MD Primary Care Provider Active Start: March 18, 2025 End: March 19, 2025 Dr. Nish Harrell MD Family Provider Active Sta rt: March 18, 2025 End: March 19, 2025 Real Reed PROGRAM DIRECTOR/TRAFFIC DIRECTOR, PROGRAM DIRECTOR/TRAFFIC DIRECTOR-C Attending Provider Active S tart: March 18, 2025 End: March 19, 2025 Real Reed PROGRAM DIRECTOR/TRAFFIC DIRECTOR, PROGRAM DIRECTOR/TRAFFIC DIRECTOR-C Referring Provider Active S tart: March 18, 2025 End: March 19, 2025 Team Status: Inactive Member Role/Relationship Status Dates Dr. Nish Harrell MD Primary Care Provider Active Start: April 17, 2025 End: April 17, 2025 Dr. Nish Harrell MD Family Provider Active Sta rt: April 17, 2025 End: April 17, 2025 Real Reed PROGRAM DIRECTOR/TRAFFIC DIRECTOR, PROGRAM DIRECTOR/TRAFFIC DIRECTOR-C Attending Provider Active S tart: April 17, 2025 End: April 17, 2025 Real Reed PROGRAM DIRECTOR/TRAFFIC DIRECTOR, PROGRAM DIRECTOR/TRAFFIC DIRECTOR-C Referring Provider Active S tart: April 17, 2025 End: April 17, 2025 Team Status: Inactive Member Role/Relationship Status Dates Dr. Nish Harrell MD Primary Care Provider Active Start: June 03, 2025 End: June 19, 2025 Dr. Nish Harrell MD Family Provider Active Sta rt: June 03, 2025 End: June 19, 2025 Real Reed PROGRAM DIRECTOR/TRAFFIC DIRECTOR, PROGRAM DIRECTOR/TRAFFIC DIRECTOR-C Attending Provider Active S tart: June 03, 2025 End: June 19, 2025 Real Reed PROGRAM DIRECTOR/TRAFFIC DIRECTOR, PROGRAM DIRECTOR/TRAFFIC DIRECTOR-C Referring Provider Active S tart: June 03, 2025 End: June 19, 2025 Dr. Jovanni Tijerina MD Other Provider Active Start : June 03, 2025 End: June 19, 2025 (unrecognized sect ion and content) No Status Records Found INFORMATION SOURCE (unrecogn ized section and content) DATE CREATED AUTHOR 06/22/2025 [facility] FOR RECORDS PERTAINING TO PATIENTS WHO ARE OR HAVE BEEN ENROLLED IN A CHEMICAL DEPENDENCY/SUBSTANCEABUSE PROGRAM, SOME INFORMATION MAY BE OMITTED. This clinical summary was aggregated from multiple sources. Caution should be exercised in using it in the provision of clinical care. This summary normalizes information from multiple sources, and as a consequence, information in this document may materially change the coding, format and clinical context of patient data. In addition, data may be omitted in some cases. CLINICAL DECISIONS SHOULD BE BASED ON THE PRIMARY CLINICAL RECORDS. [employer] provides no warranty or guarantee of the accuracy or completeness of information in this document.
== END | disposition home or self-care (01) ==
LOC: POLAB3 15:18
PROVIDERS: PCP Family Medicine Geriatric Medicine; Visit Provider Family Medicine Geriatric Medicine
DX: R68.83 Chills (without fever) (principal)
CPT/HCPCS: 87631

== ENCOUNTER 2025-07-18 12:59 | Outpatient (RCR) | payer MEDICARE, OTHER, SELFPAY ==
[2025-07-04 12:56] LABS: INR Fingerstick 3.9
[2025-07-11 13:18] LABS: INR Fingerstick 5.0
[2025-07-11 15:15] LABS: Prothrombin Time (Protime)PT. 42.2 SECONDS (11.7-14.9)
[2025-07-18 13:17] LABS: INR Fingerstick 2.8
== END 2025-07-18 18:00 | disposition home or self-care (01) ==
LOC: MTLAB 12:59
PROVIDERS: Family Provider Family Medicine Geriatric Medicine; PCP Family Medicine Geriatric Medicine; Referring Provider Nurse Practitioner Family; Visit Provider Nurse Practitioner Family
DX: Z79.01 Long term (current) use of anticoagulants (principal)
CPT/HCPCS: 36415; 36416; 85610

== ENCOUNTER 2025-08-01 12:54 | Outpatient (RCR) | payer MEDICARE, OTHER, SELFPAY ==
[2025-08-01 13:07] LABS: INR Fingerstick 2.5
== END 2025-08-19 18:00 | disposition home or self-care (01) ==
LOC: MTLAB 12:54
PROVIDERS: Family Provider Family Medicine Geriatric Medicine; PCP Family Medicine Geriatric Medicine; Referring Provider Nurse Practitioner Family; Visit Provider Nurse Practitioner Family
DX: Z79.01 Long term (current) use of anticoagulants (principal)
CPT/HCPCS: 36416; 85610

== ENCOUNTER → 2025-08-06 | Outpatient (CLI) | payer MEDICARE, OTHER, SELFPAY | END | disposition home or self-care (01) | PROVIDERS: PCP Family Medicine Geriatric Medicine; Visit Provider Family Medicine Geriatric Medicine | DX: J98.8 Other specified respiratory disorders (principal) | CPT/HCPCS: 87631 ==

== ENCOUNTER → 2025-08-19 | Outpatient (CLI) | payer MEDICARE, OTHER, SELFPAY ==
[2025-08-19 11:32] LABS: Hematocrit 40.2 % (40-54); Hemoglobin 13.2 g/dL (13.0-16.5); Immature Granulocytes Count 0.120 X10^3/uL (0.0-0.0); Mean Corp Hgb Conc 32.8 g/dL (32-36); Mean Corpuscular Volume 100.5 fL (80-94); Mean Platelet Vol. 9.8 fl (6.2-12.0); NRBC Flagged by Analyzer 0 % (0-5); Platelet Count 161 K/mm3 (150-450); RBC Distribution Width CV 14.6 % (11.6-14.6); RBC Distribution Width SD 53.7 fl (35.1-43.9); Red Blood Count 4.00 M/mm3 (4.6-6.2); White Blood Count 5.3 K/mm3 (4.4-11.0)
[2025-08-19 12:27] LABS: AST(SGOT) 24 U/L (<=37); Alanine Aminotransfer ALT/SGPT 14 U/L (<=46); Albumin, Serum 4.0 g/dL (3.4-4.8); Alkaline Phosphatase 92 U/L (40-129); Anion Gap 7 (5-15); BUN 27 mg/dL (4-19); BUN/Creat Ratio 30.3 RATIO (10-20); Calcium,Total 9.1 mg/dL (7.6-11.0); Carbon Dioxide 27.6 mmol/L (21.0-32.0); Chloride 104 mmol/L (98-108); Globulin 3.1 g/dL (2.2-4.2); Glucose 95 mg/dL (70-99); Potassium 4.6 mmol/L (3.3-5.1); Vitamin D,25 Hydroxy 25.4 ng/mL (30-100)
== END | disposition home or self-care (01) ==
LOC: POLAB3 11:13
PROVIDERS: PCP Family Medicine Geriatric Medicine; Visit Provider Family Medicine Geriatric Medicine
DX: I10 Essential (primary) hypertension (principal); E55.9 Vitamin D deficiency, unspecified
CPT/HCPCS: 36415; 80053; 82306; 84443; 85025

== ENCOUNTER 2025-09-18 12:46 | Outpatient (RCR) | payer MEDICARE, OTHER, SELFPAY ==
[2025-08-22 12:45] LABS: INR Fingerstick 2.1
[2025-09-18 13:03] LABS: INR Fingerstick 1.6
== END 2025-09-18 18:00 | disposition home or self-care (01) ==
LOC: MTLAB 12:46
PROVIDERS: Family Provider Family Medicine Geriatric Medicine; PCP Family Medicine Geriatric Medicine; Referring Provider Nurse Practitioner Family; Visit Provider Nurse Practitioner Family
DX: Z79.01 Long term (current) use of anticoagulants (principal)
CPT/HCPCS: 36416; 85610

== ENCOUNTER 2025-10-13 12:56 | Outpatient (RCR) | payer MEDICARE, OTHER, SELFPAY ==
[2025-09-26 13:00] LABS: INR Fingerstick 2.0
[2025-10-13 13:10] LABS: INR Fingerstick 2.1
== END 2025-10-18 18:00 | disposition home or self-care (01) ==
LOC: MTLAB 12:56
PROVIDERS: Family Provider Family Medicine Geriatric Medicine; PCP Family Medicine Geriatric Medicine; Referring Provider Nurse Practitioner Family; Visit Provider Nurse Practitioner Family
DX: Z79.01 Long term (current) use of anticoagulants (principal)
CPT/HCPCS: 36416; 85610